=== PATIENT | male | born 1930 | race Caucasian/White ===

== ENCOUNTER 2016-10-03 06:12 | Inpatient (IN) | payer OTHER ==
[~2016-10-03] VITALS: Ht 167.6 cm; Wt 88.8 kg
--- NOTE | 2016-10-03 06:16 | NUR ---
TRIAGE: BIBA FROM HOME W/ FAMILY, +SOB, HX COPD AAND 4L NC BASELINE. ATIENT O2:88% 4LNC ON EMS ARRIVAL, O2:96% 4LNC S/P DUONEB X1. PREHOSP IV #20 LEFT FOREARM BY PEDIATRIC HOSPITALIST ROB. GIUSEPPE ROUSSEAU AT BEDSIDE.
[2016-10-03] MEDS ORDERED: ASPIRIN81 M4 PO (06:17)
[2016-10-03] MEDS ORDERED: IPRAT-ALBUT 0.5-3 ML NEB (06:18)
[2016-10-03] MEDS ORDERED: BUDESONIDE0.25 MG/1 INH/SOL (06:18)
[2016-10-03] MEDS ORDERED: COLCRYS0.6 M1 PO (06:19)
[2016-10-03] MEDS ORDERED: CITRACAL SOFT1 EACH PO (06:19)
[2016-10-03] MEDS ORDERED: FISH OIL 1,0001 EACH PO (06:20)
[2016-10-03] MEDS ORDERED: GLUCOSAMINE CO1 EAC1 PO (06:21)
[2016-10-03] MEDS ORDERED: CENTRUM SILVER1 EAC3 PO (06:23)
[2016-10-03] MEDS ORDERED: OXYBUTYNIN CHLO10 M1 PO (06:23)
[2016-10-03] MEDS ORDERED: TERAZOSIN HCL5 M1 PO (06:24)
[2016-10-03] MEDS ORDERED: PREDNISONE5 M1 PO (06:24)
[2016-10-03] MEDS ORDERED: POTASSIUM CHLO20 ME2 PO (06:25)
[2016-10-03] MEDS ORDERED: VITAMIN C500 M7 PO (06:25)
[2016-10-03] MEDS ORDERED: OMEPRAZOLE40 M1 PO (06:25)
[2016-10-03] MEDS ORDERED: FUROSEMIDE40 M1 PO (06:26)
[2016-10-03] MEDS ORDERED: IOPHEN C NR PO (06:27)
--- NOTE | 2016-10-03 06:28 | ED DYSPNEA/ASTHMA COMPLAINT ---
History of Present Illness General Chief Complaint: Dyspnea (COPD, CHF, Other) Stated Complaint: BIBA PT C/O DIFF BREATHING Source: patient, family, old records, EMS Exam Limitations: no limitations Vital Signs & Intake/Output Vital Signs & Intake/Output Vital Signs Date Time Temp Pulse Resp B/P B/P Pulse O2 O2 Flow FiO2 Mean Ox Delivery Rate 10/03 0629 94 Nasal 6.0L Cannula 10/03 0627 97.8 70 22 155/70 94 Nasal 6.0L Cannula Allergies Coded Allergies: NO KNOWN ALLERGIES (08/29/12) Reconcile Medications Ascorbic Acid (Vitamin C) 500 MG CAPSULE.ER 1 CAP PO 2XW VITAMIN SUPPLEMENT ( Reported) Aspirin (Aspirin*) 81 MG TAB.CHEW 1 TAB PO DAILY HEART HEALTH (Reported) Budesonide 0.25 MG/2 ML AMPUL.NEB 1 Vial INH/SOLITARIO TID PRN OB, COPD (Reported) Calcium Carb/Vitamin D3/Vit K1 (Citracal Soft Chew) 500 MG CALCIUM-1,000 UNIT-40 MCG TAB.CHEW 1 TAB PO DAILY VITAMIN SUPPLEMENT (Reported) Colchicine (Colcrys) 0.6 MG TABLET 1 TAB PO DAILY GOUT (Reported) [FISH OIL] 1,000 MG CAP 1 TAB PO DAILY VITAMIN SUPLEMENT (Reported) Furosemide 40 MG TABLET 0.5 TAB PO DAILY FLUID (Reported) Glucosamine/D3/Boswellia Chey (Glucosamine Complex Tablet) 1,500 MG-400 UNIT- 100 MG TABLET 2 TAB PO DAILY VITAMIN SUPPLEMENT (Reported) [IOPHEN- C NR] 1 TSP PO BEDTIME (Reported) Ipratropium/Albuterol Sulfate (Iprat-Albut 0.5-3(2.5) MG/3 Ml) 0.5 MG-3 MG (2.5 MG BASE)/3 ML AMPUL.NEB 3 ML NEB TID PRN SOB, COPD (Reported) Multivit-Min/FA/Lycopen/Lutein (Centrum Silver Tablet) 0.4 MG-300 MCG-250 MCG TABLET 1 TAB PO VITAMIN SUPPLEMENT (Reported) *TWICE PER WEEK Omeprazole 40 MG CAPSULE.DR 1 CAP PO DAILY GERD (Reported) Oxybutynin Chloride (Oxybutynin Chloride ER) 10 MG TAB.ER.24 1 TAB PO DAILY (Reported) Potassium Chloride 20 MEQ TAB.ER.PRT 0.5 TAB PO DAILY SUPPLEMENT (Reported) Prednisone 5 MG TABLET 1 TAB PO EOD SOB, COPD (Reported) Terazosin HCl 5 MG CAPSULE 1 CAP PO QPM (Reported) Triage Note: TRIAGE: BIBA FROM HOME W/ FAMILY, +SOB, HX COPD AAND 4L NC BASELINE. ATIENT O2:88% 4LNC ON EMS ARRIVAL, O2:96% 4LNC S/P DUONEB X1. PREHOSP IV #20 LEFT FOREARM BY [facility] ROB. GIUSEPPE ROUSSAEU AT BEDSIDE. Triage Nurses Notes Reviewed? yes HPI: Patient has O2 dependent COPD. Patient is usually on 2-3 L at home. The past week and a half he's been having increasing shortness of breath and wheezing. Patient saw Dr. Arzate last week who put him on antibiotics, steroids and told him to increase his oxygen to 4 L/m. Patient has been continuing to decline. Patient has a chronic productive cough. Positive shortness of breath and dyspnea on exertion. No orthopnea. Positive chest tightness but no chest heaviness. The chest tightness is constant for the past 2 days. There is no radiation. No aggravating or mitigating factors. He rates it as 3 out of 10. There are no fevers or chills. Positive anorexia but no nausea or vomiting. Past History Medical History Any Pertinent Medical History? see below for history Cardiovascular: hypertension, hyperlipidemia Respiratory: COPD History of MRSA: No History of VRE: No History of CDIFF: No Surgical History Surgical History: non-contributory Psychosocial History Who do you live with Family Services at Home None What is your primary language Tunisian Tobacco Use: Quit >30 days ago ETOH Use: denies use Illicit Drug Use: denies illicit drug use Family History Hx Contributory? No Review of Systems Review of Systems Constitutional: Reports: see HPI. EENTM: Reports: no symptoms. Respiratory: Reports: see HPI, cough, short of breath, wheezing. Cardiovascular: Reports: see HPI, chest pain. GI: Reports: see HPI. Genitourinary: Reports: no symptoms. Musculoskeletal: Reports: no symptoms. Skin: Reports: no symptoms. Neurological/Psychological: Reports: no symptoms. Hematologic/Endocrine: Reports: no symptoms. Immunologic/Allergic: Reports: no symptoms. All Other Systems: Reviewed and Negative Physical Exam Physical Exam General Appearance: well developed/nourished, alert, awake, anxious, moderate distress Head: atraumatic, normal appearance Eyes: Bilateral: PERRL, EOMI. Ears, Nose, Throat: normal pharynx, normal ENT inspection Neck: normal inspection, supple, full range of motion, JVD Respiratory: decreased breath sounds, wheezing, respiratory distress Cardiovascular: regular rate/rhythm, normal peripheral pulses Gastrointestinal: normal bowel sounds, soft, non-tender, no organomegaly Extremities: normal inspection, normal capillary refill, pedal edema Neurologic/Psych: no motor/sensory deficits, awake, alert, oriented x 3, normal mood/affect Skin: intact, normal color, warm/dry Lymphatic: no anterior cervical maryam Core Measures ACS in differential dx? No Severe Sepsis Present: No Septic Shock Present: No Progress Differential Diagnosis: asthma, AMI, bronchitis, CHF, COPD, pulmonary embolism, pneumonia, pneumothorax Plan of Care: Orders Procedure Date/time Status Regular Diet 10/03 L Active LACTIC ACID 10/03 926 Active OXYGEN SETUP (GEN) 10/03 713 Active Saline Lock 10/03 713 Active Misc Message 10/03 713 Active ED Holding Orders 10/03 713 Active Vital Signs 10/03 713 Active Activity/Ambulation 10/03 713 Active Code Status 10/03 713 Active Patient Data 10/03 0656 Active Admit to inpatient 10/03 0654 Active ARTERIAL BLOOD GAS (GEN) 10/03 626 Complete XRY-PORTABLE CHEST XRAY 10/03 626 Active Telemetry/Occupational Therapy Assist 10/03 626 Active BLOOD CULTURE 10/03 626 Active URINALYSIS 10/03 626 Active TROPONIN LEVEL 10/03 626 Active LACTIC ACID 10/03 626 Active COMPREHENSIVE METABOLIC PANEL 10/03 626 Active CBC WITHOUT DIFFERENTIAL 10/03 626 Complete B-TYPE NATRIURETIC PEP (BNP) 10/03 626 Active EKG 10/03 06 Active Laboratory Tests 10/03/16 0635: pH 7.42, pCO2 63 *H, pO2 65 L, HCO3 40 H, ABG O2 Sat (Measured) 92.0 L, P-50 (Temp Corrected) Y, Carboxyhemoglobin 0.2 L, O2 Concentration % 6 LPM, Temperature 97.8, O2 Delivery Method N/C, Phlebotomy Draw Site RIGHT RADIAL 10/03/16 0629: Anion Gap 8, Estimated GFR > 60, BUN/Creatinine Ratio 27.5 H, Glucose 186 H, Lactic Acid 1.7, Calcium 8.9, Total Bilirubin 0.7, AST 19, ALT 27, Alkaline Phosphatase 43, Troponin I Pending, [id number]-Vsqrcktaqek Pept Pending, Total Protein 6.5, Albumin 3.5, Globulin 3.0, Albumin/Globulin Ratio 1.2, CBC w Diff MAN DIFF ORDERED, RBC 3.01 L, MCV 107.0 H, MCH 35.0 H, RDW 16.7 H, MPV 8.9, Gran % 88.4 H, Lymphocytes % 9.6 L, Monocytes % 1.8, Eosinophils % 0.1, Basophils % 0.1, Absolute Granulocytes 6.1, Segmented Neutrophils 84 H, Band Neutrophils 7 H, Absolute Lymphocytes 0.7 L, Lymphocytes 9 L, Absolute Monocytes 0.1 L, Absolute Eosinophils 0, Absolute Basophils 0, Platelet Estimate ADEQUATE, Polychromasia 1+, Hypochromic-Microcytic 1+, Poikilocytosis 1 +, Anisocytosis 1+, Ovalocytes 1+, PUBS MCHC 32.7 L Microbiology 10/03 641 BLOOD: Blood Culture - RECD 10/03 629 BLOOD: Blood Culture - RECD Diagnostic Imaging: Viewed by Me: Radiology Read. Discussed w/RAD: Radiology Read. Initial ED EKG: SR WITH OLD ANTERIOR WALL MS, NSSTT CHANGES, NO CHANGE FROM PRIOR EKG Prior EKG: unchanged Rhythm Strip: normal sinus rhythm Comments: ABG shows respiratory acidosis with metabolic compensation. Patient has a history of Pseudomonas pneumonia. Patient will be given Ceftazidine. Departure Departure Disposition: STILL A PATIENT Condition: Guarded Clinical Impression Primary Impression: COPD exacerbation Referrals: YAYA ORTEGA,CJ Greene (PCP/Family) Departure Forms: Customer Survey General Discharge Information Admission Note Spoke With: CHALO LYNN MD Documentation of Exam: Documentation of any treatments & extenuating circumstances including Concerns Regarding Discharge (functional status, medication knowledge or non-compliance, living conditions, etc.) that warrant an admission rather than observation: [ Patient has failed outpatient antibiotics outpatient steroids. Patient to be admitted for IV steroids and IV antibiotics. Pulmonary consultation. TRC.] Critical Care Note Critical Care Note Critical Care Time: non-applicable
--- NOTE | 2016-10-03 06:33 | NUR ---
LABS SENT (1SST,1LAV,1BLUE,1GRAY) 1ST SET BC SENT TO LAB
[2016-10-03 06:38] LABS: ABSOLUTE BASOPHIL COUNT 0 /CUMM (0.0-0.2); ABSOLUTE EOSINOPHIL COUNT 0 /CUMM (0.0-0.7); ABSOLUTE GRANULOCYTE CT 6.1 /CUMM (1.4-6.5); ABSOLUTE LYMPH COUNT 0.7 /CUMM (1.2-3.4); ABSOLUTE MONOCYTE COUNT 0.1 /CUMM (0.10-0.60); BASOPHIL % 0.1 % (0.0-2.0); EOSINOPHIL % 0.1 % (0-5); HEMATOCRIT 32.2 % (42-52); MEAN CORPUSCULAR HGB CONC 32.7 G/DL (33.0-37.0); MEAN PLATELET VOLUME 8.9 FL (7.4-10.4); PLATELET COUNT 209 /CUMM (130-400); RBC DISTRIBUTION WIDTH 16.7 % (11.5-14.5); RED BLOOD CELL CT 3.01 /CUMM (4.70-6.10); WHITE BLOOD CELL COUNT 6.9 /CUMM (4.8-10.8)
[2016-10-03 06:40] LABS: GRANULOCYTE % 88.4 % (42.2-75.2)
--- NOTE | 2016-10-03 06:52 | NUR ---
PT MEDICATED WITH SOLUMEDROL AND FORTAZ PER [facility]AR PORTABLE CHEST XRAY BEING DONE AT BEDSIDE
--- NOTE | 2016-10-03 07:39 | RADIOLOGY REPORT ---
EXAMINATION: XR PORTABLE CHEST CLINICAL INFORMATION: Shortness of breath, pneumonia COMPARISON: 08/20/2015 and multiple additional prior studies. TECHNIQUE: Portable AP view of the chest was obtained. FINDINGS: Significant interval increase in bilateral pleural effusions, moderate on the left and small on the right. There is consolidation of the lung bases, also increased since the prior study. No evidence of pneumothorax bilaterally. The cardiomediastinal silhouette is poorly evaluated due to the volume of left pleural effusion. Atherosclerosis aortic knob. Degenerative changes of the shoulders. No acute osseous abnormality. IMPRESSION: Increased moderate left and small right pleural effusions with associated bibasilar consolidations, which are likely on the basis of compressive atelectasis with possible superimposed infectious process, as suggested in the clinical information provided.
--- NOTE | 2016-10-03 07:53 | History & Physical ---
BALBIR CAST 10/03/16 0752: General Information and HPI MD Statement: I have seen and personally examined ELENA QUICK and documented this H&P. The patient is a 85 year old M who presented with a patient stated chief complaint of [increasing short of breath]. Source of Information: patient, family, old records Exam Limitations: no limitations History of Present Illness: 85-year-old gentleman was brought in with a complaint of increasing shortness of breath. 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 Patient lives with his family/ uses walker for ambulation/ spent most of the day in a recliner. For the past 7 days patient had worsening short of breath accompanied with cough and increase in phlegm production and change in color from white to green yellow. Overdistention of 7 days, patient's nebulizer and oxygen demand increased (from 2.5 L to 4 L) however patient remained hypoxic (O2 sat about 80%). On Sunday patient visited Dr. Arzate in his office and was restarted on by mouth prednisone 40 mg for 5 days and ?? Moxifloxacin for 7 days which minimally improves his symptoms. This morning patien was winded and decided to come to ED. he denies any fever, shaking chills, joint pain, GI/ symptoms, chest pain, palpitation, no worsening edema, no recent weight gain. No recent travel/ family members URI symptoms for the past few days. Former heavy smoker 2PPD X40 years, quit 20 years ago, history of COPD and lung cancer in first-degree relatives. Allergies/Medications Allergies: Coded Allergies: NO KNOWN ALLERGIES (08/29/12) Home Med list Ascorbic Acid (Vitamin C) 500 MG CAPSULE.ER 1 CAP PO 2XW VITAMIN SUPPLEMENT ( Reported) Aspirin (Aspirin*) 81 MG TAB.CHEW 1 TAB PO DAILY HEART HEALTH (Reported) Budesonide 0.25 MG/2 ML AMPUL.NEB 1 Vial INH/SOLITARIO TID PRN OB, COPD (Reported) Calcium Carb/Vitamin D3/Vit K1 (Citracal Soft Chew) 500 MG CALCIUM-1,000 UNIT-40 MCG TAB.CHEW 1 TAB PO DAILY VITAMIN SUPPLEMENT (Reported) Colchicine (Colcrys) 0.6 MG TABLET 1 TAB PO DAILY GOUT (Reported) [FISH OIL] 1,000 MG CAP 1 TAB PO DAILY VITAMIN SUPLEMENT (Reported) Furosemide 40 MG TABLET 0.5 TAB PO DAILY FLUID (Reported) Glucosamine/D3/Boswellia Chey (Glucosamine Complex Tablet) 1,500 MG-400 UNIT- 100 MG TABLET 2 TAB PO DAILY VITAMIN SUPPLEMENT (Reported) [IOPHEN- C NR] 1 TSP PO BEDTIME (Reported) Multivit-Min/FA/Lycopen/Lutein (Centrum Silver Tablet) 0.4 MG-300 MCG-250 MCG TABLET 1 TAB PO VITAMIN SUPPLEMENT (Reported) *TWICE PER WEEK Omeprazole 40 MG CAPSULE.DR 1 CAP PO DAILY GERD (Reported) Oxybutynin Chloride (Oxybutynin Chloride ER) 10 MG TAB.ER.24 1 TAB PO DAILY (Reported) Potassium Chloride 20 MEQ TAB.ER.PRT 0.5 TAB PO DAILY SUPPLEMENT (Reported) Prednisone 5 MG TABLET 1 TAB PO EOD SOB, COPD (Reported) Terazosin HCl 5 MG CAPSULE 1 CAP PO QPM (Reported) Compliance With Home Meds: GOOD Past History Travel History Traveled to [place] past 21 day No Medical History Cardiovascular: hypertension, hyperlipidemia Respiratory: COPD Gastrointestinal: GERD Renal: benign prost hyperplasia Musculoskeletal: gout, osteoarthritis History of MRSA: No History of VRE: No History of CDIFF: No Surgical History Surgical History: non-contributory Past Family/Social History Family History Relations & Conditions if any BROTHER (lung CA). FATHER (bronchitis). MOTHER (breast CA). Psychosocial History Where do you live? Home Who Do You Live With? child Services at Home: None Primary Language: Ukrainian ETOH Use: denies use Illicit Drug Use: denies illicit drug use Functional Ability ADLs Independent: dressing, eating, toileting, bathing. Ambulation: non-ambulatory, rarely ambulated and uses walker IADLs Independent: telephone. Needs Assist: shopping, housework, finances, food prep, transportation, medication admin. Review of Systems Review of Systems Constitutional: Reports: see HPI. Cardiovascular: Reports: see HPI. Denies: chest pain, edema, orthopena, palpitations, peripheral edema, syncope. Respiratory: Reports: see HPI, cough, short of breath, sputum production. Denies: hemoptysis , orthopnea, stridor, wheezing. GI: Reports: no symptoms. Genitourinary: Reports: no symptoms. Musculoskeletal: Reports: no symptoms. Neurological/Psychological: Reports: no symptoms. All Other Systems: Reviewed and Negative Exam & Diagnostic Data Last 24 Hrs of Vital Signs/I&O Vital Signs Date Time Temp Pulse Resp B/P B/P Pulse O2 O2 Flow FiO2 Mean Ox Delivery Rate 10/03 0629 94 Nasal 6.0L Cannula 10/03 0627 97.8 70 22 155/70 94 Nasal 6.0L Cannula Intake & Output 10/03 0800 10/03 0000 10/02 1600 Intake Total Output Total Balance Patient 190 lb Weight Physical Exam General Appearance Alert, Oriented X3, Cooperative, Mild Distress Skin No Rashes Skin Temp/Moisture Exam: Warm/Dry Sepsis Skin Exam (color): Normal for Ethnicity HEENT MM are dry Neck Supple, No JVD Lymphatic Axillary nl, Cervical nl Cardiovascular Normal S1, Normal S2, No Murmurs Lungs diminished air movement , end expiratory wheezing , no crackle Abdomen Soft Neurological Normal Speech Extremities No Clubbing, No Cyanosis Vascular Normal Pulses Last 24 Hrs of Labs/Nikolas: Laboratory Tests 10/03/16 0635: pH 7.42, pCO2 63 *H, pO2 65 L, HCO3 40 H, ABG O2 Sat (Measured) 92.0 L, P-50 (Temp Corrected) Y, Carboxyhemoglobin 0.2 L, O2 Concentration % 6 LPM, Temperature 97.8, O2 Delivery Method N/C, Phlebotomy Draw Site RIGHT RADIAL 10/03/16 0629: Anion Gap 8, Estimated GFR > 60, BUN/Creatinine Ratio 27.5 H, Glucose 186 H, Lactic Acid 1.7, Calcium 8.9, Total Bilirubin 0.7, AST 19, ALT 27, Alkaline Phosphatase 43, Troponin I 0.06, Deq-M-Dhnytrsxmuj Pept 732 H, Total Protein 6.5, Albumin 3.5, Globulin 3.0, Albumin/Globulin Ratio 1.2, CBC w Diff MAN DIFF ORDERED, RBC 3.01 L, MCV 107.0 H, MCH 35.0 H, RDW 16.7 H, MPV 8.9, Gran % 88.4 H, Lymphocytes % 9.6 L, Monocytes % 1.8, Eosinophils % 0.1, Basophils % 0.1, Absolute Granulocytes 6.1, Segmented Neutrophils 84 H, Band Neutrophils 7 H, Absolute Lymphocytes 0.7 L, Lymphocytes 9 L, Absolute Monocytes 0.1 L, Absolute Eosinophils 0, Absolute Basophils 0, Platelet Estimate ADEQUATE, Polychromasia 1+, Hypochromic-Microcytic 1+, Poikilocytosis 1+, Anisocytosis 1+, Ovalocytes 1+, PUBS MCHC 32.7 L Microbiology 10/03 641 BLOOD: Blood Culture - RECD 10/03 629 BLOOD: Blood Culture - RECD Assessment/Plan Assessment: 85-year-old gentleman was admitted for acute hypoxic hypercapnic respiratory failure. Patient data: ABG: PCO2 63, PO2 65, pH 7.42 WBC 6.9 with left shift and bands of 7, hemoglobin 10.5, hematocrit 32 MCV 107 Sodium 138, potassium 4.7, ongoing H, BUN 22, creatinine 0.8, BUN/creatinine ratio 27 ProBNP 732 Chest x-ray: Increased moderate left and small right pleural effusions with associated bibasilar consolidations, which are likely on the basis of compressive atelectasis with possible superimposed infectious process. Pneumonia severity index: 95 class 4; 10% mortality CURB-65: score 2>> 13% mortality List of problems #1 worsening short of breath: DDX: Most possibly related to COPD exacerbation secondary to pneumonia ( bandemia, left shift and consolidation + respiratory symptoms) Vs increasing plueral effusion with prior Hx of mass (??? cancer) or exacerbation of pre-existing right sided heart failure. Patient also has evidence of increased in amount of left and small right pleural effusion with elevated proBNP without history of heart failure. Physical exam patient does not have findings of AD HF, but this diagnosis, particularly right-sided heart failure is a considerable diagnosis considering case end stage COPD.Elevated proBNP without history of heart failure in the setting of advanced COPD and chronic leg edema which is suggestive of right heart failure. Chest imaging showed increasing bilateral pleural effusions. * Admit to general medical floor * IV ceftriaxone 1000 mg daily * IV ceftriaxone 500 mg daily * IV prednisone 40 mg Q8 * Albuterol nebulizer 2.5 mg every 4 as needed * Ipratropium bromide 2.5 mL every 4 as needed * O2 supplements targets O2 saturation above 90-93% * Sputum culture * Flu swab * Urine streptococcal and Legionella antigen * Insulin sliding scale for hyperglycemia * Pulmonology consult with Dr. Huey * Continue Lasix 20 mg po * Obtain CT scan of the chest * ins and outs * Daily weights * Obtain echo as needed * rule out ACS >> Repeat troponin and EKG at noon As Ranked By This Provider Problem List: 1. Bacterial pneumonia 2. COPD exacerbation 3. Pleural effusion Core Measures/Miscellaneous Acute Coronary Syndrome ACS Diagnosis: No Cerebrovascular Accident CVA/TIA Diagnosis: No Congestive Heart Failure CHF Diagnosis: No Venous Thromboembolism VTE Risk Factors: Acute medical illness, Age > 40, CHF or Resp failure, Immobility, paresis No [facility] VTE prophylaxis d/t: No contraindications No VTE Pharm Prophylaxis d/t: No contraindications VTE Diagnosis: No VTE Type: NONE VTE Confirmed by (Test): NONE Severe Sepsis Severe Sepsis Present: No Septic Shock Septic Shock Present: No Miscellaneous Documentation Attending Case Discussed With: CHALO LYNN MD Primary Care Physician: CJ JAVIER MD Patient sees these Specialists ED physician Level of Patient Care: General Medicine Resident Review Statement Resident Statement: examined this patient, discussed with biology intern, agreed with biology intern, discussed with family, reviewed EMR data (avail), discussed with nursing , discussed with case mgmt, reviewed images, amended to note CHALO LYNN MD 10/03/16 0943: Attending MD Review Statement Attending Statement Attending MD Statement: examined this patient, discuss w/resident/PA/SOFTWARE LICENSING SPECIALIST, agreed w/resident/PA/SOFTWARE LICENSING SPECIALIST, discussed with family, reviewed EMR data (avail), discussed with nursing Attending Assessment/Plan: Patient on evaluation is awake and alert. On oxygen and not in respiratory distress. General Appearance: Alert, No Acute Distress Skin: Grossly normal HEENT: PEERLA Neck: Supple, No JVD Cardiovascular: Regular Rate, Normal S1, Normal S2, No Murmurs Lungs: Minimal wheeze, decreased air entry Abdomen: Normal Bowel Sounds, Soft, No Tenderness Neurological: Normal Speech, Strength at 5/5 X4 Ext, Cranial Nerves 3-12 NL, Reflexes 2+ Extremities: 1+ pedal edema left more than right Assessment 85-year-old with history of COPD oxygen dependent, a large left-sided paramediastinal mass, rheumatoid arthritis, presenting with shortness of breath and productive sputum. He followed up with Toni Arzate MD recently and was started on moxifloxacin and prednisone taper. However patient continued to deteriorate from respiratory viewpoint requiring high flow oxygen and hence presented to the ER. X-ray shows right moderate and minimal left pleural effusion. Possible atelectasis versus pneumonia. ABG suggest hypoxic and hypercarbic respiratory failure. Likely patient has pneumonia with COPD exacerbation. He does not appear to be in overt heart failure however low-dose diuresis may be of benefit with his chronic edema. Plan Ceftriaxone and azithromycin Solu-Medrol Send sputum culture Pulmonary and cardiology consult Lasix 20 mg IV once daily Insulin sliding scale with accucheks Continue other home medications DVT prophylaxis Current Medications Sig/Kyra Start time Last Medication Dose Route Stop Time Status Admin Acetaminophen 650 MG Q6P PRN 10/03 0900 AC PO Acetaminophen 1,000 MG Q6P PRN 10/03 0900 AC IV Ascorbic Acid 500 MG DAILY 10/03 1000 AC PO Aspirin 81 MG DAILY 10/03 1000 AC PO Azithromycin 500 MG DAILY 10/03 1000 AC Sodium Chloride 250 ML IV Budesonide/ 2 PUF BID 10/03 1000 AC Formoterol Fumarate INH Calcium/Vitamin D 1 TAB DAILY 10/03 1000 AC PO Ceftazidime 0 .STK-MED ONE 10/04 647 DC .ROUTE Ceftazidime 1,000 MG ONCE ONE 10/03 0645 DC 10/03 IV 10/03 0646 0652 Ceftriaxone Sodium 1,000 MG DAILY 10/03 1000 AC IV Doxazosin Mesylate 2 MG DAILY 10/03 1000 AC PO Fish Oil 1,050 MG DAILY 10/03 1000 AC PO Furosemide 20 MG DAILY 10/03 1000 AC PO Ipratropium [place] 2.5 ML ONCE ONE 10/03 0830 DC 10/03 INH 10/03 0831 0900 Methylprednisolone 40 MG Q8 10/03 1400 AC IV Methylprednisolone 0 .STK-MED ONE 10/03 0548 DC .ROUTE Methylprednisolone 125 MG ONCE ONE 10/03 0645 DC 10/03 IV 10/03 0646 0652 Multivitamins 1 TAB DAILY 10/03 1000 AC PO Omeprazole 0 .STK-MED ONE 10/03 0918 DC PO Omeprazole 40 MG DAILY AC 10/03 0833 AC PO Oxybutynin Chloride 10 MG DAILY 10/03 1000 UNVr PO Potassium Chloride 10 MEQ DAILY 10/03 1000 AC PO Laboratory Tests 10/03 10/03 0635 0629 Blood Gas pH (7.35 - 7.45 PH) 7.42 pCO2 (35 - 45 TORR) 63 *H pO2 (80 - 100 TORR) 65 L HCO3 (21 - 28 MEQ/L) 40 H ABG O2 Sat (Measured) (>96.0 %) 92.0 L P-50 (Temp Corrected) Y Carboxyhemoglobin (1.5 - 5.0 %) 0.2 L O2 Concentration % 6 LPM Temperature (97.0 - 100.0 FARH) 97.8 O2 Delivery Method N/C Chemistry Sodium (137 - 145 mmol/L) 138 Potassium (3.5 - 5.1 mmol/L) 4.7 Chloride (98 - 107 mmol/L) 87 L Carbon Dioxide (22 - 30 mmol/L) 43 H Anion Gap (5 - 16) 8 BUN (9 - 20 mg/dL) 22 H Creatinine (0.7 - 1.2 mg/dL) 0.8 Estimated GFR (>60 ml/min) > 60 BUN/Creatinine Ratio (7 - 25 %) 27.5 H Glucose (65 - 99 mg/dL) 186 H Lactic Acid (0.7 - 2.1 mmol/L) 1.7 Calcium (8.4 - 10.2 mg/dL) 8.9 Total Bilirubin (0.2 - 1.3 mg/dL) 0.7 AST (17 - 59 U/L) 19 ALT (21 - 72 U/L) 27 Alkaline Phosphatase (< 127 U/L) 43 Troponin I (<0.11 ng/ml) 0.06 Vio-C-Pddumbkcwli Pept (<125 pg/mL) 732 H Total Protein (6.3 - 8.2 g/dL) 6.5 Albumin (3.5 - 5.0 g/dL) 3.5 Globulin (1.9 - 4.2 gm/dL) 3.0 Albumin/Globulin Ratio (1.1 - 2.2 %) 1.2 Hematology CBC w Diff MAN DIFF ORDERED WBC (4.8 - 10.8 /CUMM) 6.9 RBC (4.70 - 6.10 /CUMM) 3.01 L Hgb (14.0 - 18.0 G/DL) 10.5 L Hct (42 - 52 %) 32.2 L MCV (80.0 - 94.0 FL) 107.0 H MCH (27.0 - 31.0 PG) 35.0 H RDW (11.5 - 14.5 %) 16.7 H Plt Count (130 - 400 /CUMM) 209 MPV (7.4 - 10.4 FL) 8.9 Gran % (42.2 - 75.2 %) 88.4 H Lymphocytes % (20.5 - 51.1 %) 9.6 L Monocytes % (1.7 - 9.3 %) 1.8 Eosinophils % (0 - 5 %) 0.1 Basophils % (0.0 - 2.0 %) 0.1 Absolute Granulocytes (1.4 - 6.5 /CUMM) 6.1 Segmented Neutrophils (42.2 - 75.2 %) 84 H Band Neutrophils (0.0 - 5.0 %) 7 H Absolute Lymphocytes (1.2 - 3.4 /CUMM) 0.7 L Lymphocytes (20.5 - 51.1 %) 9 L Absolute Monocytes (0.10 - 0.60 /CUMM) 0.1 L Absolute Eosinophils (0.0 - 0.7 /CUMM) 0 Absolute Basophils (0.0 - 0.2 /CUMM) 0 Platelet Estimate (ADEQUATE) ADEQUATE Polychromasia 1+ Hypochromic-Microcytic 1+ Poikilocytosis 1+ Anisocytosis 1+ Ovalocytes 1+ PUBS MCHC (33.0 - 37.0 G/DL) 32.7 L Miscellaneous Phlebotomy Draw Site RIGHT RADIAL Vital Signs Date Time Temp Pulse Resp B/P B/P Pulse O2 O2 Flow FiO2 Mean Ox Delivery Rate 10/03 0915 96 Nasal 5.0L Cannula 10/03 628 94 Nasal 6.0L Cannula 10/03 626 97.8 70 22 155/70 94 Nasal 6.0L Cannula
--- NOTE | 2016-10-03 08:06 | NUR ---
ASSUMED CARE OF PT AT THIS TIME WHO IS AWAKE, ALERT AND CONVERSING WITH FAMILY. SAT 96% ON 6L. VERY CONGESTED NON PRODUCTIVE COUGH NOTED. PT ASKING FOR AND PROVIDED WITH WATER. ALSO ASKING FOR BREAKFAST - ORDERED AT THIS TIME; OK WITH MD, DIET ORDER IN. AWAITING ADMISSION/BED ASSIGNMENT TODAY
--- NOTE | 2016-10-03 09:22 | NUR ---
BREATHING TX COMPLETED BY [facility]. FLU SWAB SENT. PT GIVEN STERILE CUP FOR SPUTUM SAMPLE. PT MADE AWARE OF NEED FOR URINE SAMPLE. REMAINS WITHOUT COMPLAINTS AT THIS TIME. PT EATING BREAKFAST; HOUSE STAFF (DR LYNN) AT THE BEDSIDE. PT REFUSED PRILOSEC STATING IT WAS A PRN MED AND HE HASN'T NEEDED IT IN MONTHS. DR LYNN AWARE OF SAME.
--- NOTE | 2016-10-03 09:34 | Admission Certification ---
Admission Certification Certification Statement - As attending physician, I certify that at the time of - admission, based on clinical presentation, severity of - symptoms, need for further diagnostic testing and - therapeutic interventions, and risk of adverse outcomes - without in-hospital treatment, in my clinical assessment, - this patient requires an acute hospital stay for a minimum - of two nights or longer. I have also considered psychsocial - factors such as support system, advanced age, financial - issues, cognitive issues, and failed out-patient treatments, - past re-admission history, safety of patient, and lack of - compliance as applicable. Specific rationale supporting this admission is: Pneumonia
--- NOTE | 2016-10-03 10:02 | NUR ---
TO/FROM CT SCAN. PT ATE 100% BREAKFAST TRAY. REMAINS WITHOUT COMPLAINTS. SAT 94% ON 5L. ALPS PLACED PER ORDER. SPUTUM SAMPLE SENT. PT AWARE TO GIVE URINE SAMPLE WHEN ABLE.
--- NOTE | 2016-10-03 10:19 | NUR ---
pt admitted to room 233
--- NOTE | 2016-10-03 10:30 | NUR ---
PT MEDICATED WITH DAILY 1000 MEDS. DAUGHTER REFUSING CARDURA, K-DUR, LASIX AND FISH OIL AT THIS TIME STATING PT TAKES THEM AT NIGHT, LAST TOOK LAST NIGHT AND WOULD LIKE TO WAIT UNTIL THIS EVENING FOR THOSE. HOUSE STAFF PAGED TO INFORM OF SAME. PT TOOK REST OF MEDICATIONS WITHOUT HESITATING. MEDS INCLUDED ROCEPHIN. CONTINUES TO OFFER NO COMPLAINTS. SAT 93-95% ON 5L. ECHO AT BEDSIDE
--- NOTE | 2016-10-03 11:41 | NUR ---
TROP AND LACTIC SENT AT THIS TIME.
--- NOTE | 2016-10-03 11:48 | NUR ---
REPORT GIVEN TO 2N TRANSPORT BOOKED.
--- NOTE | 2016-10-03 12:11 | NUR ---
PT CONVERSING WITHOUT DIFFICULTY. SAT 94-95% ON 5L. PT CONTINUES TO OFFER NO COMPLAINTS. ZITHROMAX CONTINUES TO INFUSE. TRANSPORTED WITH FAMILY PRESENT.
--- NOTE | 2016-10-03 12:15 | NUR ---
PT ADMITTED FROM ER WITH DX: COPD EXACERBATION, PT ALERT, FORGETFUL, DENIES PAIN, O2 IN PLACE AT 5 LITERS VIS N/C, BUTTOCKS RED. BED ALARM PLACED FOR SAFETY. PT ORIENTED TO ROOM, CALL LIGHT AND PLAN OF CARE, PT VERBALIZES UNDERSTANDING.
[2016-10-03 12:31] VITALS: BP 118/60
--- NOTE | 2016-10-03 14:00 | CT SCAN REPORT ---
EXAMINATION: CT CHEST WITHOUT CONTRAST CLINICAL INFORMATION: Shortness of breath. Presumptive diagnosis of pleural effusion. COMPARISON: Chest x-ray dated 10/03/2016. CT scan of the chest dated 08/29/2012. TECHNIQUE: Multidetector volumetric CT imaging of the chest was done. Axial MIP volume rendering provided. Sagittal and coronal reformatted images were obtained. DLP: 531.56 mGy-cm FINDINGS: LUNGS: The findings on chest x-ray corresponds to volume loss and consolidation in the lower lobes bilaterally with prominent air bronchograms seen in the right lung base. These findings are unchanged dating back to 08/29/2012. There appears to be chronic extrinsic mass effect upon the lower lobe bronchi bilaterally due to enlarged pulmonary arteries. There is also mass effect upon the right middle lobe bronchus with volume loss in the right middle lobe. Upper lobe airways remain patent. There is a small amount of the right mainstem bronchus. Central airways otherwise unremarkable. There is moderate centrilobular emphysema seen and mild paraseptal emphysema. Several scattered calcified granulomas are seen in the lungs. In addition, several small scattered solid noncalcified nodules are seen, measuring up to 0 point for centimeters in size. In the right upper lobe anteriorly (series 4, image 184), a 0.6 x 0.3 cm nodular density is seen, new when compared to the prior exam from 2012. Small oubu-li-wiz-type nodular opacities is seen anteriorly and inferiorly within the right upper lobe (series 4, image 320), new from prior exam. No effusion or pneumothorax. LYMPHOVASCULAR STRUCTURES: Aortic and heart size normal. Trace pericardial effusion is seen, similar to the previous exam from 2012. There is severe three-vessel coronary artery atherosclerosis and moderate aortic and great vessel atherosclerosis. No mediastinal, hilar or axillary adenopathy or free fluid collection. Small calcified left hilar and mediastinal lymph nodes are seen. THYROID GLAND: Unremarkable to the extent included. UPPER ABDOMEN: There are 2 low-attenuation masses seen in the left lobe of the liver, the largest one measuring approximately 2 x 1.7 cm versus 1.9 x 2.0 cm (08/29/2012), consistent with a benign cyst. Included portions of the solid organs in the upper abdomen within normal limits. CHEST WALL: Again seen is asymmetric density in the subareolar left breast with a somewhat triangular shape. This is unchanged dating back to 08/29/2012 and is most consistent with asymmetric gynecomastia. Lesser degree of subareolar density is seen in the right breast. BONES: Multilevel moderate vertebral spondylosis seen in the thoracic spine. No suspicious bone findings seen. IMPRESSION: 1. Chronic mass effect upon the right middle lobe and both lower lobe bronchi is seen by an enlarged central pulmonary arteries leading to chronic volume loss and consolidation in these lobes. Compared to 2013, findings are very similar. Upper lobes remain relatively clear. Findings raise the suspicion of pulmonary arterial hypertension in the setting of obstructive lung disease. Clinical correlation requested. 2. Evidence of prior granulomatous disease with scattered calcified granulomas in the lungs and calcified nodes seen in the mediastinum and left hilum. 3. A few additional small nodular densities are seen, which are indeterminate in etiology, as not all of these are seen on the 2013 exam. Findings may represent an intercurrent inflammatory or infectious process (example the [id number]-type nodular opacities in the anterior inferior right upper lobe). Follow-up CT scan in 3 months is recommended to reassess the 0.6 x 0.3 cm nodule in the right upper lobe. 4. Enlarged central pulmonary arteries, consistent with pulmonary arterial hypertension. 4. Several other incidental findings as discussed above.
[2016-10-03 14:57] VITALS: BP 120/64
--- NOTE | 2016-10-03 16:46 | ECHOCARDIOGRAM REPORT ---
ELENA QUICK Age: 85 : 1930 Gender: M Exam Date: 10/03/2016 10:30 Exam Location: ER Ht (in): 66 Wt (lb): 190 BSA: 2.03 BP: 133 / 64 Ordering Physician: BALBIR CAST MD Referring Physician: BALBIR ACST MD Technologist: Zacarias Reagan ANDRA Room Number: 7 Indications: Shortness of breath Rhythm: Sinus Technical Quality: Fair FINDINGS Left Ventricle Normal size left ventricle. Left ventricular wall thickness mildly increased. Normal left ventricular ejection fraction estimated at 60-65%. Abnormal relaxation filling pattern of the left ventricle for age (stage 1 diastolic dysfunction). Right Ventricle Normal right ventricular size and function. Right Atrium Normal right atrial size. Left Atrium Normal left atrial size. Mitral Valve Mitral annular calcification. Trace to mild mitral regurgitation. Aortic Valve Diffuse thickening (sclerosis) of the aortic valve cusps without reduced excursion. Tricuspid Valve Tricuspid valve is normal in structure and function. Mild tricuspid regurgitation. Right ventricular systolic pressure estimated to be elevated at 64 mmHg. Pulmonic Valve Pulmonic valve not well visualized, grossly normal. Pericardium No pericardial effusion. Great Vessels Normal size aortic root. CONCLUSIONS Normal left and right ventricular systolic function. Mild LVH. Probably moderate Pulmonary hypertension. John Gonzalez M.D. (Electronically Signed) Final Date: 03 Oct 2016 16:45 MEASUREMENTS (Male / Female) Normal Values 2D ECHO LV Diastolic Diameter PLAX 5.5 cm 4.2 - 5.9 / 3.9 - 5.3 cm LV Systolic Diameter PLAX 4.6 cm 2.1 - 4.0 cm LV Fractional Shortening PLAX 16.4 % 25 - 46 % LV Ejection Fraction 2D Teich 34.0 % IVS Diastolic Thickness 1.5 cm LVPW Diastolic Thickness 1.3 cm LV Relative Wall Thickness 0.5 RV Internal Dim ED PLAX 4.4 cm 1.9 - 3.8 cm LVOT Diameter 2.1 cm Aortic Root Diameter 3.5 cm LA Systolic Diameter LX 3.3 cm 3.0 - 4.0 / 2.7 - 3.8 cm LA Volume 57.0 cm 18 - 58 / 22 - 52 cm Ascending Aorta Diameter 3.4 cm DOPPLER AV Peak Velocity 167.0 cm/s AV Peak Gradient 11.2 mmHg AV Mean Velocity 116.0 cm/s AV Mean Gradient 6.0 mmHg AV Velocity Time Integral 45.3 cm LVOT Peak Velocity 74.4 cm/s LVOT Peak Gradient 2.2 mmHg LVOT Mean Velocity 45.0 cm/s LVOT Mean Gradient 1.0 mmHg LVOT Velocity Time Integral 18.1 cm LVOT Stroke Volume 62.7 cm AV Area Cont Eq vti 1.4 cm AV Area Cont Eq pk 1.5 cm MV Peak Velocity 123.0 cm/s MV Peak Gradient 6.1 mmHg MV Mean Velocity 66.5 cm/s MV Mean Gradient 2.0 mmHg Mitral E Point Velocity 87.9 cm/s Mitral A Point Velocity 120.0 cm/s Mitral E to A Ratio 0.7 MV PHT Velocity 100.0 cm/s MV Deceleration [place] 336.0 cm/s MV Pressure Half Time 89.3 ms MV Area PHT 2.5 cm MV Deceleration Time 324.0 ms TR Peak Velocity 368.0 cm/s TR Peak Gradient 54.2 mmHg Right Atrial Pressure 10.0 mmHg Pulmonary Artery Systolic Pressu 64.2 mmHg Right Ventricular Systolic Press 64.2 mmHg PV Peak Velocity 114.0 cm/s PV Peak Gradient 5.2 mmHg PV Mean Velocity 85.0 cm/s PV Mean Gradient 3.0 mmHg PV Velocity Time Integral 25.3 cm LV E' Lateral Velocity 7.8 cm/s Mitral E to LV E' Lateral Ratio 11.3 LV E' Septal Velocity 4.7 cm/s Mitral E to LV E' Septal Ratio 18.8
--- NOTE | 2016-10-03 17:39 | Cons- Pulmonary ---
General Information and HPI Consulting Request Date of Consult: 10/03/16 Requested By: med team History of Present Illness: 85-year-old gentleman was brought in with a complaint of increasing shortness of breath. 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 Patient lives with his family/ uses walker for ambulation/ spent most of the day in a recliner. For the past 7 days patient had worsening short of breath accompanied with cough and increase in phlegm production and change in color from white to green yellow. patient's nebulizer and oxygen demand increased (from 2.5 L to 4 L) however patient remained hypoxic (O2 sat about 80%). On Sunday phe was seen in and was noted to be in acopde and was restarted on by mouth prednisone 40 mg for 5 days and po Moxifloxacin for 7 days which minimally improved his symptoms. This morning patien was winded and decided to come to ED. he denies any fever, shaking chills, joint pain, GI/ symptoms, chest pain, palpitation, no worsening edema, no recent weight gain. No recent travel/ family members URI symptoms for the past few days. Former heavy smoker 2PPD X40 years, quit 20 years ago, history of COPD and lung cancer in first-degree relatives. Review of Systems Review of Systems Constitutional: Reports: see HPI. Cardiovascular: Reports: see HPI. Denies: chest pain, edema, orthopena, palpitations, peripheral edema, syncope. Respiratory: Reports: see HPI, cough, short of breath, sputum production. Denies: hemoptysis , orthopnea, stridor, wheezing. GI: Reports: no symptoms. Genitourinary: Reports: no symptoms. Musculoskeletal: Reports: no symptoms. Neurological/Psychological: Reports: no symptoms. All Other Systems: Reviewed and Negative Allergies/Medications Allergies: Coded Allergies: NO KNOWN ALLERGIES (08/29/12) Home Med List: Ascorbic Acid (Vitamin C) 500 MG CAPSULE.ER 1 CAP PO 2XW VITAMIN SUPPLEMENT ( Reported) Aspirin (Aspirin*) 81 MG TAB.CHEW 1 TAB PO DAILY HEART HEALTH (Reported) Budesonide 0.25 MG/2 ML AMPUL.NEB 1 Vial INH/SOLITARIO TID PRN OB, COPD (Reported) Calcium Carb/Vitamin D3/Vit K1 (Citracal Soft Chew) 500 MG CALCIUM-1,000 UNIT-40 MCG TAB.CHEW 1 TAB PO DAILY VITAMIN SUPPLEMENT (Reported) Colchicine (Colcrys) 0.6 MG TABLET 1 TAB PO DAILY GOUT (Reported) [FISH OIL] 1,000 MG CAP 1 TAB PO DAILY VITAMIN SUPLEMENT (Reported) Furosemide 40 MG TABLET 0.5 TAB PO DAILY FLUID (Reported) Glucosamine/D3/Boswellia Chey (Glucosamine Complex Tablet) 1,500 MG-400 UNIT- 100 MG TABLET 2 TAB PO DAILY VITAMIN SUPPLEMENT (Reported) [IOPHEN- C NR] 1 TSP PO BEDTIME (Reported) Multivit-Min/FA/Lycopen/Lutein (Centrum Silver Tablet) 0.4 MG-300 MCG-250 MCG TABLET 1 TAB PO VITAMIN SUPPLEMENT (Reported) *TWICE PER WEEK Omeprazole 40 MG CAPSULE.DR 1 CAP PO DAILY GERD (Reported) Oxybutynin Chloride (Oxybutynin Chloride ER) 10 MG TAB.ER.24 1 TAB PO DAILY (Reported) Potassium Chloride 20 MEQ TAB.ER.PRT 0.5 TAB PO DAILY SUPPLEMENT (Reported) Prednisone 5 MG TABLET 1 TAB PO EOD SOB, COPD (Reported) Terazosin HCl 5 MG CAPSULE 1 CAP PO QPM (Reported) Past History Travel History Traveled to [place] past 21 day No Medical History Blood Transfusion Hx: No Neurological: NONE EENT: NONE Cardiovascular: hyperlipidemia Respiratory: COPD Gastrointestinal: GERD Hepatic: NONE Renal: benign prost hyperplasia Musculoskeletal: gout, osteoarthritis Psychiatric: NONE Endocrine: NONE Blood Disorders: NONE Cancer(s): 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 FATHER (bronchitis). MOTHER (breast CA). Psychosocial History Where Do You Live? Home Who Do You Live With? child Services at Home: None Primary Language: Divehi Smoking Status: Former Smoker ETOH Use: denies use Illicit Drug Use: denies illicit drug use Functional Ability ADLs Independent: dressing, eating, toileting, bathing. Ambulation: non-ambulatory, rarely ambulated and uses walker IADLs Independent: telephone. Needs Assist: shopping, housework, finances, food prep, transportation, medication admin. Exam & Diagnostic Data Last 24 Hrs of Vital Signs/I&O Vital Signs Date Time Temp Pulse Resp B/P B/P Pulse O2 O2 Flow FiO2 Mean Ox Delivery Rate 10/04 1599 Nasal 5.0L Cannula 10/03 1457 98.3 70 20 120/64 92 Nasal 6.0L Cannula 10/03 1231 98.0 82 20 118/60 94 Nasal 6.0L Cannula 10/03 1215 95 Nasal 5.0L Cannula 10/03 1148 82 18 95 Nasal 5.0L Cannula 10/03 1144 93 18 112/58 92 10/03 1001 97.9 66 16 133/64 94 Nasal 5.0L Cannula 10/03 0915 96 Nasal 5.0L Cannula 10/03 0629 94 Nasal 6.0L Cannula 10/03 0627 97.8 70 22 155/70 94 Nasal 6.0L Cannula Intake & Output 10/03 1600 10/03 0800 10/03 0000 Intake Total 300 Output Total 400 Balance -100 Intake, Oral 300 Output, Urine 400 Patient 195 lb 190 lb Weight Weight Reported by Patient Measurement Method Last 48 Hrs of Labs/Nikolas: Laboratory Tests 10/03/16 1400: Urine Color YEL, Urine Clarity CLEAR, Urine pH 6.5, Ur Specific [place] 1.010, Urine Protein NEG, Urine Ketones NEG, Urine Nitrite NEG, Urine Bilirubin NEG, Urine Urobilinogen 0.2, Ur Leukocyte Esterase NEG, Ur Microscopic EXAM NOT REQUIRED, Urine Hemoglobin NEG, Urine Glucose NEG 10/03/16 1131: Troponin I 0.05 10/03/16 0635: pH 7.42, pCO2 63 *H, pO2 65 L, HCO3 40 H, ABG O2 Sat (Measured) 92.0 L, P-50 (Temp Corrected) Y, Carboxyhemoglobin 0.2 L, O2 Concentration % 6 LPM, Temperature 97.8, O2 Delivery Method N/C, Phlebotomy Draw Site RIGHT RADIAL 10/03/16 0629: Anion Gap 8, Estimated GFR > 60, BUN/Creatinine Ratio 27.5 H, Glucose 186 H, Lactic Acid 1.7, Calcium 8.9, Total Bilirubin 0.7, AST 19, ALT 27, Alkaline Phosphatase 43, Troponin I 0.06, Cut-C-Xkuxrcuqpky Pept 732 H, Total Protein 6.5, Albumin 3.5, Globulin 3.0, Albumin/Globulin Ratio 1.2, CBC w Diff MAN DIFF ORDERED, RBC 3.01 L, MCV 107.0 H, MCH 35.0 H, RDW 16.7 H, MPV 8.9, Gran % 88.4 H, Lymphocytes % 9.6 L, Monocytes % 1.8, Eosinophils % 0.1, Basophils % 0.1, Absolute Granulocytes 6.1, Segmented Neutrophils 84 H, Band Neutrophils 7 H, Absolute Lymphocytes 0.7 L, Lymphocytes 9 L, Absolute Monocytes 0.1 L, Absolute Eosinophils 0, Absolute Basophils 0, Platelet Estimate ADEQUATE, Polychromasia 1+, Hypochromic-Microcytic 1+, Poikilocytosis 1+, Anisocytosis 1+, Ovalocytes 1+, PUBS MCHC 32.7 L Microbiology 10/03 1400 URINE ROUT: Legionella Antigen - COMP 10/03 1400 URINE ROUT: Streptococcus pneumoniae Antigen (M - COMP 10/03 0911 NASOPHARYN: Influenza Virus A & B Rapid Smear - COMP Assessment/Plan Impression/Plan: Physical Exam General Appearance Alert, Oriented X3, Cooperative, Mild Distress Skin No Rashes Skin Temp/Moisture Exam: Warm/Dry Sepsis Skin Exam (color): Normal for Ethnicity HEENT MM are dry Neck Supple, No JVD Lymphatic Axillary nl, Cervical nl Cardiovascular Normal S1, Normal S2, No Murmurs Lungs diminished air movement , end expiratory wheezing , no crackle Abdomen Soft Neurological Normal Speech Extremities No Clubbing, No Cyanosis Vascular Normal Pulses SIGNIFICANT DATA Chest x-ray showed moderate left and small right pleural effusion with right basilar consolidation CT scan of the chest done today did reveal chronic mass effect upon the right middle lobe and both lower lobe bronchi seen by the large central pulmonary artery leading to chronic volume loss and consolidation in the [place] upper lobes remain similar prior granulomatous disease smaller indeterminate lung nodules which appears to be inflammatory severe pulmonary hypertension. 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, with recent worsening related to severe COPD exacerbation * Significant pulmonary hypertension related to terminal lung disease * Functional quadriparesis related to cervical spine disease patient is not a candidate for any therapy * * Lower extremity edema suggestive of acute on chronic cor pulmonale * Previous history of mediastinal lymphadenopathy which seems to have resolved * Small lung nodules of no clinical significance * Worsening overall performance status * Bilateral lower lobe atelectasis with restrictive pulmonary physiology as well related to severe pulmonary hypertension * 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 with previous negative QuantiFERON goal tests * 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 who was been on prednisone for long periods RECOMMENDATION * Continue current therapy * Gentle diuresis * Keep the potassium more than 4 * Give Diamox 500 mg by mouth 1 * Watch hemoglobin and hematocrit * Check B12 and folate levels * Keep O2 sat around 88-90% * Increase oxygen if needed * Exvlr-oxo-nojwl nebulizer therapy with DuoNeb 4 times a day * Continue Symbicort * Will get a repeat sputum culture * If he continues to be fatigue and if he is worse we'll contemplate using bedtime BiPAP well at this present time we'll watch him clinically * Continue intravenous steroids Will follow closely Consult Acknowledgment - Thank you for your consult request.
[2016-10-03 22:19] VITALS: BP 124/60
[2016-10-04 07:33] VITALS: BP 118/54
[2016-10-04 08:22] LABS: ABSOLUTE BASOPHIL COUNT 0 /CUMM (0.0-0.2); ABSOLUTE EOSINOPHIL COUNT 0 /CUMM (0.0-0.7); ABSOLUTE GRANULOCYTE CT 4.7 /CUMM (1.4-6.5); ABSOLUTE LYMPH COUNT 0.7 /CUMM (1.2-3.4); ABSOLUTE MONOCYTE COUNT 0.4 /CUMM (0.10-0.60); BASOPHIL % 0.1 % (0.0-2.0); EOSINOPHIL % 0 % (0-5); GRANULOCYTE % 80.9 % (42.2-75.2); HEMATOCRIT 28.4 % (42-52); MEAN PLATELET VOLUME 9.1 FL (7.4-10.4); PLATELET COUNT 219 /CUMM (130-400); RBC DISTRIBUTION WIDTH 16.1 % (11.5-14.5); RED BLOOD CELL CT 2.68 /CUMM (4.70-6.10); WHITE BLOOD CELL COUNT 5.8 /CUMM (4.8-10.8)
--- NOTE | 2016-10-04 09:23 | PN- Att Addend ---
Attending Addendum Attending Brief Note Patient on evaluation is awake and alert. On 5 L oxygen. General Appearance: Alert, No Acute Distress Skin: Grossly normal HEENT: [place]ER[place] Neck: Supple, No JVD Cardiovascular: Regular Rate, Normal S1, Normal S2, No Murmurs Lungs: decreased air entry Abdomen: Normal Bowel Sounds, Soft, No Tenderness Neurological: Normal Speech, Strength at 5/5 X4 Ext, Cranial Nerves 3-12 NL, Reflexes 2+ Extremities: 1+ pedal edema left more than right Assessment 85-year-old with history of COPD oxygen dependent, a large left-sided paramediastinal mass, rheumatoid arthritis, presenting with shortness of breath and productive sputum. He followed up with Toni Arzate MD recently and was started on moxifloxacin and prednisone taper. However patient continued to deteriorate from respiratory viewpoint requiring high flow oxygen and hence presented to the ER. CAT scan negative for obvious consolidation. Gram stain unremarkable and cultures are pending. However he remains on high flow oxygen. Plan Switch to oral antibiotics in a.m. Continue Solu-Medrol Follow sputum culture Lasix 20 mg po once daily Insulin sliding scale with accucheks Continue other home medications DVT prophylaxis Current Medications Sig/Kyra Start time Last Medication Dose Route Stop Time Status Admin Acetaminophen 650 MG Q6P PRN 10/03 0900 AC PO Acetaminophen 1,000 MG Q6P PRN 10/03 0900 AC IV Acetazolamide 500 MG ONCE ONE 10/03 1900 DC 10/03 PO 10/03 1901 2214 Albuterol Sulfate 3 ML Q4P PRN 10/03 2230 AC INH Albuterol Sulfate 3 ML Q6 10/03 1905 AC INH Ascorbic Acid 500 MG DAILY 10/03 1000 AC 10/03 PO 1039 Aspirin 81 MG DAILY 10/03 1000 AC 10/03 PO 1032 Azithromycin 500 MG DAILY 10/03 1000 AC 10/03 Sodium Chloride 250 ML IV 1104 Budesonide/ 2 PUF BID 10/03 1000 AC 10/03 Formoterol Fumarate INH 2214 Calcium/Vitamin D 1 TAB DAILY 10/03 1000 AC 10/03 PO 1032 Ceftriaxone Sodium 1,000 MG DAILY 10/03 1000 AC 10/03 IV 1039 Doxazosin Mesylate 2 MG DAILY 10/03 1000 AC PO Fish Oil 1,050 MG DAILY 10/03 1000 AC PO Furosemide 20 MG DAILY 10/03 1000 AC PO Ipratropium [place] 2.5 ML Q6 10/03 1904 AC INH Methylprednisolone 40 MG Q8 10/03 1400 AC 10/04 IV 0542 Multivitamins 1 TAB DAILY 10/03 1000 AC 10/03 PO 1039 Omeprazole 40 MG DAILY AC 10/03 0833 AC 10/04 PO 0542 Oxybutynin Chloride 5 MG BID 10/03 1000 AC 10/03 PO 2214 Potassium Chloride 10 MEQ DAILY 10/03 1000 AC PO Laboratory Tests 10/04 10/03 0650 1400 Chemistry Sodium (137 - 145 mmol/L) 135 L Potassium (3.5 - 5.1 mmol/L) 4.1 Chloride (98 - 107 mmol/L) 91 L Carbon Dioxide (22 - 30 mmol/L) 39 H Anion Gap (5 - 16) 6 BUN (9 - 20 mg/dL) 21 H Creatinine (0.7 - 1.2 mg/dL) 0.8 Estimated GFR (>60 ml/min) > 60 BUN/Creatinine Ratio (7 - 25 %) 26.3 H Vitamin B12 (239 - 931 pg/mL) 863 Folate (2.76 - 20.0 ng/mL) 13.5 Hematology CBC w Diff NO MAN DIFF REQ WBC (4.8 - 10.8 /CUMM) 5.8 RBC (4.70 - 6.10 /CUMM) 2.68 L Hgb (14.0 - 18.0 G/DL) 9.4 L Hct (42 - 52 %) 28.4 L MCV (80.0 - 94.0 FL) 106.0 H MCH (27.0 - 31.0 PG) 35.0 H RDW (11.5 - 14.5 %) 16.1 H Plt Count (130 - 400 /CUMM) 219 MPV (7.4 - 10.4 FL) 9.1 Gran % (42.2 - 75.2 %) 80.9 H Lymphocytes % (20.5 - 51.1 %) 11.9 L Monocytes % (1.7 - 9.3 %) 7.1 Eosinophils % (0 - 5 %) 0 Basophils % (0.0 - 2.0 %) 0.1 Absolute Granulocytes (1.4 - 6.5 /CUMM) 4.7 Absolute Lymphocytes (1.2 - 3.4 /CUMM) 0.7 L Absolute Monocytes (0.10 - 0.60 /CUMM) 0.4 Absolute Eosinophils (0.0 - 0.7 /CUMM) 0 Absolute Basophils (0.0 - 0.2 /CUMM) 0 PUBS MCHC (33.0 - 37.0 G/DL) 33.0 Urines Urine Color (YEL,AMB,STR) YEL Urine Clarity (CLEAR) CLEAR Urine pH (5.0 - 8.0) 6.5 Ur Specific [place] (1.001 - 1.035) 1.010 Urine Protein (NEG,<30 MG/DL) NEG Urine Ketones (NEG) NEG Urine Nitrite (NEG) NEG Urine Bilirubin (NEG) NEG Urine Urobilinogen (0.1 - 1.0 EU/dl) 0.2 Ur Leukocyte Esterase (NEG) NEG Ur Microscopic EXAM NOT REQUIRED Urine Hemoglobin (NEG) NEG Urine Glucose (N MG/DL) NEG 10/03 10/03 1131 0927 Chemistry Lactic Acid Cancelled Troponin I (<0.11 ng/ml) 0.05 Vital Signs Date Time Temp Pulse Resp B/P B/P Pulse O2 O2 Flow FiO2 Mean Ox Delivery Rate 10/04 0800 Nasal 5.0L Cannula 10/04 0733 97.6 78 20 118/54 97 Nasal 5.0L Cannula 10/04 0000 95 Nasal 5.0L Cannula 10/03 2219 98.5 74 20 124/60 95 Nasal Cannula 10/03 1732 Nasal 5.0L Cannula 10/03 1600 Nasal 5.0L Cannula 10/03 1457 98.3 70 20 120/64 92 Nasal 6.0L Cannula 10/03 1231 98.0 82 20 118/60 94 Nasal 6.0L Cannula 10/03 1215 95 Nasal 5.0L Cannula 10/03 1148 82 18 95 Nasal 5.0L Cannula 10/03 1144 93 18 112/58 92 10/03 1001 97.9 66 16 133/64 94 Nasal 5.0L Cannula
--- NOTE | 2016-10-04 10:33 | PN- Housestaff ---
Subjective Follow-up For: Chronic hypercarbic respiratory failure Pulmonary hypertension likely secondary to terminal lung disease Subjective: States improved breathing, no fevers overnight. States improved cough,but develops cough after liquid intake. Denies difficulty swallowing, or choking episodes while eating. Review of Systems Constitutional: Reports: see HPI. Objective Last 24 Hrs of Vital Signs/I&O Vital Signs Date Time Temp Pulse Resp B/P B/P Pulse O2 O2 Flow FiO2 Mean Ox Delivery Rate 10/04 0800 Nasal 5.0L Cannula 10/04 0733 97.6 78 20 118/54 97 Nasal 5.0L Cannula 10/04 0000 95 Nasal 5.0L Cannula 10/03 2219 98.5 74 20 124/60 95 Nasal Cannula 10/03 1732 Nasal 5.0L Cannula 10/03 1600 Nasal 5.0L Cannula 10/03 1457 98.3 70 20 120/64 92 Nasal 6.0L Cannula 10/03 1231 98.0 82 20 118/60 94 Nasal 6.0L Cannula 10/03 1215 95 Nasal 5.0L Cannula 10/03 1148 82 18 95 Nasal 5.0L Cannula 10/03 1144 93 18 112/58 92 Intake & Output 10/04 1600 10/04 0800 10/04 0000 Intake Total 200 600 Output Total 1200 460 Balance -1000 140 Intake, Oral 200 600 Output, Urine 1200 460 Patient 194 lb Weight Physical Exam General Appearance: Alert, Oriented X3, Cooperative Cardiovascular: Regular Rate, Normal S1, Normal S2 Lungs: Diminished air movement bilaterally Abdomen: Normal Bowel Sounds, Soft, No Tenderness Extremities: No Clubbing, No Cyanosis, No Edema Current Medications: Current Medications Sig/Kyra Start time Last Medication Dose Route Stop Time Status Admin Acetaminophen 650 MG Q6P PRN 10/03 09 AC PO Acetaminophen 1,000 MG Q6P PRN 10/03 0900 AC IV Acetazolamide 500 MG ONCE ONE 10/03 1900 DC 10/03 PO 10/03 190 2214 Albuterol Sulfate 3 ML Q4P PRN 10/03 2229 AC INH Albuterol Sulfate 3 ML Q6 10/03 190 AC INH Ascorbic Acid 500 MG DAILY 10/03 1000 AC 10/03 PO 1039 Aspirin 81 MG DAILY 10/03 1000 AC 10/03 PO 1032 Azithromycin 500 MG DAILY 10/03 1000 AC 10/03 Sodium Chloride 250 ML IV 1104 Budesonide/ 2 PUF BID 10/03 1000 AC 10/03 Formoterol Fumarate INH 2214 Calcium/Vitamin D 1 TAB DAILY 10/03 1000 AC 10/03 PO 1032 Ceftriaxone Sodium 1,000 MG DAILY 10/03 1000 AC 10/03 IV 1039 Doxazosin Mesylate 2 MG DAILY 10/03 1000 AC PO Fish Oil 1,050 MG DAILY 10/03 1000 AC PO Furosemide 20 MG DAILY 10/03 1000 AC PO Ipratropium [place] 2.5 ML Q6 10/03 1904 AC INH Methylprednisolone 40 MG Q8 10/03 1400 AC 10/04 IV 0542 Multivitamins 1 TAB DAILY 10/03 1000 AC 10/03 PO 1039 Omeprazole 40 MG DAILY AC 10/03 0833 AC 10/04 PO 0542 Oxybutynin Chloride 5 MG BID 10/03 1000 AC 10/03 PO 2214 Potassium Chloride 10 MEQ DAILY 10/03 1000 AC PO Last 24 Hrs of Lab/Nikolas Results Last 24 Hrs of Labs/Mics: Laboratory Tests 10/04/16 0650: Anion Gap 6, Estimated GFR > 60, BUN/Creatinine Ratio 26.3 H, Vitamin B12 863, Folate 13.5, CBC w Diff NO MAN DIFF REQ, RBC 2.68 L, MCV 106.0 H, MCH 35.0 H, RDW 16.1 H, MPV 9.1, Gran % 80.9 H, Lymphocytes % 11.9 L, Monocytes % 7.1, Eosinophils % 0, Basophils % 0.1, Absolute Granulocytes 4.7, Absolute Lymphocytes 0.7 L, Absolute Monocytes 0.4, Absolute Eosinophils 0, Absolute Basophils 0, PUBS MCHC 33.0 10/03/16 1400: Urine Color YEL, Urine Clarity CLEAR, Urine pH 6.5, Ur Specific [place] 1.010, Urine Protein NEG, Urine Ketones NEG, Urine Nitrite NEG, Urine Bilirubin NEG, Urine Urobilinogen 0.2, Ur Leukocyte Esterase NEG, Ur Microscopic EXAM NOT REQUIRED, Urine Hemoglobin NEG, Urine Glucose NEG 10/03/16 1131: Troponin I 0.05 Microbiology 10/03 1854 LOWER RESP: Respiratory Culture - COLB 10/03 1854 LOWER RESP: Gram Stain - COLB 10/03 1400 URINE ROUT: Legionella Antigen - COMP 10/03 1400 URINE ROUT: Streptococcus pneumoniae Antigen (M - COMP Assessment/Plan Assessment: 85 year old gentleman with COPD on home O2 2.5 L, pulmonary HTN 2/2 lung disease , mediastinal mass and LAD, presented with SOB and produtive sputum, bandemia, CT evidence of inflammatory or infectious process, started on IV abx for suspected infectious etiology and glucorticoids for COPD exacerbation. Unsure if patient is swallowing well, this morning had an episode of cough after drinking tea. Keep HOB elevated, aspiration precautions. Swallow evaluation. NPO till eval. Continue antibiotics, pending sputum cultures. IV Solumedrol. Lasix at home dose. Taper O2, currently 96 on 5 L. Goal O2 sat 88-90% per Dr. Arzate. [facility] nebs. Problem List: 1. COPD exacerbation Pain Ratin Pain Location: N/A Pain Goal: Remain pain free Pain Plan: PRN Tomorrow's Labs & Rationales: CBC for possible infection BEP for hyponatremia
--- NOTE | 2016-10-04 12:22 | Cons- Cardiology ---
General Information and HPI Consulting Request Date of Consult: 10/04/16 Requested By: CHALO LYNN MD Reason for Consult: Dyspnea, pleural effusion Source of Information: patient, old records Exam Limitations: no limitations History of Present Illness: The patient is an 85-year-old gentleman with a past medical history of COPD, a left sided paramediastinal mass, hypertension and hyperlipidemia. The patient states having increasing dyspnea over a period of approximately one week, complaining with cough productive of greenish sputum. He has been hypoxic, requiring increased oxygen is. He was recently started on prednisone and antibiotics for presumed respiratory tract infection with COPD exacerbation. The patient otherwise denies symptoms of chest pains nor palpitations. On arrival to the emergency room however, he was noted to have an elevated BNP of 732. He has otherwise ruled out for a myocardial infarction via serial troponin isoenzymes. The patient performs minimal amounts of activity and a regular basis, ambulating with a walker only. He states however is asymptomatic from chest pains during this period Allergies/Medications Allergies: Coded Allergies: NO KNOWN ALLERGIES (08/29/12) Home Med List: Ascorbic Acid (Vitamin C) 500 MG CAPSULE.ER 1 CAP PO 2XW VITAMIN SUPPLEMENT ( Reported) Aspirin (Aspirin*) 81 MG TAB.CHEW 1 TAB PO DAILY HEART HEALTH (Reported) Budesonide 0.25 MG/2 ML AMPUL.NEB 1 Vial INH/SOLITARIO TID PRN OB, COPD (Reported) Calcium Carb/Vitamin D3/Vit K1 (Citracal Soft Chew) 500 MG CALCIUM-1,000 UNIT-40 MCG TAB.CHEW 1 TAB PO DAILY VITAMIN SUPPLEMENT (Reported) Colchicine (Colcrys) 0.6 MG TABLET 1 TAB PO DAILY GOUT (Reported) Furosemide 40 MG TABLET 0.5 TAB PO DAILY FLUID (Reported) Glucosamine/D3/Boswellia Chey (Glucosamine Complex Tablet) 1,500 MG-400 UNIT- 100 MG TABLET 2 TAB PO DAILY VITAMIN SUPPLEMENT (Reported) [IOPHEN- C NR] 1 TSP PO BEDTIME (Reported) Multivit-Min/FA/Lycopen/Lutein (Centrum Silver Tablet) 0.4 MG-300 MCG-250 MCG TABLET 1 TAB PO VITAMIN SUPPLEMENT (Reported) *TWICE PER WEEK [place]-3 Fatty Acids/Fish Oil (Fish Oil 1,000 MG Capsule) 340 MG-1,000 MG CAPSULE 1 CAP PO DAILY SUPPLEMENT (Reported) Omeprazole 40 MG CAPSULE.DR 1 CAP PO DAILY GERD (Reported) Oxybutynin Chloride (Oxybutynin Chloride ER) 10 MG TAB.ER.24 1 TAB PO DAILY (Reported) Potassium Chloride 20 MEQ TAB.ER.PRT 0.5 TAB PO DAILY SUPPLEMENT (Reported) Prednisone 5 MG TABLET 1 TAB PO EOD SOB, COPD (Reported) Terazosin HCl 5 MG CAPSULE 1 CAP PO QPM (Reported) Current Medications: Current Medications Sig/Kyra Start time Last Medication Dose Route Stop Time Status Admin Acetaminophen 650 MG Q6P PRN 10/03 09 AC PO Acetaminophen 1,000 MG Q6P PRN 10/03 0900 AC IV Acetazolamide 500 MG ONCE ONE 10/03 1900 DC 10/03 PO 10/03 190 2214 Albuterol Sulfate 3 ML Q4P PRN 10/03 2229 AC INH Albuterol Sulfate 3 ML Q6 10/03 1905 AC 10/04 INH 1123 Ascorbic Acid 500 MG DAILY 10/03 1000 AC 10/04 PO 1058 Aspirin 81 MG DAILY 10/03 1000 AC 10/04 PO 1059 Azithromycin 500 MG DAILY 10/03 1000 AC 10/04 Sodium Chloride 250 ML IV 1057 Budesonide/ 2 PUF BID 10/03 1000 AC 10/04 Formoterol Fumarate INH 1057 Calcium/Vitamin D 1 TAB DAILY 10/03 1000 AC 10/04 PO 1059 Ceftriaxone Sodium 1,000 MG DAILY 10/03 1000 AC 10/04 IV 1057 Doxazosin Mesylate 2 MG 10/040 AC PO Doxazosin Mesylate 2 MG DAILY 10/03 1000 DC PO Fish Oil 1,050 MG 10/04 AC PO Fish Oil 1,050 MG DAILY 10/03 1000 DC PO Furosemide 20 MG 10/04 2200 AC PO Furosemide 20 MG DAILY 10/03 1000 DC PO Insulin Aspart 0 TIDAC 10/04 1200 AC SC Ipratropium [place] 2.5 ML Q6 10/03 1904 AC 10/04 INH 1123 Methylprednisolone 40 MG Q8 10/03 1400 AC 10/04 IV 0542 Multivitamins 1 TAB DAILY 10/03 1000 AC 10/04 PO 1058 Omeprazole 40 MG DAILY AC 10/03 0833 AC 10/04 PO 0542 Oxybutynin Chloride 5 MG BID 10/03 1000 AC 10/04 PO 1059 Potassium Chloride 10 MEQ 10/04 2200 AC PO Potassium Chloride 10 MEQ DAILY 10/03 1000 DC PO Review of Systems Review of Systems: The review of systems is negative for chest pains, palpitations nor lightheadedness. The remainder of the 14 point review of systems is noncontributory with the exception of above. 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 FATHER (bronchitis). MOTHER (breast CA). Psychosocial History Where Do You Live? Home Who Do You Live With? child Services at Home: None Primary Language: [place]i Smoking Status: Former Smoker ETOH Use: denies use Illicit Drug Use: denies illicit drug use Functional Ability ADLs Independent: dressing, eating, toileting, bathing. Ambulation: non-ambulatory, rarely ambulated and uses walker IADLs Independent: telephone. Needs Assist: shopping, housework, finances, food prep, transportation, medication admin. Exam & Diagnostic Data Vital Signs and I&O Vital Signs Date Time Temp Pulse Resp B/P B/P Pulse O2 O2 Flow FiO2 Mean Ox Delivery Rate 10/04 1129 93 Nasal 5.0L Cannula 10/04 0800 Nasal 5.0L Cannula 10/04 0733 97.6 78 20 118/54 97 Nasal 5.0L Cannula 10/04 0000 95 Nasal 5.0L Cannula 10/03 2219 98.5 74 20 124/60 95 Nasal Cannula 10/03 1732 Nasal 5.0L Cannula 10/03 1600 Nasal 5.0L Cannula 10/03 1457 98.3 70 20 120/64 92 Nasal 6.0L Cannula 10/03 1231 98.0 82 20 118/60 94 Nasal 6.0L Cannula Intake & Output 10/04 1600 10/04 0800 10/04 0000 10/03 1600 10/03 0810/03 0000 Intake Total 200 600 300 Output Total 1200 460 400 Balance -1000 140 -100 Intake, Oral 200 600 300 Output, Urine 1200 460 400 Patient 194 lb 195 lb 190 lb Weight Weight Reported by Patient Measurement Method Physical Exam: General: Nontoxic, no apparent distress. HEENT: Sclera and conjunctiva within normal limits, without xanthelasmas. Neck: Carotids 2+ without bruits. Respiratory: Diffuse rhonchi and wheezing, air movement is decreased at bases, without accessory respiratory muscle use. Heart: Regular rate and rhythm, 2/6 systolic ejection murmur at left sternal border, without JVD. Abdomen: Soft, nontender, no masses, normoactive bowel sounds. Extremities: Without clubbing, cyanosis. Neuro: Nonfocal exam, strength, 5 out of 5 Skin: Within normal limits without lesions. Psych: Mood and affect: Normal Labs/Nikolas Results: Laboratory Tests 10/04 10/03 0650 1400 Chemistry Sodium (137 - 145 mmol/L) 135 L Potassium (3.5 - 5.1 mmol/L) 4.1 Chloride (98 - 107 mmol/L) 91 L Carbon Dioxide (22 - 30 mmol/L) 39 H Anion Gap (5 - 16) 6 BUN (9 - 20 mg/dL) 21 H Creatinine (0.7 - 1.2 mg/dL) 0.8 Estimated GFR (>60 ml/min) > 60 BUN/Creatinine Ratio (7 - 25 %) 26.3 H Vitamin B12 (239 - 931 pg/mL) 863 Folate (2.76 - 20.0 ng/mL) 13.5 Hematology CBC w Diff NO MAN DIFF REQ WBC (4.8 - 10.8 /CUMM) 5.8 RBC (4.70 - 6.10 /CUMM) 2.68 L Hgb (14.0 - 18.0 G/DL) 9.4 L Hct (42 - 52 %) 28.4 L MCV (80.0 - 94.0 FL) 106.0 H MCH (27.0 - 31.0 PG) 35.0 H RDW (11.5 - 14.5 %) 16.1 H Plt Count (130 - 400 /CUMM) 219 MPV (7.4 - 10.4 FL) 9.1 Gran % (42.2 - 75.2 %) 80.9 H Lymphocytes % (20.5 - 51.1 %) 11.9 L Monocytes % (1.7 - 9.3 %) 7.1 Eosinophils % (0 - 5 %) 0 Basophils % (0.0 - 2.0 %) 0.1 Absolute Granulocytes (1.4 - 6.5 /CUMM) 4.7 Absolute Lymphocytes (1.2 - 3.4 /CUMM) 0.7 L Absolute Monocytes (0.10 - 0.60 /CUMM) 0.4 Absolute Eosinophils (0.0 - 0.7 /CUMM) 0 Absolute Basophils (0.0 - 0.2 /CUMM) 0 PUBS MCHC (33.0 - 37.0 G/DL) 33.0 Urines Urine Color (YEL,AMB,STR) YEL Urine Clarity (CLEAR) CLEAR Urine pH (5.0 - 8.0) 6.5 Ur Specific [place] (1.001 - 1.035) 1.010 Urine Protein (NEG,<30 MG/DL) NEG Urine Ketones (NEG) NEG Urine Nitrite (NEG) NEG Urine Bilirubin (NEG) NEG Urine Urobilinogen (0.1 - 1.0 EU/dl) 0.2 Ur Leukocyte Esterase (NEG) NEG Ur Microscopic EXAM NOT REQUIRED Urine Hemoglobin (NEG) NEG Urine Glucose (N MG/DL) NEG 10/03 10/03 10/03 1131 0972 0699 Blood Gas pH (7.35 - 7.45 PH) 7.42 pCO2 (35 - 45 TORR) 63 *H pO2 (80 - 100 TORR) 65 L HCO3 (21 - 28 MEQ/L) 40 H ABG O2 Sat (Measured) (>96.0 %) 92.0 L P-50 (Temp Corrected) Y Carboxyhemoglobin (1.5 - 5.0 %) 0.2 L O2 Concentration % 6 LPM Temperature (97.0 - 100.0 FARH) 97.8 O2 Delivery Method N/C Chemistry Lactic Acid Cancelled Troponin I (<0.11 ng/ml) 0.05 Miscellaneous Phlebotomy Draw Site RIGHT RADIAL 10/03 0629 Chemistry Sodium (137 - 145 mmol/L) 138 Potassium (3.5 - 5.1 mmol/L) 4.7 Chloride (98 - 107 mmol/L) 87 L Carbon Dioxide (22 - 30 mmol/L) 43 H Anion Gap (5 - 16) 8 BUN (9 - 20 mg/dL) 22 H Creatinine (0.7 - 1.2 mg/dL) 0.8 Estimated GFR (>60 ml/min) > 60 BUN/Creatinine Ratio (7 - 25 %) 27.5 H Glucose (65 - 99 mg/dL) 186 H Lactic Acid (0.7 - 2.1 mmol/L) 1.7 Calcium (8.4 - 10.2 mg/dL) 8.9 Total Bilirubin (0.2 - 1.3 mg/dL) 0.7 AST (17 - 59 U/L) 19 ALT (21 - 72 U/L) 27 Alkaline Phosphatase (< 127 U/L) 43 Troponin I (<0.11 ng/ml) 0.06 Ftb-V-Pqucycffgpv Pept (<125 pg/mL) 732 H Total Protein (6.3 - 8.2 g/dL) 6.5 Albumin (3.5 - 5.0 g/dL) 3.5 Globulin (1.9 - 4.2 gm/dL) 3.0 Albumin/Globulin Ratio (1.1 - 2.2 %) 1.2 Hematology CBC w Diff MAN DIFF ORDERED WBC (4.8 - 10.8 /CUMM) 6.9 RBC (4.70 - 6.10 /CUMM) 3.01 L Hgb (14.0 - 18.0 G/DL) 10.5 L Hct (42 - 52 %) 32.2 L MCV (80.0 - 94.0 FL) 107.0 H MCH (27.0 - 31.0 PG) 35.0 H RDW (11.5 - 14.5 %) 16.7 H Plt Count (130 - 400 /CUMM) 209 MPV (7.4 - 10.4 FL) 8.9 Gran % (42.2 - 75.2 %) 88.4 H Lymphocytes % (20.5 - 51.1 %) 9.6 L Monocytes % (1.7 - 9.3 %) 1.8 Eosinophils % (0 - 5 %) 0.1 Basophils % (0.0 - 2.0 %) 0.1 Absolute Granulocytes (1.4 - 6.5 /CUMM) 6.1 Segmented Neutrophils (42.2 - 75.2 %) 84 H Band Neutrophils (0.0 - 5.0 %) 7 H Absolute Lymphocytes (1.2 - 3.4 /CUMM) 0.7 L Lymphocytes (20.5 - 51.1 %) 9 L Absolute Monocytes (0.10 - 0.60 /CUMM) 0.1 L Absolute Eosinophils (0.0 - 0.7 /CUMM) 0 Absolute Basophils (0.0 - 0.2 /CUMM) 0 Platelet Estimate (ADEQUATE) ADEQUATE Polychromasia 1+ Hypochromic-Microcytic 1+ Poikilocytosis 1+ Anisocytosis 1+ Ovalocytes 1+ PUBS MCHC (33.0 - 37.0 G/DL) 32.7 L Assessment/Plan Assessment/Plan 85-year-old gentleman with a past medical history of COPD, a left sided paramediastinal mass, hypertension and hyperlipidemia. The patient states having increasing dyspnea over a period of approximately one week, complaining with cough productive of greenish sputum. He has been hypoxic, requiring increased oxygen is. He was recently started on prednisone and antibiotics for presumed respiratory tract infection with COPD exacerbation. Dyspnea: Likely multifactorial including underlying COPD as well as bilateral pleural effusions as seen on chest x-ray with bibasilar consolidations, consistent with likely infection. There is as well a baseline pulmonary hypertension with an estimated PA systolic pressure of 64. We will continue treatment as per pulmonary recommendations with mild diuresis to attempt to manage improvement. Further consideration for possible thoracentesis will be made by pulmonary. Echocardiographic findings were reviewed. There is currently no evidence for overt congestive heart failure (secondary to diastolic dysfunction); however, we will continue mild diuresis to assist symptomatically. Hypertension: Currently stable, we will continue to monitor Paramediastinal mass: This is been discussed with the patient and family in the past through pulmonary , and they requested no intervention. Thank you for allowing us to participate in the care of your patient. Please do not hesitate to contact us further with any questions. Sincerely, Edgar Burgos MD [facility] Consult Acknowledgment - Thank you for your consult request.
--- NOTE | 2016-10-04 13:56 | PN- Pulmonary ---
Subjective HPI/Critical Care Issues: States improved breathing, no fevers overnight. States improved cough,but develops cough after liquid intake. Denies difficulty swallowing, or choking episodes while eating. Review of Systems Constitutional: Reports: see HPI. Objective Current Medications: Current Medications Sig/Kyra Start time Last Medication Dose Route Stop Time Status Admin Acetaminophen 650 MG Q6P PRN 10/03 0900 AC PO Acetaminophen 1,000 MG Q6P PRN 10/03 0900 AC IV Acetazolamide 500 MG ONCE ONE 10/03 1900 DC 10/03 PO 10/03 190 2214 Albuterol Sulfate 3 ML Q4P PRN 10/03 2230 AC INH Albuterol Sulfate 3 ML Q6 10/03 1905 AC 10/04 INH 1123 Ascorbic Acid 500 MG DAILY 10/03 1000 AC 10/04 PO 1058 Aspirin 81 MG DAILY 10/03 1000 AC 10/04 PO 1059 Azithromycin 500 MG DAILY 10/03 1000 AC 10/04 Sodium Chloride 250 ML IV 1057 Budesonide/ 2 PUF BID 10/03 1000 AC 10/04 Formoterol Fumarate INH 1057 Calcium/Vitamin D 1 TAB DAILY 10/03 1000 AC 10/04 PO 1059 Ceftriaxone Sodium 1,000 MG DAILY 10/03 1000 AC 10/04 IV 1057 Doxazosin Mesylate 2 MG 10/04 2200 AC PO Doxazosin Mesylate 2 MG DAILY 10/03 1000 DC PO Fish Oil 1,050 MG 10/04 2200 AC PO Fish Oil 1,050 MG DAILY 10/03 1000 DC PO Furosemide 20 MG 2200 10/04 2200 AC PO Furosemide 20 MG DAILY 10/03 1000 DC PO Insulin Aspart 0 TIDAC 10/04 1200 AC SC Ipratropium [place] 2.5 ML Q6 10/03 1904 AC 10/04 INH 1123 Methylprednisolone 40 MG Q8 10/03 1400 AC 10/04 IV 1334 Multivitamins 1 TAB DAILY 10/03 1000 AC 10/04 PO 1058 Omeprazole 40 MG DAILY AC 10/03 0833 AC 10/04 PO 0542 Oxybutynin Chloride 5 MG BID 10/03 1000 AC 10/04 PO 1059 Potassium Chloride 10 MEQ 0 10/04 2200 AC PO Potassium Chloride 10 MEQ DAILY 10/03 1000 DC PO Laboratory Tests 10/04 10/03 0650 1400 Chemistry Sodium (137 - 145 mmol/L) 135 L Potassium (3.5 - 5.1 mmol/L) 4.1 Chloride (98 - 107 mmol/L) 91 L Carbon Dioxide (22 - 30 mmol/L) 39 H Anion Gap (5 - 16) 6 BUN (9 - 20 mg/dL) 21 H Creatinine (0.7 - 1.2 mg/dL) 0.8 Estimated GFR (>60 ml/min) > 60 BUN/Creatinine Ratio (7 - 25 %) 26.3 H Vitamin B12 (239 - 931 pg/mL) 863 Folate (2.76 - 20.0 ng/mL) 13.5 Hematology CBC w Diff NO MAN DIFF REQ WBC (4.8 - 10.8 /CUMM) 5.8 RBC (4.70 - 6.10 /CUMM) 2.68 L Hgb (14.0 - 18.0 G/DL) 9.4 L Hct (42 - 52 %) 28.4 L MCV (80.0 - 94.0 FL) 106.0 H MCH (27.0 - 31.0 PG) 35.0 H RDW (11.5 - 14.5 %) 16.1 H Plt Count (130 - 400 /CUMM) 219 MPV (7.4 - 10.4 FL) 9.1 Gran % (42.2 - 75.2 %) 80.9 H Lymphocytes % (20.5 - 51.1 %) 11.9 L Monocytes % (1.7 - 9.3 %) 7.1 Eosinophils % (0 - 5 %) 0 Basophils % (0.0 - 2.0 %) 0.1 Absolute Granulocytes (1.4 - 6.5 /CUMM) 4.7 Absolute Lymphocytes (1.2 - 3.4 /CUMM) 0.7 L Absolute Monocytes (0.10 - 0.60 /CUMM) 0.4 Absolute Eosinophils (0.0 - 0.7 /CUMM) 0 Absolute Basophils (0.0 - 0.2 /CUMM) 0 PUBS MCHC (33.0 - 37.0 G/DL) 33.0 Urines Urine Color (YEL,AMB,STR) YEL Urine Clarity (CLEAR) CLEAR Urine pH (5.0 - 8.0) 6.5 Ur Specific [place] (1.001 - 1.035) 1.010 Urine Protein (NEG,<30 MG/DL) NEG Urine Ketones (NEG) NEG Urine Nitrite (NEG) NEG Urine Bilirubin (NEG) NEG Urine Urobilinogen (0.1 - 1.0 EU/dl) 0.2 Ur Leukocyte Esterase (NEG) NEG Ur Microscopic EXAM NOT REQUIRED Urine Hemoglobin (NEG) NEG Urine Glucose (N MG/DL) NEG 10/03 10/03 10/03 1131 0927 0635 Blood Gas pH (7.35 - 7.45 PH) 7.42 pCO2 (35 - 45 TORR) 63 *H pO2 (80 - 100 TORR) 65 L HCO3 (21 - 28 MEQ/L) 40 H ABG O2 Sat (Measured) (>96.0 %) 92.0 L P-50 (Temp Corrected) Y Carboxyhemoglobin (1.5 - 5.0 %) 0.2 L O2 Concentration % 6 LPM Temperature (97.0 - 100.0 FARH) 97.8 O2 Delivery Method N/C Chemistry Lactic Acid Cancelled Troponin I (<0.11 ng/ml) 0.05 Miscellaneous Phlebotomy Draw Site RIGHT RADIAL 10/03 0629 Chemistry Sodium (137 - 145 mmol/L) 138 Potassium (3.5 - 5.1 mmol/L) 4.7 Chloride (98 - 107 mmol/L) 87 L Carbon Dioxide (22 - 30 mmol/L) 43 H Anion Gap (5 - 16) 8 BUN (9 - 20 mg/dL) 22 H Creatinine (0.7 - 1.2 mg/dL) 0.8 Estimated GFR (>60 ml/min) > 60 BUN/Creatinine Ratio (7 - 25 %) 27.5 H Glucose (65 - 99 mg/dL) 186 H Lactic Acid (0.7 - 2.1 mmol/L) 1.7 Calcium (8.4 - 10.2 mg/dL) 8.9 Total Bilirubin (0.2 - 1.3 mg/dL) 0.7 AST (17 - 59 U/L) 19 ALT (21 - 72 U/L) 27 Alkaline Phosphatase (< 127 U/L) 43 Troponin I (<0.11 ng/ml) 0.06 [id number] Pept (<125 pg/mL) 732 H Total Protein (6.3 - 8.2 g/dL) 6.5 Albumin (3.5 - 5.0 g/dL) 3.5 Globulin (1.9 - 4.2 gm/dL) 3.0 Albumin/Globulin Ratio (1.1 - 2.2 %) 1.2 Hematology CBC w Diff MAN DIFF ORDERED WBC (4.8 - 10.8 /CUMM) 6.9 RBC (4.70 - 6.10 /CUMM) 3.01 L Hgb (14.0 - 18.0 G/DL) 10.5 L Hct (42 - 52 %) 32.2 L MCV (80.0 - 94.0 FL) 107.0 H MCH (27.0 - 31.0 PG) 35.0 H RDW (11.5 - 14.5 %) 16.7 H Plt Count (130 - 400 /CUMM) 209 MPV (7.4 - 10.4 FL) 8.9 Gran % (42.2 - 75.2 %) 88.4 H Lymphocytes % (20.5 - 51.1 %) 9.6 L Monocytes % (1.7 - 9.3 %) 1.8 Eosinophils % (0 - 5 %) 0.1 Basophils % (0.0 - 2.0 %) 0.1 Absolute Granulocytes (1.4 - 6.5 /CUMM) 6.1 Segmented Neutrophils (42.2 - 75.2 %) 84 H Band Neutrophils (0.0 - 5.0 %) 7 H Absolute Lymphocytes (1.2 - 3.4 /CUMM) 0.7 L Lymphocytes (20.5 - 51.1 %) 9 L Absolute Monocytes (0.10 - 0.60 /CUMM) 0.1 L Absolute Eosinophils (0.0 - 0.7 /CUMM) 0 Absolute Basophils (0.0 - 0.2 /CUMM) 0 Platelet Estimate (ADEQUATE) ADEQUATE Polychromasia 1+ Hypochromic-Microcytic 1+ Poikilocytosis 1+ Anisocytosis 1+ Ovalocytes 1+ PUBS MCHC (33.0 - 37.0 G/DL) 32.7 L Microbiology Date/Time Procedure - Status Source Growth 10/03 1854 Respiratory Culture - COLB LOWER RESP 10/03 1854 Gram Stain - COLB LOWER RESP 10/03 1400 Legionella Antigen - COMP URINE ROUT 10/03 1400 Streptococcus pneumoniae Antigen (M - COMP URINE ROUT 10/03 0946 Respiratory Culture - RES LOWER RESP YEAST 05/23 0946 Gram Stain - RES LOWER RESP 10/03 0911 Influenza Virus A & B Rapid Smear - COMP NASOPHARYN 10/03 0642 Blood Culture - RES BLOOD 10/03 0630 Blood Culture - RES BLOOD Vital Signs & I&O Last 24 Hrs of Vitals and I&O: Vital Signs Date Time Temp Pulse Resp B/P B/P Pulse O2 O2 Flow FiO2 Mean Ox Delivery Rate 10/04 1129 93 Nasal 5.0L Cannula 10/04 0800 Nasal 5.0L Cannula 10/04 0733 97.6 78 20 118/54 97 Nasal 5.0L Cannula 10/04 0000 95 Nasal 5.0L Cannula 10/03 2219 98.5 74 20 124/60 95 Nasal Cannula 10/03 1732 Nasal 5.0L Cannula 10/03 1600 Nasal 5.0L Cannula 10/03 1457 98.3 70 20 120/64 92 Nasal 6.0L Cannula Intake & Output 10/04 1600 10/04 0800 10/04 0000 Intake Total 200 600 Output Total 500 1200 460 Balance -500 -1000 140 Intake, Oral 200 600 Output, Urine 500 1200 460 Patient 194 lb Weight Laboratory Tests 10/04 10/03 0650 1400 Chemistry Sodium (137 - 145 mmol/L) 135 L Potassium (3.5 - 5.1 mmol/L) 4.1 Chloride (98 - 107 mmol/L) 91 L Carbon Dioxide (22 - 30 mmol/L) 39 H Anion Gap (5 - 16) 6 BUN (9 - 20 mg/dL) 21 H Creatinine (0.7 - 1.2 mg/dL) 0.8 Estimated GFR (>60 ml/min) > 60 BUN/Creatinine Ratio (7 - 25 %) 26.3 H Vitamin B12 (239 - 931 pg/mL) 863 Folate (2.76 - 20.0 ng/mL) 13.5 Hematology CBC w Diff NO MAN DIFF REQ WBC (4.8 - 10.8 /CUMM) 5.8 RBC (4.70 - 6.10 /CUMM) 2.68 L Hgb (14.0 - 18.0 G/DL) 9.4 L Hct (42 - 52 %) 28.4 L MCV (80.0 - 94.0 FL) 106.0 H MCH (27.0 - 31.0 PG) 35.0 H RDW (11.5 - 14.5 %) 16.1 H Plt Count (130 - 400 /CUMM) 219 MPV (7.4 - 10.4 FL) 9.1 Gran % (42.2 - 75.2 %) 80.9 H Lymphocytes % (20.5 - 51.1 %) 11.9 L Monocytes % (1.7 - 9.3 %) 7.1 Eosinophils % (0 - 5 %) 0 Basophils % (0.0 - 2.0 %) 0.1 Absolute Granulocytes (1.4 - 6.5 /CUMM) 4.7 Absolute Lymphocytes (1.2 - 3.4 /CUMM) 0.7 L Absolute Monocytes (0.10 - 0.60 /CUMM) 0.4 Absolute Eosinophils (0.0 - 0.7 /CUMM) 0 Absolute Basophils (0.0 - 0.2 /CUMM) 0 PUBS MCHC (33.0 - 37.0 G/DL) 33.0 Urines Urine Color (YEL,AMB,STR) YEL Urine Clarity (CLEAR) CLEAR Urine pH (5.0 - 8.0) 6.5 Ur Specific [place] (1.001 - 1.035) 1.010 Urine Protein (NEG,<30 MG/DL) NEG Urine Ketones (NEG) NEG Urine Nitrite (NEG) NEG Urine Bilirubin (NEG) NEG Urine Urobilinogen (0.1 - 1.0 EU/dl) 0.2 Ur Leukocyte Esterase (NEG) NEG Ur Microscopic EXAM NOT REQUIRED Urine Hemoglobin (NEG) NEG Urine Glucose (N MG/DL) NEG 10/03 10/03 10/03 1131 0927 0635 Blood Gas pH (7.35 - 7.45 PH) 7.42 pCO2 (35 - 45 TORR) 63 *H pO2 (80 - 100 TORR) 65 L HCO3 (21 - 28 MEQ/L) 40 H ABG O2 Sat (Measured) (>96.0 %) 92.0 L P-50 (Temp Corrected) Y Carboxyhemoglobin (1.5 - 5.0 %) 0.2 L O2 Concentration % 6 LPM Temperature (97.0 - 100.0 FARH) 97.8 O2 Delivery Method N/C Chemistry Lactic Acid Cancelled Troponin I (<0.11 ng/ml) 0.05 Miscellaneous Phlebotomy Draw Site RIGHT RADIAL 10/03 0689 Chemistry Sodium (137 - 145 mmol/L) 138 Potassium (3.5 - 5.1 mmol/L) 4.7 Chloride (98 - 107 mmol/L) 87 L Carbon Dioxide (22 - 30 mmol/L) 43 H Anion Gap (5 - 16) 8 BUN (9 - 20 mg/dL) 22 H Creatinine (0.7 - 1.2 mg/dL) 0.8 Estimated GFR (>60 ml/min) > 60 BUN/Creatinine Ratio (7 - 25 %) 27.5 H Glucose (65 - 99 mg/dL) 186 H Lactic Acid (0.7 - 2.1 mmol/L) 1.7 Calcium (8.4 - 10.2 mg/dL) 8.9 Total Bilirubin (0.2 - 1.3 mg/dL) 0.7 AST (17 - 59 U/L) 19 ALT (21 - 72 U/L) 27 Alkaline Phosphatase (< 127 U/L) 43 Troponin I (<0.11 ng/ml) 0.06 Yrv-R-Abeqfjjycom Pept (<125 pg/mL) 732 H Total Protein (6.3 - 8.2 g/dL) 6.5 Albumin (3.5 - 5.0 g/dL) 3.5 Globulin (1.9 - 4.2 gm/dL) 3.0 Albumin/Globulin Ratio (1.1 - 2.2 %) 1.2 Hematology CBC w Diff MAN DIFF ORDERED WBC (4.8 - 10.8 /CUMM) 6.9 RBC (4.70 - 6.10 /CUMM) 3.01 L Hgb (14.0 - 18.0 G/DL) 10.5 L Hct (42 - 52 %) 32.2 L MCV (80.0 - 94.0 FL) 107.0 H MCH (27.0 - 31.0 PG) 35.0 H RDW (11.5 - 14.5 %) 16.7 H Plt Count (130 - 400 /CUMM) 209 MPV (7.4 - 10.4 FL) 8.9 Gran % (42.2 - 75.2 %) 88.4 H Lymphocytes % (20.5 - 51.1 %) 9.6 L Monocytes % (1.7 - 9.3 %) 1.8 Eosinophils % (0 - 5 %) 0.1 Basophils % (0.0 - 2.0 %) 0.1 Absolute Granulocytes (1.4 - 6.5 /CUMM) 6.1 Segmented Neutrophils (42.2 - 75.2 %) 84 H Band Neutrophils (0.0 - 5.0 %) 7 H Absolute Lymphocytes (1.2 - 3.4 /CUMM) 0.7 L Lymphocytes (20.5 - 51.1 %) 9 L Absolute Monocytes (0.10 - 0.60 /CUMM) 0.1 L Absolute Eosinophils (0.0 - 0.7 /CUMM) 0 Absolute Basophils (0.0 - 0.2 /CUMM) 0 Platelet Estimate (ADEQUATE) ADEQUATE Polychromasia 1+ Hypochromic-Microcytic 1+ Poikilocytosis 1+ Anisocytosis 1+ Ovalocytes 1+ PUBS MCHC (33.0 - 37.0 G/DL) 32.7 L Microbiology Date/Time Procedure - Status Source Growth 10/03 185 Respiratory Culture - COLB LOWER RESP 10/03 1855 Gram Stain - COLB LOWER RESP 10/03 1400 Legionella Antigen - COMP URINE ROUT 10/03 1400 Streptococcus pneumoniae Antigen (M - COMP URINE ROUT 10/03 0946 Respiratory Culture - RES LOWER RESP YEAST 10/03 0946 Gram Stain - RES LOWER RESP 10/03 0911 Influenza Virus A & B Rapid Smear - COMP NASOPHARYN 10/03 0642 Blood Culture - RES BLOOD 10/03 0630 Blood Culture - RES BLOOD Impression/Plan Impression/Plan Impression/Plan: Physical Exam General Appearance Alert, Oriented X3, Cooperative, Mild Distress Skin No Rashes Skin Temp/Moisture Exam: Warm/Dry Sepsis Skin Exam (color): Normal for Ethnicity HEENT MM are dry Neck Supple, No JVD Lymphatic Axillary nl, Cervical nl Cardiovascular Normal S1, Normal S2, No Murmurs Lungs diminished air movement , end expiratory wheezing , no crackle Abdomen Soft Neurological Normal Speech Extremities No Clubbing, No Cyanosis Vascular Normal Pulses SIGNIFICANT DATA Chest x-ray showed moderate left and small right pleural effusion with right basilar consolidation CT scan of the chest done today did reveal chronic mass effect upon the right middle lobe and both lower lobe bronchi seen by the large central pulmonary artery leading to chronic volume loss and consolidation in the [place] upper lobes remain similar prior granulomatous disease smaller indeterminate lung nodules which appears to be inflammatory severe pulmonary hypertension. 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, with recent worsening related to severe COPD exacerbation * Significant pulmonary hypertension related to terminal lung disease * Functional quadriparesis related to cervical spine disease patient is not a candidate for any therapy * Lower extremity edema suggestive of acute on chronic cor pulmonale * Previous history of mediastinal lymphadenopathy which seems to have resolved * Small lung nodules of no clinical significance * Worsening overall performance status * Bilateral lower lobe atelectasis with restrictive pulmonary physiology as well related to severe pulmonary hypertension * 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 with previous negative QuantiFERON goal tests * 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
[2016-10-04 15:35] VITALS: BP 110/52
--- NOTE | 2016-10-04 21:12 | Event Note ---
Event Note Event Note: Was informed by the nurse that pt's BP is 100/60 with HR of 60. Will hold cardura.
[2016-10-04 22:41] VITALS: BP 100/60
[2016-10-05 06:10] VITALS: BP 102/56
[2016-10-05 08:34] LABS: ABSOLUTE BASOPHIL COUNT 0 /CUMM (0.0-0.2); ABSOLUTE EOSINOPHIL COUNT 0 /CUMM (0.0-0.7); ABSOLUTE GRANULOCYTE CT 5.5 /CUMM (1.4-6.5); ABSOLUTE LYMPH COUNT 0.8 /CUMM (1.2-3.4); ABSOLUTE MONOCYTE COUNT 0.4 /CUMM (0.10-0.60); BASOPHIL % 0 % (0.0-2.0); EOSINOPHIL % 0 % (0-5); GRANULOCYTE % 82.9 % (42.2-75.2); HEMATOCRIT 28.4 % (42-52); MEAN CORPUSCULAR HGB 34.6 PG (27.0-31.0); MEAN CORPUSCULAR HGB CONC 32.8 G/DL (33.0-37.0); MEAN CORPUSCULAR VOLUME 105.4 FL (80.0-94.0); MEAN PLATELET VOLUME 8.9 FL (7.4-10.4); PLATELET COUNT 197 /CUMM (130-400); RBC DISTRIBUTION WIDTH 16.5 % (11.5-14.5); WHITE BLOOD CELL COUNT 6.7 /CUMM (4.8-10.8)
--- NOTE | 2016-10-05 09:52 | PN- Att Addend ---
Attending Addendum Attending Brief Note Patient on evaluation is awake and alert. On 3 L oxygen. General Appearance: Alert, No Acute Distress Skin: Grossly normal HEENT: [place] Neck: Supple, No JVD Cardiovascular: Regular Rate, Normal S1, Normal S2, No Murmurs Lungs: decreased air entry Abdomen: Normal Bowel Sounds, Soft, No Tenderness Neurological: Normal Speech, Strength at 5/5 X4 Ext, Cranial Nerves 3-12 NL, Reflexes 2+ Extremities: 1+ pedal edema left more than right Assessment 85-year-old with history of COPD oxygen dependent, a large left-sided paramediastinal mass, rheumatoid arthritis, presenting with shortness of breath and productive sputum. He followed up with Toni Arzate MD recently and was started on moxifloxacin and prednisone taper. However patient continued to deteriorate from respiratory viewpoint requiring high flow oxygen and hence presented to the ER. CAT scan negative for obvious consolidation. Gram stain unremarkable and cultures growing yeast. Oxygen requirements have improved. Plan Discontinue antibiotics Change to oral prednisone PT evaluation, family requesting for STR placement Lasix 20 mg po once daily Continue other home medications DVT prophylaxis Current Medications Sig/Kyra Start time Last Medication Dose Route Stop Time Status Admin Acetaminophen 650 MG Q6P PRN 10/03 0900 AC PO Acetaminophen 1,000 MG Q6P PRN 10/03 0900 AC IV Albuterol Sulfate 3 ML TID 10/05 1000 AC INH Albuterol Sulfate 3 ML Q4P PRN 10/03 2230 DC INH Albuterol Sulfate 3 ML Q6 10/03 1905 DC 10/05 INH 0612 Ascorbic Acid 500 MG DAILY 10/03 1000 AC 10/04 PO 1058 Aspirin 81 MG DAILY 10/03 1000 AC 10/04 PO 1059 Azithromycin 500 MG DAILY 10/03 1000 AC 10/04 Sodium Chloride 250 ML IV 1057 Budesonide/ 2 PUF BID 10/03 1000 AC 10/04 Formoterol Fumarate INH 2110 Calcium/Vitamin D 1 TAB DAILY 10/03 1000 AC 10/04 PO 1059 Ceftriaxone Sodium 1,000 MG DAILY 10/03 1000 AC 10/04 IV 1057 Doxazosin Mesylate 2 MG 0 10/04 2200 AC PO Doxazosin Mesylate 2 MG DAILY 10/03 1000 DC PO Fish Oil 1,050 MG 10/04 2200 AC 10/04 PO 2110 Fish Oil 1,050 MG DAILY 10/03 1000 DC PO Furosemide 20 MG 11:00 AM 10/05 1100 AC PO Furosemide 20 MG 10/04 2200 DC PO Furosemide 40 MG 11:00 AM 10/04 1415 DC 10/04 PO 1612 Furosemide 20 MG DAILY 10/03 1000 DC PO Insulin Aspart 0 TIDAC 10/04 1200 AC 10/05 SC 0753 Ipratropium [place] 2.5 ML TID 10/05 1000 AC INH Ipratropium [place] 2.5 ML Q6 10/03 1904 DC 10/05 INH 0613 Methylprednisolone 40 MG Q8 10/03 1400 AC 10/05 IV 0548 Multivitamins 1 TAB DAILY 10/03 1000 AC 10/04 PO 1058 Omeprazole 40 MG DAILY AC 10/03 0833 AC 10/05 PO 0548 Oxybutynin Chloride 5 MG BID 10/03 1000 AC 10/04 PO 2110 Potassium Chloride 10 MEQ 10/04 2200 AC 10/04 PO 2110 Potassium Chloride 10 MEQ DAILY 10/03 1000 DC PO Laboratory Tests 10/05 0625 Chemistry Sodium (137 - 145 mmol/L) 136 L Potassium (3.5 - 5.1 mmol/L) 3.8 Chloride (98 - 107 mmol/L) 90 L Carbon Dioxide (22 - 30 mmol/L) 37 H Anion Gap (5 - 16) 9 BUN (9 - 20 mg/dL) 25 H Creatinine (0.7 - 1.2 mg/dL) 0.9 Estimated GFR (>60 ml/min) > 60 BUN/Creatinine Ratio (7 - 25 %) 27.8 H Hematology CBC w Diff NO MAN DIFF REQ WBC (4.8 - 10.8 /CUMM) 6.7 RBC (4.70 - 6.10 /CUMM) 2.70 L Hgb (14.0 - 18.0 G/DL) 9.3 L Hct (42 - 52 %) 28.4 L MCV (80.0 - 94.0 FL) 105.4 H MCH (27.0 - 31.0 PG) 34.6 H RDW (11.5 - 14.5 %) 16.5 H Plt Count (130 - 400 /CUMM) 197 MPV (7.4 - 10.4 FL) 8.9 Gran % (42.2 - 75.2 %) 82.9 H Lymphocytes % (20.5 - 51.1 %) 11.3 L Monocytes % (1.7 - 9.3 %) 5.8 Eosinophils % (0 - 5 %) 0 Basophils % (0.0 - 2.0 %) 0 L Absolute Granulocytes (1.4 - 6.5 /CUMM) 5.5 Absolute Lymphocytes (1.2 - 3.4 /CUMM) 0.8 L Absolute Monocytes (0.10 - 0.60 /CUMM) 0.4 Absolute Eosinophils (0.0 - 0.7 /CUMM) 0 Absolute Basophils (0.0 - 0.2 /CUMM) 0 PUBS MCHC (33.0 - 37.0 G/DL) 32.8 L Vital Signs Date Time Temp Pulse Resp B/P B/P Pulse O2 O2 Flow FiO2 Mean Ox Delivery Rate 10/05 0610 97.9 58 20 102/56 95 Nasal 3.0L Cannula 10/05 0049 98 Nasal 4.0L Cannula 10/05 0000 96 Nasal 4.0L Cannula 10/04 2241 98.4 60 19 100/60 96 Nasal Cannula 10/04 1853 94 Nasal 4.0L Cannula 10/04 1600 Nasal 5.0L Cannula 10/04 1535 98.0 57 18 110/52 98 10/04 1129 93 Nasal 5.0L Cannula
--- NOTE | 2016-10-05 10:45 | PN- Pulmonary ---
Subjective HPI/Critical Care Issues: Doing well afebrile still has sig difficulty in ambulating Objective Current Medications: Current Medications Sig/Kyra Start time Last Medication Dose Route Stop Time Status Admin Acetaminophen 650 MG Q6P PRN 10/03 0900 AC PO Acetaminophen 1,000 MG Q6P PRN 10/03 0900 AC IV Albuterol Sulfate 3 ML TID 10/05 1000 AC INH Albuterol Sulfate 3 ML Q4P PRN 10/03 2230 DC INH Albuterol Sulfate 3 ML Q6 10/03 1905 DC 10/05 INH 0612 Ascorbic Acid 500 MG DAILY 10/03 1000 AC 10/04 PO 1058 Aspirin 81 MG DAILY 10/03 1000 AC 10/04 PO 1059 Azithromycin 500 MG DAILY 10/03 1000 AC 10/04 Sodium Chloride 250 ML IV 1057 Budesonide/ 2 PUF BID 10/03 1000 AC 10/04 Formoterol Fumarate INH 211 Calcium/Vitamin D 1 TAB DAILY 10/03 1000 AC 10/04 PO 1059 Ceftriaxone Sodium 1,000 MG DAILY 10/03 1000 AC 10/04 IV 1057 Doxazosin Mesylate 2 MG 2200 10/04 2200 AC PO Doxazosin Mesylate 2 MG DAILY 10/03 1000 DC PO Fish Oil 1,050 MG 10/04 2200 AC 10/04 PO 2110 Fish Oil 1,050 MG DAILY 10/03 1000 DC PO Furosemide 20 MG 11:00 AM 10/05 1100 AC PO Furosemide 20 MG 2200 10/04 2200 DC PO Furosemide 40 MG 11:00 AM 10/04 1415 DC 10/04 PO 1612 Furosemide 20 MG DAILY 10/03 1000 DC PO Insulin Aspart 0 TIDAC 10/04 1200 AC 10/05 SC 0753 Ipratropium [place] 2.5 ML TID 10/05 1000 AC INH Ipratropium [place] 2.5 ML Q6 10/03 1904 DC 10/05 INH 0613 Methylprednisolone 40 MG Q8 10/03 1400 AC 10/05 IV 0548 Multivitamins 1 TAB DAILY 10/03 1000 AC 10/04 PO 1058 Omeprazole 40 MG DAILY AC 10/03 0833 AC 10/05 PO 0548 Oxybutynin Chloride 5 MG BID 10/03 1000 AC 10/04 PO 2110 Potassium Chloride 10 MEQ 0 10/04 2200 AC 10/04 PO 2110 Potassium Chloride 10 MEQ DAILY 05/23 1000 DC PO Vital Signs & I&O Last 24 Hrs of Vitals and I&O: Vital Signs Date Time Temp Pulse Resp B/P B/P Pulse O2 O2 Flow FiO2 Mean Ox Delivery Rate 10/05 0610 97.9 58 20 102/56 95 Nasal 3.0L Cannula 10/05 0049 98 Nasal 4.0L Cannula 10/05 0000 96 Nasal 4.0L Cannula 10/04 2241 98.4 60 19 100/60 96 Nasal Cannula 10/04 1853 94 Nasal 4.0L Cannula 10/04 1600 Nasal 5.0L Cannula 10/04 1535 98.0 57 18 110/52 98 10/04 1129 93 Nasal 5.0L Cannula Intake & Output 10/05 1600 10/05 0800 10/05 0000 Intake Total 340 Output Total 750 800 Balance -410 -800 Intake, IV 0 Intake, Oral 340 Number 0 Bowel Movements Output, Urine 750 800 Patient 198 lb Weight Weight Chair scale Measurement Method Impression/Plan Impression/Plan Impression/Plan: Physical Exam General Appearance Alert, Oriented X3, Cooperative, Mild Distress Skin No Rashes Skin Temp/Moisture Exam: Warm/Dry Sepsis Skin Exam (color): Normal for Ethnicity HEENT MM are dry Neck Supple, No JVD Lymphatic Axillary nl, Cervical nl Cardiovascular Normal S1, Normal S2, No Murmurs Lungs diminished air movement , end expiratory wheezing , no crackle Abdomen Soft Neurological Normal Speech Extremities No Clubbing, No Cyanosis Vascular Normal Pulses SIGNIFICANT DATA Chest x-ray showed moderate left and small right pleural effusion with right basilar consolidation CT scan of the chest done today did reveal chronic mass effect upon the right middle lobe and both lower lobe bronchi seen by the large central pulmonary artery leading to chronic volume loss and consolidation in the [place] upper lobes remain similar prior granulomatous disease smaller indeterminate lung nodules which appears to be inflammatory severe pulmonary hypertension. 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, with recent worsening related to severe COPD exacerbation * Significant pulmonary hypertension related to terminal lung disease * Functional quadriparesis related to cervical spine disease patient is not a candidate for any therapy * Lower extremity edema suggestive of acute on chronic cor pulmonale * Previous history of mediastinal lymphadenopathy which seems to have resolved * Small lung nodules of no clinical significance * Worsening overall performance status * Bilateral lower lobe atelectasis with restrictive pulmonary physiology as well related to severe pulmonary hypertension * 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 with previous negative QuantiFERON goal tests * 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
[2016-10-05] MEDS ORDERED: KLOR-CON 1010 ME1 PO (13:18)
[2016-10-05] MEDS ORDERED: PREDNISONE10 M2 PO (13:18)
--- NOTE | 2016-10-05 13:21 | Patient Discharge Instructions ---
Discharge Instructions General Discharge Information You were seen/treated for: COPD Special Instructions: Please see Dr. Noel in 1-2 weeks of discharge. Please see Dr. Arzate in 1 week of discharge. Acute Coronary Syndrome Inclusion Criteria At DC or during hospital stay patient has or had the following: ACS DIAGNOSIS No Discharge Core Measures Meds if any: Prescribed or Continued at Discharge Meds if any: NOT Prescribed or Continued at Discharge Congestive Heart Failure Inclusion Criteria At DC or during hospital stay patient has or had the following: CHF DIAGNOSIS No Discharge Core Measures Meds if any: Prescribed or Continued at Discharge Meds if any: NOT Prescribed or Continued at Discharge Cerebrovascular accident Inclusion Criteria At DC or during hospital stay patient has or had the following: CVA/TIA Diagnosis No Discharge Core Measures Meds if any: Prescribed or Continued at Discharge Meds if any: NOT Prescribed or Continued at Discharge Venous thromboembolism Inclusion Criteria VTE Diagnosis No VTE Type NONE VTE Confirmed by (Test) NONE Discharge Core Measures - Per Current guidelines, there needs to be overlap - treatment for the first 5 days of Warfarin therapy. - If discharged on Warfarin prior to 5 days of - overlap therapy, the patient will need to be - assessed for post discharge needs including - *Post discharge parental anticoagulation - *Warfarin and/or parental anticoagulation education - *Follow up date to check INR post discharge At least 5 days overlap therapy as Inpatient No Meds if any: Prescribed or Continued at Discharge Note: Overlap Therapy is Warfarin and Anticoagulant Meds if any: NOT Prescribed or Continued at Discharge
--- NOTE | 2016-10-05 13:43 | PN- Housestaff ---
Subjective Follow-up For: Chronic hypercarbic respiratory failure Pulmonary hypertension likely secondary to terminal lung disease Subjective: States improved breathing, no fevers overnight. C/o constipation. Review of Systems Constitutional: Reports: see HPI. Objective Last 24 Hrs of Vital Signs/I&O Vital Signs Date Time Temp Pulse Resp B/P B/P Pulse O2 O2 Flow FiO2 Mean Ox Delivery Rate 10/05 1203 93 Nasal 2.5L Cannula 10/05 0610 97.9 58 20 102/56 95 Nasal 3.0L Cannula 10/05 0049 98 Nasal 4.0L Cannula 10/05 0000 96 Nasal 4.0L Cannula 10/04 2241 98.4 60 19 100/60 96 Nasal Cannula 10/04 1853 94 Nasal 4.0L Cannula 10/04 1600 Nasal 5.0L Cannula 10/04 1535 98.0 57 18 110/52 98 Intake & Output 10/05 1600 10/05 0800 10/05 0000 Intake Total 340 Output Total 750 800 Balance -410 -800 Intake, IV 0 Intake, Oral 340 Number 0 Bowel Movements Output, Urine 750 800 Patient 198 lb Weight Weight Chair scale Measurement Method Physical Exam General Appearance: Alert, Cooperative Cardiovascular: Regular Rate, Normal S1, Normal S2 Lungs: Decreased air entry, wheezing 2/2 reatined tracheal secretions, end expiratory wheezes. Abdomen: Normal Bowel Sounds, Soft Extremities: No Clubbing, No Cyanosis, No Edema Current Medications: Current Medications Sig/Kyra Start time Last Medication Dose Route Stop Time Status Admin Acetaminophen 650 MG Q6P PRN 10/03 0900 AC PO Acetaminophen 1,000 MG Q6P PRN 10/03 0900 AC IV Albuterol Sulfate 3 ML TID 10/05 1000 AC 10/05 INH 1153 Albuterol Sulfate 3 ML Q4P PRN 10/03 2230 DC INH Albuterol Sulfate 3 ML Q6 10/03 1905 DC 10/05 INH 0612 Ascorbic Acid 500 MG DAILY 10/03 1000 AC 10/05 PO 1109 Aspirin 81 MG DAILY 10/03 1000 AC 10/05 PO 1107 Azithromycin 500 MG DAILY 10/03 1000 DC 10/04 Sodium Chloride 250 ML IV 1057 Budesonide/ 2 PUF BID 10/03 1000 AC 10/05 Formoterol Fumarate INH 1110 Calcium/Vitamin D 1 TAB DAILY 10/03 1000 AC 10/05 PO 1109 Ceftriaxone Sodium 1,000 MG DAILY 10/03 1000 DC 10/04 IV 1057 Doxazosin Mesylate 2 MG 10/040 AC PO Fish Oil 1,050 MG 10/04 2200 AC 10/04 PO 2110 Furosemide 20 MG 11:00 AM 10/05 1100 AC 10/05 PO 1105 Furosemide 20 MG 10/04 DC PO Furosemide 40 MG 11:00 AM 10/04 1415 DC 10/04 PO 1612 Insulin Aspart 0 TIDAC 10/04 1200 AC 10/05 SC 1246 Ipratropium [place] 2.5 ML TID 10/05 1000 AC 10/05 INH 1153 Ipratropium [place] 2.5 ML Q6 10/03 1904 DC 10/05 INH 0613 Methylprednisolone 40 MG Q8 10/03 1400 DC 10/05 IV 0548 Multivitamins 1 TAB DAILY 10/03 1000 AC 10/05 PO 1110 Omeprazole 40 MG DAILY AC 10/03 0833 AC 10/05 PO 0548 Oxybutynin Chloride 5 MG BID 10/03 1000 AC 10/05 PO 1107 Patient Medication 1 ED .STK-MED ONE 10/05 1336 DC Teaching ED 10/05 1337 Polyethylene Glycol 17 GM DAILY 10/05 1045 AC 10/05 PO 1246 Potassium Chloride 10 MEQ ONCE ONE 10/05 1315 DC PO 10/05 1316 Potassium Chloride 10 MEQ 10/04 AC 10/04 PO 2110 Prednisone 10 MG DAILY 10/17 1000 AC PO 10/19 0959 Prednisone 20 MG DAILY 10/14 1000 AC PO 10/17 0959 Prednisone 10 MG DAILY 10/13 1000 CAN PO 10/14 1001 Prednisone 20 MG DAILY 10/11 1000 CAN PO 10/12 1001 Prednisone 30 MG DAILY 10/11 1000 AC PO 10/14 0959 Prednisone 30 MG DAILY 10/09 1000 CAN PO 10/10 1001 Prednisone 40 MG DAILY 10/08 1000 AC PO 10/11 0959 Prednisone 40 MG DAILY 10/07 1000 CAN PO 10/08 1001 Prednisone 50 MG DAILY 10/06 1000 CAN PO 10/19 0959 Prednisone 50 MG DAILY 10/06 1000 AC PO 10/08 0959 Prednisone 50 MG DAILY 10/05 1130 DC 10/05 PO 10/06 1001 1246 Prednisone 50 MG TAPER 10/05 1100 CAN PO 10/15 1059 Senna/Docusate Sodium 1 TAB BID PRN 10/05 1045 AC PO Last 24 Hrs of Lab/Nikolas Results Last 24 Hrs of Labs/Mics: Laboratory Tests 10/05/16 0625: Anion Gap 9, Estimated GFR > 60, BUN/Creatinine Ratio 27.8 H, CBC w Diff NO MAN DIFF REQ, RBC 2.70 L, MCV 105.4 H, MCH 34.6 H, RDW 16.5 H, MPV 8.9, Gran % 82.9 H, Lymphocytes % 11.3 L, Monocytes % 5.8, Eosinophils % 0, Basophils % 0 L, Absolute Granulocytes 5.5, Absolute Lymphocytes 0.8 L, Absolute Monocytes 0.4, Absolute Eosinophils 0, Absolute Basophils 0, PUBS MCHC 32.8 L Assessment/Plan Assessment: 85 year old gentleman with COPD on home O2 2.5 L, pulmonary HTN 2/2 lung disease , mediastinal mass and LAD, presented with SOB and produtive sputum, bandemia, CT evidence of inflammatory or infectious process, started on IV abx for suspected infectious etiology and glucorticoids for COPD exacerbation. Unsure if patient is swallowing well, this morning had an episode of cough after drinking tea. PO Solumedrol taper. Lasix at home dose. Taper O2, currently 96 on 3 L. TRC nebs. PT eval. Possible DC to STR in am. Problem List: 1. COPD exacerbation Pain Ratin Pain Location: N/A Pain Goal: Remain pain free Pain Plan: Tylenol PRN Tomorrow's Labs & Rationales: Not needed
--- NOTE | 2016-10-05 14:15 | Discharge Summary ---
See Addendum Visit Information Visit Dates Admission Date: 10/03/16 Discharge Date: 10/06 Hospital Course Course [facility] Primary Care Physician: CJ JAVIER MD Hospital Course: Mr. Quijano is a 85 year old gentleman with PMH COPD, HTN, HLD, paramediastinal mass was admitted on 10/03 because of having a increasing dyspnea of appproximately one week duration, associated with productive cough with greenish sputum. The patient otherwise denied symptoms of chest pains or palpitations. On arrival to the emergency room however, he was noted to have an elevated BNP of 732. He was otherwise ruled out for a myocardial infarction via serial troponin isoenzymes. The patient performs minimal amounts of activity and a regular basis, ambulating with a walker only. He was admitted to general medicine floor for a presumed respiratory infection and treated with antibiotics initially, which were later discontinued after negative sputum cultures. Patient's dypnea was believed to be multifactorial including underlying COPD as well as bilateral pleural effusions as seen on chest x-ray with bibasilar consolidations. He was treated on medicine floors for acute exacerbation of his chronic COPD, with IV steroids, nebulizers and TRC. His respiratory status improved during the course of his stay, and his oxygen requirments returned to baseline. Patient will be discahrged on 14 day steroid taper and follow up with Dr. Arzate as an outpatient. Allergies: Coded Allergies: NO KNOWN ALLERGIES (08/29/12) Disposition Summary Disposition Principal Diagnosis: Acute exacerbation of chronic COPD Additional Diagnosis: Elevated PA pressures. Discharge Disposition: STR Discharge Instructions General Discharge Information Code Status: Do Not Resucitate/Intubat Patient's Diet: Regular, mechanical soft with thin liquids Patient's Activity: As tolerated. Discharge to STR. Return to baseline. Follow-Up Instructions/Appts: Follow up with PCP in 1-2 weeks of discharge. Follow up with Dr. Arzate in 1-2 weeks of discharge. Follow up with Dr. Burgos in 1-2 weeks of discharge. Medications at Discharge Discharge Medications: Stop taking the following medications: Prednisone (Prednisone) 5 MG TABLET ORAL Every other day Qty = 120 Continue taking these medications: Aspirin (Aspirin*) 81 MG TAB.CHEW 1 Tablet ORAL DAILY Budesonide (Budesonide) 0.25 MG/2 ML AMPUL.NEB 1 Vial Inhale Solution THREE TIMES DAILY as needed for OB, COPD Qty = 120 Calcium Carb/Vitamin D3/Vit K1 (Citracal Soft Chew) 500 MG CALCIUM-1,000 UNIT-40 MCG TAB.CHEW 1 Tablet ORAL DAILY Colchicine (Colcrys) 0.6 MG TABLET 1 Tablet ORAL DAILY Qty = 15 [place]-3 Fatty Acids/Fish Oil (Fish Oil 1,000 MG Capsule) 340 MG-1,000 MG CAPSULE 1 Capsule ORAL DAILY Glucosamine/D3/Boswellia Chey (Glucosamine Complex Tablet) 1,500 MG-400 UNIT- 100 MG TABLET 2 Tablet ORAL DAILY Multivit-Min/FA/Lycopen/Lutein (Centrum Silver Tablet) 0.4 MG-300 MCG-250 MCG TABLET 1 Tablet ORAL Instructions: *TWICE PER WEEK Oxybutynin Chloride (Oxybutynin Chloride ER) 10 MG TAB.ER.24 1 Tablet ORAL DAILY Qty = 90 Terazosin HCl (Terazosin HCl) 5 MG CAPSULE 1 Capsule ORAL Every night Qty = 90 Ascorbic Acid (Vitamin C) 500 MG CAPSULE.ER 1 Capsule ORAL 2 times per week Omeprazole (Omeprazole) 40 MG CAPSULE.DR 1 Capsule ORAL DAILY Qty = 90 Potassium Chloride (Potassium Chloride) 20 MEQ TAB.ER.PRT 0.5 Tablet ORAL DAILY Qty = 30 Furosemide (Furosemide) 40 MG TABLET 0.5 Tablet ORAL DAILY Qty = 90 [IOPHEN- C NR] 1 Teaspoonful ORAL BEDTIME Start taking the following new medications: Prednisone (Prednisone) 10 MG TABLET 0 ORAL TAPER Days = 12 No Refills Instructions: On Take 10/06-10/07 50 MG 10/08-10/10 40 MG 10/11-10/13 30 MG 10/14-10/16 20 MG 10/17-10/18 10 MG Then Stop Copies To: ALIYA ORTEGA,KIRTI Stevens; CHALO LYNN MD Attending MD Review Statement Documenting Attending: CHALO LYNN MD, MD,CHALO
--- NOTE | 2016-10-05 14:33 | PN- Cardiology ---
Subjective Subjective: Patient feeling well and breathing feels close to baseline. No chest pain or palpitations. Objective Vital Signs and I&Os Vital Signs Date Time Temp Pulse Resp B/P B/P Pulse O2 O2 Flow FiO2 Mean Ox Delivery Rate 10/05 1203 93 Nasal 2.5L Cannula 10/05 0610 97.9 58 20 102/56 95 Nasal 3.0L Cannula 10/05 0049 98 Nasal 4.0L Cannula 10/05 0000 96 Nasal 4.0L Cannula 10/04 2241 98.4 60 19 100/60 96 Nasal Cannula 10/04 1853 94 Nasal 4.0L Cannula 10/04 1600 Nasal 5.0L Cannula 10/04 1535 98.0 57 18 110/52 98 Intake & Output 10/05 0800 10/05 0000 10/04 1600 10/04 0800 10/04 0000 Intake Total 340 480 200 600 Output Total 750 781 033 2180 460 Balance -410 - 140 Intake, IV 0 Intake, Oral 340 480 200 600 Number 0 Bowel Movements Output, Urine 750 302 640 [id number] 460 Patient 198 lb 194 lb Weight Weight Chair scale Measurement Method Physical Exam: General: no apparent distress. Alert. on NC. Eyes: No obvious scleral icterus. HEENT: No jugular venous distention or abnormal jugular venous pulsations. Cardiovascular: Normal intensity S1/S2. PMI not grossly displaced. Respiratory: decreased air entry Abdomen: no guarding or rebound tenderness. Musculoskeletal: No clubbing or cyanosis noted, no edema Skin: warm Current Medications: Current Medications Sig/Kyra Start time Last Medication Dose Route Stop Time Status Admin Acetaminophen 650 MG Q6P PRN 10/03 899 AC PO Acetaminophen 1,000 MG Q6P PRN 10/03 09 AC IV Albuterol Sulfate 3 ML TID 10/05 1000 AC 10/05 INH 1153 Albuterol Sulfate 3 ML Q4P PRN 10/03 2230 DC INH Albuterol Sulfate 3 ML Q6 10/03 1905 DC 10/05 INH 0612 Ascorbic Acid 500 MG DAILY 10/03 1000 AC 10/05 PO 1109 Aspirin 81 MG DAILY 10/03 1000 AC 10/05 PO 1107 Azithromycin 500 MG DAILY 10/03 1000 DC 10/04 Sodium Chloride 250 ML IV 1057 Budesonide/ 2 PUF BID 10/03 1000 AC 10/05 Formoterol Fumarate INH 1110 Calcium/Vitamin D 1 TAB DAILY 10/03 1000 AC 10/05 PO 1109 Ceftriaxone Sodium 1,000 MG DAILY 10/03 1000 DC 10/04 IV 1057 Doxazosin Mesylate 2 MG 10/04 AC PO Fish Oil 1,050 MG 10/04 2200 AC 10/04 PO 2110 Furosemide 20 MG 11:00 AM 10/05 1100 AC 10/05 PO 1105 Furosemide 40 MG 11:00 AM 10/04 1415 DC 10/04 PO 1612 Insulin Aspart 0 TIDAC 10/04 1200 AC 10/05 SC 1246 Ipratropium [place] 2.5 ML TID 10/05 1000 AC 10/05 INH 1153 Ipratropium [place] 2.5 ML Q6 10/03 1904 DC 10/05 INH 0613 Methylprednisolone 40 MG Q8 10/03 1400 DC 10/05 IV 0548 Multivitamins 1 TAB DAILY 10/03 1000 AC 10/05 PO 1110 Omeprazole 40 MG DAILY AC 10/03 0833 AC 10/05 PO 0548 Oxybutynin Chloride 5 MG BID 10/03 1000 AC 10/05 PO 1107 Patient Medication 1 ED .STK-MED ONE 10/05 1336 DC Teaching ED 10/05 1337 Polyethylene Glycol 17 GM DAILY 10/05 1045 AC 10/05 PO 1246 Potassium Chloride 10 MEQ ONCE ONE 10/05 1315 DC PO 10/05 1316 Potassium Chloride 10 MEQ 10/04 AC 10/04 PO 2110 Prednisone 10 MG DAILY 10/17 1000 AC PO 10/19 0959 Prednisone 20 MG DAILY 10/14 1000 AC PO 10/17 0959 Prednisone 10 MG DAILY 10/13 1000 CAN PO 10/14 1001 Prednisone 20 MG DAILY 10/11 1000 CAN PO 10/12 1001 Prednisone 30 MG DAILY 10/11 1000 AC PO 10/14 0959 Prednisone 30 MG DAILY 10/09 1000 CAN PO 10/10 1001 Prednisone 40 MG DAILY 10/08 1000 AC PO 10/11 0959 Prednisone 40 MG DAILY 10/07 1000 CAN PO 10/08 1001 Prednisone 50 MG DAILY 10/06 1000 CAN PO 10/19 0959 Prednisone 50 MG DAILY 10/06 1000 AC PO 10/08 0959 Prednisone 50 MG DAILY 10/05 1130 DC 10/05 PO 10/06 1001 1246 Prednisone 50 MG TAPER 10/05 1100 CAN PO 10/15 1059 Senna/Docusate Sodium 1 TAB BID PRN 10/05 1045 AC PO Results Last 48 Hrs of Labs/Mics: Laboratory Tests 10/05/16 0625: Anion Gap 9, Estimated GFR > 60, BUN/Creatinine Ratio 27.8 H, CBC w Diff NO MAN DIFF REQ, RBC 2.70 L, MCV 105.4 H, MCH 34.6 H, RDW 16.5 H, MPV 8.9, Gran % 82.9 H, Lymphocytes % 11.3 L, Monocytes % 5.8, Eosinophils % 0, Basophils % 0 L, Absolute Granulocytes 5.5, Absolute Lymphocytes 0.8 L, Absolute Monocytes 0.4, Absolute Eosinophils 0, Absolute Basophils 0, PUBS MCHC 32.8 L 10/04/16 0650: Anion Gap 6, Estimated GFR > 60, BUN/Creatinine Ratio 26.3 H, Vitamin B12 863, Folate 13.5, CBC w Diff NO MAN DIFF REQ, RBC 2.68 L, MCV 106.0 H, MCH 35.0 H, RDW 16.1 H, MPV 9.1, Gran % 80.9 H, Lymphocytes % 11.9 L, Monocytes % 7.1, Eosinophils % 0, Basophils % 0.1, Absolute Granulocytes 4.7, Absolute Lymphocytes 0.7 L, Absolute Monocytes 0.4, Absolute Eosinophils 0, Absolute Basophils 0, PUBS MCHC 33.0 Assessment/Plan Assessment/Plan 1. Severe COPD, oxygen dependent 2. Pulmonary hypertension 3. Pleural effusion 4. History of hypertension 5. Paramediastinal mass 6. Rheumatoid arthritis 7. Normal left and right systolic ventricular function by echocardiogram Patient continues to improve. Pulmonary follow-up reviewed. Agree with continued daily gentle diuresis with oral diuretics, appears grossly euvolemic by exam today. Planned for prednisone taper. Planned for STR. Martin Platt MD [facility] Continue telemetry? Not applicable
[2016-10-05 15:06] VITALS: BP 110/50
[2016-10-05 22:26] VITALS: BP 112/58
[2016-10-06 07:00] VITALS: BP 104/60
--- NOTE | 2016-10-06 08:54 | PN- Att Addend ---
Attending Addendum Attending Brief Note Patient on evaluation is awake and alert. General Appearance: Alert, No Acute Distress Skin: Grossly normal HEENT: [place] Neck: Supple, No JVD Cardiovascular: Regular Rate, Normal S1, Normal S2, No Murmurs Lungs: decreased air entry Abdomen: Normal Bowel Sounds, Soft, No Tenderness Neurological: Normal Speech, Strength at 5/5 X4 Ext, Cranial Nerves 3-12 NL, Reflexes 2+ Extremities: 1+ pedal edema left more than right Assessment 85-year-old with history of COPD oxygen dependent, a large left-sided paramediastinal mass, rheumatoid arthritis, presenting with shortness of breath and productive sputum. He followed up with Toni Arzate MD recently and was started on moxifloxacin and prednisone taper. However patient continued to deteriorate from respiratory viewpoint requiring high flow oxygen and hence presented to the ER. CAT scan negative for obvious consolidation. Gram stain unremarkable and cultures growing yeast. Oxygen requirements have improved. Patient appears stable for discharge. Plan Prednisone taper Lasix 20 mg po once daily Continue other home medications STR placement Current Medications Sig/Kyra Start time Last Medication Dose Route Stop Time Status Admin Acetaminophen 650 MG Q6P PRN 10/03 0900 AC PO Acetaminophen 1,000 MG Q6P PRN 10/03 0900 AC IV Albuterol Sulfate 3 ML TID 10/05 1000 AC 10/05 INH 1902 Ascorbic Acid 500 MG DAILY 10/03 1000 AC 10/05 PO 1109 Aspirin 81 MG DAILY 10/03 1000 AC 10/05 PO 1107 Azithromycin 500 MG DAILY 10/03 1000 DC 10/04 Sodium Chloride 250 ML IV 1057 Budesonide/ 2 PUF BID 10/03 1000 AC 10/05 Formoterol Fumarate INH 2147 Calcium/Vitamin D 1 TAB DAILY 10/03 1000 AC 10/05 PO 1109 Ceftriaxone Sodium 1,000 MG DAILY 10/03 1000 DC 10/04 IV 1057 Doxazosin Mesylate 2 MG 10/040 AC 10/05 PO 2145 Fish Oil 1,050 MG 10/04 2200 AC 10/05 PO 2145 Furosemide 20 MG 11:00 AM 10/05 1100 AC 10/05 PO 1105 Insulin Aspart 0 TIDAC 10/04 1200 AC 10/05 SC 1706 Ipratropium [place] 2.5 ML TID 10/05 1000 AC 10/05 INH 1902 Methylprednisolone 40 MG Q8 10/03 1400 DC 10/05 IV 0548 Multivitamins 1 TAB DAILY 10/03 1000 AC 10/05 PO 1110 Omeprazole 40 MG DAILY AC 10/03 0833 AC 10/06 PO 0603 Oxybutynin Chloride 5 MG BID 10/03 1000 AC 10/05 PO 2145 Patient Medication 1 ED .STK-MED ONE 10/05 1336 DC Teaching ED 10/05 1337 Polyethylene Glycol 17 GM DAILY 10/05 1045 AC 10/05 PO 1246 Potassium Chloride 10 MEQ ONCE ONE 10/05 1315 DC 10/05 PO 10/05 1316 1707 Potassium Chloride 10 MEQ 2200 10/04 2200 AC 10/05 PO 2145 Prednisone 10 MG DAILY 10/17 1000 AC PO 10/19 0959 Prednisone 20 MG DAILY 10/14 1000 AC PO 10/17 0959 Prednisone 10 MG DAILY 10/13 1000 CAN PO 10/14 1001 Prednisone 20 MG DAILY 10/11 1000 CAN PO 10/12 1001 Prednisone 30 MG DAILY 10/11 1000 AC PO 10/14 0959 Prednisone 30 MG DAILY 10/09 1000 CAN PO 10/10 1001 Prednisone 40 MG DAILY 10/08 1000 AC PO 10/11 0959 Prednisone 40 MG DAILY 10/07 1000 CAN PO 10/08 1001 Prednisone 50 MG DAILY 10/06 1000 CAN PO 10/19 0959 Prednisone 50 MG DAILY 10/06 1000 AC PO 10/08 0959 Prednisone 50 MG DAILY 10/05 1130 DC 10/05 PO 10/06 1001 1246 Prednisone 50 MG TAPER 10/05 1100 CAN PO 10/15 1059 Senna/Docusate Sodium 1 TAB BID PRN 10/05 1045 AC PO Vital Signs Date Time Temp Pulse Resp B/P B/P Pulse O2 O2 Flow FiO2 Mean Ox Delivery Rate 10/06 0700 98.6 60 18 104/60 93 Nasal 2.0L Cannula 10/06 0000 Nasal 2.0L Cannula 10/05 2226 98.7 68 20 112/58 93 Nasal Cannula 10/05 1910 92 Nasal 2.0L Cannula 10/05 1600 Nasal 2.0L Cannula 10/05 1506 97.7 66 20 110/50 94 Nasal 2.0L Cannula 10/05 1203 93 Nasal 2.5L Cannula
--- NOTE | 2016-10-06 10:41 | PN- Pulmonary ---
Subjective HPI/Critical Care Issues: Seems to be improving on 2 liters Objective Current Medications: Current Medications Sig/Kyra Start time Last Medication Dose Route Stop Time Status Admin Acetaminophen 650 MG Q6P PRN 10/03 09 AC PO Acetaminophen 1,000 MG Q6P PRN 10/03 0900 AC IV Albuterol Sulfate 3 ML TID 10/05 1000 AC 10/06 INH 0935 Ascorbic Acid 500 MG DAILY 10/03 1000 AC 10/05 PO 1109 Aspirin 81 MG DAILY 10/03 1000 AC 10/05 PO 1107 Azithromycin 500 MG DAILY 10/03 1000 DC 10/04 Sodium Chloride 250 ML IV 1057 Budesonide/ 2 PUF BID 10/03 1000 AC 10/05 Formoterol Fumarate INH 2147 Calcium/Vitamin D 1 TAB DAILY 10/03 1000 AC 10/05 PO 1109 Ceftriaxone Sodium 1,000 MG DAILY 10/03 1000 DC 10/04 IV 1057 Doxazosin Mesylate 2 MG 2200 10/04 2200 AC 10/05 PO 2145 Fish Oil 1,050 MG 2200 10/04 2200 AC 10/05 PO 2145 Furosemide 20 MG 11:00 AM 10/05 1100 AC 10/05 PO 1105 Insulin Aspart 0 TIDAC 10/04 1200 AC 10/05 SC 1706 Ipratropium [place] 2.5 ML TID 10/05 1000 AC 10/06 INH 0935 Methylprednisolone 40 MG Q8 10/03 1400 DC 10/05 IV 0548 Multivitamins 1 TAB DAILY 10/03 1000 AC 10/05 PO 1110 Omeprazole 40 MG DAILY AC 10/03 0833 AC 10/06 PO 0603 Oxybutynin Chloride 5 MG BID 10/03 1000 AC 10/05 PO 2145 Patient Medication 1 ED .STK-MED ONE 10/05 1336 NH Teaching ED 10/05 1337 Polyethylene Glycol 17 GM DAILY 10/05 1045 AC 10/05 PO 1246 Potassium Chloride 10 MEQ ONCE ONE 10/05 1315 DC 10/05 PO 10/05 1316 1707 Potassium Chloride 10 MEQ 2200 10/04 2200 AC 10/05 PO 2145 Prednisone 10 MG DAILY 10/17 1000 AC PO 10/19 0959 Prednisone 20 MG DAILY 10/14 1000 AC PO 10/17 0959 Prednisone 10 MG DAILY 10/13 1000 CAN PO 10/14 1001 Prednisone 20 MG DAILY 10/11 1000 CAN PO 10/12 1001 Prednisone 30 MG DAILY 10/11 1000 AC PO 10/14 0959 Prednisone 30 MG DAILY 10/09 1000 CAN PO 10/10 1001 Prednisone 40 MG DAILY 10/08 1000 AC PO 10/11 0959 Prednisone 40 MG DAILY 10/07 1000 CAN PO 10/08 1001 Prednisone 50 MG DAILY 10/06 1000 CAN PO 10/19 0959 Prednisone 50 MG DAILY 10/06 1000 AC PO 10/08 0959 Prednisone 50 MG DAILY 10/05 1130 DC 10/05 PO 10/06 1001 1246 Prednisone 50 MG TAPER 10/05 1100 CAN PO 10/15 1059 Senna/Docusate Sodium 1 TAB BID PRN 10/05 1045 AC PO Vital Signs & I&O Last 24 Hrs of Vitals and I&O: Laboratory Tests 10/05 624 Chemistry Sodium (137 - 145 mmol/L) 136 L Potassium (3.5 - 5.1 mmol/L) 3.8 Chloride (98 - 107 mmol/L) 90 L Carbon Dioxide (22 - 30 mmol/L) 37 H Anion Gap (5 - 16) 9 BUN (9 - 20 mg/dL) 25 H Creatinine (0.7 - 1.2 mg/dL) 0.9 Estimated GFR (>60 ml/min) > 60 BUN/Creatinine Ratio (7 - 25 %) 27.8 H Hematology CBC w Diff NO MAN DIFF REQ WBC (4.8 - 10.8 /CUMM) 6.7 RBC (4.70 - 6.10 /CUMM) 2.70 L Hgb (14.0 - 18.0 G/DL) 9.3 L Hct (42 - 52 %) 28.4 L MCV (80.0 - 94.0 FL) 105.4 H MCH (27.0 - 31.0 PG) 34.6 H RDW (11.5 - 14.5 %) 16.5 H Plt Count (130 - 400 /CUMM) 197 MPV (7.4 - 10.4 FL) 8.9 Gran % (42.2 - 75.2 %) 82.9 H Lymphocytes % (20.5 - 51.1 %) 11.3 L Monocytes % (1.7 - 9.3 %) 5.8 Eosinophils % (0 - 5 %) 0 Basophils % (0.0 - 2.0 %) 0 L Absolute Granulocytes (1.4 - 6.5 /CUMM) 5.5 Absolute Lymphocytes (1.2 - 3.4 /CUMM) 0.8 L Absolute Monocytes (0.10 - 0.60 /CUMM) 0.4 Absolute Eosinophils (0.0 - 0.7 /CUMM) 0 Absolute Basophils (0.0 - 0.2 /CUMM) 0 PUBS MCHC (33.0 - 37.0 G/DL) 32.8 L Microbiology Date/Time Procedure - Status Source Growth 10/03 1854 Respiratory Culture - CAN LOWER RESP Cancelled: SPECIMEN NOT RECEIVED IN LABORATORY 10/03 1854 Gram Stain - CAN LOWER RESP Cancelled: SPECIMEN NOT RECEIVED IN LABORATORY 10/03 1400 Legionella Antigen - COMP URINE ROUT 10/03 1400 Streptococcus pneumoniae Antigen (M - COMP URINE ROUT Vital Signs Date Time Temp Pulse Resp B/P B/P Pulse O2 O2 Flow FiO2 Mean Ox Delivery Rate 10/06 0939 91 Nasal 2.0L Cannula 10/06 0700 98.6 60 18 104/60 93 Nasal 2.0L Cannula 10/06 0000 Nasal 2.0L Cannula 10/05 2226 98.7 68 20 112/58 93 Nasal Cannula 10/05 1910 92 Nasal 2.0L Cannula 10/05 1600 Nasal 2.0L Cannula 10/05 1506 97.7 66 20 110/50 94 Nasal 2.0L Cannula 10/05 1203 93 Nasal 2.5L Cannula Intake & Output 10/06 1600 10/06 0800 10/06 0000 Intake Total 500 970 Output Total 750 925 Balance -250 45 Intake, IV 10 Intake, Oral 500 960 Output, Urine 750 925 Impression/Plan Impression/Plan Impression/Plan: Physical Exam General Appearance Alert, Oriented X3, Cooperative, Mild Distress Skin No Rashes Skin Temp/Moisture Exam: Warm/Dry Sepsis Skin Exam (color): Normal for Ethnicity HEENT MM are dry Neck Supple, No JVD Lymphatic Axillary nl, Cervical nl Cardiovascular Normal S1, Normal S2, No Murmurs Lungs diminished air movement , end expiratory wheezing , no crackle Abdomen Soft Neurological Normal Speech Extremities No Clubbing, No Cyanosis Vascular Normal Pulses SIGNIFICANT DATA Chest x-ray showed moderate left and small right pleural effusion with right basilar consolidation CT scan of the chest done today did reveal chronic mass effect upon the right middle lobe and both lower lobe bronchi seen by the large central pulmonary artery leading to chronic volume loss and consolidation in the [place] upper lobes remain similar prior granulomatous disease smaller indeterminate lung nodules which appears to be inflammatory severe pulmonary hypertension. 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 , with recent worsening related to severe COPD exacerbation * Significant pulmonary hypertension related to terminal lung disease * Functional quadriparesis related to cervical spine disease patient is not a candidate for any therapy * Lower extremity edema suggestive of acute on chronic cor pulmonale * Previous history of mediastinal lymphadenopathy which seems to have resolved * Small lung nodules of no clinical significance * Worsening overall performance status * Bilateral lower lobe atelectasis with restrictive pulmonary physiology as well related to severe pulmonary hypertension * 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
--- NOTE | 2016-10-06 10:48 | PN- Housestaff ---
Subjective Follow-up For: Chronic hypercarbic respiratory failure Pulmonary hypertension likely secondary to terminal lung disease Subjective: Feels well overall. Review of Systems Constitutional: Reports: see HPI. Objective Last 24 Hrs of Vital Signs/I&O Vital Signs Date Time Temp Pulse Resp B/P B/P Pulse O2 O2 Flow FiO2 Mean Ox Delivery Rate 10/06 0939 91 Nasal 2.0L Cannula 10/06 0700 98.6 60 18 104/60 93 Nasal 2.0L Cannula 10/06 0000 Nasal 2.0L Cannula 10/05 2226 98.7 68 20 112/58 93 Nasal Cannula 10/05 1910 92 Nasal 2.0L Cannula 10/05 1600 Nasal 2.0L Cannula 10/05 1506 97.7 66 20 110/50 94 Nasal 2.0L Cannula 10/05 1203 93 Nasal 2.5L Cannula Intake & Output 10/06 1600 10/06 0800 10/06 0000 Intake Total 500 970 Output Total 750 925 Balance -250 45 Intake, IV 10 Intake, Oral 500 960 Output, Urine 750 925 Physical Exam General Appearance: Alert, Oriented X3 Cardiovascular: Regular Rate, Normal S1, Normal S2 Lungs: Clear to Auscultation, Normal Air Movement Abdomen: Normal Bowel Sounds, Soft Extremities: No Clubbing, No Cyanosis Assessment/Plan Assessment: 85 year old gentleman with COPD on home O2 2.5 L, pulmonary HTN 2/2 lung disease , mediastinal mass and LAD, presented with SOB and produtive sputum, bandemia, CT evidence of inflammatory or infectious process, started on IV abx for suspected infectious etiology and glucorticoids for COPD exacerbation. Unsure if patient is swallowing well, this morning had an episode of cough after drinking tea. PO Solumedrol taper. Lasix at home dose. TR nebs. Discharge to [facility] once bed available. Problem List: 1. COPD exacerbation Pain Ratin Pain Location: None Pain Goal: Remain pain free Pain Plan: As needed Tomorrow's Labs & Rationales: Not needed.
--- NOTE | 2016-10-06 11:58 | PN- Cardiology ---
Subjective Subjective: The patient is awake, alert The events of the last 24 hours as well as telemetry were reviewed. Review of Systems: The review of systems is negative for chest pains, palpitations nor lightheadedness. The remainder of the 14 point review of systems is noncontributory with the exception of above. Objective Vital Signs and I&Os Vital Signs Date Time Temp Pulse Resp B/P B/P Pulse O2 O2 Flow FiO2 Mean Ox Delivery Rate 10/06 1104 Nasal 2.0L Cannula 10/06 0939 91 Nasal 2.0L Cannula 10/06 0700 98.6 60 18 104/60 93 Nasal 2.0L Cannula 10/06 0000 Nasal 2.0L Cannula 10/05 2226 98.7 68 20 112/58 93 Nasal Cannula 10/05 1910 92 Nasal 2.0L Cannula 10/05 1600 Nasal 2.0L Cannula 10/05 1506 97.7 66 20 110/50 94 Nasal 2.0L Cannula 10/05 1203 93 Nasal 2.5L Cannula Intake & Output 10/06 1600 10/06 0800 10/06 0000 10/05 1600 10/05 0800 10/05 0000 Intake Total 500 970 400 340 Output Total 750 925 750 800 Balance -250 45 400 -410 -800 Intake, IV 10 0 Intake, Oral 500 960 400 340 Number 0 Bowel Movements Output, Urine 750 925 750 800 Patient 196 lb 198 lb Weight Weight Chair scale Chair scale Measurement Method Physical Exam: General: Nontoxic, no apparent distress. HEENT: Sclera and conjunctiva within normal limits, without xanthelasmas. Neck: Carotids 2+ without bruits. Respiratory: Diffuse rhonchi, air movement is good, without accessory respiratory muscle use. Heart: Regular rate and rhythm, without murmurs, without JVD. Abdomen: Soft, nontender, no masses, normoactive bowel sounds. Extremities: Without clubbing, cyanosis, without edema. Neuro: Nonfocal exam, strength, 5 out of 5 Skin: Within normal limits without lesions. Psych: Mood and affect: Normal Current Medications: Current Medications Sig/Kyra Start time Last Medication Dose Route Stop Time Status Admin Acetaminophen 650 MG Q6P PRN 10/03 899 AC PO Acetaminophen 1,000 MG Q6P PRN 10/03 899 AC IV Albuterol Sulfate 3 ML TID 10/05 1000 AC 10/06 INH 0935 Ascorbic Acid 500 MG DAILY 10/03 1000 AC 10/06 PO 1114 Aspirin 81 MG DAILY 10/03 1000 AC 10/06 PO 1114 Budesonide/ 2 PUF BID 10/03 1000 AC 10/06 Formoterol Fumarate INH 1113 Calcium/Vitamin D 1 TAB DAILY 10/03 1000 AC 10/06 PO 1113 Doxazosin Mesylate 2 MG 0 10/04 2200 AC 10/05 PO 2145 Fish Oil 1,050 MG 10/04 2200 AC 10/05 PO 2145 Furosemide 20 MG 11:00 AM 10/05 1100 AC 10/06 PO 1114 Insulin Aspart 0 TIDAC 10/04 1200 AC 10/05 SC 1706 Ipratropium Jbphh 2.5 ML TID 10/05 1000 AC 10/06 INH 0935 Multivitamins 1 TAB DAILY 10/03 1000 AC 10/06 PO 1114 Omeprazole 40 MG DAILY AC 10/03 0833 AC 10/06 PO 0603 Oxybutynin Chloride 5 MG BID 10/03 1000 AC 10/06 PO 1114 Patient Medication 1 ED .STK-MED ONE 10/05 1336 DC Teaching ED 10/05 1337 Polyethylene Glycol 17 GM DAILY 10/05 1045 AC 10/06 PO 1113 Potassium Chloride 10 MEQ ONCE ONE 10/05 1315 DC 10/05 PO 10/05 1316 1707 Potassium Chloride 10 MEQ 10/04 2200 AC 10/05 PO 2145 Prednisone 10 MG DAILY 10/17 1000 AC PO 10/19 0959 Prednisone 20 MG DAILY 10/14 1000 AC PO 10/17 0959 Prednisone 10 MG DAILY 10/13 1000 CAN PO 10/14 1001 Prednisone 20 MG DAILY 10/11 1000 CAN PO 10/12 1001 Prednisone 30 MG DAILY 10/11 1000 AC PO 10/14 0959 Prednisone 30 MG DAILY 10/09 1000 CAN PO 10/10 1001 Prednisone 40 MG DAILY 10/08 1000 AC PO 10/11 0959 Prednisone 40 MG DAILY 10/07 1000 CAN PO 10/08 1001 Prednisone 50 MG DAILY 10/06 1000 CAN PO 10/19 0959 Prednisone 50 MG DAILY 10/06 1000 AC 10/06 PO 10/08 0959 1115 Prednisone 50 MG DAILY 10/05 1130 DC 10/05 PO 10/06 1001 1246 Senna/Docusate Sodium 1 TAB BID PRN 10/05 1045 AC PO Results Last 48 Hrs of Labs/Mics: Laboratory Tests 10/05/16 0625: Anion Gap 9, Estimated GFR > 60, BUN/Creatinine Ratio 27.8 H, CBC w Diff NO MAN DIFF REQ, RBC 2.70 L, MCV 105.4 H, MCH 34.6 H, RDW 16.5 H, MPV 8.9, Gran % 82.9 H, Lymphocytes % 11.3 L, Monocytes % 5.8, Eosinophils % 0, Basophils % 0 L, Absolute Granulocytes 5.5, Absolute Lymphocytes 0.8 L, Absolute Monocytes 0.4, Absolute Eosinophils 0, Absolute Basophils 0, PUBS MCHC 32.8 L Assessment/Plan Assessment/Plan 85-year-old gentleman with a past medical history of COPD, a left sided paramediastinal mass, hypertension and hyperlipidemia. The patient states having increasing dyspnea over a period of approximately one week, complaining with cough productive of greenish sputum. He has been hypoxic, requiring increased oxygen is. He was recently started on prednisone and antibiotics for presumed respiratory tract infection with COPD exacerbation. Dyspnea: Likely multifactorial including underlying COPD as well as bilateral pleural effusions as seen on chest x-ray with bibasilar consolidations, consistent with likely infection. There is as well a baseline pulmonary hypertension with an estimated PA systolic pressure of 64. We will continue treatment as per pulmonary recommendations with mild diuresis to attempt improvement. Further consideration for possible thoracentesis will be made by pulmonary. Echocardiographic findings were reviewed. There is currently no evidence for overt congestive heart failure (secondary to diastolic dysfunction) Hypertension: Currently stable, we will continue to monitor Paramediastinal mass: This is been discussed with the patient and family in the past through pulmonary , and they requested no intervention. Continue telemetry? No
[2016-10-06 14:34] VITALS: BP 124/56
[2016-10-06] MEDS ORDERED: IPRAT-ALBUT 0.5-3 ML INH/SOL (17:27)
== END 2016-10-06 17:40 | disposition home health service (06) | DRG 190 ==
LOC: ERH 06:12 → 2NA 06:54 → ERHI 06:54 → ENRESERV 10:17 → ENTRNSPT 11:51 → EDTRNSPT 11:58 → EDTRNSPTTYP 11:58 → EDTRNSPTSTS 12:00 → 2NA 12:13 → CMPTRNSPT 12:54 → ENPENDDIS 10-06 10:55 → 2NA 10-06 17:40
PROVIDERS: Emergency Medicine; Internal Medicine Hematology & Oncology; ADMIT Internal Medicine
DX: J44.1 Chronic obstructive pulmonary disease with (acute) exacerbation (principal); J96.21 Acute and chronic respiratory failure with hypoxia; R53.2 Functional quadriplegia; I27.2 Other secondary pulmonary hypertension; Z99.81 Dependence on supplemental oxygen; M06.9 Rheumatoid arthritis, unspecified; M50.30 Other cervical disc degeneration, unspecified cervical region; Z87.891 Personal history of nicotine dependence; E78.5 Hyperlipidemia, unspecified; K21.9 Gastro-esophageal reflux disease without esophagitis; N40.0 Benign prostatic hyperplasia without lower urinary tract symptoms; R22.2 Localized swelling, mass and lump, trunk; Z66 Do not resuscitate; I10 Essential (primary) hypertension
CPT/HCPCS: 2NAP; 81003; 82436; 87040; 87070; 87071; 87449; 87450; 87804; 87804-59; 93005; 93010; 93306; 96374; 96375; 97161-GP; 97530-GO; J0456; J0696; J0713; J2920; J2930; J3490; J7040; J7512

== ENCOUNTER 2017-05-14 13:46 | Inpatient (IN) | payer OTHER ==
[~2017-05-14] VITALS: Ht 165.1 cm; Wt 87.1 kg
[~2017-05-14 13:46] MED LIST: ASPIRIN81 M4 PO; BUDESONIDE0.25 MG/1 INH/SOL; CENTRUM SILVER1 EAC3 PO; CITRACAL SOFT1 EACH PO; COLCRYS0.6 M1 PO; FISH OIL 1,0001 EACH PO; FUROSEMIDE40 M1 PO; GLUCOSAMINE CO1 EAC1 PO; IOPHEN C NR PO; IPRAT-ALBUT 0.5-3 ML INH/SOL; IPRAT-ALBUT 0.5-3 ML NEB; KLOR-CON 1010 ME1 PO; OMEPRAZOLE40 M1 PO; OXYBUTYNIN CHLO10 M1 PO; POTASSIUM CHLO20 ME2 PO; PREDNISONE10 M2 PO; PREDNISONE5 M1 PO; TERAZOSIN HCL5 M1 PO; VITAMIN C500 M7 PO
--- NOTE | 2017-05-14 13:54 | ED DYSPNEA/ASTHMA COMPLAINT ---
History of Present Illness General Chief Complaint: Dyspnea (COPD, CHF, Other) Stated Complaint: SOB Source: patient, old records, EMS Exam Limitations: no limitations Vital Signs & Intake/Output Vital Signs & Intake/Output Vital Signs Date Time Temp Pulse Resp B/P B/P Pulse O2 O2 Flow FiO2 Mean Ox Delivery Rate 05/14 1616 97.1 85 25 131/60 86 BIPAP 05/14 1440 90 Nasal 4.0L Cannula 05/14 1354 96.8 107 26 124/61 95 Aerosol Mask Allergies Coded Allergies: NO KNOWN ALLERGIES (08/29/12) Reconcile Medications Albuterol Sulfate (Proair Hfa) 90 MCG HFA.AER.AD 2 PUF INH Q4-PRN PRN COPD ( Reported) Ascorbic Acid (Vitamin C) 500 MG CAPSULE.ER 1 CAP PO 2XW VITAMIN SUPPLEMENT ( Reported) Aspirin (Aspirin*) 81 MG TAB.CHEW 1 TAB PO DAILY HEART HEALTH (Reported) Azithromycin 250 MG TABLET 1 DP PO AD PROPHALACTIVELY (Reported) ONE TABLET DAILY SUNDAY, SUNDAY AND FRIDAYS Budesonide 0.25 MG/2 ML AMPUL.NEB 1 Vial INH/SOLITARIO TID PRN OB, COPD (Reported) Calcium Carb/Vitamin D3/Vit K1 (Citracal Soft Chew) 500 MG CALCIUM-1,000 UNIT-40 MCG TAB.CHEW 1 TAB PO DAILY VITAMIN SUPPLEMENT (Reported) Cholecalciferol (Vitamin D3) (Vitamin D3) 1,000 UNIT CAPSULE 1 CAP PO DAILY SUPPLEMENT (Reported) Colchicine (Colcrys) 0.6 MG TABLET 1 TAB PO DAILY GOUT (Reported) Furosemide 40 MG TABLET 0.5 TAB PO DAILY FLUID (Reported) Glucosamine/D3/Boswellia Chey (Glucosamine Complex Tablet) 1,500 MG-400 UNIT- 100 MG TABLET 2 TAB PO DAILY VITAMIN SUPPLEMENT (Reported) [IOPHEN- C NR] 1 TSP PO BEDTIME (Reported) Ipratropium/Albuterol Sulfate (Iprat-Albut 0.5-3(2.5) MG/3 Ml) 0.5 MG-3 MG (2.5 MG BASE)/3 ML AMPUL.NEB 1 INHAL INH/SOLITARIO BID PRN PRN SHORTNESS OF BREATH ( Reported) Multivit-Min/FA/Lycopen/Lutein (Centrum Silver Tablet) 0.4 MG-300 MCG-250 MCG TABLET 1 TAB PO VITAMIN SUPPLEMENT (Reported) *TWICE PER WEEK Nystatin 100,000 UNIT/GRAM CREAM..G. 1 TWIN TOP BIDP PRN RASH (Reported) apply to affected area(s) [place]-3 Fatty Acids/Fish Oil (Fish Oil 1,000 MG Capsule) 340 MG-1,000 MG CAPSULE 1 CAP PO DAILY SUPPLEMENT (Reported) Omeprazole 40 MG CAR.DR 1 CAP PO DAILY GERD (Reported) Oxybutynin Chloride (Oxybutynin Chloride ER) 10 MG TAB.ER.24 1 TAB PO DAILY (Reported) Potassium Chloride 20 MEQ TAB.ER.PRT 0.5 TAB PO DAILY SUPPLEMENT (Reported) Prednisone 10 MG TABLET 0 PO TAPER BREATHING On Take 10/06-10/07 50 MG 10/08-10/10 40 MG 10/11-10/13 30 MG 10/14-10/16 20 MG 10/17-10/18 10 MG Then Stop Terazosin HCl 5 MG CAPSULE 1 CAP PO QPM (Reported) Triage Note: PT BIBA FROM HOME WITH INCREASING DIFFICULTY BREATHING. PT HAS A HX OF COPD AND 02 SAT WAS 74% BY EMS ON THE O2, MEDIC ADMINISTERED A DUO NEB AND SATS INCREASED TO 97% TO WHICH REMAINS CURRENTLY. DENIES ANY CP, DENIES ANY ABD PAIN OR N/V. Triage Nurses Notes Reviewed? yes Onset: Gradual Duration: hour(s): Timing: recent history Severity: moderate HPI: 86YO male with hx of COPD on 2L home O2 BIBA for dyspnea worsening this morning. Patient states that this morning he felt increasing shortness of breath compared to recent days. Family member states that over the past few days patient has had lower oxygen saturations, around 88%, today in the 70s which prompted calling for an ambulance. Patient has a chronic dry cough. Patient also feeling generalized weakness, family member states that this is normal for him. Today patient reports visual changes, believes it is both eyes, cannot describe the changes however states they are intermittent, he states he sees abnormal light and lines in his eye. The patient denies chest pain, abdominal pain, recent fall, head trauma, headache, numbness, fevers, chills, nausea vomiting. Per EMS, upon arrival patient's oxygenation was 74% on 2 L oxygen, he was medicated with DuoNeb in route and oxygen increased to 97%. Patient is on daily prednisone (5mg), sees Dr. Guy regarding his COPD management. (Reena Mendes) Past History Travel History Traveled to [place] past 21 day No Medical History Any Pertinent Medical History? 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 FATHER (bronchitis). MOTHER (breast CA). Hx Contributory? No (Reena Mendes) Review of Systems Review of Systems Constitutional: Reports: no symptoms. EENTM: Reports: see HPI. Respiratory: Reports: see HPI. Cardiovascular: Reports: no symptoms. GI: Reports: no symptoms. Genitourinary: Reports: no symptoms. Musculoskeletal: Reports: no symptoms. Skin: Reports: no symptoms. Neurological/Psychological: Reports: no symptoms. Hematologic/Endocrine: Reports: no symptoms. Immunologic/Allergic: Reports: no symptoms. All Other Systems: Reviewed and Negative (Reena Mendes) Physical Exam Physical Exam General Appearance: well developed/nourished, no apparent distress, alert, awake Head: atraumatic, normal appearance Eyes: Bilateral: EOMI, other (pupils are unequal). Ears, Nose, Throat: normal pharynx, hearing grossly normal Neck: normal inspection, supple, full range of motion Respiratory: diminished breath sounds left jarvis >right, faint crackles Cardiovascular: tachycardia, muffled heart sounds Peripheral Pulses: 2+ radial (R), 2+ radial (L) Gastrointestinal: normal bowel sounds, soft, non-tender, no organomegaly Extremities: ROM of etremities limited d/t weakness, 2+ pitting edema bilateral lower extremities Neurologic/Psych: awake, alert, oriented x 3, bacon de rinder II-XII nml as tested (with exception of pupils) Skin: intact, normal color, warm/dry Core Measures ACS in differential dx? Yes CVA/TIA Diagnosis No Sepsis Present: No Sepsis Focused Exam Completed? No (Reena Mendes) Progress Differential Diagnosis: asthma, AMI, bronchitis, costochondritis, CHF, COPD, pericarditis, pulmonary embolism, pneumonia, pneumothorax, unstable angina Plan of Care: Orders Procedure Date/time Status Heart Healthy Diet 05/15 B Active CBC WITHOUT DIFFERENTIAL 05/15 06 Active BASIC ELECTROLYTES PLUS BUN&CR 05/15 06 Active Heart Healthy Diet 05/14 D Complete ARTERIAL BLOOD GAS (GEN) 05/14 1999 Complete RAPID VIRAL INFLUENZA A 05/14 1750 Active TRC EVALUATION (GEN) 05/14 1745 Active OXYGEN SETUP (GEN) 05/14 1745 Complete PT Evaluate & Treat 05/14 1745 Active Pathway - chart 05/14 1745 Active House Staff 05/14 1745 Active LOWER RESPIRATORY CULTURE 05/14 1745 Active Code Status 05/14 1745 Active TROPONIN LEVEL 05/14 1730 Active EKG 05/14 1730 Active LACTIC ACID 05/14 1651 Complete BLOOD CULTURE 05/14 1612 Active ED Holding Orders 05/14 1610 Active Admit to inpatient 05/14 1610 Active Vital Signs 05/14 1610 Active Code Status 05/14 1610 Complete Patient Data 05/14 1608 Active ARTERIAL BLOOD GAS (GEN) 05/14 1526 Complete TROPONIN LEVEL 05/14 1351 Complete MAGNESIUM 05/14 1351 Complete LACTIC ACID 05/14 1351 Complete COMPREHENSIVE METABOLIC PANEL 05/14 1351 Complete CBC WITHOUT DIFFERENTIAL 05/14 1351 Complete EKG 05/14 1347 Active BIPAP 05/14 UNK Complete VTE Mechanical Prophylaxis 05/14 UNK Active Current Medications Sig/Kyra Start time Last Medication Dose Stop Time Status Admin Omeprazole 40 MG DAILY AC 05/15 0700 UNVr (Prilosec) Budesonide/ 2 PUF BID 05/14 220 AC Formoterol Fumarate (Symbicort) Oxybutynin Chloride 5 MG BID 05/14 2200 UNVr (Ditropan) Ceftriaxone Sodium 1,000 MG DAILY 05/14 1800 UNVr (Rocephin) Methylprednisolone 40 MG Q6 05/14 1800 UNVr (Solumedrol) Aspirin 81 MG DAILY 05/14 1747 UNVr (Aspirin) Azithromycin 500 MG DAILY 05/14 1745 UNVr (Zithromax) Sodium Chloride 250 ML (Normal Saline 0.9%) Ipratropium Stuart 2.5 ML Q4 HRS NEEDED PRN 05/14 1745 AC (Atrovent) Heparin Sodium 5,000 UNIT Q8 05/14 174 AC (Porcine) Ceftriaxone Sodium 1,000 MG ONCE ONE 05/14 1615 CAN (Rocephin) 05/14 1616 Laboratory Tests 05/14/17 1800: pH 7.29 *L, pCO2 82 *H, pO2 79 L, HCO3 38 H, ABG O2 Sat (Measured) 93.0 L, P- 50 (Temp Corrected) Y, Carboxyhemoglobin 0.4 L, O2 Concentration % 55, Temperature 97.6, Respiration Rate 20, O2 Delivery Method BIPAP, Vent Mode ST, Expiratory Pressure 6, Inspiratory Pressure 18, Phlebotomy Draw Site RIGHT RADIAL 05/14/17 1647: Lactic Acid 1.1 05/14/17 1555: pH 7.30 *L, pCO2 79 *H, pO2 60 L, HCO3 38 H, ABG O2 Sat (Measured) 87.0 L, P- 50 (Temp Corrected) Y, Carboxyhemoglobin 1.0 L, O2 Concentration % 4L, Temperature 97.6, O2 Delivery Method N/C, Phlebotomy Draw Site RIGHT RADIAL 05/14/17 1428: Anion Gap 7, Estimated GFR > 60, BUN/Creatinine Ratio 26.7 H, Glucose 158 H, Lactic Acid 0.9, Calcium 8.3 L, Magnesium 1.7, Total Bilirubin 0.8, AST 32, ALT 34, Alkaline Phosphatase 40, Troponin I 0.10, Total Protein 6.8, Albumin 3.8, Globulin 3.0, Albumin/Globulin Ratio 1.3, CBC w Diff MAN DIFF ORDERED, RBC 3.08 L, MCV 102.9 H, MCH 33.2 H, RDW 20.1 H, MPV 8.5, Gran % 85.4 H, Lymphocytes % 5.3 L, Monocytes % 9.0, Eosinophils % 0.1, Basophils % 0.2, Absolute Granulocytes 6.7 H, Segmented Neutrophils 66, Band Neutrophils 17 H, Absolute Lymphocytes 0.4 L, Lymphocytes 8 L, Monocytes 8, Absolute Monocytes 0.7 H, Absolute Eosinophils 0, Basophils 1, Absolute Basophils 0, Nucleated RBCs 2 H, Platelet Estimate ADEQUATE, Polychromasia 1+, Hypochromic-Microcytic 2+, Poikilocytosis 3+, Basophilic Stippling 1+, Anisocytosis 2+, Macrocytic Cells 1+ , Ovalocytes 1+, PUBS MCHC 32.2 L Microbiology 05/14 1750 NASOPHARYN: Influenza Virus A & B Rapid Smear - ORD 05/14 1745 LOWER RESP: Respiratory Culture - ORD 05/14 1745 LOWER RESP: Gram Stain - ORD 05/14 1647 BLOOD: Blood Culture - RECD 05/14 1629 BLOOD: Blood Culture - RECD Patient's chemistries show signs of elevated CO2, CO2 retention. ABG shows hypercapnic respiratory failure, patient seen and evaluated by Dr. Austin and patient started on BiPAP. Started on broad-spectrum antibiotics, blood cultures sent to the lab. Dr. Austin spoke with hospitalist regarding this patient's telemetry admission for COPD exacerbation and hypercapnic respiratory failure. Diagnostic Imaging: Viewed by Me: Radiology Read, CT Scan. Discussed w/RAD: Radiology Read, CT Scan. Radiology Impression: PATIENT: ELENA QUICK PRESENT AGE: 86 PATIENT ACCOUNT NO: [id number] : 30 LOCATION: [facility] ORDERING PHYSICIAN: Reena ROSADO SERVICE DATE: 05/14/17 EXAM TYPE: RAD - XRY-PORTABLE CHEST XRAY EXAMINATION: XR CHEST PORTABLE CLINICAL INFORMATION: Dyspnea. COMPARISON: Chest done on 11/29/2016. TECHNIQUE: Portable frontal view of the chest was obtained. FINDINGS: Stable bibasilar airspace disease is noted with blunting of the left lateral CP angle, unchanged since . Mild pulmonary venous congestion is noted bilaterally (right greater than left), appears similar to prior study. The cardiomediastinal silhouette is moderately enlarged, unchanged. No new airspace disease. The visualized upper abdomen is unremarkable. IMPRESSION: No significant change since 11/29/2016. Stable mild pulmonary venous congestion, moderate enlargement of the cardiomediastinal silhouette, and nonspecific bibasilar airspace disease. DICTATED BY: Lance Suarez MD DATE/TIME DICTATED:05/14/171457 DICTATING MACHINE MECHANIC:MIKALA DATE/TIME TRANSCRIBED:05/14/171457 CONFIDENTIAL, DO NOT COPY WITHOUT APPROPRIATE AUTHORIZATION. <Electronically signed in Other Vendor System> SIGNED BY: Lance Suarez MD 05/14/17 1511, PATIENT: ELENA QUICK PRESENT AGE: 86 PATIENT ACCOUNT NO : [id number] : 30 LOCATION: [facility] ORDERING PHYSICIAN: Reena ROSADO SERVICE DATE: 05/14/17 EXAM TYPE: CAT - CT HEAD WO IV CONTRAST EXAMINATION: CT HEAD WITHOUT CONTRAST CLINICAL INFORMATION: Pupil irregularity and visual changes. Suspected intracranial hemorrhage. COMPARISON: 10/13/2011 TECHNIQUE: Contiguous axial imaging was performed from the skull base to vertex without intravenous administration of contrast. Repeat images were obtained of the base of the skull due to motion-related artifacts. DLP: 1291.88 mGy-cm FINDINGS: There is no evidence of acute intracranial hemorrhage or territorial infarction. No abnormal mass effect or midline shift is seen. Cfkj-[id number]-hofuq matter differentiation is well preserved. No extra-axial fluid collections are identified. The ventricles are normal in size. There is no abnormal attenuation within the brain parenchyma. The osseous structures and soft tissues are normal. The mastoid air cells are well aerated. Circumferential mucoperiosteal thickening is noted within the left maxillary sinus, consistent with sinusitis, appear improved since 2011. IMPRESSION: No acute intracranial hemorrhage. DICTATED BY: Lance Suarez MD DATE/TIME DICTATED:05/14/171501 DICTATING MACHINE MECHANIC:MIKALA DATE/TIME TRANSCRIBED:05/14/171501 CONFIDENTIAL, DO NOT COPY WITHOUT APPROPRIATE AUTHORIZATION. <Electronically signed in Other Vendor System> SIGNED BY: Lance Suarez MD 05/14/17 0292 Initial ED EKG: sinus rhythm @109 bpm, nonspecific IVCD, nonspecific ST changes Prior EKG: changed (10/03/16) (Reena Mendes) Departure Departure Referrals: Neel Ramos MD (PCP/Family) Departure Forms: Customer Survey General Discharge Information (Reena Mendes) Departure Disposition: STILL A PATIENT Condition: Guarded Clinical Impression Primary Impression: Hypercapnic respiratory failure Secondary Impressions: COPD exacerbation Admission Note Spoke With: Ariadne Gonzalez MD Documentation of Exam: Documentation of any treatments & extenuating circumstances including Concerns Regarding Discharge (functional status, medication knowledge or non-compliance, living conditions, etc.) that warrant an admission rather than observation: [IV STEROIDS, IV ABX, PULM CONSULT BIPAP, NEBS] PA/MOTORMAN/WOMAN Co-Sign Statement Statement: ED Attending supervision documentation- [X] I saw and evaluated the patient. I have also reviewed all the pertinent lab results and diagnostic results. I agree with the findings and the plan of care as documented in the PA's/MOTORMAN/WOMAN's documentation. [X] I have reviewed the ED Record and agree with the PA's/MOTORMAN/WOMAN's documentation. [] Additions or exceptions (if any) to the PAs/MOTORMAN/WOMAN's note and plan are summarized below: [HYPERCARBIC RESP FAILURE REQUIRING BIPAP, IV STEROIDS, IV ABX, PULM CONSULT, ] (Norman ORTEGA,Dannie Mcintyre) Critical Care Note Critical Care Note Critical Care Time: mins: (120 MIN) (Norman ORTEGA,Dannie Mcintyre)
[2017-05-14] MEDS ORDERED: PROAIR HFA8.5 GM INH (14:18)
[2017-05-14] MEDS ORDERED: VITAMIN D31000 UNI1 PO (14:19)
[2017-05-14] MEDS ORDERED: AZITHROMYCIN250 M1 PO (14:21)
[2017-05-14] MEDS ORDERED: NYSTATIN15 G1 TOP (14:22)
[2017-05-14 14:37] LABS: ABSOLUTE BASOPHIL COUNT 0 /CUMM (0.0-0.2); ABSOLUTE EOSINOPHIL COUNT 0 /CUMM (0.0-0.7); ABSOLUTE GRANULOCYTE CT 6.7 /CUMM (1.4-6.5); ABSOLUTE LYMPH COUNT 0.4 /CUMM (1.2-3.4); ABSOLUTE MONOCYTE COUNT 0.7 /CUMM (0.10-0.60); BASOPHIL % 0.2 % (0.0-2.0); EOSINOPHIL % 0.1 % (0-5); GRANULOCYTE % 85.4 % (42.2-75.2); HEMATOCRIT 31.6 % (42-52); MEAN CORPUSCULAR HGB 33.2 PG (27.0-31.0); MEAN CORPUSCULAR HGB CONC 32.2 G/DL (33.0-37.0); MEAN CORPUSCULAR VOLUME 102.9 FL (80.0-94.0); MEAN PLATELET VOLUME 8.5 FL (7.4-10.4); PLATELET COUNT 182 /CUMM (130-400); RBC DISTRIBUTION WIDTH 20.1 % (11.5-14.5); RED BLOOD CELL CT 3.08 /CUMM (4.70-6.10); WHITE BLOOD CELL COUNT 7.8 /CUMM (4.8-10.8)
--- NOTE | 2017-05-14 15:11 | RADIOLOGY REPORT ---
EXAMINATION: XR CHEST PORTABLE CLINICAL INFORMATION: Dyspnea. COMPARISON: Chest done on 11/29/2016. TECHNIQUE: Portable frontal view of the chest was obtained. FINDINGS: Stable bibasilar airspace disease is noted with blunting of the left lateral CP angle, unchanged since 11/29/2016. Mild pulmonary venous congestion is noted bilaterally (right greater than left), appears similar to prior study. The cardiomediastinal silhouette is moderately enlarged, unchanged. No new airspace disease. The visualized upper abdomen is unremarkable. IMPRESSION: No significant change since 11/29/2016. Stable mild pulmonary venous congestion, moderate enlargement of the cardiomediastinal silhouette, and nonspecific bibasilar airspace disease.
--- NOTE | 2017-05-14 15:14 | CT SCAN REPORT ---
EXAMINATION: CT HEAD WITHOUT CONTRAST CLINICAL INFORMATION: Pupil irregularity and visual changes. Suspected intracranial hemorrhage. COMPARISON: 10/13/2011 TECHNIQUE: Contiguous axial imaging was performed from the skull base to vertex without intravenous administration of contrast. Repeat images were obtained of the base of the skull due to motion-related artifacts. DLP: 1291.88 mGy-cm FINDINGS: There is no evidence of acute intracranial hemorrhage or territorial infarction. No abnormal mass effect or midline shift is seen. [id number] matter differentiation is well preserved. No extra-axial fluid collections are identified. The ventricles are normal in size. There is no abnormal attenuation within the brain parenchyma. The osseous structures and soft tissues are normal. The mastoid air cells are well aerated. Circumferential mucoperiosteal thickening is noted within the left maxillary sinus, consistent with sinusitis, appear improved since 2012. IMPRESSION: No acute intracranial hemorrhage.
--- NOTE | 2017-05-14 16:24 | History & Physical ---
Mercedes Forbes 05/14/17 1623: General Information and HPI MD Statement: I have seen and personally examined ELENA QUICK and documented this H&P. The patient is a 86 year old M who presented with a patient stated chief complaint of [shortness of breath ]. Source of Information: patient, family, old records Exam Limitations: no limitations History of Present Illness: 86-year-old gentleman was brought in with a complaint fatigue, lethargy and persistent hypoxia for the past few days. 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 Patient lives with his family/ uses rollator; has limited daily activity. For the past few days according to daughter, patient was increasingly tired, lethargic. He is oxygen levels were found to be persistently low around high 80s %. On Sunday patient was and was restarted on by mouth prednisone 40 mg for 5 days and po Moxifloxacin for 7 days which minimally improved his symptoms. His daytime oxygen was increased to 3 L without improvement of O2 saturation, nor increasing frequency of using rescue inhalers. Today patient was found to be hypoxic down to 70% on oxygen ambulance was called and patient was transferred to emergency department. He denies any fever, shaking chills, joint pain, GI/ symptoms, chest pain, palpitation, no worsening edema, no recent weight gain. No recent travel/ family members URI symptoms for the past few days (his son had bronchitis). According to his daughter patient was also slightly confused/slower than normal today. Per EMS, upon arrival patient's oxygenation was 74% on 2 L oxygen, he was medicated with DuoNeb in route and oxygen increased to 97%. In the ED, his ABG showed pH of 7.3 with PCO2 of 79 and bicarbonate of 38 vital signs were stable and patient was restarted on BiPAP with PIP of 18 and EPAP 6 respiratory rate 22. Allergies/Medications Allergies: Coded Allergies: NO KNOWN ALLERGIES (08/29/12) Home Med list Albuterol Sulfate (Proair Hfa) 90 MCG HFA.AER.AD 2 PUF INH Q4-PRN PRN COPD ( Reported) Ascorbic Acid (Vitamin C) 500 MG CAPSULE.ER 1 CAP PO 2XW VITAMIN SUPPLEMENT ( Reported) Aspirin (Aspirin*) 81 MG TAB.CHEW 1 TAB PO DAILY HEART HEALTH (Reported) Azithromycin 250 MG TABLET 1 DP PO AD PROPHALACTIVELY (Reported) ONE TABLET DAILY SUNDAY, SUNDAY AND FRIDAYS Budesonide 0.25 MG/2 ML AMPUL.NEB 1 Vial INH/SOLITARIO TID PRN OB, COPD (Reported) Calcium Carb/Vitamin D3/Vit K1 (Citracal Soft Chew) 500 MG CALCIUM-1,000 UNIT-40 MCG TAB.CHEW 1 TAB PO DAILY VITAMIN SUPPLEMENT (Reported) Cholecalciferol (Vitamin D3) (Vitamin D3) 1,000 UNIT CAPSULE 1 CAP PO DAILY SUPPLEMENT (Reported) Colchicine (Colcrys) 0.6 MG TABLET 1 TAB PO DAILY GOUT (Reported) Furosemide 40 MG TABLET 0.5 TAB PO DAILY FLUID (Reported) Glucosamine/D3/Boswellia Chey (Glucosamine Complex Tablet) 1,500 MG-400 UNIT- 100 MG TABLET 2 TAB PO DAILY VITAMIN SUPPLEMENT (Reported) [IOPHEN- C NR] 1 TSP PO BEDTIME (Reported) Ipratropium/Albuterol Sulfate (Iprat-Albut 0.5-3(2.5) MG/3 Ml) 0.5 MG-3 MG (2.5 MG BASE)/3 ML AMPUL.NEB 1 INHAL INH/SOLITARIO BID PRN PRN SHORTNESS OF BREATH ( Reported) Multivit-Min/FA/Lycopen/Lutein (Centrum Silver Tablet) 0.4 MG-300 MCG-250 MCG TABLET 1 TAB PO VITAMIN SUPPLEMENT (Reported) *TWICE PER WEEK Nystatin 100,000 UNIT/GRAM CREAM..G. 1 TWIN TOP BIDP PRN RASH (Reported) apply to affected area(s) [place]-3 Fatty Acids/Fish Oil (Fish Oil 1,000 MG Capsule) 340 MG-1,000 MG CAPSULE 1 CAP PO DAILY SUPPLEMENT (Reported) Omeprazole 40 MG CAPSULE.DR 1 CAP PO DAILY GERD (Reported) Oxybutynin Chloride (Oxybutynin Chloride ER) 10 MG TAB.ER.24 1 TAB PO DAILY (Reported) Potassium Chloride 20 MEQ TAB.ER.PRT 0.5 TAB PO DAILY SUPPLEMENT (Reported) Prednisone 10 MG TABLET 0 PO TAPER BREATHING On Take 10/06-10/07 50 MG 10/08-10/10 40 MG 10/11-/ 30 MG /-10/16 20 MG 66-7 10 MG Then Stop Terazosin HCl 5 MG CAPSULE 1 CAP PO QPM (Reported) Compliance With Home Meds: GOOD Past History Travel History Traveled to [place] past 21 day No Medical History Neurological: NONE EENT: NONE Cardiovascular: hyperlipidemia Respiratory: COPD Gastrointestinal: GERD Hepatic: NONE Renal: benign prost hyperplasia Musculoskeletal: gout, osteoarthritis Psychiatric: NONE Endocrine: NONE Blood Disorders: NONE Cancer(s): NONE CASHIER PAYMENTS RECEIVED/Reproductive: NONE History of MRSA: No History of VRE: No History of CDIFF: No Surgical History Surgical History: none Past Family/Social History Family History Relations & Conditions if any BROTHER (lung CA). FATHER (bronchitis). MOTHER (breast CA). Psychosocial History Who Do You Live With? child Services at Home: None Primary Language: Turkmen Functional Ability ADLs Independent: dressing, eating, toileting, bathing. Ambulation: non-ambulatory, rarely ambulated and uses walker IADLs Independent: telephone. Needs Assist: shopping, housework, finances, food prep, transportation, medication admin. Review of Systems Review of Systems Constitutional: Reports: see HPI. Cardiovascular: Reports: no symptoms. Respiratory: Reports: see HPI, cough, short of breath. Denies: sputum production, stridor, wheezing. Genitourinary: Reports: no symptoms. Musculoskeletal: Reports: no symptoms. All Other Systems: Reviewed and Negative Exam & Diagnostic Data Last 24 Hrs of Vital Signs/I&O Vital Signs Date Time Temp Pulse Resp B/P B/P Pulse O2 O2 Flow FiO2 Mean Ox Delivery Rate 05/14 1616 97.1 85 25 131/60 86 BIPAP 05/14 1440 90 Nasal 4.0L Cannula 05/14 1354 96.8 107 26 124/61 95 Aerosol Mask Intake & Output 05/14 1600 05/14 0800 05/14 0000 Intake Total Output Total Balance Patient 193 lb Weight Weight Reported by Patient Measurement Method Physical Exam General Appearance Oriented X3, Cooperative, Mild Distress, lethargic but responds to his name HEENT PERRLA, EOMI Neck Supple, No JVD Cardiovascular Regular Rate, Normal S1, Normal S2, No Murmurs Lungs didminished air movement Abdomen Soft Neurological Normal Gait, lethargic Extremities +2 stable b/l pitting edema Last 24 Hrs of Labs/Nikolas: Laboratory Tests 05/14/17 1647: Lactic Acid 1.1 05/14/17 1555: pH 7.30 *L, pCO2 79 *H, pO2 60 L, HCO3 38 H, ABG O2 Sat (Measured) 87.0 L, P- 50 (Temp Corrected) Y, Carboxyhemoglobin 1.0 L, O2 Concentration % 4L, Temperature 97.6, O2 Delivery Method N/C, Phlebotomy Draw Site RIGHT RADIAL 05/14/17 1428: Anion Gap 7, Estimated GFR > 60, BUN/Creatinine Ratio 26.7 H, Glucose 158 H, Lactic Acid 0.9, Calcium 8.3 L, Magnesium 1.7, Total Bilirubin 0.8, AST 32, ALT 34, Alkaline Phosphatase 40, Troponin I 0.10, Total Protein 6.8, Albumin 3.8, Globulin 3.0, Albumin/Globulin Ratio 1.3, CBC w Diff MAN DIFF ORDERED, RBC 3.08 L, MCV 102.9 H, MCH 33.2 H, RDW 20.1 H, MPV 8.5, Gran % 85.4 H, Lymphocytes % 5.3 L, Monocytes % 9.0, Eosinophils % 0.1, Basophils % 0.2, Absolute Granulocytes 6.7 H, Segmented Neutrophils 66, Band Neutrophils 17 H, Absolute Lymphocytes 0.4 L, Lymphocytes 8 L, Monocytes 8, Absolute Monocytes 0.7 H, Absolute Eosinophils 0, Basophils 1, Absolute Basophils 0, Nucleated RBCs 2 H, Platelet Estimate ADEQUATE, Polychromasia 1+, Hypochromic-Microcytic 2+, Poikilocytosis 3+, Basophilic Stippling 1+, Anisocytosis 2+, Macrocytic Cells 1+ , Ovalocytes 1+, PUBS MCHC 32.2 L Microbiology 05/14 164 BLOOD: Blood Culture - RECD 05/14 1629 BLOOD: Blood Culture - RECD Diagnostic Data EKG Results Normal sinus rate and rhythm CXR Results IMPRESSION: No significant change since 11/29/2016. Stable mild pulmonary venous congestion, moderate enlargement of the cardiomediastinal silhouette, and nonspecific bibasilar airspace disease. Assessment/Plan Assessment: This is a 85-year-old gentleman with advanced COPD, has been on chronic oxygen therapy, significant pulmonary hypertension related to severe COPD and chronic lung disease, and poor performance status now here with worsening hypoxemia/ hypercapnic hypoxic respiratory failure. Pertinent data 7.3/38 BiPAP FiO2 55% Vital signs are stable Imaging no evidence of infiltration BEP within normal limits BUN/creatinine 16 and 0.6 Previous echo: Diastolic heart failure and RV pressure of 64 List of active problems #1 chronic hypercapnic respiratory failure due to advanced COPD with recent worsening due to POSSIBLY viral bronchitis #2 cor pulmonale and chronic bilateral lower extremity edema #3 worsening overall performance status Plan * Admit to telemetry for continuous pulse ox * Continue Symbicort * Repeat a sputum culture; rapid flu swab * IV azithromycin 500 mg daily pending above * IV Solu-Medrol 40 mg every 6h * Continue BiPAP; in case of worsening ABG or worsening mentation low threshold for transfer to ICU * Cefteriaxone 1000 mg IV daily pending above * TRC/Neb Q4 h * Symbicort 2 puff BID * Repeat ABG 2 hours from now * O2 sat of titrates her respiratory ; Keep O2 sat around 88-90% * Hold off Lasix due to potential worsening of alkalosis * Continue his home medications aspirin, oxybutynin, omeprazole, terazosyn DVT prophylaxis Pain pathway-avoid hypnotics and narcotics Housekeeping As Ranked By This Provider Problem List: 1. COPD exacerbation 2. Hypercapnic respiratory failure Core Measures/Misc (01/28) Acute Coronary Syndrome ACS Diagnosis: No Congestive Heart Failure Congestive Heart Failure Diagnosis No Cerebrovascular Accident CVA/TIA Diagnosis: No VTE (View Protocol) VTE Risk Factors CHF or Resp Failure No Mechanical VTE Prophylaxis d/t N/A MechProphylax Ordered No VTE Pharm Prophylaxis d/t NA PharmProphylax ordered Sepsis (View protocol) Sepsis Present: No Resident Review Statement Resident Statement: examined this patient, discussed with customer experience intern, agreed with customer experience intern, discussed with family, reviewed EMR data (avail), discussed with nursing , discussed with case mgmt, reviewed images, amended to note Ariadne Gonzalez MD 05/15/17 0750: Attending MD Review Statement Attending Statement Attending Statement: examined this patient, discuss w/resident/PA/CORPORATE TRAFFIC MANAGER, agreed w/resident/PA/CORPORATE TRAFFIC MANAGER, reviewed EMR data (avail), discussed with nursing, reviewed images Attending Assessment/Plan: See medical brief addendum note dated 05/14/17
--- NOTE | 2017-05-14 17:15 | Admission Certification ---
Admission Certification Certification Statement - As attending physician, I certify that at the time of - admission, based on clinical presentation, severity of - symptoms, need for further diagnostic testing and - therapeutic interventions, and risk of adverse outcomes - without in-hospital treatment, in my clinical assessment, - this patient requires an acute hospital stay for a minimum - of two nights or longer. I have also considered psychsocial - factors such as support system, advanced age, financial - issues, cognitive issues, and failed out-patient treatments, - past re-admission history, safety of patient, and lack of - compliance as applicable. Specific rationale supporting this admission is: Acute hypercapnic resp failure in pt with COPD
--- NOTE | 2017-05-14 17:21 | PN- Att Addend ---
Attending Addendum Attending Brief Note 86 year old male with advanced copd, chronic cor pilmonale and chronic resp faliure on home o2, is here with acute hypoxix and hypercapnic resp failure as evidenced by pco2 of 79 and po2 of 60 on abg with resp acidosis. In addition pt also has chronic quadriparesis from cervical disc disease. Will treat him for a copd exacerbation with IV steroids and will also cover for bacterial bronchitis with abx. Pulm consult, trc with nebs and sputum gram stain and c/s. Will use NIPPV with bipap and repeat abg to f/u Pco2. Given the elevated HCO3, will hold of on Lasix for now and f/u lytes, HCO3 and K closely. DVT prophylaxis, chcek flu swab and f/u.
[2017-05-14 19:54] VITALS: BP 110/70
[2017-05-14 22:16] VITALS: BP 120/70
--- NOTE | 2017-05-15 06:01 | Event Note ---
Event Note Event Note: situation Off bipap for around 45min - refusing it Brief Patient is a 86 YO admitted with acute hypoxic hypercarbic respiratory failure - he was unresponsive around 9:30pm. he became responsive while we tried to put his dentures back to his mouth as his Bipap machine is not fixing due to it. Later patient refused to be on bipap for around 45min. Daughter came to bedside and covinced him. he was started on bipap again. Assessemnt patient remained persistently acidotic due to endstage COPD and on/off on Bipap. plan Continue Bipap DNR/DNI ABG in am - if not improving consider rediscussing goals of care.
[2017-05-15 06:59] VITALS: BP 136/60
--- NOTE | 2017-05-15 07:42 | PN- Housestaff ---
Ananth ORTEGA,[facility] 05/15/17 0742: Subjective Follow-up For: Acute on chronic hypercapnic and hypoxic respiratory failure. Tele-Events Since Last Visit: see event note Subjective: Patient seen and examined. Currently on BiPAP family by bedside alert oriented Review of Systems Constitutional: Reports: see HPI. Objective Last 24 Hrs of Vital Signs/I&O Vital Signs Date Time Temp Pulse Resp B/P B/P Pulse O2 O2 Flow FiO2 Mean Ox Delivery Rate 05/15 1157 91 92 05/15 0904 110 93 05/15 0822 89 95 05/15 0659 98.3 77 20 136/60 94 CPAP 05/15 0616 97 93 05/15 0240 91 90 05/15 0035 69 94 05/15 0000 BIPAP 55% 05/14 2216 98.2 69 20 120/70 90 05/14 2056 BIPAP 55% 05/14 2037 Nasal 2.0L Cannula 05/14 1954 99.2 74 20 110/70 94 05/14 1818 100.1 93 25 126/84 96 BIPAP 55% 05/14 1616 97.1 85 25 131/60 86 BIPAP 05/14 1440 90 Nasal 4.0L Cannula 05/14 1354 96.8 107 26 124/61 95 Aerosol Mask Intake & Output 05/15 1600 05/15 0800 05/15 0000 Intake Total 120 250 Output Total 400 200 Balance -280 50 Intake, IV 250 Intake, Oral 120 0 Output, Urine 400 200 Patient 192 lb Weight Physical Exam General Appearance: Alert, Oriented X3, Cooperative Abdomen: Soft Other Physical Findings: Lungs: Decreased breath sounds bilaterally with few scattered rhonchi. Assessment/Plan Assessment: This is a 85-year-old gentleman with advanced COPD, has been on chronic oxygen therapy, significant pulmonary hypertension related to severe COPD and chronic lung disease, and poor performance status now here with worsening hypoxemia/ hypercapnic hypoxic respiratory failure. -He is being evaluated and treated for following conditions #Acute on chronic hypoxic and hypercarbic respiratory failure due to end-stage lung disease, with recent worsening related to severe COPD exacerbation, and pneumonia. * Continue telemetry monitoring for continuous pulse ox, maintain o2 sat >90% * Continue BiPAP, no aggressive measures patient status is DNR/DNI * Acetazolamide 250 IV for correction of metabolic alkalosis * We are going to continue empirical IV antibiotic therapy * Continue IV steroids * TRC along with Duonebs TID #Elevated troponins: Likely secondary to demand ischemia, trended down # Large left-sided paramediastinal mass * Family does not wish for further workup #Continue his home medications aspirin, oxybutynin, omeprazole, terazosyn #Diet honey thick consistancy diet/ NPO if pt is less responsive #DVT prophylaxis with Alps and SQ heparin #CODE STATUS DNR DNI Problem List: 1. COPD exacerbation Pain Ratin Pain Location: n/a Pain Goal: Pain 4 or less Pain Plan: prn Tomorrow's Labs & Rationales: cbc bep Pat ORTEGA,Gail 05/15/17 1226: Attending MD Review Statement Attending Statement Attending MD Statement: examined this patient, discuss w/resident/PA/MANAGER INTENSIVE CARE, agreed w/resident/PA/MANAGER INTENSIVE CARE, discussed with family, reviewed EMR data (avail), discussed with nursing, discussed with case mgmt, amended to note Attending Assessment/Plan: Patient seen and examined. Case discussed with family at bedside. Patient was in bed on BiPAP therapy. Did not appear to be in acute distress. He reports feeling better. Denies chest pain and reports less shortness of breath. Overnight events noted. Currently maintaining saturations in the 90s. Examination is also acute distress. Heart sounds are regular. No audible murmurs. Decreased breath sounds bilaterally with few scattered rhonchi. Bilateral pedal edema. Problems: 1. Acute on chronic hypercapnic and hypoxic respiratory failure. 2. End-stage lung disease secondary to worsening COPD with current exacerbation. 3. Type II myocardial infarction likely secondary to de chronic mark supply mismatch from his hypoxemia 4. Chronic peripheral edema likely related to cor pulmonale 5. Quadriparesis 6. Large left-sided paramediastinal mass; family refusing further workup. Plan: -Patient and family wish for move aggressive treatment. CODE STATUS is DO NOT RESUSCITATE/DO NOT INTUBATE. -Patient and family are agreeable to continuing less invasive malignant such as BiPAP therapy. Continue as recommended by the pulmonology service. -Begin acetazolamide 1 dose for his metabolic alkalosis as recommended by his harness mender. -Continue empiric antibiotic therapy. Chest x-ray shows nonspecific bibasilar airspace disease. -Continue bronchodilator therapy, systemic steroid therapy and pulmonary toileting. -Poor long-term prognosis.
[2017-05-15 08:11] LABS: ABSOLUTE BASOPHIL COUNT 0 /CUMM (0.0-0.2); ABSOLUTE EOSINOPHIL COUNT 0 /CUMM (0.0-0.7); ABSOLUTE GRANULOCYTE CT 4.2 /CUMM (1.4-6.5); ABSOLUTE LYMPH COUNT 0.4 /CUMM (1.2-3.4); ABSOLUTE MONOCYTE COUNT 0.2 /CUMM (0.10-0.60); BASOPHIL % 0 % (0.0-2.0); EOSINOPHIL % 0 % (0-5); HEMATOCRIT 28.1 % (42-52); MEAN CORPUSCULAR HGB 33.8 PG (27.0-31.0); MEAN CORPUSCULAR HGB CONC 32.8 G/DL (33.0-37.0); MEAN CORPUSCULAR VOLUME 102.8 FL (80.0-94.0); MEAN PLATELET VOLUME 10.1 FL (7.4-10.4); PLATELET COUNT 189 /CUMM (130-400); RBC DISTRIBUTION WIDTH 19.5 % (11.5-14.5); RED BLOOD CELL CT 2.73 /CUMM (4.70-6.10); WHITE BLOOD CELL COUNT 4.8 /CUMM (4.8-10.8)
--- NOTE | 2017-05-15 10:14 | Cons- Pulmonary ---
General Information and HPI Consulting Request Date of Consult: 05/15/17 Requested By: med team History of Present Illness: 86-year-old gentleman was brought in with a complaint fatigue, lethargy and persistent hypoxia for the past few days. 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 Patient lives with his family/ uses rollator; has limited daily activity. For the past few days according to daughter, patient was increasingly tired, lethargic. He is oxygen levels were found to be persistently low around high 80s %. On Sunday patient was and was restarted on by mouth prednisone 40 mg for 5 days and po Moxifloxacin for 7 days which minimally improved his symptoms. His daytime oxygen was increased to 3 L without improvement of O2 saturation, nor increasing frequency of using rescue inhalers. Today patient was found to be hypoxic down to 70% on oxygen ambulance was called and patient was transferred to emergency department. He denies any fever, shaking chills, joint pain, GI/ symptoms, chest pain, palpitation, no worsening edema, no recent weight gain. No recent travel/ family members URI symptoms for the past few days (his son had bronchitis). According to his daughter patient was also slightly confused/slower than normal today. Per EMS, upon arrival patient's oxygenation was 74% on 2 L oxygen, he was medicated with DuoNeb in route and oxygen increased to 97%. In the ED, his ABG showed pH of 7.3 with PCO2 of 79 and bicarbonate of 38 vital signs were stable and patient was restarted on BiPAP with PIP of 18 and EPAP 6 respiratory rate 22. Since then he is on bipap Allergies/Medications Allergies: Coded Allergies: NO KNOWN ALLERGIES (08/29/12) Home Med List: Albuterol Sulfate (Proair Hfa) 90 MCG HFA.AER.AD 2 PUF INH Q4-PRN PRN COPD ( Reported) Ascorbic Acid (Vitamin C) 500 MG CAPSULE.ER 1 CAP PO 2XW VITAMIN SUPPLEMENT ( Reported) Aspirin (Aspirin*) 81 MG TAB.CHEW 1 TAB PO DAILY HEART HEALTH (Reported) Azithromycin 250 MG TABLET 1 DP PO AD PROPHALACTIVELY (Reported) ONE TABLET DAILY SUNDAY, SUNDAY AND FRIDAYS Budesonide 0.25 MG/2 ML AMPUL.NEB 1 Vial INH/SOLITARIO TID PRN OB, COPD (Reported) Calcium Carb/Vitamin D3/Vit K1 (Citracal Soft Chew) 500 MG CALCIUM-1,000 UNIT-40 MCG TAB.CHEW 1 TAB PO DAILY VITAMIN SUPPLEMENT (Reported) Cholecalciferol (Vitamin D3) (Vitamin D3) 1,000 UNIT CAPSULE 1 CAP PO DAILY SUPPLEMENT (Reported) Colchicine (Colcrys) 0.6 MG TABLET 1 TAB PO DAILY GOUT (Reported) Furosemide 40 MG TABLET 0.5 TAB PO DAILY FLUID (Reported) Glucosamine/D3/Boswellia Chey (Glucosamine Complex Tablet) 1,500 MG-400 UNIT- 100 MG TABLET 2 TAB PO DAILY VITAMIN SUPPLEMENT (Reported) [IOPHEN- C NR] 1 TSP PO BEDTIME (Reported) Ipratropium/Albuterol Sulfate (Iprat-Albut 0.5-3(2.5) MG/3 Ml) 0.5 MG-3 MG (2.5 MG BASE)/3 ML AMPUL.NEB 1 INHAL INH/SOLITARIO BID PRN PRN SHORTNESS OF BREATH ( Reported) Multivit-Min/FA/Lycopen/Lutein (Centrum Silver Tablet) 0.4 MG-300 MCG-250 MCG TABLET 1 TAB PO VITAMIN SUPPLEMENT (Reported) *TWICE PER WEEK Nystatin 100,000 UNIT/GRAM CREAM..G. 1 TWIN TOP BIDP PRN RASH (Reported) apply to affected area(s) [place]-3 Fatty Acids/Fish Oil (Fish Oil 1,000 MG Capsule) 340 MG-1,000 MG CAPSULE 1 CAP PO DAILY SUPPLEMENT (Reported) Omeprazole 40 MG CAPSULE. 1 CAP PO DAILY GERD (Reported) Oxybutynin Chloride (Oxybutynin Chloride ER) 10 MG TAB.ER.24 1 TAB PO DAILY (Reported) Potassium Chloride 20 MEQ TAB.ER.PRT 0.5 TAB PO DAILY SUPPLEMENT (Reported) Prednisone 10 MG TABLET 0 PO TAPER BREATHING On Take 10/06-10/07 50 MG 10/08-10/10 40 MG 10/11-/ 30 MG 6/3-6/ 20 MG 6/6-6/7 10 MG Then Stop Terazosin HCl 5 MG CAPSULE 1 CAP PO QPM (Reported) Review of Systems Review of Systems Constitutional: Reports: see HPI. 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 FATHER (bronchitis). MOTHER (breast CA). Psychosocial History Where Do You Live? Home Who Do You Live With? child Services at Home: None Primary Language: Maori Smoking Status: Former Smoker Functional Ability ADLs Independent: dressing, eating, toileting, bathing. Ambulation: non-ambulatory, rarely ambulated and uses walker IADLs Independent: telephone. Needs Assist: shopping, housework, finances, food prep, transportation, medication admin. Exam & Diagnostic Data Last 24 Hrs of Vital Signs/I&O Vital Signs Date Time Temp Pulse Resp B/P B/P Pulse O2 O2 Flow FiO2 Mean Ox Delivery Rate 05/15 0904 110 93 05/15 0822 89 95 05/15 0659 98.3 77 20 136/60 94 CPAP 05/15 0616 97 93 05/15 0240 91 90 05/15 0035 69 94 05/15 0000 BIPAP 55% 05/14 2216 98.2 69 20 120/70 90 05/14 2056 BIPAP 55% 05/14 203 Nasal 2.0L Cannula 05/14 1954 99.2 74 20 110/70 94 05/14 1818 100.1 93 25 126/84 96 BIPAP 55% 05/14 1616 97.1 85 25 131/60 86 BIPAP 05/14 1440 90 Nasal 4.0L Cannula 05/14 1354 96.8 107 26 124/61 95 Aerosol Mask Intake & Output 05/15 1600 05/15 0800 05/15 0000 Intake Total 120 250 Output Total 400 200 Balance -280 50 Intake, IV 250 Intake, Oral 120 0 Output, Urine 400 200 Patient 192 lb Weight Last 48 Hrs of Labs/Nikolas: Laboratory Tests 05/15/17 0934: PT Pending, INR Pending 05/15/17 0648: Troponin I Cancelled 05/15/17 0648: Anion Gap 8, Estimated GFR > 60, BUN/Creatinine Ratio 27.1 H, Troponin I 0.13 * H, CBC w Diff MAN DIFF ORDERED, RBC 2.73 L, MCV 102.8 H, MCH 33.8 H, RDW 19.5 H, MPV 10.1, Gran % 87.0 H, Lymphocytes % 9.0 L, Monocytes % 4.0, Eosinophils % 0, Basophils % 0, Absolute Granulocytes 4.2, Segmented Neutrophils 67, Band Neutrophils 20 H, Absolute Lymphocytes 0.4 L, Lymphocytes 13 L, Absolute Monocytes 0.2, Absolute Eosinophils 0, Absolute Basophils 0, Platelet Estimate VERIFIED BY SMEAR, Hypochromic-Microcytic 1+, Anisocytosis 1+, Macrocytic Cells 1+, Stomatocytes FEW, PUBS MCHC 32.8 L 05/15/17 0555: pH 7.31 L, pCO2 82 *H, pO2 94, HCO3 40 H, ABG O2 Sat (Measured) 97.0, P-50 ( Temp Corrected) N, Carboxyhemoglobin 1.1 L, O2 Concentration % .55, Respiration Rate 20, O2 Delivery Method BIPAP, Vent Mode ST, Expiratory Pressure 6, Inspiratory Pressure 22, Phlebotomy Draw Site RIGHT RADIAL 05/14/17 215: Sodium Cancelled, Potassium Cancelled, Chloride Cancelled, Carbon Dioxide Cancelled, Anion Gap Cancelled, BUN Cancelled, Creatinine Cancelled, BUN/ Creatinine Ratio Cancelled 05/14/170: pH 7.30 *L, pCO2 82 *H, pO2 75 L, HCO3 40 H, ABG O2 Sat (Measured) 94.0 L, P- 50 (Temp Corrected) 98.2, Carboxyhemoglobin 0.5 L, O2 Concentration % 55%, Temperature 98.2, Respiration Rate 20, O2 Delivery Method BIPAP, Vent Mode S/T, Expiratory Pressure 6, Inspiratory Pressure 22, Phlebotomy Draw Site LEFT RADIAL 05/14/17 2144: Anion Gap 8, Estimated GFR > 60, BUN/Creatinine Ratio 28.3 H, Troponin I 0.14 * H 05/14/17 1800: pH 7.29 *L, pCO2 82 *H, pO2 79 L, HCO3 38 H, ABG O2 Sat (Measured) 93.0 L, P- 50 (Temp Corrected) Y, Carboxyhemoglobin 0.4 L, O2 Concentration % 55, Temperature 97.6, Respiration Rate 20, O2 Delivery Method BIPAP, Vent Mode ST, Expiratory Pressure 6, Inspiratory Pressure 18, Phlebotomy Draw Site RIGHT RADIAL 05/14/17 1750: Virus Culture Pending 05/14/17 1749: Troponin I 0.12 *H 05/14/17 1647: Lactic Acid 1.1 05/14/17 1555: pH 7.30 *L, pCO2 79 *H, pO2 60 L, HCO3 38 H, ABG O2 Sat (Measured) 87.0 L, P- 50 (Temp Corrected) Y, Carboxyhemoglobin 1.0 L, O2 Concentration % 4L, Temperature 97.6, O2 Delivery Method N/C, Phlebotomy Draw Site RIGHT RADIAL 05/14/17 1428: Anion Gap 7, Estimated GFR > 60, BUN/Creatinine Ratio 26.7 H, Glucose 158 H, Lactic Acid 0.9, Calcium 8.3 L, Magnesium 1.7, Total Bilirubin 0.8, AST 32, ALT 34, Alkaline Phosphatase 40, Troponin I 0.10, Total Protein 6.8, Albumin 3.8, Globulin 3.0, Albumin/Globulin Ratio 1.3, CBC w Diff MAN DIFF ORDERED, RBC 3.08 L, MCV 102.9 H, MCH 33.2 H, RDW 20.1 H, MPV 8.5, Gran % 85.4 H, Lymphocytes % 5.3 L, Monocytes % 9.0, Eosinophils % 0.1, Basophils % 0.2, Absolute Granulocytes 6.7 H, Segmented Neutrophils 66, Band Neutrophils 17 H, Absolute Lymphocytes 0.4 L, Lymphocytes 8 L, Monocytes 8, Absolute Monocytes 0.7 H, Absolute Eosinophils 0, Basophils 1, Absolute Basophils 0, Nucleated RBCs 2 H, Platelet Estimate ADEQUATE, Polychromasia 1+, Hypochromic-Microcytic 2+, Poikilocytosis 3+, Basophilic Stippling 1+, Anisocytosis 2+, Macrocytic Cells 1+ , Ovalocytes 1+, PUBS MCHC 32.2 L Microbiology 05/14 182 NASOPHARYN: Influenza Virus A & B Rapid Smear - COMP Assessment/Plan Impression/Plan: PRevious ct IMPRESSION: 1. Chronic mass effect upon the right middle lobe and both lower lobe bronchi is seen by an enlarged central pulmonary arteries leading to chronic volume loss and consolidation in these lobes. Compared to 2013, findings are very similar. Upper lobes remain relatively clear. Findings raise the suspicion of pulmonary arterial hypertension in the setting of obstructive lung disease. Clinical correlation requested. 2. Evidence of prior granulomatous disease with scattered calcified granulomas in the lungs and calcified nodes seen in the mediastinum and left hilum. 3. A few additional small nodular densities are seen, which are indeterminate in etiology, as not all of these are seen on the 2013 exam. Findings may represent an intercurrent inflammatory or infectious process (example the [id number]-type nodular opacities in the anterior inferior right upper lobe). Follow-up CT scan in 3 months is recommended to reassess the 0.6 x 0.3 cm nodule in the right upper lobe. 4. Enlarged central pulmonary arteries, consistent with pulmonary arterial hypertension. 4. Several other incidental findings as discussed above. DICTATED BY: LB ORTEGA,TERENCE Durand DATE/TIME DICTATED:10/03/161332 CXR IMPRESSION: No significant change since 11/29/2016. Stable mild pulmonary venous congestion, moderate enlargement of the cardiomediastinal silhouette, and nonspecific bibasilar airspace disease. DICTATED BY: Lance Suarez MD DATE/TIME DICTATED:05/14/178 This is a 86-year-old gentleman with very terminal COPD, has been on chronic oxygen therapy, significant pulmonary hypertension related to severe COPD and chronic lung disease, poor performance time a functional quadriplegia related to severe cervical spine disease, mild bronchiectasis, poor performance status now here with worsening hypoxemia with * Acute on chronic hypoxic and hypercarbic respiratory failure due to end-stage lung disease, with recent worsening related to severe COPD exacerbation, and prob pneumonia. Now on NIV on bpap and seems to be stable * Significant pulmonary hypertension related to terminal lung disease * Functional quadriparesis related to cervical spine disease patient is not a candidate for any therapy * Lower extremity edema suggestive of acute on chronic cor pulmonale * Previous history of mediastinal lymphadenopathy * Small lung nodules of no clinical significance * Worsening overall performance status * Bilateral lower lobe atelectasis with restrictive pulmonary physiology as well related to severe pulmonary hypertension * 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 with previous negative QuantiFERON goal tests * 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 who was been on prednisone for long periods * History of on and off aspiration RECOMMENDATION * Continue current therapy with bipap, and keep him off and on bipap during the day and at hs * Give one dose of diamox 250 iv or po today * Keep O2 sat around 88-90% * [id number] nebulizer therapy with DuoNeb 3 times a day * IV abx * Iv steroids * Cont current meds * Keep hob up * Keep npo if less responsive and if awake then would need honey thick consistancy diet Discussed with family at the bedside DNR and DNI and no agg rx if worse Consult Acknowledgment - Thank you for your consult request.
[2017-05-15 10:24] LABS: PT 11.1 SEC (9.4-12.5)
--- NOTE | 2017-05-15 10:30 | Cons- Cardiology ---
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 The patient is currently on BiPAP and lethargic therefore unable to provide any information. The history is obtained through the family who was at the bedside. The family had noted him to be more short of breath with increasing fatigue over the past few days. He normally uses Rollator at home but was even unable to move himself throughout the house. He was found to be hypoxic at home with saturations down to 70%. He has a chronic cough but there is no noted fever or chills. He denied chest discomfort and does not normally complain of shortness of breath. His daughter felt that he was slightly confused. Due to worsening symptoms mass was summoned and he was brought to the emergency room for evaluation. The patient is currently on BiPAP. Echocardiogram from September 2016 demonstrated normal LV function with moderate pulmonary hypertension Allergies/Medications Allergies: Coded Allergies: NO KNOWN ALLERGIES (08/29/12) Home Med List: Albuterol Sulfate (Proair Hfa) 90 MCG HFA.AER.AD 2 PUF INH Q4-PRN PRN COPD ( Reported) Ascorbic Acid (Vitamin C) 500 MG CAPSULE.ER 1 CAP PO 2XW VITAMIN SUPPLEMENT ( Reported) Aspirin (Aspirin*) 81 MG TAB.CHEW 1 TAB PO DAILY HEART HEALTH (Reported) Azithromycin 250 MG TABLET 1 DP PO AD PROPHALACTIVELY (Reported) ONE TABLET DAILY SUNDAY, SUNDAY AND FRIDAYS Budesonide 0.25 MG/2 ML AMPUL.NEB 1 Vial INH/SOLITARIO TID PRN OB, COPD (Reported) Calcium Carb/Vitamin D3/Vit K1 (Citracal Soft Chew) 500 MG CALCIUM-1,000 UNIT-40 MCG TAB.CHEW 1 TAB PO DAILY VITAMIN SUPPLEMENT (Reported) Cholecalciferol (Vitamin D3) (Vitamin D3) 1,000 UNIT CAPSULE 1 CAP PO DAILY SUPPLEMENT (Reported) Colchicine (Colcrys) 0.6 MG TABLET 1 TAB PO DAILY GOUT (Reported) Furosemide 40 MG TABLET 0.5 TAB PO DAILY FLUID (Reported) Glucosamine/D3/Boswellia Chey (Glucosamine Complex Tablet) 1,500 MG-400 UNIT- 100 MG TABLET 2 TAB PO DAILY VITAMIN SUPPLEMENT (Reported) [IOPHEN- C NR] 1 TSP PO BEDTIME (Reported) Ipratropium/Albuterol Sulfate (Iprat-Albut 0.5-3(2.5) MG/3 Ml) 0.5 MG-3 MG (2.5 MG BASE)/3 ML AMPUL.NEB 1 INHAL INH/SOLITARIO BID PRN PRN SHORTNESS OF BREATH ( Reported) Multivit-Min/FA/Lycopen/Lutein (Centrum Silver Tablet) 0.4 MG-300 MCG-250 MCG TABLET 1 TAB PO VITAMIN SUPPLEMENT (Reported) *TWICE PER WEEK Nystatin 100,000 UNIT/GRAM CREAM..G. 1 TWIN TOP BIDP PRN RASH (Reported) apply to affected area(s) [place]-3 Fatty Acids/Fish Oil (Fish Oil 1,000 MG Capsule) 340 MG-1,000 MG CAPSULE 1 CAP PO DAILY SUPPLEMENT (Reported) Omeprazole 40 MG CAPSULE.DR 1 CAP PO DAILY GERD (Reported) Oxybutynin Chloride (Oxybutynin Chloride ER) 10 MG TAB.ER.24 1 TAB PO DAILY (Reported) Potassium Chloride 20 MEQ TAB.ER.PRT 0.5 TAB PO DAILY SUPPLEMENT (Reported) Prednisone 10 MG TABLET 0 PO TAPER BREATHING On Take 10/06-10/07 50 MG 10/08-10/10 40 MG 10/11-10/13 30 MG 6/3-6/5 20 MG 6/6-6/7 10 MG Then Stop Terazosin HCl 5 MG CAPSULE 1 CAP PO QPM (Reported) Current Medications: Current Medications Sig/Kyra Start time Last Medication Dose Route Stop Time Status Admin Albuterol Sulfate 3 ML EVERY 4 HRS/AWAKE 05/15 0800 AC 05/15 INH 0900 Albuterol Sulfate 3 ML ONCE ONE 05/14 1530 DC 05/14 INH 05/14 1531 1741 Aspirin 81 MG DAILY 05/14 1747 AC PO Azithromycin 500 MG DAILY@1730 05/15 1730 AC Sodium Chloride 250 ML IV Azithromycin 500 MG ONCE ONE 05/14 1615 DC 05/14 Sodium Chloride 250 ML IV 05/14 1714 1738 Budesonide/ 2 PUF BID 05/14 2200 AC Formoterol Fumarate INH Ceftriaxone Sodium 1,000 MG DAILY@1800 05/14 1800 AC IV Ceftriaxone Sodium 1,000 MG ONCE ONE 05/14 1615 CAN IV 05/14 1616 Heparin Sodium 5,000 UNIT Q8 05/14 1743 AC 05/15 (Porcine) SC 0521 Ipratropium [place] 2.5 ML Q4 HRS NEEDED PRN 05/14 1745 AC INH Ipratropium [place] 2.5 ML ONCE ONE 05/14 1530 DC 05/14 INH 05/14 1531 1741 Methylprednisolone 40 MG Q6H 05/14 2200 AC 05/15 IV 0905 Methylprednisolone 40 MG Q6 05/14 1800 CAN IV Methylprednisolone 125 MG ONCE ONE 05/14 1615 DC 05/14 IV 05/14 1616 1619 Methylprednisolone 0 .STK-MED ONE 05/14 1612 DC .ROUTE Omeprazole 40 MG DAILY AC 05/15 0700 AC 05/15 PO 0521 Oxybutynin Chloride 5 MG BID 05/14 2200 AC PO Review of Systems Review of Systems: Unobtainable patient lethargic on BiPAP Past History Travel History Traveled to [place] past 21 day No Medical History Blood Transfusion Hx: No Neurological: NONE EENT: NONE Cardiovascular: hyperlipidemia Respiratory: COPD Gastrointestinal: GERD Hepatic: NONE Renal: benign prost hyperplasia Musculoskeletal: gout, osteoarthritis Psychiatric: NONE Endocrine: NONE Blood Disorders: NONE Cancer(s): NONE 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 FATHER (bronchitis). MOTHER (breast CA). Psychosocial History Where Do You Live? Home Who Do You Live With? child Services at Home: None Primary Language: Azeri Smoking Status: Former Smoker Functional Ability ADLs Independent: dressing, eating, toileting, bathing. Ambulation: non-ambulatory, rarely ambulated and uses walker IADLs Independent: telephone. Needs Assist: shopping, housework, finances, food prep, transportation, medication admin. Exam & Diagnostic Data Vital Signs and I&O Vital Signs Date Time Temp Pulse Resp B/P B/P Pulse O2 O2 Flow FiO2 Mean Ox Delivery Rate 05/15 0904 110 93 05/15 0822 89 95 05/15 0659 98.3 77 20 136/60 94 CPAP 05/15 0616 97 93 05/15 0240 91 90 05/15 0035 69 94 05/15 0000 BIPAP 55% 05/14 221 98.2 69 20 120/70 90 05/146 BIPAP 55% 05/14 2036 Nasal 2.0L Cannula 05/14 1954 99.2 74 20 110/70 94 05/14 1818 100.1 93 25 126/84 96 BIPAP 55% 05/14 1616 97.1 85 25 131/60 86 BIPAP 05/14 1440 90 Nasal 4.0L Cannula 05/14 1354 96.8 107 26 124/61 95 Aerosol Mask Intake & Output 05/15 1600 05/15 0800 05/15 0000 05/14 1600 05/14 0800 05/14 0000 Intake Total 120 250 Output Total 400 200 Balance -280 50 Intake, IV 250 Intake, Oral 120 0 Output, Urine 400 200 Patient 192 lb 193 lb Weight Weight Reported by Patient Measurement Method Physical Exam: Patient is a well-developed well-nourished male lethargic on BiPAP HEENT is unremarkable Neck is supple there is no JVD Lungs decreased air entry bilaterally with scattered rhonchi Heart regular rhythm S1 and S2 are normal no murmurs gallops or rubs Abdomen bowel sounds positive Extremities 1+ edema Labs/Nikolas Results: Laboratory Tests 05/15 05/15 05/15 0934 0648 0648 Chemistry Sodium (137 - 145 mmol/L) 136 L Potassium (3.5 - 5.1 mmol/L) 5.3 H Chloride (98 - 107 mmol/L) 86 L Carbon Dioxide (22 - 30 mmol/L) 42 H Anion Gap (5 - 16) 8 BUN (9 - 20 mg/dL) 19 Creatinine (0.7 - 1.2 mg/dL) 0.7 Estimated GFR (>60 ml/min) > 60 BUN/Creatinine Ratio (7 - 25 %) 27.1 H Troponin I (<0.11 ng/ml) Cancelled 0.13 *H Coagulation PT Pending INR Pending Hematology CBC w Diff MAN DIFF ORDERED WBC (4.8 - 10.8 /CUMM) 4.8 RBC (4.70 - 6.10 /CUMM) 2.73 L Hgb (14.0 - 18.0 G/DL) 9.2 L Hct (42 - 52 %) 28.1 L MCV (80.0 - 94.0 FL) 102.8 H MCH (27.0 - 31.0 PG) 33.8 H RDW (11.5 - 14.5 %) 19.5 H Plt Count (130 - 400 /CUMM) 189 MPV (7.4 - 10.4 FL) 10.1 Gran % (42.2 - 75.2 %) 87.0 H Lymphocytes % (20.5 - 51.1 %) 9.0 L Monocytes % (1.7 - 9.3 %) 4.0 Eosinophils % (0 - 5 %) 0 Basophils % (0.0 - 2.0 %) 0 Absolute Granulocytes (1.4 - 6.5 /CUMM) 4.2 Segmented Neutrophils (42.2 - 75.2 %) 67 Band Neutrophils (0.0 - 5.0 %) 20 H Absolute Lymphocytes (1.2 - 3.4 /CUMM) 0.4 L Lymphocytes (20.5 - 51.1 %) 13 L Absolute Monocytes (0.10 - 0.60 /CUMM) 0.2 Absolute Eosinophils (0.0 - 0.7 /CUMM) 0 Absolute Basophils (0.0 - 0.2 /CUMM) 0 Platelet Estimate (ADEQUATE) VERIFIED BY SMEAR Hypochromic-Microcytic 1+ Anisocytosis 1+ Macrocytic Cells 1+ Stomatocytes FEW PUBS MCHC (33.0 - 37.0 G/DL) 32.8 L 05/15 05/14 05/14 05/14 0555 2151 2150 2144 Blood Gas pH (7.35 - 7.45 PH) 7.31 L 7.30 *L pCO2 (35 - 45 TORR) 82 *H 82 *H pO2 (80 - 100 TORR) 94 75 L HCO3 (21 - 28 MEQ/L) 40 H 40 H ABG O2 Sat (Measured) (>96.0 %) 97.0 94.0 L P-50 (Temp Corrected) N 98.2 Carboxyhemoglobin (1.5 - 5.0 %) 1.1 L 0.5 L O2 Concentration % .55 55% Temperature (97.0 - 100.0 FARH) 98.2 Respiration Rate (BPM) 20 20 O2 Delivery Method BIPAP BIPAP Vent Mode ST S/T Expiratory Pressure (CM H2O P) 6 6 Inspiratory Pressure (CM H2O P) 22 22 Chemistry Sodium (137 - 145 mmol/L) Cancelled 134 L Potassium (3.5 - 5.1 mmol/L) Cancelled 5.1 Chloride (98 - 107 mmol/L) Cancelled 85 L Carbon Dioxide (22 - 30 mmol/L) Cancelled 41 H Anion Gap (5 - 16) Cancelled 8 BUN (9 - 20 mg/dL) Cancelled 17 Creatinine (0.7 - 1.2 mg/dL) Cancelled 0.6 L Estimated GFR (>60 ml/min) > 60 BUN/Creatinine Ratio (7 - 25 %) Cancelled 28.3 H Troponin I (<0.11 ng/ml) 0.14 *H Miscellaneous Phlebotomy Draw Site RIGHT RADIAL LEFT RADIAL 05/14 05/14 05/14 05/14 1800 1750 1749 1647 Blood Gas pH (7.35 - 7.45 PH) 7.29 *L pCO2 (35 - 45 TORR) 82 *H pO2 (80 - 100 TORR) 79 L HCO3 (21 - 28 MEQ/L) 38 H ABG O2 Sat (Measured) (>96.0 %) 93.0 L P-50 (Temp Corrected) Y Carboxyhemoglobin (1.5 - 5.0 %) 0.4 L O2 Concentration % 55 Temperature (97.0 - 100.0 FARH) 97.6 Respiration Rate (BPM) 20 O2 Delivery Method BIPAP Vent Mode ST Expiratory Pressure (CM H2O P) 6 Inspiratory Pressure (CM H2O P) 18 Chemistry Lactic Acid (0.7 - 2.1 mmol/L) 1.1 Troponin I (<0.11 ng/ml) 0.12 *H Miscellaneous Phlebotomy Draw Site RIGHT RADIAL Serology Virus Culture Pending 05/14 05/14 8383 2384 Blood Gas pH (7.35 - 7.45 PH) 7.30 *L pCO2 (35 - 45 TORR) 79 *H pO2 (80 - 100 TORR) 60 L HCO3 (21 - 28 MEQ/L) 38 H ABG O2 Sat (Measured) (>96.0 %) 87.0 L P-50 (Temp Corrected) Y Carboxyhemoglobin (1.5 - 5.0 %) 1.0 L O2 Concentration % 4L Temperature (97.0 - 100.0 FARH) 97.6 O2 Delivery Method N/C Chemistry Sodium (137 - 145 mmol/L) 135 L Potassium (3.5 - 5.1 mmol/L) 4.6 Chloride (98 - 107 mmol/L) 85 L Carbon Dioxide (22 - 30 mmol/L) 43 H Anion Gap (5 - 16) 7 BUN (9 - 20 mg/dL) 16 Creatinine (0.7 - 1.2 mg/dL) 0.6 L Estimated GFR (>60 ml/min) > 60 BUN/Creatinine Ratio (7 - 25 %) 26.7 H Glucose (65 - 99 mg/dL) 158 H Lactic Acid (0.7 - 2.1 mmol/L) 0.9 Calcium (8.4 - 10.2 mg/dL) 8.3 L Magnesium (1.6 - 2.3 mg/dL) 1.7 Total Bilirubin (0.2 - 1.3 mg/dL) 0.8 AST (17 - 59 U/L) 32 ALT (21 - 72 U/L) 34 Alkaline Phosphatase (< 127 U/L) 40 Troponin I (<0.11 ng/ml) 0.10 Total Protein (6.3 - 8.2 g/dL) 6.8 Albumin (3.5 - 5.0 g/dL) 3.8 Globulin (1.9 - 4.2 gm/dL) 3.0 Albumin/Globulin Ratio (1.1 - 2.2 %) 1.3 Hematology CBC w Diff MAN DIFF ORDERED WBC (4.8 - 10.8 /CUMM) 7.8 RBC (4.70 - 6.10 /CUMM) 3.08 L Hgb (14.0 - 18.0 G/DL) 10.2 L Hct (42 - 52 %) 31.6 L MCV (80.0 - 94.0 FL) 102.9 H MCH (27.0 - 31.0 PG) 33.2 H RDW (11.5 - 14.5 %) 20.1 H Plt Count (130 - 400 /CUMM) 182 MPV (7.4 - 10.4 FL) 8.5 Gran % (42.2 - 75.2 %) 85.4 H Lymphocytes % (20.5 - 51.1 %) 5.3 L Monocytes % (1.7 - 9.3 %) 9.0 Eosinophils % (0 - 5 %) 0.1 Basophils % (0.0 - 2.0 %) 0.2 Absolute Granulocytes (1.4 - 6.5 /CUMM) 6.7 H Segmented Neutrophils (42.2 - 75.2 %) 66 Band Neutrophils (0.0 - 5.0 %) 17 H Absolute Lymphocytes (1.2 - 3.4 /CUMM) 0.4 L Lymphocytes (20.5 - 51.1 %) 8 L Monocytes (1.7 - 9.3 %) 8 Absolute Monocytes (0.10 - 0.60 /CUMM) 0.7 H Absolute Eosinophils (0.0 - 0.7 /CUMM) 0 Basophils (0.0 - 2.0 %) 1 Absolute Basophils (0.0 - 0.2 /CUMM) 0 Nucleated RBCs (0.0 - 0.0 /100WBC) 2 H Platelet Estimate (ADEQUATE) ADEQUATE Polychromasia 1+ Hypochromic-Microcytic 2+ Poikilocytosis 3+ Basophilic Stippling 1+ Anisocytosis 2+ Macrocytic Cells 1+ Ovalocytes 1+ PUBS MCHC (33.0 - 37.0 G/DL) 32.2 L Miscellaneous Phlebotomy Draw Site RIGHT RADIAL Diagnostic Data EKG Results Sinus rhythm nonspecific IVCD CXR Results IMPRESSION: No significant change since 11/29/2016. Stable mild pulmonary venous congestion, moderate enlargement of the cardiomediastinal silhouette, and nonspecific bibasilar airspace disease. Assessment/Plan Assessment/Plan 1. Shortness of breath secondary acute exacerbation of end-stage COPD currently on BiPAP 2. Elevated troponins secondary to demand ischemia. There is no evidence for acute ST elevation myocardial infarction. Echocardiogram from August 2016 demonstrated normal LV function 3. Hypertension 4. Hyperlipidemia 5. Large left sided paramediastinal mass family refused workup 6. Quadriparesis secondary to disc degeneration Recommendations 1. Aggressive pulmonary management per Dr. Arzate 2. Echocardiogram was recently performed therefore no need to repeat 3. Continue aspirin and antibiotics Thank you for allowing [facility] to participate in the care of your patient. Consult Acknowledgment - Thank you for your consult request.
[2017-05-15 14:39] VITALS: BP 112/50
[2017-05-15 22:08] VITALS: BP 106/48
--- NOTE | 2017-05-16 00:42 | Event Note ---
Event Note Event Note: Patient had episode of bradycardia in the 40s. Patient is currently being treated for pneumonia and acute hypoxic respiratory failure on BIPAP Patient was sleeping at the time. Patient is arousable. Responsive to verbal and tactile stimuli. Denies chest pain, lightheadedness, dizziness, cough. Patient's son-in-law was at bedside, states he has been more arousable today. Patient's HR went up to the 50s and 60s after being awakened. Will do EKG Will continue to monitor
--- NOTE | 2017-05-16 07:09 | PN- Housestaff ---
See Addendum Ananth ORTEGA,Clari 05/16/17 0708: Subjective Follow-up For: Acute on chronic hypercapnic and hypoxic respiratory failure. Tele-Events Since Last Visit: Brachycardia in 40s patient remained asymptomatic EKG was obtained overnight no acute EKG changes. Subjective: Patient seen and examined the family by bedside. Patient currently on BiPAP. Alert and oriented 3. Reports feeling much better. Patient has been retaining urine greater than 400 underwent straight cath twice yesterday, patient has history of urinary retention. first episode of straight catheter patient had bloody urine. We'll get urology on board. Patient had a drop in H&H today as well. renaldo do anemia workup Review of Systems Constitutional: Reports: see HPI. Objective Last 24 Hrs of Vital Signs/I&O Vital Signs Date Time Temp Pulse Resp B/P B/P Pulse O2 O2 Flow FiO2 Mean Ox Delivery Rate 05/16 0854 95 Nasal 5.0L Cannula 05/16 0840 94 BIPAP 50% 05/16 0750 90 94 05/16 0711 97.8 55 24 110/50 90 BIPAP 05/16 0604 51 92 05/16 0345 52 92 05/16 0219 51 96 05/16 0216 55 98 05/16 0000 BIPAP 50% 05/15 2208 98.0 59 23 106/48 97 05/15 2130 62 94 05/15 2022 94 BIPAP 55% 05/15 1924 67 95 05/15 1636 61 94 05/15 1600 94 BIPAP 50% 05/15 1439 98.2 68 19 112/50 93 05/15 1428 57 93 05/15 1207 93 BIPAP 55% 05/15 1157 91 92 Intake & Output 05/16 1600 05/16 0800 05/16 0000 Intake Total 120 120 Output Total 800 500 Balance -680 -380 Intake, Oral 120 120 Output, Urine 800 500 Physical Exam General Appearance: Alert, Oriented X3 Cardiovascular: Normal S1, Normal S2 Abdomen: Normal Bowel Sounds, Soft Current Medications: Current Medications Sig/Kyra Start time Last Medication Dose Route Stop Time Status Admin Acetazolamide 250 MG ONCE ONE 05/15 1145 DC 05/15 Sodium Chloride 50 ML IV 05/15 1214 1420 Albuterol Sulfate 3 ML EVERY 4 HRS/AWAKE 05/15 0800 AC 05/16 INH 0849 Aspirin 81 MG DAILY 05/14 1747 AC 05/15 PO 1420 Azithromycin 500 MG DAILY@1730 05/15 1730 AC 05/15 Sodium Chloride 250 ML IV 1637 Budesonide/ 2 PUF BID 05/14 2199 AC 05/15 Formoterol Fumarate INH 2204 Ceftriaxone Sodium 1,000 MG DAILY@1800 05/14 1800 AC 05/15 IV 1637 Heparin Sodium 5,000 UNIT Q8 05/14 1743 AC 05/16 (Porcine) SC 0520 Ipratropium [place] 2.5 ML Q4 HRS NEEDED PRN 05/14 1745 AC INH Methylprednisolone 40 MG Q6H 05/14 220 AC 05/16 IV 0352 Omeprazole 40 MG DAILY AC 05/15 0700 AC 05/16 PO 0520 Oxybutynin Chloride 5 MG BID 05/14 2199 AC 05/15 PO 220 Assessment/Plan Assessment: This is a 85-year-old gentleman with advanced COPD, has been on chronic oxygen therapy, significant pulmonary hypertension related to severe COPD and chronic lung disease, and poor performance status now here with worsening hypoxemia/ hypercapnic hypoxic respiratory failure. -He is being evaluated and treated for following conditions #Acute on chronic hypoxic and hypercarbic respiratory failure due to end-stage lung disease, with recent worsening related to severe COPD exacerbation, and pneumonia. * Continue telemetry monitoring for continuous pulse ox, maintain o2 sat >90% * Continue BiPAP, no aggressive measures patient status is DNR/DNI * Acetazolamide 250 IV for correction of metabolic alkalosis yesterday * We are going to continue empirical IV antibiotic therapy and IV steroids * TRC along with Duonebs TID #Urinary retention 2/2 SAHU : The patient is an history of urinary retention/ urgengency along with bph we will get old records. Pt was oliguric yesterday. On bladder scan there was greater than 400 patient was straight cath twice. on first striaght cath, pt had bloody urine, second episode it was clear. Pt had intermittent hematuria can br 2/2 catheter induced * Continue straight cath protocols, consider d/c oxybutynin * We are going to get urology on board consult placed with Dr. power #Drop in H/H patient had a drop from 9 to 8, and 28 to 26 can be secondary to episode of hematuria vs blood loss in stool. It can be secondary to dilutional as all cell lines are down * Anemia workup folate, B12, reticulocyte count, iron studies * GUACIC all stools * Monitor H/H #Elevated troponins: Likely secondary to demand ischemia, trended down # Large left-sided paramediastinal mass * Family does not wish for further workup #Continue his home medications aspirin. omeprazole, terazosyn #Diet honey thick consistancy diet/ NPO if pt is less responsive #DVT prophylaxis with Alps and SQ heparin #CODE STATUS DNR DNI Problem List: 1. Hypercapnic respiratory failure Pain Ratin Pain Location: n/a Pain Goal: Pain 4 or less Pain Plan: prn Tomorrow's Labs & Rationales: cbc bep Gail Stewart MD 05/16/17 1157: Attending MD Review Statement Attending Statement Attending MD Statement: examined this patient, discuss w/resident/PA/HAND CLIPPER, agreed w/resident/PA/HAND CLIPPER, discussed with family, reviewed EMR data (avail), discussed with nursing, discussed with case mgmt, amended to note Attending Assessment/Plan: Patient seen and examined this morning. Resting comfortably, temporarily of BiPAP for breakfast. Family present at the bedside. No issues overnight reported by nursing staff. On telemetry he was noted to be bradycardic in the 40s but remained asymptomatic. EKG shows no ischemic changes. Patient reports feeling better compared to presentation. Family does admit that patient appears improved. He however continues to require BiPAP therapy needing it for the most part of the day and he was on it all through the night on examination. No further episodes or hematuria reported a urinalysis done yesterday did not show any significant hematuria. Patient however was found to be retaining over 400 cc of urine on bladder scan. He has been requiring intermittent catheterization. On examination air entry is very poor bilaterally however he has no added sounds. Abdomen is soft and nontender. He has bilateral pedal edema. Laboratory data shows downward trend of his hemoglobin level. Metabolic alkalosis is improving following administration of Diamox yesterday. BUN is elevated but creatinine remains within normal limits. He is currently growing gram-negative rods in the sputum culture. He has grown E. coli in the past. Problems: 1. Acute on chronic hypercapnic and hypoxic respiratory failure. 2. End-stage lung disease secondary to worsening COPD with current exacerbation. 3. Elevated troponins due to demand ischemia per the cardiology service likely secondary to demand supply mismatch from his hypoxemia 4. Chronic peripheral edema likely related to cor pulmonale 5. Quadriparesis 6. Large left-sided paramediastinal mass; family refusing further workup. 7. Bladder outlet obstruction 8. Gram-negative clyde pneumonia Plan: -Continue bronchodilator therapy. Follow-up with pulmonology service regarding weaning down steroids to 40 mg IV every 8 hours today. - He is currently growing gram-negative clyde in the sputum. We will consider tailoring antibiotic regimen to his current culture results. -Check stool guaiac, iron profile and hemolysis workup. If hemolysis workup is negative and hemoglobin level continues to trend downward or if stool guaiac is positive, obtain GI consultation. -Obtain urology consultation for evaluation of his bladder outlet obstruction and intermittent hematuria - Continue telemetry monitoring on account of his bradycardia overnight. Patient is not on any negative chronotropic agent.
[2017-05-16 07:11] VITALS: BP 110/50
--- NOTE | 2017-05-16 07:11 | Patient Discharge Instructions ---
Discharge Instructions General Discharge Information You were seen/treated for: COPD acute exacerbation secondary to Pseudomonas pneumonia Watch for these problems: fever, shortness of breath, chest pain, lightheadedness, persistant hematuria and confusion Special Instructions: Please take an appointment with her PCP for follow-up and further management of the Pseudomonas pneumonia. Please take an appointment with matrix supervisor for further management of severe COPD/oxygen requirement/BiPAP.You are on BIPAP as needed. Please take the medication as advised. At the time of admission you were having assymetrical pupils.Please follow-up with fiber locking supervisor for further evaluation. Please follow-up with the urologist for further management of hematuria. Diet Recommended Diet: Regular Activity Activity Self Limited: Yes Acute Coronary Syndrome Inclusion Criteria At DC or during hospital stay patient has or had the following: ACS DIAGNOSIS No Discharge Core Measures Meds if any: Prescribed or Continued at Discharge Meds if any: NOT Prescribed or Continued at Discharge Congestive Heart Failure Inclusion Criteria At DC or during hospital stay patient has or had the following: CHF DIAGNOSIS No Discharge Core Measures Meds if any: Prescribed or Continued at Discharge Meds if any: NOT Prescribed or Continued at Discharge Cerebrovascular accident Inclusion Criteria At DC or during hospital stay patient has or had the following: CVA/TIA Diagnosis No Discharge Core Measures Meds if any: Prescribed or Continued at Discharge Meds if any: NOT Prescribed or Continued at Discharge Venous thromboembolism Inclusion Criteria VTE Diagnosis No VTE Type NONE VTE Confirmed by (Test) NONE Discharge Core Measures - Per Current guidelines, there needs to be overlap - treatment for the first 5 days of Warfarin therapy. - If discharged on Warfarin prior to 5 days of - overlap therapy, the patient will need to be - assessed for post discharge needs including - *Post discharge parental anticoagulation - *Warfarin and/or parental anticoagulation education - *Follow up date to check INR post discharge At least 5 days overlap therapy as Inpatient No Meds if any: Prescribed or Continued at Discharge Warfarin No Note: Overlap Therapy is Warfarin and Anticoagulant Meds if any: NOT Prescribed or Continued at Discharge
[2017-05-16 08:03] LABS: ABSOLUTE BASOPHIL COUNT 0 /CUMM (0.0-0.2); ABSOLUTE EOSINOPHIL COUNT 0 /CUMM (0.0-0.7); ABSOLUTE GRANULOCYTE CT 2.4 /CUMM (1.4-6.5); ABSOLUTE LYMPH COUNT 0.4 /CUMM (1.2-3.4); ABSOLUTE MONOCYTE COUNT 0.4 /CUMM (0.10-0.60); BASOPHIL % 0 % (0.0-2.0); EOSINOPHIL % 0.1 % (0-5); GRANULOCYTE % 74.6 % (42.2-75.2); MEAN CORPUSCULAR HGB 33.7 PG (27.0-31.0); MEAN CORPUSCULAR HGB CONC 32.9 G/DL (33.0-37.0); MEAN CORPUSCULAR VOLUME 102.2 FL (80.0-94.0); MEAN PLATELET VOLUME 9.3 FL (7.4-10.4); PLATELET COUNT 164 /CUMM (130-400); RED BLOOD CELL CT 2.54 /CUMM (4.70-6.10); WHITE BLOOD CELL COUNT 3.2 /CUMM (4.8-10.8)
--- NOTE | 2017-05-16 12:29 | PN- Cardiology ---
Subjective Subjective: The patient is awake, alert, states feeling improved from a respiratory standpoint The events of the last 24 hours as well as telemetry were reviewed. Review of Systems: The review of systems is negative for chest pains, palpitations nor lightheadedness. The remainder of the 14 point review of systems is noncontributory with the exception of above. Objective Vital Signs and I&Os Vital Signs Date Time Temp Pulse Resp B/P B/P Pulse O2 O2 Flow FiO2 Mean Ox Delivery Rate 05/16 1150 95 Nasal 5.0L Cannula 05/16 0854 95 Nasal 5.0L Cannula 05/16 0840 94 BIPAP 50% 05/16 0750 90 94 05/16 0711 97.8 55 24 110/50 90 BIPAP 05/16 0604 51 92 05/16 0345 52 92 05/16 0219 51 96 05/16 0216 55 98 05/16 0000 BIPAP 50% 05/15 2208 98.0 59 23 106/48 97 05/15 2130 62 94 05/15 2022 94 BIPAP 55% 05/15 1924 67 95 05/15 1636 61 94 05/15 1600 94 BIPAP 50% 05/15 1439 98.2 68 19 112/50 93 05/15 1428 57 93 Intake & Output 05/16 1600 05/16 0800 05/16 0000 05/15 1600 05/15 0800 05/15 0000 Intake Total 120 120 500 120 250 Output Total 800 500 30 400 200 Balance -680 -380 470 -280 50 Intake, IV 100 250 Intake, Oral 120 120 400 120 0 Output, Urine 800 500 30 400 200 Patient 192 lb Weight Physical Exam: General: Nontoxic, no apparent distress. HEENT: Sclera and conjunctiva within normal limits, without xanthelasmas. Neck: Carotids 2+ without bruits. Respiratory: Scattered rhonchi, air movement is decreased throughout, without accessory respiratory muscle use. Heart: Regular rate and rhythm, without murmurs, without JVD. Abdomen: Soft, nontender, no masses, normoactive bowel sounds. Extremities: Without clubbing, cyanosis, without edema. Neuro: Nonfocal exam, strength, 5 out of 5 Skin: Within normal limits without lesions. Psych: Mood and affect: Normal Current Medications: Current Medications Sig/Kyra Start time Last Medication Dose Route Stop Time Status Admin Albuterol Sulfate 3 ML EVERY 4 HRS/AWAKE 05/15 0800 AC 05/16 INH 1150 Aspirin 81 MG DAILY 05/14 1747 AC 05/16 PO 0939 Azithromycin 500 MG DAILY@1730 05/15 1730 AC 05/15 Sodium Chloride 250 ML IV 1637 Budesonide/ 2 PUF BID 05/14 2200 AC 05/16 Formoterol Fumarate INH 0939 Ceftriaxone Sodium 1,000 MG DAILY@1800 05/14 1800 AC 05/15 IV 1637 Heparin Sodium 5,000 UNIT Q8 05/14 1743 AC 05/16 (Porcine) SC 0520 Ipratropium [place] 2.5 ML Q4 HRS NEEDED PRN 05/14 1745 AC INH Methylprednisolone 40 MG Q6H 05/14 2200 AC 05/16 IV 0939 Omeprazole 40 MG DAILY AC 05/15 0700 AC 05/16 PO 0520 Oxybutynin Chloride 5 MG BID 05/14 220 AC 05/16 PO 0939 Results Last 48 Hrs of Labs/Mics: Laboratory Tests 05/16/17 0620: Anion Gap 6, Estimated GFR > 60, BUN/Creatinine Ratio 34.3 H, Iron 65, TIBC 264 , Ferritin 76.9, Vitamin B12 Pending, Folate Pending, CBC w Diff NO MAN DIFF REQ , RBC 2.54 L, MCV 102.2 H, MCH 33.7 H, RDW 20.0 H, MPV 9.3, Gran % 74.6, Lymphocytes % 13.6 L, Monocytes % 11.7 H, Eosinophils % 0.1, Basophils % 0, Absolute Granulocytes 2.4, Absolute Lymphocytes 0.4 L, Absolute Monocytes 0.4, Absolute Eosinophils 0, Absolute Basophils 0, PUBS MCHC 32.9 L, Retic Count 1.01 05/15/17 1703: Urine Color YEL, Urine Clarity CLEAR, Urine pH 7.0, Ur Specific [place] 1.020, Urine Protein 30 H, Urine Ketones NEG, Urine Nitrite NEG, Urine Bilirubin NEG, Urine Urobilinogen 0.2, Ur Leukocyte Esterase NEG, Ur Microscopic SEDIMENT EXAMINED, Urine RBC 3-5, Urine WBC RARE, Ur Epithelial Cells RARE, Urine Bacteria RARE H, Hyaline Casts RARE H, Urine Mucus RARE, Urine Hemoglobin SMALL H, Urine Glucose NEG 05/15/17 0934: PT 11.1, INR 1.06 05/15/17 0648: Troponin I Cancelled 05/15/17 0648: Anion Gap 8, Estimated GFR > 60, BUN/Creatinine Ratio 27.1 H, Troponin I 0.13 * H, CBC w Diff MAN DIFF ORDERED, RBC 2.73 L, MCV 102.8 H, MCH 33.8 H, RDW 19.5 H, MPV 10.1, Gran % 87.0 H, Lymphocytes % 9.0 L, Monocytes % 4.0, Eosinophils % 0, Basophils % 0, Absolute Granulocytes 4.2, Segmented Neutrophils 67, Band Neutrophils 20 H, Absolute Lymphocytes 0.4 L, Lymphocytes 13 L, Absolute Monocytes 0.2, Absolute Eosinophils 0, Absolute Basophils 0, Platelet Estimate VERIFIED BY SMEAR, Hypochromic-Microcytic 1+, Anisocytosis 1+, Macrocytic Cells 1+, Stomatocytes FEW, PUBS MCHC 32.8 L 05/15/17 0555: pH 7.31 L, pCO2 82 *H, pO2 94, HCO3 40 H, ABG O2 Sat (Measured) 97.0, P-50 ( Temp Corrected) N, Carboxyhemoglobin 1.1 L, O2 Concentration % .55, Respiration Rate 20, O2 Delivery Method BIPAP, Vent Mode ST, Expiratory Pressure 6, Inspiratory Pressure 22, Phlebotomy Draw Site RIGHT RADIAL 05/14/17 2151: Sodium Cancelled, Potassium Cancelled, Chloride Cancelled, Carbon Dioxide Cancelled, Anion Gap Cancelled, BUN Cancelled, Creatinine Cancelled, BUN/ Creatinine Ratio Cancelled 05/14/17 2150: pH 7.30 *L, pCO2 82 *H, pO2 75 L, HCO3 40 H, ABG O2 Sat (Measured) 94.0 L, P- 50 (Temp Corrected) 98.2, Carboxyhemoglobin 0.5 L, O2 Concentration % 55%, Temperature 98.2, Respiration Rate 20, O2 Delivery Method BIPAP, Vent Mode S/T, Expiratory Pressure 6, Inspiratory Pressure 22, Phlebotomy Draw Site LEFT RADIAL 05/14/17 2144: Anion Gap 8, Estimated GFR > 60, BUN/Creatinine Ratio 28.3 H, Troponin I 0.14 * H 05/14/17 1800: pH 7.29 *L, pCO2 82 *H, pO2 79 L, HCO3 38 H, ABG O2 Sat (Measured) 93.0 L, P- 50 (Temp Corrected) Y, Carboxyhemoglobin 0.4 L, O2 Concentration % 55, Temperature 97.6, Respiration Rate 20, O2 Delivery Method BIPAP, Vent Mode ST, Expiratory Pressure 6, Inspiratory Pressure 18, Phlebotomy Draw Site RIGHT RADIAL 05/14/17 1750: Virus Culture Pending 05/14/17 1749: Troponin I 0.12 *H 05/14/17 1647: Lactic Acid 1.1 05/14/17 1555: pH 7.30 *L, pCO2 79 *H, pO2 60 L, HCO3 38 H, ABG O2 Sat (Measured) 87.0 L, P- 50 (Temp Corrected) Y, Carboxyhemoglobin 1.0 L, O2 Concentration % 4L, Temperature 97.6, O2 Delivery Method N/C, Phlebotomy Draw Site RIGHT RADIAL 05/14/17 1428: Anion Gap 7, Estimated GFR > 60, BUN/Creatinine Ratio 26.7 H, Glucose 158 H, Lactic Acid 0.9, Calcium 8.3 L, Magnesium 1.7, Total Bilirubin 0.8, AST 32, ALT 34, Alkaline Phosphatase 40, Troponin I 0.10, Total Protein 6.8, Albumin 3.8, Globulin 3.0, Albumin/Globulin Ratio 1.3, CBC w Diff MAN DIFF ORDERED, RBC 3.08 L, MCV 102.9 H, MCH 33.2 H, RDW 20.1 H, MPV 8.5, Gran % 85.4 H, Lymphocytes % 5.3 L, Monocytes % 9.0, Eosinophils % 0.1, Basophils % 0.2, Absolute Granulocytes 6.7 H, Segmented Neutrophils 66, Band Neutrophils 17 H, Absolute Lymphocytes 0.4 L, Lymphocytes 8 L, Monocytes 8, Absolute Monocytes 0.7 H, Absolute Eosinophils 0, Basophils 1, Absolute Basophils 0, Nucleated RBCs 2 H, Platelet Estimate ADEQUATE, Polychromasia 1+, Hypochromic-Microcytic 2+, Poikilocytosis 3+, Basophilic Stippling 1+, Anisocytosis 2+, Macrocytic Cells 1+ , Ovalocytes 1+, PUBS MCHC 32.2 L Microbiology 05/15 946 URINE ROUT: Urine Culture - COMP 05/14 182 NASOPHARYN: Influenza Virus A & B Rapid Smear - COMP Assessment/Plan Assessment/Plan 1. Shortness of breath secondary to an acute exacerbation of end-stage COPD 2. Elevated troponins secondary to demand ischemia. 3. Hypertension 4. Hyperlipidemia 5. Large left sided paramediastinal mass... family refused workup 6. 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 Consideration for the addition of the same will be made after with Oralia concerning a component of reactive airway disease. A statin regimen should as well be added. Continue telemetry? No
--- NOTE | 2017-05-16 12:50 | Cons- Urology ---
General Information and HPI Consulting Request Date of Consult: 05/16/17 Requested By: Gail Stewart MD Reason for Consult: urinary retention and gross hematuria/urethral bleeding Source of Information: patient, family, old records Exam Limitations: no limitations History of Present Illness: This patient has significant COPD and was admitted with fatigue, lethargy and persistent hypoxia. While hopspitalized he developed urinary retention and has required str cath. He also had an episode of urethral bleeding/gross hematuria. It is unclear if this was after a str cath attempt. He denies any difficulty voiding prior to admission and denies any gross hematuria prior to admission. His usual urologist is Dr Castillo at [place] who follows him for BPH and urinary urgency. The patient was last seen by him in 04/2016. At that time he was on terazosin 5 mg and ditropan and was doing well with a pvr of 154 cc. Allergies/Medications Allergies: Coded Allergies: NO KNOWN ALLERGIES (08/29/12) Home Med List: Albuterol Sulfate (Proair Hfa) 90 MCG HFA.AER.AD 2 PUF INH Q4-PRN PRN COPD ( Reported) Ascorbic Acid (Vitamin C) 500 MG CAPSULE.ER 1 CAP PO 2XW VITAMIN SUPPLEMENT ( Reported) Aspirin (Aspirin*) 81 MG TAB.CHEW 1 TAB PO DAILY HEART HEALTH (Reported) Azithromycin 250 MG TABLET 1 DP PO AD PROPHALACTIVELY (Reported) ONE TABLET DAILY SUNDAY, SUNDAY AND FRIDAYS Budesonide 0.25 MG/2 ML AMPUL.NEB 1 Vial INH/SOLITARIO TID PRN OB, COPD (Reported) Calcium Carb/Vitamin D3/Vit K1 (Citracal Soft Chew) 500 MG CALCIUM-1,000 UNIT-40 MCG TAB.CHEW 1 TAB PO DAILY VITAMIN SUPPLEMENT (Reported) Cholecalciferol (Vitamin D3) (Vitamin D3) 1,000 UNIT CAPSULE 1 CAP PO DAILY SUPPLEMENT (Reported) Colchicine (Colcrys) 0.6 MG TABLET 1 TAB PO DAILY GOUT (Reported) Furosemide 40 MG TABLET 0.5 TAB PO DAILY FLUID (Reported) Glucosamine/D3/Boswellia Chey (Glucosamine Complex Tablet) 1,500 MG-400 UNIT- 100 MG TABLET 2 TAB PO DAILY VITAMIN SUPPLEMENT (Reported) [IOPHEN- C NR] 1 TSP PO BEDTIME (Reported) Ipratropium/Albuterol Sulfate (Iprat-Albut 0.5-3(2.5) MG/3 Ml) 0.5 MG-3 MG (2.5 MG BASE)/3 ML AMPUL.NEB 1 INHAL INH/SOLITARIO BID PRN PRN SHORTNESS OF BREATH ( Reported) Multivit-Min/FA/Lycopen/Lutein (Centrum Silver Tablet) 0.4 MG-300 MCG-250 MCG TABLET 1 TAB PO VITAMIN SUPPLEMENT (Reported) *TWICE PER WEEK Nystatin 100,000 UNIT/GRAM CREAM..G. 1 TWIN TOP BIDP PRN RASH (Reported) apply to affected area(s) [place]-3 Fatty Acids/Fish Oil (Fish Oil 1,000 MG Capsule) 340 MG-1,000 MG CAPSULE 1 CAP PO DAILY SUPPLEMENT (Reported) Omeprazole 40 MG CAPSULE.DR 1 CAP PO DAILY GERD (Reported) Oxybutynin Chloride (Oxybutynin Chloride ER) 10 MG TAB.ER.24 1 TAB PO DAILY (Reported) Potassium Chloride 20 MEQ TAB.ER.PRT 0.5 TAB PO DAILY SUPPLEMENT (Reported) Prednisone 10 MG TABLET 0 PO TAPER BREATHING On Take 10/06-10/07 50 MG 10/08-10/10 40 MG 10/11-10/13 30 MG 10/14-10/16 20 MG 10/17-10/18 10 MG Then Stop Terazosin HCl 5 MG CAPSULE 1 CAP PO QPM (Reported) Current Medications: Current Medications Sig/Kyra Start time Last Medication Dose Route Stop Time Status Admin Albuterol Sulfate 3 ML EVERY 4 HRS/AWAKE 05/15 0800 AC 05/16 INH 1150 Aspirin 81 MG DAILY 05/14 1747 AC 05/16 PO 0939 Azithromycin 500 MG DAILY@1730 05/15 1730 AC 05/15 Sodium Chloride 250 ML IV 1637 Budesonide/ 2 PUF BID 05/14 2200 AC 05/16 Formoterol Fumarate INH 0939 Ceftriaxone Sodium 1,000 MG DAILY@1800 05/14 1800 AC 05/15 IV 1637 Heparin Sodium 5,000 UNIT Q8 05/14 1743 AC 05/16 (Porcine) SC 0520 Ipratropium [place] 2.5 ML Q4 HRS NEEDED PRN 05/14 1745 AC INH Methylprednisolone 40 MG Q6H 05/14 2200 AC 05/16 IV 0939 Omeprazole 40 MG DAILY AC 05/15 0700 AC 05/16 PO 0520 Oxybutynin Chloride 5 MG BID 05/14 2199 AC 05/16 PO 0939 Past History Medical History Blood Transfusion Hx: No Neurological: NONE EENT: NONE Cardiovascular: hyperlipidemia Respiratory: COPD Gastrointestinal: GERD Hepatic: NONE Renal: benign prost hyperplasia Musculoskeletal: gout, osteoarthritis Psychiatric: NONE Endocrine: NONE Blood Disorders: NONE Cancer(s): NONE 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 FATHER (bronchitis). MOTHER (breast CA). Psychosocial History Where Do You Live? Home Who Do You Live With? child Services at Home: None Primary Language: Swedish Smoking Status: Former Smoker Functional Ability ADLs Independent: dressing, eating, toileting, bathing. Ambulation: non-ambulatory, rarely ambulated and uses walker IADLs Independent: telephone. Needs Assist: shopping, housework, finances, food prep, transportation, medication admin. Exam & Diagnostic Data Vital Signs and I&O Vital Signs Date Time Temp Pulse Resp B/P B/P Pulse O2 O2 Flow FiO2 Mean Ox Delivery Rate 05/16 1150 95 Nasal 5.0L Cannula 05/16 0854 95 Nasal 5.0L Cannula 05/16 0840 94 BIPAP 50% 05/16 0750 90 94 05/16 0711 97.8 55 24 110/50 90 BIPAP 05/16 0604 51 92 05/16 0345 52 92 05/16 0219 51 96 05/16 0216 55 98 05/16 0000 BIPAP 50% 05/15 2208 98.0 59 23 106/48 97 05/15 2130 62 94 05/15 202 94 BIPAP 55% 05/15 1924 67 95 05/15 1636 61 94 05/15 1600 94 BIPAP 50% 05/15 1439 98.2 68 19 112/50 93 05/15 1428 57 93 Intake & Output 05/16 1600 05/16 0800 05/16 0000 05/15 1600 05/15 0805/15 0000 Intake Total 120 120 500 120 250 Output Total 800 500 30 400 200 Balance -680 -380 470 -280 50 Intake, IV 100 250 Intake, Oral 120 120 400 120 0 Output, Urine 800 500 30 400 200 Patient 192 lb Weight No acute distress. In bed on supplemental oxygen Back: no CVA tenderness Abd: soft and non tender. Bladder not palpable (was just str cathed) Genitalia: L testicle absent, otherwise normal Laboratory Tests 05/16 05/15 0620 1703 Chemistry Sodium (137 - 145 mmol/L) 134 L Potassium (3.5 - 5.1 mmol/L) 4.2 Chloride (98 - 107 mmol/L) 89 L Carbon Dioxide (22 - 30 mmol/L) 39 H Anion Gap (5 - 16) 6 BUN (9 - 20 mg/dL) 24 H Creatinine (0.7 - 1.2 mg/dL) 0.7 Estimated GFR (>60 ml/min) > 60 BUN/Creatinine Ratio (7 - 25 %) 34.3 H Iron (49 - 181 ug/dL) 65 TIBC (261 - 462 ug/dL) 264 Ferritin (17.9 - 464 ng/mL) 76.9 Vitamin B12 (239 - 931 pg/mL) 956 H Folate (2.76 - 20.0 ng/mL) 13.6 Hematology CBC w Diff NO MAN DIFF REQ WBC (4.8 - 10.8 /CUMM) 3.2 L RBC (4.70 - 6.10 /CUMM) 2.54 L Hgb (14.0 - 18.0 G/DL) 8.6 L Hct (42 - 52 %) 26.0 L MCV (80.0 - 94.0 FL) 102.2 H MCH (27.0 - 31.0 PG) 33.7 H RDW (11.5 - 14.5 %) 20.0 H Plt Count (130 - 400 /CUMM) 164 MPV (7.4 - 10.4 FL) 9.3 Gran % (42.2 - 75.2 %) 74.6 Lymphocytes % (20.5 - 51.1 %) 13.6 L Monocytes % (1.7 - 9.3 %) 11.7 H Eosinophils % (0 - 5 %) 0.1 Basophils % (0.0 - 2.0 %) 0 Absolute Granulocytes (1.4 - 6.5 /CUMM) 2.4 Absolute Lymphocytes (1.2 - 3.4 /CUMM) 0.4 L Absolute Monocytes (0.10 - 0.60 /CUMM) 0.4 Absolute Eosinophils (0.0 - 0.7 /CUMM) 0 Absolute Basophils (0.0 - 0.2 /CUMM) 0 PUBS MCHC (33.0 - 37.0 G/DL) 32.9 L Retic Count (0.5 - 2.0 %) 1.01 Urines Urine Color (YEL,AMB,STR) YEL Urine Clarity (CLEAR) CLEAR Urine pH (5.0 - 8.0) 7.0 Ur Specific [place] (1.001 - 1.035) 1.020 Urine Protein (NEG,<30 MG/DL) 30 H Urine Ketones (NEG) NEG Urine Nitrite (NEG) NEG Urine Bilirubin (NEG) NEG Urine Urobilinogen (0.1 - 1.0 EU/dl) 0.2 Ur Leukocyte Esterase (NEG) NEG Ur Microscopic SEDIMENT EXAMINED Urine RBC (0 - 5 /HPF) 3-5 Urine WBC (0 - 2 /HPF) RARE Ur Epithelial Cells (NONE,FEW) RARE Urine Bacteria (NEG/NONE) RARE H Hyaline Casts (0/LPF) RARE H Urine Mucus (FEW,NONE) RARE Urine Hemoglobin (NEG) SMALL H Urine Glucose (N MG/DL) NEG Urine C&S: mixed organisms Assessment/Plan Assessment/Plan Imp: 1. Urinary retention. Likely multifactorial 2. Hx of BPH and urinary urgency 3. Episode of urethral bleeding/gross hematuria, ? catheter induced, now resolved Plan: 1. Would stop ditropan (oxybutynin hydrochloride) 2. If BP increased would consider starting tamsulosin 0.4 mg qd. Would hold off at this point in view of BP less than 110 systolic 3. Would bladder scan q shift and str cath if more than 400 cc 4. If difficult to perform str cath can place indwelling bazzi but intermittent cath would be preferable Consult Acknowledgment - Thank you for your consult request.
--- NOTE | 2017-05-16 14:01 | PN- Pulmonary ---
Subjective HPI/Critical Care Issues: The patient is awake, alert, states feeling improved from a respiratory standpoint The review of systems is negative for chest pains, palpitations nor lightheadedness. The remainder of the 14 point review of systems is noncontributory with the exception of above. Objective Current Medications: Current Medications Sig/Kyra Start time Last Medication Dose Route Stop Time Status Admin Albuterol Sulfate 3 ML EVERY 4 HRS/AWAKE 05/15 0800 AC 05/16 INH 1150 Aspirin 81 MG DAILY 05/14 1747 AC 05/16 PO 0939 Azithromycin 500 MG DAILY@1730 05/15 1730 AC 05/15 Sodium Chloride 250 ML IV 1637 Budesonide/ 2 PUF BID 05/14 220 AC 05/16 Formoterol Fumarate INH 0939 Ceftriaxone Sodium 1,000 MG DAILY@1800 05/14 1800 AC 05/15 IV 1637 Heparin Sodium 5,000 UNIT Q8 05/14 1743 AC 05/16 (Porcine) SC 0520 Ipratropium [place] 2.5 ML Q4 HRS NEEDED PRN 05/14 174 AC INH Methylprednisolone 40 MG Q6H 05/14 220 AC 05/16 IV 0939 Omeprazole 40 MG DAILY AC 05/15 0700 AC 05/16 PO 0520 Oxybutynin Chloride 5 MG BID 05/14 2200 DC 05/16 PO 0939 Vital Signs & I&O Last 24 Hrs of Vitals and I&O: Vital Signs Date Time Temp Pulse Resp B/P B/P Pulse O2 O2 Flow FiO2 Mean Ox Delivery Rate 05/16 1150 95 Nasal 5.0L Cannula 05/16 0854 95 Nasal 5.0L Cannula 05/16 0840 94 BIPAP 50% 05/16 0750 90 94 05/16 0711 97.8 55 24 110/50 90 BIPAP 05/16 0604 51 92 05/16 0345 52 92 05/16 0219 51 96 05/16 0216 55 98 05/16 0000 BIPAP 50% 05/15 2208 98.0 59 23 106/48 97 05/15 2130 62 94 05/15 2021 94 BIPAP 55% 05/15 1924 67 95 05/15 1636 61 94 05/15 1600 94 BIPAP 50% 05/15 1439 98.2 68 19 112/50 93 05/15 1428 57 93 Intake & Output 05/16 1600 05/16 0800 01/03 0000 Intake Total 120 120 Output Total 800 500 Balance -680 -380 Intake, Oral 120 120 Output, Urine 800 500 Impression/Plan Impression/Plan Impression/Plan: PRevious ct IMPRESSION: 1. Chronic mass effect upon the right middle lobe and both lower lobe bronchi is seen by an enlarged central pulmonary arteries leading to chronic volume loss and consolidation in these lobes. Compared to 2013, findings are very similar. Upper lobes remain relatively clear. Findings raise the suspicion of pulmonary arterial hypertension in the setting of obstructive lung disease. Clinical correlation requested. 2. Evidence of prior granulomatous disease with scattered calcified granulomas in the lungs and calcified nodes seen in the mediastinum and left hilum. 3. A few additional small nodular densities are seen, which are indeterminate in etiology, as not all of these are seen on the 2013 exam. Findings may represent an intercurrent inflammatory or infectious process (example the [id number]-type nodular opacities in the anterior inferior right upper lobe). Follow-up CT scan in 3 months is recommended to reassess the 0.6 x 0.3 cm nodule in the right upper lobe. 4. Enlarged central pulmonary arteries, consistent with pulmonary arterial hypertension. 4. Several other incidental findings as discussed above. DICTATED BY: TERENCE ASHER MD DATE/TIME DICTATED:10/03/161332 CXR IMPRESSION: No significant change since 11/29/2016. Stable mild pulmonary venous congestion, moderate enlargement of the cardiomediastinal silhouette, and nonspecific bibasilar airspace disease. DICTATED BY: Lance Suarez MD DATE/TIME DICTATED:05/14/178 This is a 86-year-old gentleman with very terminal COPD, has been on chronic oxygen therapy, significant pulmonary hypertension related to severe COPD and chronic lung disease, poor performance time a functional quadriplegia related to severe cervical spine disease, mild bronchiectasis, poor performance status now here with worsening hypoxemia with * Resolving Acute on chronic hypoxic and hypercarbic respiratory failure due to end-stage lung disease, with recent worsening related to severe COPD exacerbation, and prob pneumonia. Now on NIV on bpap and seems to be stable * Pseudomonas pna and bronchiectasis exacerbation * Significant pulmonary hypertension related to terminal lung disease * Functional quadriparesis related to cervical spine disease patient is not a candidate for any therapy * Lower extremity edema suggestive of acute on chronic cor pulmonale * Previous history of mediastinal lymphadenopathy * Small lung nodules of no clinical significance * Worsening overall performance status * Bilateral lower lobe atelectasis with restrictive pulmonary physiology as well related to severe pulmonary hypertension * 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 with previous negative QuantiFERON goal tests * 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
[2017-05-16 14:48] VITALS: BP 122/46
[2017-05-16 22:17] VITALS: BP 122/58
[2017-05-17 06:57] VITALS: BP 126/60
--- NOTE | 2017-05-17 07:57 | PN- Housestaff ---
Ananth ORTEGA,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 Currently on NC. Reports improvement in symptoms, is using BiPAP intermittently came off BiPAP around 5 AM. Family by bedside Review of Systems Constitutional: Reports: see HPI. Objective Last 24 Hrs of Vital Signs/I&O Vital Signs Date Time Temp Pulse Resp B/P B/P Pulse O2 O2 Flow FiO2 Mean Ox Delivery Rate 05/17 08 90 Nasal 4.0L Cannula 05/17 0657 99.0 56 24 126/60 91 BIPAP 05/17 0543 58 89 05/17 0424 57 94 05/17 0105 52 90 05/17 0000 BIPAP 05/16 2246 67 92 05/16 2217 98.9 74 20 122/58 99 05/16 1724 94 Nasal 4.0L Cannula 05/16 1700 93 Nasal 5.0L Cannula 05/16 1628 Nasal 5.0L Cannula 05/16 1448 97.7 68 20 122/46 92 Nasal 5.0L Cannula 05/16 1150 95 Nasal 5.0L Cannula Intake & Output 05/17 1600 05/17 0800 05/17 0000 Intake Total 300 Output Total 25 350 800 Balance -25 -350 -500 Intake, Oral 300 Output, Urine 25 350 800 Physical Exam General Appearance: Alert, Oriented X3, Cooperative Cardiovascular: Normal S1, Normal S2 Lungs: rochi few Abdomen: Soft Extremities: b/l pedal edema Current Medications: Current Medications Sig/Kyra Start time Last Medication Dose Route Stop Time Status Admin Albuterol Sulfate 3 ML EVERY 4 HRS/AWAKE 05/15 0800 AC 05/17 INH 0755 Aspirin 81 MG DAILY 05/14 1747 AC 05/17 PO 0940 Azithromycin 500 MG DAILY@1730 05/15 1730 DC 05/15 Sodium Chloride 250 ML IV 1637 Budesonide/ 2 PUF BID 05/14 2200 AC 05/17 Formoterol Fumarate INH 0941 Ceftazidime 1,000 MG Q12H 05/17 0500 AC 05/17 IV 0506 Ceftazidime 1,000 MG Q12 05/16 1509 DC 05/16 IV 1646 Ceftriaxone Sodium 1,000 MG DAILY@1800 05/14 1800 DC 05/15 IV 1637 Ferrous Gluconate 325 MG BID 05/17 1051 AC PO Heparin Sodium 5,000 UNIT Q8 05/14 1743 AC 05/17 (Porcine) SC 0505 Ipratropium [place] 2.5 ML EVERY 4 HRS/AWAKE 05/16 1999 AC 05/17 INH 0755 Ipratropium [place] 2.5 ML Q4 HRS NEEDED PRN 05/14 1745 AC INH Methylprednisolone 40 MG Q6H 05/14 2200 DC 05/17 IV 05/17 0600 0506 Omeprazole 40 MG DAILY AC 05/15 0700 AC 05/17 PO 0507 Oxybutynin Chloride 5 MG BID 05/14 220 DC 05/16 PO 0939 Prednisone 40 MG DAILY 05/17 1000 AC 05/17 PO 0940 Last 24 Hrs of Lab/Nikolas Results Last 24 Hrs of Labs/Mics: Laboratory Tests 05/17/17 0635: Anion Gap 4 L, Estimated GFR > 60, BUN/Creatinine Ratio 27.5 H, CBC w Diff NO MAN DIFF REQ, RBC 2.65 L, MCV 101.6 H, MCH 33.7 H, RDW 20.1 H, MPV 9.5, Gran % 81.0 H, Lymphocytes % 11.2 L, Monocytes % 7.7, Eosinophils % 0.1, Basophils % 0, Absolute Granulocytes 4.4, Absolute Lymphocytes 0.6 L, Absolute Monocytes 0.4, Absolute Eosinophils 0, Absolute Basophils 0, PUBS MCHC 33.1 Assessment/Plan Assessment: This is a 85-year-old gentleman with quadriparesis advanced COPD, has been on chronic oxygen therapy, significant pulmonary hypertension related to severe COPD and chronic lung disease, and poor performance status. He presented with worsening hypoxemia/hypercapnic hypoxic respiratory failure on 05/15. 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 He also received 1 dose of Diamox for metabolic alkalosis. Patient's respiratory status continues to improve. Currently patient is not as dependent on BiPAP during daytime. Continue to give breaks as tolerated during the day but continue continous nocturnal BiPAP. Patient's sputum culture grew Pseudomonas and his antibiotic have been tailored to IV ceftaz, today is day 4 of antibiotic therapy. Steroids have been switched to oral prednisone 40mg. * Follow up with pulmonology for steroid tapering and administration of another dose of Diamox * If patient remains hemodynamically stable/afebrile consider switching to oral, follow-up wi with final sensitivities * TRC along with Duonebs TID #Urinary retention 2/2 SAHU : The patient has history of urgency along with bph. Pt became oliguric on 05/15. On bladder scan there was greater than 400 patient was straight cath twice. on first striaght cath, pt had bloody urine, second episode it was clear. Pt had intermittent hematuria can be 2/2 catheter induced. Since then he is voiding on his own and no longer requiring intermittent catheterization. Urology consulting. We have discontinued oxybutynin * Patient should follow-up with the urology service as an outpatient. * Consider adding Flomax 0.4mg if elevated BP Hold off for now #Anemia: patient had a drop from 9/28 to 8/ on 05/16. Some of it can be to contributed to hematuria. It is stable today, anemia workup shows normal (but towards the lower side) iron, TIBC and ferratin, folate and slightly elevated B12. We have started patient on oral iron supplementation as per attending recommendations. * Guaiac stools and monitor H/H * Patient should follow-up with GI kaitlin as an outpatient #Elevated troponins: Likely secondary to demand supply mismatch in setting of hypoxemia, No further monitoring is recommended by cardiology. We are going to continue aspirin, statin has been added to his regimen. We are going to hold off beta mely in context of advanced COPD # Large left-sided paramediastinal mass * Family does not wish for further workup #Continue his home medications aspirin. omeprazole, terazosyn #Diet advanced after swallow eval to Regular #DVT prophylaxis with Alps and SQ heparin #CODE STATUS DNR DNI Problem List: 1. COPD exacerbation 2. Bacterial pneumonia Pain Ratin Pain Location: n/a Pain Goal: Pain 4 or less Pain Plan: prn Tomorrow's Labs & Rationales: cbc bep Pat ORTEGA,Gail 05/17/17 0908: Attending MD Review Statement Attending Statement Attending MD Statement: examined this patient, discuss w/resident/PA/CERTIFIED PEER SPECIALIST, agreed w/resident/PA/CERTIFIED PEER SPECIALIST, discussed with family, reviewed EMR data (avail), discussed with nursing, discussed with case mgmt, amended to note Attending Assessment/Plan: Patient seen and examined. Resting comfortably not in any acute distress. Family present at the bedside. No events overnight reported by nursing staff. On telemetry noted to have some PVCs and sinus bradycardia in the 50s. He had an extended break of BiPAP therapy during the day yesterday. He slept well at night and came off BiPAP around 5 AM. Clinically resting comfortably maintain the saturation on nasal cannula. On examination he has fair entry bilaterally with mild expiratory rhonchi. Abdomen is soft and nontender. He has bilateral pedal edema. Problems: 1. Acute on chronic hypercapnic and hypoxic respiratory failure. 2. End-stage lung disease secondary to worsening COPD with current exacerbation. 3. Elevated troponins due to demand ischemia per the cardiology service likely secondary to demand supply mismatch from his hypoxemia 4. Chronic peripheral edema likely related to cor pulmonale 5. Quadriparesis 6. Large left-sided paramediastinal mass; family refusing further workup. 7. Bladder outlet obstruction 8. Pseudomonas pneumonia. Recommendations: -Patient appears to be improving from a respiratory standpoint. He is not as dependent on BiPAP therapy during the daytime. We will continue to give breaks as tolerated. Continue BiPAP at nighttime as recommended by the pulmonology service. -Continue on oral prednisone therapy and taper as tolerated. -Follow up with the pulmonology service regarding administration of another dose of Diamox for his metabolic alkalosis. -Antibiotic therapy has been changed to ceftaz on account of these Pseudomonas pneumonia. If he remains afebrile and hemodynamically stable he may be transitioned to fluoroquinolone to complete his course of antibiotic therapy. -His elevated troponins have been ascribed to demand ischemia. No further cardiac monitoring is recommended by the cardiology service at present. Patient will be downgraded to the general medical service. Beta-mely therapy is not being added to his regimen due to his advanced COPD. Continue aspirin therapy and begin statin therapy. -Urology follow-up appreciated. On account of his urinary retention distal part has been stopped. He has been started on Flomax 0.4 mg daily. He is currently voiding on his own and no longer requiring intermittent catheterization. Patient should follow-up with the urology service as an outpatient. -Hemoglobin level is stable. Workup is consistent with iron deficiency. Begin patient on oral iron supplementation. Check stool guaiac and follow-up with the GI service as an outpatient
[2017-05-17 08:10] LABS: ABSOLUTE BASOPHIL COUNT 0 /CUMM (0.0-0.2); ABSOLUTE EOSINOPHIL COUNT 0 /CUMM (0.0-0.7); ABSOLUTE GRANULOCYTE CT 4.4 /CUMM (1.4-6.5); ABSOLUTE LYMPH COUNT 0.6 /CUMM (1.2-3.4); ABSOLUTE MONOCYTE COUNT 0.4 /CUMM (0.10-0.60); BASOPHIL % 0 % (0.0-2.0); EOSINOPHIL % 0.1 % (0-5); HEMATOCRIT 26.9 % (42-52); MEAN CORPUSCULAR HGB 33.7 PG (27.0-31.0); MEAN CORPUSCULAR HGB CONC 33.1 G/DL (33.0-37.0); MEAN CORPUSCULAR VOLUME 101.6 FL (80.0-94.0); MEAN PLATELET VOLUME 9.5 FL (7.4-10.4); PLATELET COUNT 182 /CUMM (130-400); RBC DISTRIBUTION WIDTH 20.1 % (11.5-14.5); RED BLOOD CELL CT 2.65 /CUMM (4.70-6.10)
[2017-05-17 08:37] LABS: WHITE BLOOD CELL COUNT 5.4 /CUMM (4.8-10.8)
--- NOTE | 2017-05-17 11:49 | PN- Pulmonary ---
Subjective HPI/Critical Care Issues: Doing well stable Objective Current Medications: Current Medications Sig/Kyra Start time Last Medication Dose Route Stop Time Status Admin Albuterol Sulfate 3 ML EVERY 4 HRS/AWAKE 05/15 0800 AC 05/17 INH 0755 Aspirin 81 MG DAILY 05/14 1747 AC 05/17 PO 0940 Atorvastatin Calcium 40 MG 1700 05/17 1700 AC PO Azithromycin 500 MG DAILY@1730 05/15 1730 DC 05/15 Sodium Chloride 250 ML IV 1637 Budesonide/ 2 PUF BID 05/14 2200 AC 05/17 Formoterol Fumarate INH 0941 Ceftazidime 1,000 MG Q12H 05/17 0500 AC 05/17 IV 0506 Ceftazidime 1,000 MG Q12 05/16 1509 DC 05/16 IV 1646 Ceftriaxone Sodium 1,000 MG DAILY@1800 05/14 1800 DC 05/15 IV 1637 Ferrous Gluconate 325 MG BID 05/17 1051 AC PO Heparin Sodium 5,000 UNIT Q8 05/14 1743 AC 05/17 (Porcine) SC 0505 Ipratropium [place] 2.5 ML EVERY 4 HRS/AWAKE 05/16 2000 AC 05/17 INH 0755 Ipratropium [place] 2.5 ML Q4 HRS NEEDED PRN 05/14 1745 AC INH Methylprednisolone 40 MG Q6H 05/14 2200 DC 05/17 IV 05/17 0600 0506 Omeprazole 40 MG DAILY AC 05/15 0700 AC 05/17 PO 0507 Oxybutynin Chloride 5 MG BID 05/14 2200 DC 05/16 PO 0939 Prednisone 40 MG DAILY 05/17 1000 AC 05/17 PO 0940 Vital Signs & I&O Last 24 Hrs of Vitals and I&O: Vital Signs Date Time Temp Pulse Resp B/P B/P Pulse O2 O2 Flow FiO2 Mean Ox Delivery Rate 05/17 08 90 Nasal 4.0L Cannula 05/17 0657 99.0 56 24 126/60 91 BIPAP 05/17 0543 58 89 05/17 0424 57 94 05/17 0105 52 90 05/17 0000 BIPAP 05/16 2246 67 92 05/16 2217 98.9 74 20 122/58 99 05/16 1724 94 Nasal 4.0L Cannula 05/16 1700 93 Nasal 5.0L Cannula 05/16 1628 Nasal 5.0L Cannula 05/16 1448 97.7 68 20 122/46 92 Nasal 5.0L Cannula 05/16 1150 95 Nasal 5.0L Cannula Intake & Output 05/17 1600 05/17 0800 05/17 0000 Intake Total 300 Output Total 25 350 800 Balance -25 -350 -500 Intake, Oral 300 Output, Urine 25 350 800 Impression/Plan Impression/Plan Impression/Plan: PRevious ct IMPRESSION: 1. Chronic mass effect upon the right middle lobe and both lower lobe bronchi is seen by an enlarged central pulmonary arteries leading to chronic volume loss and consolidation in these lobes. Compared to 2013, findings are very similar. Upper lobes remain relatively clear. Findings raise the suspicion of pulmonary arterial hypertension in the setting of obstructive lung disease. Clinical correlation requested. 2. Evidence of prior granulomatous disease with scattered calcified granulomas in the lungs and calcified nodes seen in the mediastinum and left hilum. 3. A few additional small nodular densities are seen, which are indeterminate in etiology, as not all of these are seen on the 2013 exam. Findings may represent an intercurrent inflammatory or infectious process (example the dxel-by-wre-type nodular opacities in the anterior inferior right upper lobe). Follow-up CT scan in 3 months is recommended to reassess the 0.6 x 0.3 cm nodule in the right upper lobe. 4. Enlarged central pulmonary arteries, consistent with pulmonary arterial hypertension. 4. Several other incidental findings as discussed above. DICTATED BY: LB ORTEGA,TERENCE Durand DATE/TIME DICTATED:10/03/163 CXR IMPRESSION: No significant change since 11/29/2016. Stable mild pulmonary venous congestion, moderate enlargement of the cardiomediastinal silhouette, and nonspecific bibasilar airspace disease. 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 Now on NIV on bpap and seems to be stable * Pseudomonas pna and bronchiectasis exacerbation * Significant pulmonary hypertension related to terminal lung disease * Functional quadriparesis related to cervical spine disease patient is not a candidate for any therapy * Lower extremity edema suggestive of acute on chronic cor pulmonale * Previous history of mediastinal lymphadenopathy * Small lung nodules of no clinical significance * Worsening overall performance status * Bilateral lower lobe atelectasis with restrictive pulmonary physiology as well related to severe pulmonary hypertension * 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 with previous negative QuantiFERON goal tests * 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
[2017-05-17 15:11] VITALS: BP 138/58
[2017-05-17 22:49] VITALS: BP 158/78
[2017-05-18 00:09] VITALS: BP 136/66
[2017-05-18 06:34] VITALS: BP 110/70
--- NOTE | 2017-05-18 07:11 | PN- Housestaff ---
Ananth ORTEGA,Clari 05/18/17 0710: Subjective Follow-up For: end stage lung disease Subjective: Patient seen and examined. Lying in bed who appears to be drowsy. Patient had episodes of confusion last night was put on BIPAP for 1 hour. Alert and oriented 3. Review of Systems Constitutional: Reports: see HPI. Objective Last 24 Hrs of Vital Signs/I&O Vital Signs Date Time Temp Pulse Resp B/P B/P Pulse O2 O2 Flow FiO2 Mean Ox Delivery Rate 05/18 0909 87 Nasal 5.0L Cannula 05/18 0634 98.2 79 20 110/70 92 BIPAP 05/18 0417 76 89 05/18 0009 98.3 95 20 136/66 95 Nasal 4.0L Cannula 05/18 0000 92 Nasal 4.0L Cannula 05/17 2249 98.6 91 18 158/78 91 Nasal Cannula 05/17 1728 94 Nasal 4.0L Cannula 05/17 1549 87 Nasal 4.0L Cannula 05/17 1511 98.0 81 22 138/58 95 Nasal 4.0L Cannula Intake & Output 05/18 1600 05/18 0800 05/18 0000 Intake Total 100 200 Output Total 275 850 Balance -175 -650 Intake, Oral 100 200 Output, Urine 275 850 Physical Exam General Appearance: Oriented X3, drowsy Cardiovascular: Normal S1, Normal S2 Lungs: few ronchi Current Medications: Current Medications Sig/Kyra Start time Last Medication Dose Route Stop Time Status Admin Albuterol Sulfate 3 ML EVERY 4 HRS/AWAKE 05/15 0800 AC 05/18 INH 0908 Aspirin 81 MG DAILY 05/14 1747 AC 05/17 PO 0940 Atorvastatin Calcium 40 MG 1700 05/17 1700 AC 05/17 PO 1654 Bisacodyl 5 MG ONE ONE 05/17 1745 DC 05/17 PO 05/17 1746 1910 Bisacodyl 10 MG ONCE ONE 05/17 1445 DC NE 05/17 1446 Budesonide/ 2 PUF BID 05/14 2200 AC 05/17 Formoterol Fumarate INH 1910 Ceftazidime 1,000 MG Q12H 05/17 0500 AC 05/18 IV 0618 Ferrous Gluconate 325 MG BID 05/17 1051 AC 05/17 PO 2020 Heparin Sodium 5,000 UNIT Q8 05/14 1743 AC 05/18 (Porcine) SC 0618 Ipratropium [place] 2.5 ML EVERY 4 HRS/AWAKE 05/16 2000 AC 05/18 INH 0908 Ipratropium [place] 2.5 ML Q4 HRS NEEDED PRN 05/14 1745 AC INH Omeprazole 40 MG DAILY AC 05/15 0700 AC 05/18 PO 0618 Polyethylene Glycol 17 GM DAILY 05/17 1435 AC 05/17 PO 1654 Prednisone 10 MG DAILY 05/22 1000 AC PO 05/23 1001 Prednisone 20 MG DAILY 05/20 1000 AC PO 05/21 1001 Prednisone 30 MG DAILY 05/18 1000 DC PO Prednisone 30 MG DAILY 05/18 1000 CAN PO 05/24 0959 Prednisone 30 MG DAILY 05/18 1000 AC PO 05/19 1001 Prednisone 40 MG DAILY 05/17 1000 DC 05/17 PO 0940 Senna 187 MG AT BEDTIME 05/17 2200 AC 05/17 PO 1654 Last 24 Hrs of Lab/Nikolas Results Last 24 Hrs of Labs/Mics: Laboratory Tests 05/18/1740: Urine Color Pending, Urine Clarity Pending, Urine pH Pending, Ur Specific [place] Pending, Urine Protein Pending, Urine Ketones Pending, Urine Nitrite Pending, Urine Bilirubin Pending, Urine Urobilinogen Pending, Ur Leukocyte Esterase Pending, Ur Microscopic Pending, Urine Hemoglobin Pending, Urine Glucose Pending 05/18/17 0612: Anion Gap 3 L, Estimated GFR > 60, BUN/Creatinine Ratio 36.7 H, CBC w Diff NO MAN DIFF REQ, RBC 2.80 L, MCV 102.0 H, MCH 33.7 H, RDW 19.5 H, MPV 9.5, Gran % 66.8, Lymphocytes % 18.9 L, Monocytes % 13.9 H, Eosinophils % 0.1, Basophils % 0.3, Absolute Granulocytes 5.3, Absolute Lymphocytes 1.5, Absolute Monocytes 1.1 H, Absolute Eosinophils 0, Absolute Basophils 0, PUBS MCHC 33.1 Microbiology 05/18 939 URINE ROUT: Urine Culture - RECD Assessment/Plan Assessment: This is a 85-year-old gentleman with quadriparesis advanced COPD, has been on chronic oxygen therapy, significant pulmonary hypertension related to severe COPD and chronic lung disease, and poor performance status. He presented with worsening hypoxemia/hypercapnic hypoxic respiratory failure on 05/15. 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 He also received 1 dose of Diamox for metabolic alkalosis. Patient's respiratory status continues to improve. Currently patient is not as dependent on BiPAP during daytime. He had a transient episode of confusion last night and desaturated to 70s. He was put on BiPAP for 1 hour las night. Patient's sputum culture grew Pseudomonas and his antibiotic have been tailored to IV ceftaz, today is day 5 of antibiotic therapy. Steroids have been switched to oral prednisone taper. * Hold bipap tonight and observe. We are going to perform nocturnal oximetry tonight , first reduce the nasal cannula to keep sat at 89 or 90 and then oxymetry for the night (minimum 2-3 hrs of study time if pt is not too stable) * Consider obtaining an ABG if patient becomes agitated or confused at night to rule out CO2 retention as a cause of his change in mental status. * Follow up with pulmonology for steroid tapering and administration of another dose of Diamox * If patient remains hemodynamically stable/afebrile consider switching to oral, follow-up with with final sensitivities * TRC along with Duonebs TID and Chest PT BID for 48h #Urinary retention: The patient has history of urgency along with bph. Pt became oliguric on 05/15. On bladder scan there was greater than 400 patient was straight cath twice. on first striaght cath, pt had bloody urine, second episode it was clear. Pt continues to have intermittent hematuria can be 2/2 catheter induced. Since then he is voiding on his own and no longer requiring intermittent catheterization. Urology consulting. We have discontinued oxybutynin and treating hematuria conservatively and straight cath olny PRN * Patient should follow-up with the urology service as an outpatient. * Consider adding Flomax 0.4mg if elevated BP Hold off for now * Follow-up urinalysis and urine culture * If hematuria does not resolve then consider renal ultrasound #Anemia: patient had a drop from 02/08 to 8/ on 05/16. Some of it can be to contributed to hematuria. It is stable today, anemia workup shows normal (but towards the lower side) iron, TIBC and ferratin, folate and slightly elevated B12. We have started patient on oral iron supplementation as per attending recommendations. * Guaiac stools and monitor H/H-improving * Patient should follow-up with GI sevice as an outpatient #Elevated troponins: Likely secondary to demand supply mismatch in setting of hypoxemia, No further monitoring is recommended by cardiology. We are going to continue aspirin, statin has been added to his regimen. We are going to hold off beta mely in context of advanced COPD # Large left-sided paramediastinal mass * Family does not wish for further workup #Continue his home medications aspirin. omeprazole, terazosyn #Diet advanced after swallow eval to Regular #DVT prophylaxis with Alps and SQ heparin #CODE STATUS DNR DNI Problem List: 1. Hypercapnic respiratory failure Pain Ratin Pain Location: n/a Pain Goal: Pain 4 or less Pain Plan: prn Tomorrow's Labs & Rationales: cbc bep Pat ORTEGA,Gail 05/18/17 1010: Attending MD Review Statement Attending Statement Attending MD Statement: examined this patient, discuss w/resident/PA/ARBORIST REPRESENTATIVE, agreed w/resident/PA/ARBORIST REPRESENTATIVE, discussed with family, reviewed EMR data (avail), discussed with nursing, discussed with case mgmt, amended to note Attending Assessment/Plan: Patient seen and examined. Daughter reports overnight patient was very agitated. She reports that his nasal cannula was dislodged for a while. His pulse ox was noted to be in the 70s and he was placed briefly back on BiPAP therapy. After improvement of his oxygenation BiPAP was discontinued after about an hour. This morning he is resting calmly not in acute distress. Maintaining saturation on nasal cannula. Denies chest pain shortness of breath or palpitations at rest. He remains afebrile and hemodynamically stable. On examination he has no jugular venous distention. Heart sounds are regular. He has diminished breath sounds bilaterally. Abdomen is soft and nontender. He has bilateral pedal edema. Recommendations: -Patient was transiently hypoxic last night after pulling off his nasal cannula. Continue to monitor patient overnight of BiPAP therapy as tolerated. -Recommend obtaining an ABG if patient becomes agitated or confused at night to rule out CO2 retention as a cause of his change in mental status. -Pseudomonas growing in sputum has intermediate sensitivity to fluoroquinolone. Continue antibiotic therapy with IV cefTAZ. -Urology follow-up appreciated -Hemoglobin level is stable. Awaiting stool guaiac. -Follow up with the pulmonology service regarding repeating dose of Diamox. -Continue prednisone taper. -Continue wound care recommendations for his ecubitus ulcer.
--- NOTE | 2017-05-18 07:41 | PN- Urology ---
Subjective Subjective: No acute distress Patient voiding spontaneously with low pvr. Having some incontinence.\ Urine was grossly bloody yesterday but is improved today according to Objective Vital Signs and I&Os Vital Signs Date Time Temp Pulse Resp B/P B/P Pulse O2 O2 Flow FiO2 Mean Ox Delivery Rate 05/18 06 98.2 79 20 110/70 92 BIPAP 05/18 0417 76 89 05/18 0009 98.3 95 20 136/66 95 Nasal 4.0L Cannula 05/18 0000 92 Nasal 4.0L Cannula 05/17 2249 98.6 91 18 158/78 91 Nasal Cannula 05/17 1728 94 Nasal 4.0L Cannula 05/17 1549 87 Nasal 4.0L Cannula 05/17 1511 98.0 81 22 138/58 95 Nasal 4.0L Cannula 05/17 08 90 Nasal 4.0L Cannula 05/17 08 90 Nasal 4.0L Cannula Intake & Output 05/18 0800 05/18 0000 05/17 1600 05/17 0800 05/17 0000 05/16 1600 Intake Total 100 200 400 300 400 Output Total 275 850 375 350 800 500 Balance -175 -650 25 -350 -500 -100 Intake, Oral 100 200 400 300 400 Number 0 Bowel Movements Output, Urine 275 850 375 350 800 500 Patient 192 lb Weight Abd: soft and non tender Laboratory Tests 05/18 611 Chemistry Sodium Pending Potassium Pending Chloride Pending Carbon Dioxide Pending Anion Gap Pending BUN Pending Creatinine Pending BUN/Creatinine Ratio Pending Hematology CBC w Diff Pending WBC Pending RBC Pending Hgb Pending Hct Pending MCV Pending MCH Pending RDW Pending Plt Count Pending MPV Pending PUBS MCHC Pending Assessment/Plan Assessment/Plan Imp: 1. Urinary retention, resolve with holding oxybutynin 2. Gross hematuria likely due to previous str cath. Is improving according to \ Plan: 1. In view of overall condition would manage hematuria conservatively at this point 2. If hematuria does not resolve then renal ultrasound 3. Remain off oxybutynin for now 4. Would repeat urine culture 5. Str cath prn only
[2017-05-18 08:55] LABS: ABSOLUTE BASOPHIL COUNT 0 /CUMM (0.0-0.2); ABSOLUTE EOSINOPHIL COUNT 0 /CUMM (0.0-0.7); ABSOLUTE GRANULOCYTE CT 5.3 /CUMM (1.4-6.5); ABSOLUTE LYMPH COUNT 1.5 /CUMM (1.2-3.4); ABSOLUTE MONOCYTE COUNT 1.1 /CUMM (0.10-0.60); BASOPHIL % 0.3 % (0.0-2.0); EOSINOPHIL % 0.1 % (0-5); GRANULOCYTE % 66.8 % (42.2-75.2); HEMATOCRIT 28.6 % (42-52); MEAN CORPUSCULAR HGB 33.7 PG (27.0-31.0); MEAN CORPUSCULAR HGB CONC 33.1 G/DL (33.0-37.0); MEAN PLATELET VOLUME 9.5 FL (7.4-10.4); RBC DISTRIBUTION WIDTH 19.5 % (11.5-14.5); WHITE BLOOD CELL COUNT 7.9 /CUMM (4.8-10.8)
[2017-05-18 10:09] LABS: PLATELET COUNT 186 /CUMM (130-400)
--- NOTE | 2017-05-18 10:22 | PN- Pulmonary ---
Subjective HPI/Critical Care Issues: Sleeping this am Had confusion last night unclear etiology, prob sundowning Had BIpap only for one hr Objective Current Medications: Current Medications Sig/Kyra Start time Last Medication Dose Route Stop Time Status Admin Albuterol Sulfate 3 ML EVERY 4 HRS/AWAKE 05/15 0800 AC 05/18 INH 0908 Aspirin 81 MG DAILY 05/14 1747 AC 05/17 PO 0940 Atorvastatin Calcium 40 MG 1700 05/17 1700 AC 05/17 PO 1654 Bisacodyl 5 MG ONE ONE 05/17 1745 DC 05/17 PO 05/17 1746 1910 Bisacodyl 10 MG ONCE ONE 05/17 1445 DC NM 05/17 1446 Budesonide/ 2 PUF BID 05/14 2200 AC 05/17 Formoterol Fumarate INH 1910 Ceftazidime 1,000 MG Q12H 05/17 0500 AC 05/18 IV 0618 Ferrous Gluconate 325 MG BID 05/17 1051 AC 05/17 PO 2020 Heparin Sodium 5,000 UNIT Q8 05/14 1743 AC 05/18 (Porcine) SC 0618 Ipratropium [place] 2.5 ML EVERY 4 HRS/AWAKE 05/16 2000 AC 05/18 INH 0908 Ipratropium [place] 2.5 ML Q4 HRS NEEDED PRN 05/14 1745 AC INH Omeprazole 40 MG DAILY AC 05/15 0700 AC 05/18 PO 0618 Polyethylene Glycol 17 GM DAILY 05/17 1435 AC 05/17 PO 1654 Prednisone 10 MG DAILY 05/22 1000 AC PO 05/23 1001 Prednisone 20 MG DAILY 05/20 1000 AC PO 05/21 1001 Prednisone 30 MG DAILY 05/18 1000 DC PO Prednisone 30 MG DAILY 05/18 1000 CAN PO 05/24 0959 Prednisone 30 MG DAILY 05/18 1000 AC PO 05/19 1001 Prednisone 40 MG DAILY 05/17 1000 DC 05/17 PO 0940 Senna 187 MG AT BEDTIME 05/17 2200 AC 05/17 PO 1654 Vital Signs & I&O Last 24 Hrs of Vitals and I&O: Vital Signs Date Time Temp Pulse Resp B/P B/P Pulse O2 O2 Flow FiO2 Mean Ox Delivery Rate 05/18 908 87 Nasal 5.0L Cannula 05/18 633 98.2 79 20 110/70 92 BIPAP 05/18 416 76 89 01/05 0009 98.3 95 20 136/66 95 Nasal 4.0L Cannula 05/18 0000 92 Nasal 4.0L Cannula 05/17 2249 98.6 91 18 158/78 91 Nasal Cannula 05/17 1728 94 Nasal 4.0L Cannula 05/17 1549 87 Nasal 4.0L Cannula 05/17 1511 98.0 81 22 138/58 95 Nasal 4.0L Cannula Intake & Output 05/18 1600 05/18 0800 05/18 0000 Intake Total 100 200 Output Total 275 850 Balance -175 -650 Intake, Oral 100 200 Output, Urine 275 850 Impression/Plan Impression/Plan Impression/Plan: PRevious ct IMPRESSION: 1. Chronic mass effect upon the right middle lobe and both lower lobe bronchi is seen by an enlarged central pulmonary arteries leading to chronic volume loss and consolidation in these lobes. Compared to 2013, findings are very similar. Upper lobes remain relatively clear. Findings raise the suspicion of pulmonary arterial hypertension in the setting of obstructive lung disease. Clinical correlation requested. 2. Evidence of prior granulomatous disease with scattered calcified granulomas in the lungs and calcified nodes seen in the mediastinum and left hilum. 3. A few additional small nodular densities are seen, which are indeterminate in etiology, as not all of these are seen on the 2013 exam. Findings may represent an intercurrent inflammatory or infectious process (example the [id number]-type nodular opacities in the anterior inferior right upper lobe). Follow-up CT scan in 3 months is recommended to reassess the 0.6 x 0.3 cm nodule in the right upper lobe. 4. Enlarged central pulmonary arteries, consistent with pulmonary arterial hypertension. 4. Several other incidental findings as discussed above. DICTATED BY: TERENCE ASHER MD DATE/TIME DICTATED:10/03/161332 CXR IMPRESSION: No significant change since 11/29/2016. Stable mild pulmonary venous congestion, moderate enlargement of the cardiomediastinal silhouette, and nonspecific bibasilar airspace disease. 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 Was on NIV on bpap and seems to be stable, However after the bpap was dcd he had one episode of confusio last night / transient and resolved * Pseudomonas pna and bronchiectasis exacerbation * Significant pulmonary hypertension related to terminal lung disease * Functional quadriparesis related to cervical spine disease patient is not a candidate for any therapy * Lower extremity edema suggestive of acute on chronic cor pulmonale * Previous history of mediastinal lymphadenopathy * Small lung nodules of no clinical significance * Worsening overall performance status * Bilateral lower lobe atelectasis with restrictive pulmonary physiology as well related to severe pulmonary hypertension * 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 with previous negative QuantiFERON goal tests * 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
[2017-05-18] MEDS ORDERED: PREDNISONE10 M2 PO (13:46)
[2017-05-18 14:58] VITALS: BP 126/50
--- NOTE | 2017-05-18 17:37 | Discharge Summary ---
Visit Information Visit Dates Admission Date: 05/14/17 Discharge Date: 05/21/2016 Hospital Course Course Attending Physician: Gail Stewart MD Primary Care Physician: Rachel ORTEGA,Neel Greene Hospital Course: Patient is an 86-year-old gentleman, with multiple medical problems brought [facility] with chief complaints of fatigue, lethargic, for persistent hypoxia. ED course - vital signs at the time of admission temperature 96.8, pulse 107, respiratory 26, blood pressure 124/61, SPO2 95% on aerosol mask. Blood workup showed hemoglobin 10.2, hematocrit 31.6, platelet count 182, granulocytes 85.4, BUN 16, creatinine 0.6, serum sodium 135, magnesium 1.7, calcium 8.3, albumin 3.8, SGOT 32, SGPT 34, troponin 0.1. ABG showed pH 7.30, PCO2 79, PO2 60, bicarbonate 38,oxygen saturation 87%. Patient was started on BiPAP with PIP of 18 and EPAP 6 respiratory rate 22. Chest x-ray showed stable mild pulmonary venous congestion . Moderate enlargement of cardiomediastinal silhouette.He was given ceftriaxone, azithromycin, methylprednisolone 40 mgs. On physical exam he was having assymetrical pupils so CT scan of the head was done which did not show any acute intracranial abnormality. He was admitted into telemetry floor for further evaluation and management. Acute on chronic hypoxic/hypercarbic respiratory failure due to end-stage COPD exacerbation secondary to Pseudomonas pneumonia - We obtained pulmonology consult and continued BiPAP. We also gave one dose of IV Diamox 250 milligrams, IV steroids, IV Lasix. We did swallow evaluation who advised for mechanical soft diet. Follow-up blood cultures, flu test was negative. Lower respiratory tract culture grew Pseudomonas, so we changed antibiotic to IV ceftazidime. Initially we continued the BiPAP and later watched patient off BiPAP. He was intermittently confused secondary to CO2 retention. We did overnight ABG and pulse oximetry. ABG showed evidence of CO2 retention, PCO2(82),and SPO2(89 to 94%). We discharged patient on antibiotic ceftazidime 1gm IV (05/17/2017 - 05/26/2017) to complete the course of total 10 days ( Bacteria was intermideate sensitive to Ciprofloxacin). We also gave tapering dose of steroid initially MPS ( 125, 40mg IV x 4 days , f/b prednisone 20mg x 2 days).We discharged patient on Tab prednisone 10mg for 2 days f/b 5mg for next 5 days and advised to f/u with inspector metal fabricating. He didnt required bipap since last 3 days. He is much better in sensorium. We will recommend to keep him on 3 -4 L of oxygen by nasal cannula, BIPAP only if tolerated upon discharge with 25/12, with no back up rate. We will also start him on azithromycin 250mg every other day after completing the course of ceftazidime(05/27/2017 - PJP prophyaxis). Urinary retention,Intermittent terminal hematuria secondary to BPH/intermittent catheterization - We took urology consult to advise to stop Detropan and advised to start patient on tamsulosin 0.4 milligrams when BP increased. Advised for intermittent straight cath and if hematuria doesn't resolve, then patient may need renal ultrasound in future. We repeated urinalysis and urine culture. Urinalysis showed RBC of 5-10, though urine culture didnt show any growth. We didnt started him on tamsulosin as he was able to urinate without need of catheterization. Type II GA secondary to demand ischemia Patient was having elevated troponin(0.12, 0.14, 0.13), without any new EKG changes.We consulted head tennis professional advised for conservative management and to continue aspirin and antibiotic to treat the primary disease. 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 We started patient on Iron supplementation. will do follow up CBC. We advised to f/u with PCP. Asymmetric pupils, dilated on right side CT scan of the head was done which did not show any intracranial abnormality. We took the consult from the neurologist and he advised for conservative management and outpatient ophthalmological evaluation. Allergies: Coded Allergies: NO KNOWN ALLERGIES (08/29/12) Disposition Summary Disposition Principal Diagnosis: Acute on chronic hypoxic/hypercarbic respiratory failure due to end-stage COPD exacerbation secondary to Pseudomonas pneumonia needed NIV Additional Diagnosis: End stage COPD on home O2 of 2.5 lit at daytime and 4 lit nocturnal,on po prednisone and azithromycin, Large left-sided paramediastinal mass (which she opted not to evaluate), Severe cor-pulmonalae, Seronegative Rheumatoid arthritis, on prednisone 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 with previous negative QuantiFERON gold tests Quadriparesis with significant cervical degenerative disc disease Hyperlipidemia GERD BPH Osteoarthritis Discharge Disposition: SNF Discharge Instructions General Discharge Information Code Status: Do Not Resucitate/Intubat Patient's Diet: Regular mechanical soft and regular thin liquid diet Patient's Activity: As tolerated Follow-Up Instructions/Appts: Please follow-up with you inspector metal fabricating with in a week of discharge Please take the medication as advised You may need BiPAP/oxygen if condition gets worse, including shortness of breath , confusion. Medications at Discharge Discharge Medications: Continue taking these medications: Aspirin (Aspirin*) 81 MG TAB.CHEW 1 Tablet ORAL DAILY Comments: Last Taken:05/21/16 Time: 8AM Budesonide (Budesonide) 0.25 MG/2 ML AMPUL.NEB 1 Vial Inhale Solution THREE TIMES DAILY as needed for OB, COPD Qty = 120 Comments: Last Taken: 05/21/17 Time: 8AM Calcium Carb/Vitamin D3/Vit K1 (Citracal Soft Chew) 500 MG CALCIUM-1,000 UNIT-40 MCG TAB.CHEW 1 Tablet ORAL DAILY Comments: NOT TAKEN Colchicine (Colcrys) 0.6 MG TABLET 1 Tablet ORAL DAILY Qty = 15 Comments: Last Taken: NOT GIVEN Time: [place]-3 Fatty Acids/Fish Oil (Fish Oil 1,000 MG Capsule) 340 MG-1,000 MG CAPSULE 1 Capsule ORAL DAILY Comments: Last Taken: 10/05/16 Time: 10 PM Glucosamine/D3/Boswellia Chey (Glucosamine Complex Tablet) 1,500 MG-400 UNIT- 100 MG TABLET 2 Tablet ORAL DAILY Comments: Last Taken: NOT GIVEN Time: Multivit-Min/FA/Lycopen/Lutein (Centrum Silver Tablet) 0.4 MG-300 MCG-250 MCG TABLET 1 Tablet ORAL Instructions: *TWICE PER WEEK Comments: Last Taken: NOT GIVEN Time: Oxybutynin Chloride (Oxybutynin Chloride ER) 10 MG TAB.ER.24 1 Tablet ORAL DAILY Qty = 90 Comments: Last Taken: 10/06/16 Time: 1114 AM Terazosin HCl (Terazosin HCl) 5 MG CAPSULE 1 Capsule ORAL Every night Qty = 90 Comments: Last Taken: 10/05/16 Time: 10 PM Ascorbic Acid (Vitamin C) 500 MG CAPSULE.ER 1 Capsule ORAL 2 times per week Comments: NOT TAKEN Omeprazole (Omeprazole) 40 MG CAPSULE.DR 1 Capsule ORAL DAILY Qty = 90 Comments: Last Taken: 10/06/16 Time: 0600 AM Potassium Chloride (Potassium Chloride) 20 MEQ TAB.ER.PRT 0.5 Tablet ORAL DAILY Qty = 30 Comments: Last Taken: 10/06/16 Time: 1114 AM Furosemide (Furosemide) 40 MG TABLET 0.5 Tablet ORAL DAILY Qty = 90 Comments: NOT TAKEN [IOPHEN- C NR] 1 Teaspoonful ORAL BEDTIME Ipratropium/Albuterol Sulfate (Iprat-Albut 0.5-3(2.5) MG/3 Ml) 0.5 MG-3 MG (2.5 MG BASE)/3 ML AMPUL.NEB 1 Inhaler Inhale Solution BID PRN as needed for SHORTNESS OF BREATH Qty = 1 Albuterol Sulfate (Proair Hfa) 90 MCG HFA.AER.AD 2 Puff Inhale through mouth EVERY 4 HOURS NEEDED as needed for COPD Qty = 8 Comments: REC'D NEBULIZERS DURING HOSPITAL STAY Cholecalciferol (Vitamin D3) (Vitamin D3) 1,000 UNIT CAPSULE 1 Capsule ORAL DAILY Nystatin (Nystatin) 100,000 UNIT/GRAM CREAM..G. 1 Application On the skin 2 x Daily as needed as needed for RASH Qty = 90 Instructions: apply to affected area(s) Start taking the following new medications: Prednisone (Prednisone) 5 MG TABLET 1 Tablet ORAL DAILY Qty = 30 No Refills Instructions: 5mg 2tab 05/22 - 05/23 5mg 1tab 05/24 - cont Azithromycin (Zithromax) 250 MG TABLET 1 Dose Pack ORAL EVERY 48 HOURS (Every 2 days) Qty = 30 No Refills Instructions: start after ceftazidine Ceftazidime (Fortaz) 1 GRAM VIAL 1 Gram INTRAVEN TWICE DAILY Qty = 11 No Refills Copies To: Rachel ORTEGA,Neel Patel MD Review Statement Documenting Attending: Gail Stewart MD
[2017-05-18 22:34] VITALS: BP 120/70
[2017-05-19 07:41] VITALS: BP 135/64
--- NOTE | 2017-05-19 08:35 | PN- Housestaff ---
See Addendum Subjective Follow-up For: end stage lung disease Tele-Events Since Last Visit: PULSE OX 80'S , mostly late 80's Subjective: Patient seen and examined. Resting comfortably in the bed. Ordering breakfast. Daughter by the bedside. Offered no complaints. As per patient's daughter he had SMALL transient confusion episode overnight. Right now patient is alert and oriented 3 patient was off BiPAP whole night Review of Systems Constitutional: Reports: see HPI. Objective Last 24 Hrs of Vital Signs/I&O Vital Signs Date Time Temp Pulse Resp B/P B/P Pulse O2 O2 Flow FiO2 Mean Ox Delivery Rate 05/19 827 90 Nasal 3.0L Cannula 05/19 0741 97.8 90 20 135/64 95 05/19 0000 93 Nasal 3.0L Cannula 05/18 2234 98.1 90 20 120/70 89 05/18 1815 84 Nasal 6.0L Cannula 05/18 1630 87 Nasal 6.0L Cannula 05/18 1600 87 Nasal 5.0L Cannula 05/18 1458 97.9 85 20 126/50 86 Nasal 5.0L Cannula Intake & Output 05/19 1600 05/19 0800 05/19 0000 Intake Total 120 650 Output Total 400 400 Balance -280 250 Intake, Oral 120 650 Output, Urine 400 400 Physical Exam General Appearance: Alert, Oriented X3 Lungs: decreased breath sounds Neurological: Normal Speech Current Medications: Current Medications Sig/Kyra Start time Last Medication Dose Route Stop Time Status Admin Albuterol Sulfate 3 ML EVERY 4 HRS/AWAKE 05/15 0800 AC 05/19 INH 0802 Aspirin 81 MG DAILY 05/14 1747 AC 05/19 PO 1015 Atorvastatin Calcium 40 MG 1700 05/17 1700 AC 05/18 PO 1747 Budesonide/ 2 PUF BID 05/14 2200 AC 05/19 Formoterol Fumarate INH 1015 Carbamide Peroxide 5 GTT BID 05/18 2200 AC 05/19 OTIC 1014 Ceftazidime 1,000 MG Q12H 05/17 0500 AC 05/19 IV 0512 Ferrous Gluconate 325 MG BID 05/17 1051 AC 05/19 PO 1015 Furosemide 40 MG .STK-MED ONE 05/18 1732 DC PO 05/18 1733 Furosemide 20 MG ONCE ONE 05/18 1645 DC 05/18 PO 05/18 1646 1747 Heparin Sodium 5,000 UNIT Q8 05/14 1743 AC 05/19 (Porcine) SC 0512 Ipratropium [place] 2.5 ML EVERY 4 HRS/AWAKE 05/16 1999 AC 05/19 INH 0802 Ipratropium [place] 2.5 ML Q4 HRS NEEDED PRN 05/14 1745 AC INH Omeprazole 40 MG DAILY AC 05/15 0700 AC 05/19 PO 0514 Polyethylene Glycol 17 GM DAILY 05/17 1435 AC 05/19 PO 1014 Prednisone 10 MG DAILY 05/22 1000 AC PO 05/23 1001 Prednisone 20 MG DAILY 05/20 1000 AC PO 05/21 1001 Prednisone 30 MG DAILY 05/18 1000 DC 05/19 PO 05/19 1001 1016 Senna 187 MG AT BEDTIME 05/170 AC 05/18 PO 2118 Last 24 Hrs of Lab/Nikolas Results Last 24 Hrs of Labs/Mics: Laboratory Tests 05/19/17 0835: Sodium Pending, Potassium Pending, Chloride Pending, Carbon Dioxide Pending, Anion Gap Pending, BUN Pending, Creatinine Pending, BUN/Creatinine Ratio Pending , RBC 3.07 L, MCV 102.0 H, MCH 33.5 H, RDW 19.4 H, MPV 9.0, Gran % 55.4, Lymphocytes % 32.6, Monocytes % 11.3 H, Eosinophils % 0.5, Basophils % 0.2, Absolute Granulocytes 4.4, Absolute Lymphocytes 2.6, Absolute Monocytes 0.9 H, Absolute Eosinophils 0, Absolute Basophils 0, PUBS MCHC 32.9 L 05/19/17 0730: Pulse Ox Probe Site LI, ABG O2 Sat Calc/Noah 91.0 L, O2 Concentration % 3L, O2 Delivery Method NC Assessment/Plan Assessment: This is a 85-year-old gentleman with quadriparesis advanced COPD, has been on chronic oxygen therapy, significant pulmonary hypertension related to severe COPD and chronic lung disease, and poor performance status. He presented with worsening hypoxemia/hypercapnic hypoxic respiratory failure on 05/15. 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 He also received 1 dose of Diamox for metabolic alkalosis. Patient's respiratory status continues to improve. Patient's sputum culture grew Pseudomonas and his antibiotic have been tailored to IV ceftaz, today is day 5 of antibiotic therapy. Steroids have been switched to oral prednisone taper. * Patient remained off BiPAP overnight. With pulse ox ranging in 80's * Consider obtaining an ABG if patient becomes agitated or confused at night to rule out CO2 retention as a cause of his change in mental status. * Follow up with pulmonology for administration of another dose of Diamox * TRC along with Duonebs TID and Chest PT BID for 48h #Urinary retention: The patient has history of urgency along with bph. Pt became oliguric on 05/15. On bladder scan there was greater than 400 patient was straight cath twice. on first striaght cath, pt had bloody urine, second episode it was clear. Pt continues to have intermittent hematuria can be 2/2 catheter induced. Since then he is voiding on his own and no longer requiring intermittent catheterization. Urology consulting. We have discontinued oxybutynin and treating hematuria conservatively and straight cath olny PRN. Hematuria has resolved * Patient should follow-up with the urology service as an outpatient. * Consider adding Flomax 0.4mg if elevated BP Hold off for now * Urinalysis 5-10 RBCS moderate Hb and urine culture No growth so far * If hematuria does not resolve then consider renal ultrasound #Anemia: patient had a drop from 9/ to 8/ on 05/16. Some of it can be to contributed to hematuria. It is stable today, anemia workup shows normal (but towards the lower side) iron, TIBC and ferratin, folate and slightly elevated B12. We have started patient on oral iron supplementation as per attending recommendations. * Guaiac stools and monitor H/H-improving * Patient should follow-up with GI sevbj as an outpatient #Elevated troponins: Likely secondary to demand supply mismatch in setting of hypoxemia, No further monitoring is recommended by cardiology. We are going to continue aspirin, statin has been added to his regimen. We are going to hold off beta mely in context of advanced COPD # Large left-sided paramediastinal mass * Family does not wish for further workup #Continue his home medications aspirin. omeprazole, terazosyn #Diet advanced after swallow eval to Regular #DVT prophylaxis with Alps and SQ heparin #CODE STATUS DNR DNI Problem List: 1. Hypercapnic respiratory failure Pain Ratin Pain Location: n/a Pain Goal: Pain 4 or less Pain Plan: prn Tomorrow's Labs & Rationales: cbc bep
[2017-05-19 09:58] LABS: ABSOLUTE BASOPHIL COUNT 0 /CUMM (0.0-0.2); ABSOLUTE EOSINOPHIL COUNT 0 /CUMM (0.0-0.7); ABSOLUTE GRANULOCYTE CT 4.4 /CUMM (1.4-6.5); ABSOLUTE LYMPH COUNT 2.6 /CUMM (1.2-3.4); ABSOLUTE MONOCYTE COUNT 0.9 /CUMM (0.10-0.60); BASOPHIL % 0.2 % (0.0-2.0); EOSINOPHIL % 0.5 % (0-5); GRANULOCYTE % 55.4 % (42.2-75.2); HEMATOCRIT 31.3 % (42-52); MEAN CORPUSCULAR HGB 33.5 PG (27.0-31.0); MEAN CORPUSCULAR HGB CONC 32.9 G/DL (33.0-37.0); PLATELET COUNT 193 /CUMM (130-400); RBC DISTRIBUTION WIDTH 19.4 % (11.5-14.5); RED BLOOD CELL CT 3.07 /CUMM (4.70-6.10); WHITE BLOOD CELL COUNT 7.9 /CUMM (4.8-10.8)
--- NOTE | 2017-05-19 12:54 | PN- Pulmonary ---
Subjective HPI/Critical Care Issues: Patient seen and examined this morning. He appears comfortable and did not use his noninvasive ventilation last night family is at bedside all questions were answered no overnight events. Objective Current Medications: Current Medications Sig/Kyra Start time Last Medication Dose Route Stop Time Status Admin Albuterol Sulfate 3 ML EVERY 4 HRS/AWAKE 05/15 0800 AC 05/19 INH 1136 Aspirin 81 MG DAILY 05/14 1747 AC 05/19 PO 1015 Atorvastatin Calcium 40 MG 1700 05/17 1700 AC 05/18 PO 1747 Budesonide/ 2 PUF BID 05/14 2200 AC 05/19 Formoterol Fumarate INH 1015 Carbamide Peroxide 5 GTT BID 05/18 220 AC 05/19 OTIC 1014 Ceftazidime 1,000 MG Q12H 05/17 0500 AC 05/19 IV 0512 Ferrous Gluconate 325 MG BID 05/17 1051 AC 05/19 PO 1015 Furosemide 40 MG .STK-MED ONE 05/18 1732 DC PO 05/18 1733 Furosemide 20 MG ONCE ONE 05/18 1645 DC 05/18 PO 05/18 1646 1747 Heparin Sodium 5,000 UNIT Q8 05/14 1743 AC 05/19 (Porcine) SC 0512 Ipratropium [place] 2.5 ML EVERY 4 HRS/AWAKE 05/16 1999 AC 05/19 INH 1136 Ipratropium [place] 2.5 ML Q4 HRS NEEDED PRN 05/14 1745 AC INH Omeprazole 40 MG DAILY AC 05/15 0700 AC 05/19 PO 0514 Polyethylene Glycol 17 GM DAILY 05/17 1435 AC 05/19 PO 1014 Prednisone 10 MG DAILY 05/22 1000 AC PO 05/23 1001 Prednisone 20 MG DAILY 05/20 1000 AC PO 05/21 1001 Prednisone 30 MG DAILY 05/18 1000 DC 05/19 PO 05/19 1001 1016 Senna 187 MG AT BEDTIME 05/17 2200 AC 05/18 PO 2118 Vital Signs & I&O Last 24 Hrs of Vitals and I&O: Vital Signs Date Time Temp Pulse Resp B/P B/P Pulse O2 O2 Flow FiO2 Mean Ox Delivery Rate 05/19 0828 90 Nasal 3.0L Cannula 05/19 07 97.8 90 20 135/64 95 05/19 0000 93 Nasal 3.0L Cannula 05/184 98.1 90 20 120/70 89 05/18 1815 84 Nasal 6.0L Cannula 05/18 1630 87 Nasal 6.0L Cannula 05/18 1600 87 Nasal 5.0L Cannula 05/18 1458 97.9 85 20 126/50 86 Nasal 5.0L Cannula Intake & Output 05/19 1600 05/19 0800 05/19 0000 Intake Total 120 650 Output Total 400 400 Balance -280 250 Intake, Oral 120 650 Output, Urine 400 400 Exam Other Physical Findings: Generally - Awake, alert and comfortable without distress Head and neck - ncat Cardiovascular - S1, S2 Lungs - diminishd at bases Abdomen - Bowel sounds positive, soft, non-tender Extremities - without edema Results Last 24 Hrs of Lab Results: Laboratory Tests 05/19/17 0835: Anion Gap 6, Estimated GFR > 60, BUN/Creatinine Ratio 25.7 H, RBC 3.07 L, MCV 102.0 H, MCH 33.5 H, RDW 19.4 H, MPV 9.0, Gran % 55.4, Lymphocytes % 32.6, Monocytes % 11.3 H, Eosinophils % 0.5, Basophils % 0.2, Absolute Granulocytes 4.4, Absolute Lymphocytes 2.6, Absolute Monocytes 0.9 H, Absolute Eosinophils 0 , Absolute Basophils 0, PUBS MCHC 32.9 L 05/19/17 0730: Pulse Ox Probe Site LI, ABG O2 Sat Calc/Noah 91.0 L, O2 Concentration % 3L, O2 Delivery Method NC Impression/Plan Impression/Plan Impression/Plan: Impression 86 year old man * acute (improved) on chronic hypercarbic and hypoxemic respiratory failure, pulmonary htn, hx of severe COPD, bronchiectasis, exacerbation with a pseudomonas pna Plan -cont abx -cont prednisone as ordered -keep o2 sats >88% -DNR/DNI -dc planning -urology f/u -aspiration precautions -NIV if needed DVT prophylaxis at all times
[2017-05-19 15:26] VITALS: BP 120/50
--- NOTE | 2017-05-19 17:51 | Cons- Neurology ---
General Information and HPI Consulting Request Date of Consult: 05/19/17 Requested By: Gail Stewart MD History of Present Illness: 86-year-old male admitted several days ago due to hypoxemic respiratory failure. Following admission he was noted to have unequal pupils. Neurology has been asked to assess. The patient himself is asymptomatic in this regard. He denies diplopia or recent visual change. There has been no significant headache. He denies using drops in his eyes or prior history of cataract extraction. Allergies/Medications Allergies: Coded Allergies: NO KNOWN ALLERGIES (08/29/12) Home Med List: Albuterol Sulfate (Proair Hfa) 90 MCG HFA.AER.AD 2 PUF INH Q4-PRN PRN COPD ( Reported) Ascorbic Acid (Vitamin C) 500 MG CAPSULE.ER 1 CAP PO 2XW VITAMIN SUPPLEMENT ( Reported) Aspirin (Aspirin*) 81 MG TAB.CHEW 1 TAB PO DAILY HEART HEALTH (Reported) Budesonide 0.25 MG/2 ML AMPUL.NEB 1 Vial INH/SOLITARIO TID PRN OB, COPD (Reported) Calcium Carb/Vitamin D3/Vit K1 (Citracal Soft Chew) 500 MG CALCIUM-1,000 UNIT-40 MCG TAB.CHEW 1 TAB PO DAILY VITAMIN SUPPLEMENT (Reported) Cholecalciferol (Vitamin D3) (Vitamin D3) 1,000 UNIT CAPSULE 1 CAP PO DAILY SUPPLEMENT (Reported) Colchicine (Colcrys) 0.6 MG TABLET 1 TAB PO DAILY GOUT (Reported) Furosemide 40 MG TABLET 0.5 TAB PO DAILY FLUID (Reported) Glucosamine/D3/Boswellia Chey (Glucosamine Complex Tablet) 1,500 MG-400 UNIT- 100 MG TABLET 2 TAB PO DAILY VITAMIN SUPPLEMENT (Reported) [IOPHEN- C NR] 1 TSP PO BEDTIME (Reported) Ipratropium/Albuterol Sulfate (Iprat-Albut 0.5-3(2.5) MG/3 Ml) 0.5 MG-3 MG (2.5 MG BASE)/3 ML AMPUL.NEB 1 INHAL INH/SOLITARIO BID PRN PRN SHORTNESS OF BREATH ( Reported) Multivit-Min/FA/Lycopen/Lutein (Centrum Silver Tablet) 0.4 MG-300 MCG-250 MCG TABLET 1 TAB PO VITAMIN SUPPLEMENT (Reported) *TWICE PER WEEK Nystatin 100,000 UNIT/GRAM CREAM..G. 1 TWIN TOP BIDP PRN RASH (Reported) apply to affected area(s) [place]-3 Fatty Acids/Fish Oil (Fish Oil 1,000 MG Capsule) 340 MG-1,000 MG CAPSULE 1 CAP PO DAILY SUPPLEMENT (Reported) Omeprazole 40 MG CAPSULE.DR 1 CAP PO DAILY GERD (Reported) Oxybutynin Chloride (Oxybutynin Chloride ER) 10 MG TAB.ER.24 1 TAB PO DAILY (Reported) Potassium Chloride 20 MEQ TAB.ER.PRT 0.5 TAB PO DAILY SUPPLEMENT (Reported) Prednisone 10 MG TABLET 10 MG PO SI COPD 10mg 1 tab 05/20 - 05/21 10mg 1 tab 05/22 5mg 0.5 tab continu Terazosin HCl 5 MG CAPSULE 1 CAP PO QPM (Reported) Review of Systems Review of Systems: Notable for shortness of breath, fatigue, joint pains and inability to ambulate. 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 FATHER (bronchitis). MOTHER (breast CA). Psychosocial History Where Do You Live? Home Who Do You Live With? child Services at Home: None Primary Language: Maltese Smoking Status: Former Smoker Functional Ability ADLs Independent: dressing, eating, toileting, bathing. Ambulation: non-ambulatory, rarely ambulated and uses walker IADLs Independent: telephone. Needs Assist: shopping, housework, finances, food prep, transportation, medication admin. Exam & Diagnostic Data Vital Signs and I&O Vital Signs Date Time Temp Pulse Resp B/P B/P Pulse O2 O2 Flow FiO2 Mean Ox Delivery Rate 05/19 1654 88 Nasal 3.0L Cannula 05/19 1526 98.7 87 20 120/50 89 Nasal 3.0L Cannula 05/19 0828 90 Nasal 3.0L Cannula 05/19 0800 90 Nasal 3.0L Cannula 05/19 0741 97.8 90 20 135/64 95 01/06 0000 93 Nasal 3.0L Cannula 05/184 98.1 90 20 120/70 89 05/18 1815 84 Nasal 6.0L Cannula Intake & Output 05/19 1600 05/19 0800 05/19 0000 Intake Total 600 120 650 Output Total 500 400 400 Balance 100 -280 250 Intake, Oral 600 120 650 Number 0 Bowel Movements Output, Urine 500 400 400 Pleasant elderly gentleman, mildly dyspneic and wearing nasal oxygen. He was awake, alert and cooperative. Speech was fluent. Head was normocephalic and atraumatic. The right pupil was 2.5 mm; the left pupil was 1 millimeter. Both were poorly reactive. There was no significant change in pupillary asymmetry with the room darkened. There was no ptosis. Extraocular movements were full face was symmetric. Tongue was midline. The motor examination showed no gross lateralizing weakness. Deep tendon reflexes were symmetrically hypoactive. Plantar responses were flexor. Was no ataxia on [id number] testing. Assessment/Plan Assessment: Anisocoria of uncertain etiology. There is no evidence of Drew syndrome or ophthalmoparesis. It is unclear as to whether this is a chronic finding. The patient is asymptomatic in relation to his eyes. I have no suspicion that this represents a significant intracranial process. CT scan of the head showed no essential abnormalities. Recommendations: We would merely recommend an ophthalmology consultation. There should be no urgency to this and can be done as an outpatient. No further neurodiagnostic studies are currently contemplated. Consult Acknowledgment - Thank you for your consult request.
[2017-05-19 22:16] VITALS: BP 120/70
[2017-05-20 07:06] VITALS: BP 136/62
[2017-05-20 07:47] LABS: ABSOLUTE BASOPHIL COUNT 0 /CUMM (0.0-0.2); ABSOLUTE EOSINOPHIL COUNT 0.1 /CUMM (0.0-0.7); ABSOLUTE GRANULOCYTE CT 4.9 /CUMM (1.4-6.5); ABSOLUTE LYMPH COUNT 2.2 /CUMM (1.2-3.4); ABSOLUTE MONOCYTE COUNT 0.8 /CUMM (0.10-0.60); BASOPHIL % 0.3 % (0.0-2.0); EOSINOPHIL % 0.7 % (0-5); GRANULOCYTE % 61.7 % (42.2-75.2); HEMATOCRIT 31.2 % (42-52); MEAN CORPUSCULAR HGB 33.7 PG (27.0-31.0); MEAN CORPUSCULAR HGB CONC 32.9 G/DL (33.0-37.0); MEAN CORPUSCULAR VOLUME 102.4 FL (80.0-94.0); MEAN PLATELET VOLUME 9.9 FL (7.4-10.4); PLATELET COUNT 192 /CUMM (130-400); RBC DISTRIBUTION WIDTH 19.4 % (11.5-14.5); RED BLOOD CELL CT 3.05 /CUMM (4.70-6.10); WHITE BLOOD CELL COUNT 7.9 /CUMM (4.8-10.8)
--- NOTE | 2017-05-20 08:29 | PN- Housestaff ---
See Addendum Subjective Follow-up For: Follow-up severe COPD Pseudomonas pneumonia Complaints: no complaints Tele-Events Since Last Visit: No any overnight events Subjective: Patient is seen and examined at the bedside. He was much comfortable. He does not have any active complaints. Review of Systems Constitutional: Denies: no symptoms. Objective Last 24 Hrs of Vital Signs/I&O Vital Signs Date Time Temp Pulse Resp B/P B/P Pulse O2 O2 Flow FiO2 Mean Ox Delivery Rate 05/20 0801 Nasal 3.0L Cannula 05/20 0706 97.8 69 18 136/62 95 Nasal Cannula 05/20 0116 87 95 05/20 0000 96 Nasal 3.0L Cannula 05/19 2216 98.4 84 18 120/70 89 05/19 1654 88 Nasal 3.0L Cannula 05/19 1600 90 Nasal 3.0L Cannula 05/19 1526 98.7 87 20 120/50 89 Nasal 3.0L Cannula Intake & Output 05/20 1600 05/20 0800 05/20 0000 Intake Total 120 Output Total 300 Balance -300 120 Intake, Oral 120 Output, Urine 300 Physical Exam General Appearance: Alert, Oriented X3 (no), Cooperative Cardiovascular: Normal S1, Normal S2 Lungs: Clear to Auscultation, bibasilar crackles Abdomen: Soft, No Tenderness Neurological: Normal Speech Extremities: bilateral lower leg edema Vascular: bilateral lower leg. Pulses were palpable Assessment/Plan Assessment: Patient is an 86-year-old gentleman, with multiple medical problems brought to the [facility] with chief complaints of fatigue, lethargic, for persistent hypoxia. ED course - vital signs at the time of admission temperature 96.8, pulse 107, respiratory 26, blood pressure 124/61, SPO2 95% on aerosol mask.blood workup showed hemoglobin 10.2, hematocrit 31.6, platelet count 182, granulocytes 85.4, BUN 16, creatinine 0.6, serum sodium 135, magnesium 1.7, calcium 8.3, albumin 3.8, SGOT 32, SGPT 34, troponin 0.1. ABG showed pH 7.30, PCO2 79, PO2 60, bicarbonate 38,oxygen saturation 87%. patient was restarted on BiPAP with PIP of 18 and EPAP 6 respiratory rate 22.chest x-ray showed stable mild pulmonary venous congestion . Moderate enlargement of cardiomediastinal silhouette.He was given ceftriaxone, azithromycin, methylprednisolone [address] scan of the head was done which did not show any acute intracranial abnormality. He was admitted into telemetry floor for further evaluation and management. Acute on chronic hypoxic/hypercarbic respiratory failure due to end-stage COPD exacerbation secondary to Pseudomonas pneumonia - * Patient was off BiPAP and maintain his saturation between 89-94% on 6 liter of oxygen * Discussed with the family/daughter; he was not confused, and slept well overnight. * Continue antibiotic to IV ceftazidime. * Continue tapering steroid Prednisone 20mg dailyx 2 days Urinary retention,Intermittent hematuria secondary to BPH/intermittent catheterization - * We will start patient on tamsulosin 0.4 mgs. * Advised for intermittent straight cath. * UC was NGTD Type II NH secondary to demand ischemia * We will continue aspirin and antibiotic to treat the primary disease. Code status - DNR/DNI DVT prophylaxis - Heparin Diet -Regular diet Problem List: 1. Hypercapnic respiratory failure 2. Pseudomonas pneumonia Pain Ratin Pain Location: n/a Pain Goal: Remain pain free Pain Plan: n/a Tomorrow's Labs & Rationales: n/a DVT/Prophylaxis: mechanical, pharmacological
--- NOTE | 2017-05-20 11:33 | PN- Pulmonary ---
Subjective HPI/Critical Care Issues: Patient seen and examined this morning. He has no events overnight and appears more comfortable. Objective Current Medications: Current Medications Sig/Kyra Start time Last Medication Dose Route Stop Time Status Admin Albuterol Sulfate 3 ML EVERY 4 HRS/AWAKE 05/15 0800 AC 05/20 INH 1125 Aspirin 81 MG DAILY 05/14 1747 AC 05/20 PO 0803 Atorvastatin Calcium 40 MG 1700 05/17 1700 AC 05/19 PO 1615 Budesonide/ 2 PUF BID 05/14 2200 AC 05/20 Formoterol Fumarate INH 0804 Carbamide Peroxide 5 GTT BID 05/18 2200 AC 05/20 OTIC 0804 Ceftazidime 1,000 MG Q12H 05/17 0500 AC 05/20 IV 0505 Ferrous Gluconate 325 MG BID 05/17 1051 AC 05/20 PO 0803 Heparin Sodium 5,000 UNIT Q8 05/14 1743 AC 05/20 (Porcine) SC 0656 Ipratropium [place] 2.5 ML EVERY 4 HRS/AWAKE 05/16 1999 AC 05/20 INH 1125 Ipratropium [place] 2.5 ML Q4 HRS NEEDED PRN 05/14 1745 AC INH Omeprazole 40 MG DAILY AC 05/15 0700 AC 05/20 PO 0656 Polyethylene Glycol 17 GM DAILY 05/17 1435 AC 05/20 PO 0804 Prednisone 10 MG DAILY 05/22 1000 AC PO 05/23 1001 Prednisone 20 MG DAILY 05/20 1000 AC 05/20 PO 05/21 1001 0803 Senna 187 MG AT BEDTIME 05/17 2200 AC 05/19 PO 2148 Tamsulosin HCl 0.4 MG DAILY 05/20 1000 AC PO Vital Signs & I&O Last 24 Hrs of Vitals and I&O: Vital Signs Date Time Temp Pulse Resp B/P B/P Pulse O2 O2 Flow FiO2 Mean Ox Delivery Rate 05/20 0801 Nasal 3.0L Cannula 05/20 0706 97.8 69 18 136/62 95 Nasal Cannula 05/20 0116 87 95 05/20 0000 96 Nasal 3.0L Cannula 05/19 2216 98.4 84 18 120/70 89 05/19 1654 88 Nasal 3.0L Cannula 05/19 1600 90 Nasal 3.0L Cannula 05/19 1526 98.7 87 20 120/50 89 Nasal 3.0L Cannula Intake & Output 05/20 1600 05/20 0800 05/20 0000 Intake Total 120 Output Total 300 Balance -300 120 Intake, Oral 120 Output, Urine 300 Exam Other Physical Findings: Generally - Awake, alert and comfortable without distress Head and neck - ncat Cardiovascular - S1, S2 Lungs - diminishd at bases Abdomen - Bowel sounds positive, soft, non-tender Extremities - without edema Results Last 24 Hrs of Lab Results: Laboratory Tests 05/20/17 0700: Anion Gap 0 L, Estimated GFR > 60, BUN/Creatinine Ratio 34.0 H, CBC w Diff NO MAN DIFF REQ, RBC 3.05 L, MCV 102.4 H, MCH 33.7 H, RDW 19.4 H, MPV 9.9, Gran % 61.7, Lymphocytes % 27.2, Monocytes % 10.1 H, Eosinophils % 0.7, Basophils % 0.3, Absolute Granulocytes 4.9, Absolute Lymphocytes 2.2, Absolute Monocytes 0.8 H, Absolute Eosinophils 0.1, Absolute Basophils 0, PUBS MCHC 32.9 L Impression/Plan Impression/Plan Impression/Plan: Impression 86 year old man * acute (improved) on chronic hypercarbic and hypoxemic respiratory failure, pulmonary htn, hx of severe COPD, bronchiectasis, exacerbation with a pseudomonas pna Plan -cont abx -cont prednisone as ordered -keep o2 sats >88% -DNR/DNI -dc planning -urology f/u -aspiration precautions -NIV if needed DVT prophylaxis at all times
[2017-05-20 14:00] VITALS: BP 122/64
[2017-05-20 22:37] VITALS: BP 128/60
[2017-05-21 06:25] VITALS: BP 120/50
--- NOTE | 2017-05-21 07:25 | PN- Housestaff ---
See Addendum Subjective Follow-up For: Acute (improved) on chronic hypercarbic and hypoxemic respiratory failure, pulmonary htn, hx of severe COPD, bronchiectasis, exacerbation with a pseudomonas pna Tele-Events Since Last Visit: No acute events Subjective: pt seen and examined resting comfortably, no confusion episode overnight, tolerating NC maintaining o2 sat in 90's had an episode of hematuria. Review of Systems Constitutional: Reports: see HPI. Objective Last 24 Hrs of Vital Signs/I&O Vital Signs Date Time Temp Pulse Resp B/P B/P Pulse O2 O2 Flow FiO2 Mean Ox Delivery Rate 05/21 624 98.6 70 20 120/50 91 Nasal 3.0L Cannula 05/21 0100 67 96 05/21 0047 67 93 05/21 0000 Nasal 4.0L Cannula 05/20 2236 97.6 74 20 128/60 93 Nasal 3.0L Cannula 05/20 220 92 BIPAP 40% 05/20 220 72 92 05/20 1400 97.8 66 20 122/64 93 Intake & Output 05/21 1600 05/21 0800 05/21 0000 Intake Total 240 240 Output Total 300 500 Balance -60 -260 Intake, Oral 240 240 Number 0 0 Bowel Movements Output, Urine 300 500 Physical Exam General Appearance: Alert, Oriented X3 Lungs: Clear to Auscultation, decreased sounds at bases Abdomen: Soft Current Medications: Current Medications Sig/Kyra Start time Last Medication Dose Route Stop Time Status Admin Albuterol Sulfate 3 ML EVERY 4 HRS/AWAKE 05/15 0800 AC 05/20 INH 2031 Aspirin 81 MG DAILY 05/14 1747 AC 05/20 PO 0803 Atorvastatin Calcium 40 MG 1700 05/17 1700 AC 05/20 PO 1600 Budesonide/ 2 PUF BID 05/14 2200 AC 05/20 Formoterol Fumarate INH 2118 Carbamide Peroxide 5 GTT BID 05/18 2200 AC 05/20 OTIC 2118 Ceftazidime 1,000 MG Q12H 05/21 0530 AC 05/21 IV 0523 Ceftazidime 1,000 MG Q12H 05/17 0500 DC 05/20 IV 1600 Ferrous Gluconate 325 MG BID 05/17 1051 AC 05/20 PO 2118 Heparin Sodium 5,000 UNIT Q8 05/14 1743 AC 05/21 (Porcine) SC 0520 Ipratropium [place] 2.5 ML EVERY 4 HRS/AWAKE 05/16 1999 AC 05/20 INH 2031 Ipratropium [place] 2.5 ML Q4 HRS NEEDED PRN 05/14 1745 DC INH Omeprazole 40 MG DAILY AC 05/15 0700 AC 05/21 PO 0520 Polyethylene Glycol 17 GM DAILY 05/17 1435 AC 05/20 PO 0804 Prednisone 10 MG DAILY 05/22 1000 AC PO 05/23 1001 Prednisone 20 MG DAILY 05/20 1000 AC 05/20 PO 05/21 1001 0803 Senna 187 MG AT BEDTIME 05/17 2200 AC 05/20 PO 2118 Tamsulosin HCl 0.4 MG DAILY 05/20 1000 DC PO Last 24 Hrs of Lab/Nikolas Results Last 24 Hrs of Labs/Mics: Laboratory Tests 05/21/17 0633: Anion Gap 6, Estimated GFR > 60, BUN/Creatinine Ratio 28.3 H, CBC w Diff Pending, WBC Pending, RBC Pending, Hgb Pending, Hct Pending, MCV Pending, MCH Pending, RDW Pending, Plt Count Pending, MPV Pending, Gran % Pending, Lymphocytes % Pending, Monocytes % Pending, Eosinophils % Pending, Basophils % Pending, Absolute Granulocytes Pending, Absolute Lymphocytes Pending, Absolute Monocytes Pending, Absolute Eosinophils Pending, Absolute Basophils Pending, PUBS MCHC Pending Assessment/Plan Assessment: Patient is an 86-year-old gentleman, with multiple medical problems brought to the [facility] with chief complaints of fatigue, lethargic, for persistent hypoxia. ED course - vital signs at the time of admission temperature 96.8, pulse 107, respiratory 26, blood pressure 124/61, SPO2 95% on aerosol mask.blood workup showed hemoglobin 10.2, hematocrit 31.6, platelet count 182, granulocytes 85.4, BUN 16, creatinine 0.6, serum sodium 135, magnesium 1.7, calcium 8.3, albumin 3.8, SGOT 32, SGPT 34, troponin 0.1. ABG showed pH 7.30, PCO2 79, PO2 60, bicarbonate 38,oxygen saturation 87%. patient was restarted on BiPAP with PIP of 18 and EPAP 6 respiratory rate 22.chest x-ray showed stable mild pulmonary venous congestion . Moderate enlargement of cardiomediastinal silhouette.He was given ceftriaxone, azithromycin, methylprednisolone [address] scan of the head was done which did not show any acute intracranial abnormality. He was admitted into telemetry floor for further evaluation and management. Acute on chronic hypoxic/hypercarbic respiratory failure due to end-stage COPD exacerbation secondary to Pseudomonas pneumonia - * Patient was off BiPAP and maintain his saturation between 89-94% on 3 to 4 liter of oxygen * Continue antibiotic to IV ceftazidime. Intermediate sensitivity to fluoroquinolones. will discuss with Pulm abt d/c plan * Continue tapering steroid Prednisone 10mg dailyx 2 days Urinary retention,Intermittent hematuria secondary to BPH/intermittent catheterization * Terminal Heamturia voiding mostly clear urine and then has blood from urethra at end of voiding, no active intervention out pt f/u Type II DC secondary to demand ischemia * We will continue aspirin and antibiotic to treat the primary disease. Code status - DNR/DNI DVT prophylaxis - Heparin Diet -Regular diet Problem List: 1. COPD exacerbation 2. Pleural effusion 3. Hypercapnic respiratory failure 4. Pseudomonas pneumonia 5. Bacterial pneumonia Pain Ratin Pain Location: n/a Pain Goal: Pain 4 or less Pain Plan: prn Tomorrow's Labs & Rationales: as ordered
--- NOTE | 2017-05-21 07:58 | PN- Urology ---
Subjective Subjective: No acute distress Pt voiding mostly clear urine and then has blood from urethra at end of voiding Objective Vital Signs and I&Os Vital Signs Date Time Temp Pulse Resp B/P B/P Pulse O2 O2 Flow FiO2 Mean Ox Delivery Rate 05/21 624 98.6 70 20 120/50 91 Nasal 3.0L Cannula 05/21 0100 67 96 05/21 0047 67 93 05/21 0000 Nasal 4.0L Cannula 05/207 97.6 74 20 128/60 93 Nasal 3.0L Cannula 05/20 220 92 BIPAP 40% 05/20 2202 72 92 05/20 1400 97.8 66 20 122/64 93 05/20 08 Nasal 3.0L Cannula Intake & Output 05/21 0000 05/20 1600 05/20 0000 05/19 1600 Intake Total 240 240 400 120 600 Output Total 300 500 300 500 Balance -60 -260 400 -300 120 100 Intake, Oral 240 240 400 120 600 Number 0 0 0 Bowel Movements Output, Urine 300 500 300 500 Abd: soft Genitalia: Uncircumcised phallus. Penile edema present. Some blood under foreskin Hct has been stable Laboratory Tests 05/21 632 Chemistry Sodium Pending Potassium Pending Chloride Pending Carbon Dioxide Pending Anion Gap Pending BUN Pending Creatinine Pending BUN/Creatinine Ratio Pending Hematology CBC w Diff Pending WBC Pending RBC Pending Hgb Pending Hct Pending MCV Pending MCH Pending RDW Pending Plt Count Pending MPV Pending PUBS MCHC Pending Assessment/Plan Assessment/Plan Imp: 1. Gross hematuria which appears to be terminal hematuria. This usually indicates urethral or prostate bleeding and is treated conservatively Plan: 1. Monitor hematuria. No active intervention planned based on pt's overall condition and the fact that this is terminal hematuria
[2017-05-21 08:08] LABS: ABSOLUTE BASOPHIL COUNT 0 /CUMM (0.0-0.2); ABSOLUTE EOSINOPHIL COUNT 0.2 /CUMM (0.0-0.7); ABSOLUTE LYMPH COUNT 2.1 /CUMM (1.2-3.4); ABSOLUTE MONOCYTE COUNT 0.9 /CUMM (0.10-0.60); BASOPHIL % 0.2 % (0.0-2.0); EOSINOPHIL % 2.1 % (0-5); GRANULOCYTE % 67.8 % (42.2-75.2); HEMATOCRIT 29.2 % (42-52); MEAN CORPUSCULAR HGB 33.7 PG (27.0-31.0); MEAN CORPUSCULAR HGB CONC 32.9 G/DL (33.0-37.0); MEAN CORPUSCULAR VOLUME 102.2 FL (80.0-94.0); MEAN PLATELET VOLUME 9.9 FL (7.4-10.4); PLATELET COUNT 181 /CUMM (130-400); RED BLOOD CELL CT 2.86 /CUMM (4.70-6.10); WHITE BLOOD CELL COUNT 10.3 /CUMM (4.8-10.8)
[2017-05-21] MEDS ORDERED: PREDNISONE10 M2 PO (09:25)
[2017-05-21] MEDS ORDERED: FORTAZ1 G1 IV (12:39)
[2017-05-21] MEDS ORDERED: PREDNISONE5 M1 PO (12:44)
--- NOTE | 2017-05-21 13:54 | PN- Pulmonary ---
Subjective HPI/Critical Care Issues: DOing well Stable Did wear bipap for two hrs last night Objective Current Medications: Current Medications Sig/Kyra Start time Last Medication Dose Route Stop Time Status Admin Albuterol Sulfate 3 ML EVERY 4 HRS/AWAKE 05/15 0800 AC 05/21 INH 1204 Aspirin 81 MG DAILY 05/14 1747 AC 05/21 PO 0814 Atorvastatin Calcium 40 MG 1700 05/17 1700 AC 05/20 PO 1600 Budesonide/ 2 PUF BID 05/14 220 AC 05/21 Formoterol Fumarate INH 0814 Carbamide Peroxide 5 GTT BID 05/18 2200 AC 05/21 OTIC 0814 Ceftazidime 1,000 MG Q12H 05/21 0530 AC 05/21 IV 0523 Ceftazidime 1,000 MG Q12H 05/17 0500 DC 05/20 IV 1600 Ferrous Gluconate 325 MG BID 05/17 1051 AC 05/21 PO 0810 Heparin Sodium 5,000 UNIT Q8 05/14 1743 AC 05/21 (Porcine) SC 0520 Ipratropium [place] 2.5 ML EVERY 4 HRS/AWAKE 05/16 1999 AC 05/21 INH 1204 Ipratropium [place] 2.5 ML Q4 HRS NEEDED PRN 05/14 1745 DC INH Omeprazole 40 MG DAILY AC 05/15 0700 AC 05/21 PO 0520 Polyethylene Glycol 17 GM DAILY 05/17 1435 AC 05/21 PO 0813 Prednisone 10 MG DAILY 05/22 1000 AC PO 05/23 1001 Prednisone 20 MG DAILY 05/20 1000 DC 05/21 PO 05/21 1001 0814 Senna 187 MG AT BEDTIME 05/17 220 AC 05/20 PO 2118 Vital Signs & I&O Last 24 Hrs of Vitals and I&O: Vital Signs Date Time Temp Pulse Resp B/P B/P Pulse O2 O2 Flow FiO2 Mean Ox Delivery Rate 05/21 08 Nasal 4.0L Cannula 05/21 08 89 Nasal 3.0L Cannula 05/21 06 98.6 70 20 120/50 91 Nasal 3.0L Cannula 05/21 0100 67 96 05/21 0047 67 93 05/21 0000 Nasal 4.0L Cannula 05/20 2236 97.6 74 20 128/60 93 Nasal 3.0L Cannula 05/20 2202 92 BIPAP 40% 01/07 2202 72 92 05/20 1400 97.8 66 20 122/64 93 Intake & Output 05/21 1600 05/21 0800 05/21 0000 Intake Total 240 240 Output Total 300 500 Balance -60 -260 Intake, Oral 240 240 Number 0 0 Bowel Movements Output, Urine 300 500 Impression/Plan Impression/Plan Impression/Plan: PRevious ct IMPRESSION: 1. Chronic mass effect upon the right middle lobe and both lower lobe bronchi is seen by an enlarged central pulmonary arteries leading to chronic volume loss and consolidation in these lobes. Compared to 2013, findings are very similar. Upper lobes remain relatively clear. Findings raise the suspicion of pulmonary arterial hypertension in the setting of obstructive lung disease. Clinical correlation requested. 2. Evidence of prior granulomatous disease with scattered calcified granulomas in the lungs and calcified nodes seen in the mediastinum and left hilum. 3. A few additional small nodular densities are seen, which are indeterminate in etiology, as not all of these are seen on the 2013 exam. Findings may represent an intercurrent inflammatory or infectious process (example the [id number]-type nodular opacities in the anterior inferior right upper lobe). Follow-up CT scan in 3 months is recommended to reassess the 0.6 x 0.3 cm nodule in the right upper lobe. 4. Enlarged central pulmonary arteries, consistent with pulmonary arterial hypertension. 4. Several other incidental findings as discussed above. DICTATED BY: TERENCE ASHER MD DATE/TIME DICTATED:10/03/163 CXR IMPRESSION: No significant change since 11/29/2016. Stable mild pulmonary venous congestion, moderate enlargement of the cardiomediastinal silhouette, and nonspecific bibasilar airspace disease. 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 Was on NIV on bpap and seems to be stable, However after the bpap was dcd he had one episode of confusio last night / transient and resolved. * Pseudomonas pna and bronchiectasis exacerbation * Significant pulmonary hypertension related to terminal lung disease * Functional quadriparesis related to cervical spine disease patient is not a candidate for any therapy * Lower extremity edema suggestive of acute on chronic cor pulmonale * Previous history of mediastinal lymphadenopathy * Small lung nodules of no clinical significance * Worsening overall performance status * Bilateral lower lobe atelectasis with restrictive pulmonary physiology as well related to severe pulmonary hypertension * 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 with previous negative QuantiFERON goal tests * 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 Arterial blood gas done at stable condition showed pH of 7.31, PCO2 of 82, PaO2 of 94 at baseline on oxygen of 4 liters Overnight oxygen saturation with nocturnal oximetry done. Patient had more than a hour and a half (more than 90 minutes) of significant hypoxemia with oxygen saturation less than 88% on his baseline oxygen which is 3 L/m of oxygen per nasal cannula) Patient has significant respiratory muscle fatigue, hypercapnia, severe dyspnea with chronic respiratory failure. The symptoms persist after maximum medical therapy. No evidence suggestive of obstructive sleep apnea and this is not the predominant cause of hypercapnia bipap only if tolerated upon dc with 14/8 with no back up rate with 4 litres nasal cannula DNR and DNI and no agg rx if worse
[2017-05-21] MEDS ORDERED: ZITHROMAX250 M2 PO ×2 (14:05→14:07)
[2017-05-21 22:04] VITALS: BP 118/60
--- NOTE | 2017-05-22 05:17 | Event Note ---
Event Note Event Note: Nursing paged stating patient had desatted to 57% on 4L NC while they were moving him up on the bed. After which patients sats increased with no intervention to the 70s and then with 5L NC went up to the mid 80s. Patient received a respiratory treatment and went to the 90s. After which he was sitting in the low 90s on 5LNC. After 10 -15 minutes patient desatted back to the low 80s. Respiratory has placed patient on BIPAP. Patient during this time has not complained of respiratory distress, chest pain or dizziness. Will continue to monitor. Patient is known to become hypoxic and not tolerating BIPAP during this admission. He does qualify for nighttime BIPAP. Will continue to monitor. Patient is currently stable.
[2017-05-22 07:05] VITALS: BP 126/60
--- NOTE | 2017-05-22 07:13 | PN- Urology ---
Subjective Subjective: No urinary complaints Objective Vital Signs and I&Os Vital Signs Date Time Temp Pulse Resp B/P B/P Pulse O2 O2 Flow FiO2 Mean Ox Delivery Rate 05/22 704 98.3 99 28 126/60 85 BIPAP 05/22 0503 102 85 05/22 0000 92 Nasal 4.0L Cannula 05/214 98.5 82 20 118/60 92 Nasal 5.0L Cannula 05/21 1625 90 Nasal 4.0L Cannula 05/21 1599 Nasal 4.0L Cannula 05/21 799 Nasal 4.0L Cannula 05/21 799 89 Nasal 3.0L Cannula Intake & Output 05/22 0000 05/21 1600 05/21 0000 05/20 1600 Intake Total 110 350 600 240 240 400 Output Total 475 800 300 500 Balance -365 -450 600 -60 -260 400 Intake, IV 10 Intake, Oral 100 350 600 240 240 400 Number 0 0 0 Bowel Movements Output, Urine 475 800 300 500 Abd: soft Genitalia: some penile edema. Urinal in place. Urine is grossly clear. Some terminal hematuria Assessment/Plan Assessment/Plan Imp: 1. Still with some terminal hematuria. Indicates urethral or prostatic source Plan: 1. In view of overall situation will just monitor terminal hematuria. No urologic intervention planned
--- NOTE | 2017-05-22 07:15 | PN- Housestaff ---
See Addendum Subjective Follow-up For: Acuteon chronic hypercarbic and hypoxemic respiratory failure, pulmonary htn, hx of severe COPD, bronchiectasis, exacerbation with a pseudomonas pna Tele-Events Since Last Visit: see event note pt destated 57% on 4L NC while they were moving him up on the bed Subjective: Patient seen and examined. Resting comfortably in the bed. Alert and oriented BiPAP more than 30 minutes. In the morning patient was satting in 70's on 6 L, respiratory was called and patient was put on BiPAP. Patient is currently on , 70% BiPAP setting and satting in 80's. We need to have goals of care discussion. Patient might require a CTA to rule out pulmonary embolism in the setting of destauration, patient has been bedbound mostly during his stay. Review of Systems Constitutional: Reports: see HPI. Objective Last 24 Hrs of Vital Signs/I&O Vital Signs Date Time Temp Pulse Resp B/P B/P Pulse O2 O2 Flow FiO2 Mean Ox Delivery Rate 05/22 899 86 85 05/22 0840 85 BIPAP 70% 05/22 0839 100 83 05/22 0705 98.3 99 28 126/60 85 BIPAP 05/22 0503 102 85 05/22 0000 92 Nasal 4.0L Cannula 05/21 2204 98.5 82 20 118/60 92 Nasal 5.0L Cannula 05/21 1625 90 Nasal 4.0L Cannula 05/21 1600 Nasal 4.0L Cannula Intake & Output 05/22 1600 05/22 0800 05/22 0000 Intake Total 110 350 Output Total 475 800 Balance -365 -450 Intake, IV 10 Intake, Oral 100 350 Number 0 Bowel Movements Output, Urine 475 800 Physical Exam General Appearance: Alert, Oriented X3 Cardiovascular: Normal S1, Normal S2 Lungs: Clear to Auscultation Current Medications: Current Medications Sig/Kyra Start time Last Medication Dose Route Stop Time Status Admin Albuterol Sulfate 3 ML EVERY 4 HRS/AWAKE 05/15 0800 AC 05/22 INH 0839 Aspirin 81 MG DAILY 05/14 1747 AC 05/21 PO 0814 Atorvastatin Calcium 40 MG 1700 05/17 1700 AC 05/21 PO 1617 Bisacodyl 10 MG ONCE PRN 05/22 0600 AC NC Bisacodyl 10 MG ONCE ONE 05/21 1600 DC 05/21 NC 05/21 1601 1611 Budesonide/ 2 PUF BID 05/14 2199 AC 05/21 Formoterol Fumarate INH 2126 Carbamide Peroxide 5 GTT BID 05/18 2199 AC 05/21 OTIC 2127 Ceftazidime 1,000 MG Q12H 05/21 0530 AC 05/22 IV 0538 Ferrous Gluconate 325 MG BID 05/17 1051 AC 05/21 PO 2127 Furosemide 20 MG ONCE ONE 05/22 1899 UNVr IV 05/22 190 Furosemide 20 MG ONCE ONE 05/22 08 DC 05/22 IV 05/22 0801 0801 Heparin Sodium 5,000 UNIT Q8 05/14 1743 AC 05/22 (Porcine) SC 0537 Ipratropium [place] 2.5 ML EVERY 4 HRS/AWAKE 05/16 1999 AC 05/22 INH 0839 Omeprazole 40 MG DAILY AC 05/15 0700 AC 05/22 PO 0651 Polyethylene Glycol 17 GM DAILY 05/17 1435 AC 05/21 PO 0813 Prednisone 10 MG DAILY 05/22 1000 AC PO 05/23 1001 Prednisone 20 MG DAILY 05/20 1000 DC 05/21 PO 05/21 1001 0814 Senna 187 MG AT BEDTIME 05/17 2199 AC 05/21 PO 2127 Last 24 Hrs of Lab/Nikolas Results Last 24 Hrs of Labs/Mics: Laboratory Tests 05/22/17 0820: CBC w Diff NO MAN DIFF REQ, RBC 3.18 L, MCV 101.7 H, MCH 33.3 H, RDW 19.4 H, MPV 9.1, Gran % 74.6, Lymphocytes % 16.4 L, Monocytes % 7.9, Eosinophils % 1.0, Basophils % 0.1, Absolute Granulocytes 10.2 H, Absolute Lymphocytes 2.2, Absolute Monocytes 1.1 H, Absolute Eosinophils 0.1, Absolute Basophils 0, PUBS MCHC 32.8 L Assessment/Plan Assessment: Patient is an 86-year-old gentleman, with multiple medical problems brought to the [facility] with chief complaints of fatigue, lethargic, for persistent hypoxia. ED course - vital signs at the time of admission temperature 96.8, pulse 107, respiratory 26, blood pressure 124/61, SPO2 95% on aerosol mask.blood workup showed hemoglobin 10.2, hematocrit 31.6, platelet count 182, granulocytes 85.4, BUN 16, creatinine 0.6, serum sodium 135, magnesium 1.7, calcium 8.3, albumin 3.8, SGOT 32, SGPT 34, troponin 0.1. ABG showed pH 7.30, PCO2 79, PO2 60, bicarbonate 38,oxygen saturation 87%. patient was restarted on BiPAP with PIP of 18 and EPAP 6 respiratory rate 22.chest x-ray showed stable mild pulmonary venous congestion . Moderate enlargement of cardiomediastinal silhouette.He was given ceftriaxone, azithromycin, methylprednisolone [address] scan of the head was done which did not show any acute intracranial abnormality. He was admitted into telemetry floor for further evaluation and management. #Acute on chronic hypoxic/hypercarbic respiratory failure due to end-stage COPD exacerbation secondary to Pseudomonas pneumonia -destaurated ovenight * Continue antibiotic to IV ceftazidime. * Continue tapering steroid Prednisone 10mg dailyx 2 days and 5mg to continue * Currently on BiPAP 22/6 70% * f/u CXR, consider CTA, Pt has history of Large left-sided paramediastinal mass and doenot want further workup, might benefit from PET scan * We have resumed his lasix * will follow up for further reccmendations and goals of care #Terminal Hematuria * Terminal Heamturia voiding mostly clear urine and then has blood from urethra at end of voiding, no active intervention outpt f/u #Type II LA secondary to demand ischemia * We will continue aspirin and antibiotic to treat the primary disease. Code status - DNR/DNI DVT prophylaxis - Heparin Diet -Regular diet Problem List: 1. COPD exacerbation 2. Pleural effusion 3. Hypercapnic respiratory failure 4. Pseudomonas pneumonia 5. Bacterial pneumonia Pain Ratin Pain Location: n/a Pain Goal: Pain 4 or less Pain Plan: prn Tomorrow's Labs & Rationales: cbcb bep
--- NOTE | 2017-05-22 08:19 | RADIOLOGY REPORT ---
EXAMINATION: XR PORTABLE CHEST CLINICAL INFORMATION: Shortness of breath COMPARISON: 05/14/2017 TECHNIQUE: Portable frontal view of the chest was obtained. FINDINGS: Although the patient is rotated toward the left, there appears to be volume loss in the left lung in addition to the basilar consolidation and pleural effusion which has increased. Improved aeration at the right lung base. The cardiac silhouette is obscured. IMPRESSION: Increasing consolidation and pleural effusion in the left lower lobe, as well as volume loss.
[2017-05-22 09:17] LABS: ABSOLUTE BASOPHIL COUNT 0 /CUMM (0.0-0.2); ABSOLUTE EOSINOPHIL COUNT 0.1 /CUMM (0.0-0.7); ABSOLUTE GRANULOCYTE CT 10.2 /CUMM (1.4-6.5); ABSOLUTE LYMPH COUNT 2.2 /CUMM (1.2-3.4); ABSOLUTE MONOCYTE COUNT 1.1 /CUMM (0.10-0.60); BASOPHIL % 0.1 % (0.0-2.0); GRANULOCYTE % 74.6 % (42.2-75.2); HEMATOCRIT 32.3 % (42-52); MEAN CORPUSCULAR HGB 33.3 PG (27.0-31.0); MEAN CORPUSCULAR HGB CONC 32.8 G/DL (33.0-37.0); MEAN CORPUSCULAR VOLUME 101.7 FL (80.0-94.0); MEAN PLATELET VOLUME 9.1 FL (7.4-10.4); PLATELET COUNT 206 /CUMM (130-400); RBC DISTRIBUTION WIDTH 19.4 % (11.5-14.5); RED BLOOD CELL CT 3.18 /CUMM (4.70-6.10); WHITE BLOOD CELL COUNT 13.7 /CUMM (4.8-10.8)
[2017-05-22] MEDS ORDERED: PREDNISONE5 M1 PO (09:42)
--- NOTE | 2017-05-22 10:00 | PN- Pulmonary ---
Subjective HPI/Critical Care Issues: Events and data reviewed. Pt did go into acute hypoxic and prob hypercarbic episode this am with mild confusion now requiring NIV More alert and awake and a significant cough Chest x-ray reviewed which showed left lower lobe collapse with mild effusion Objective Current Medications: Current Medications Sig/Kyra Start time Last Medication Dose Route Stop Time Status Admin Albuterol Sulfate 3 ML EVERY 4 HRS/AWAKE 05/15 0800 AC 05/22 INH 0839 Aspirin 81 MG DAILY 05/14 1747 AC 05/21 PO 0814 Atorvastatin Calcium 40 MG 1700 05/17 1700 AC 05/21 PO 1617 Bisacodyl 10 MG ONCE PRN 05/22 0600 AC DE Bisacodyl 10 MG ONCE ONE 05/21 1600 DC 05/21 DE 05/21 1601 1611 Budesonide/ 2 PUF BID 05/14 2200 AC 05/21 Formoterol Fumarate INH 2127 Carbamide Peroxide 5 GTT BID 05/18 2200 AC 05/21 OTIC 2127 Ceftazidime 1,000 MG Q12H 05/21 0530 AC 05/22 IV 0538 Ferrous Gluconate 325 MG BID 05/17 1051 AC 05/21 PO 2127 Furosemide 20 MG ONCE ONE 05/22 1900 UNVr IV 05/22 1901 Furosemide 20 MG ONCE ONE 05/22 0800 DC 05/22 IV 05/22 0801 0801 Heparin Sodium 5,000 UNIT Q8 05/14 1743 AC 05/22 (Porcine) SC 0537 Ipratropium [place] 2.5 ML EVERY 4 HRS/AWAKE 05/16 2000 AC 05/22 INH 0839 Omeprazole 40 MG DAILY AC 05/15 0700 AC 05/22 PO 0651 Polyethylene Glycol 17 GM DAILY 05/17 1435 AC 05/21 PO 0813 Prednisone 10 MG DAILY 05/22 1000 AC PO 05/23 1001 Prednisone 20 MG DAILY 05/20 1000 DC 05/21 PO 05/21 1001 0814 Senna 187 MG AT BEDTIME 05/17 2200 AC 05/21 PO 2127 Vital Signs & I&O Last 24 Hrs of Vitals and I&O: Laboratory Tests 05/22 05/21 0820 0633 Chemistry Sodium (137 - 145 mmol/L) 137 Potassium (3.5 - 5.1 mmol/L) 4.5 Chloride (98 - 107 mmol/L) 86 L Carbon Dioxide (22 - 30 mmol/L) 45 H Anion Gap (5 - 16) 6 BUN (9 - 20 mg/dL) 17 Creatinine (0.7 - 1.2 mg/dL) 0.6 L Estimated GFR (>60 ml/min) > 60 BUN/Creatinine Ratio (7 - 25 %) 28.3 H Hematology CBC w Diff NO MAN DIFF REQ MAN DIFF ORDERED WBC (4.8 - 10.8 /CUMM) 13.7 H 10.3 RBC (4.70 - 6.10 /CUMM) 3.18 L 2.86 L Hgb (14.0 - 18.0 G/DL) 10.6 L 9.6 L Hct (42 - 52 %) 32.3 L 29.2 L MCV (80.0 - 94.0 FL) 101.7 H 102.2 H MCH (27.0 - 31.0 PG) 33.3 H 33.7 H RDW (11.5 - 14.5 %) 19.4 H 20.0 H Plt Count (130 - 400 /CUMM) 206 181 MPV (7.4 - 10.4 FL) 9.1 9.9 Gran % (42.2 - 75.2 %) 74.6 67.8 Lymphocytes % (20.5 - 51.1 %) 16.4 L 20.8 Monocytes % (1.7 - 9.3 %) 7.9 9.1 Eosinophils % (0 - 5 %) 1.0 2.1 Basophils % (0.0 - 2.0 %) 0.1 0.2 Absolute Granulocytes (1.4 - 6.5 /CUMM) 10.2 H 7.0 H Segmented Neutrophils (42.2 - 75.2 %) 61 Band Neutrophils (0.0 - 5.0 %) 9 H Absolute Lymphocytes (1.2 - 3.4 /CUMM) 2.2 2.1 Lymphocytes (20.5 - 51.1 %) 20 L Monocytes (1.7 - 9.3 %) 7 Absolute Monocytes (0.10 - 0.60 /CUMM) 1.1 H 0.9 H Eosinophils (0 - 5.0 %) 3 Absolute Eosinophils (0.0 - 0.7 /CUMM) 0.1 0.2 Absolute Basophils (0.0 - 0.2 /CUMM) 0 0 Platelet Estimate (ADEQUATE) ADEQUATE Polychromasia 1+ Hypochromic-Microcytic 1+ Poikilocytosis RARE Basophilic Stippling RARE Anisocytosis 1+ Macrocytic Cells FEW Elliptocytes 1+ PUBS MCHC (33.0 - 37.0 G/DL) 32.8 L 32.9 L Vital Signs Date Time Temp Pulse Resp B/P B/P Pulse O2 O2 Flow FiO2 Mean Ox Delivery Rate 05/22 899 86 85 05/22 0740 85 BIPAP 70% 05/22 838 100 83 05/22 0705 98.3 99 28 126/60 85 BIPAP 05/22 0503 102 85 05/22 0000 92 Nasal 4.0L Cannula 05/21 2204 98.5 82 20 118/60 92 Nasal 5.0L Cannula 05/21 1625 90 Nasal 4.0L Cannula 05/21 1600 Nasal 4.0L Cannula Intake & Output 05/22 1600 05/22 0000 Intake Total 110 350 Output Total 475 800 Balance -365 -450 Intake, IV 10 Intake, Oral 100 350 Number 0 Bowel Movements Output, Urine 475 800 Impression/Plan Impression/Plan Impression/Plan: PRevious ct IMPRESSION: 1. Chronic mass effect upon the right middle lobe and both lower lobe bronchi is seen by an enlarged central pulmonary arteries leading to chronic volume loss and consolidation in these lobes. Compared to 2013, findings are very similar. Upper lobes remain relatively clear. Findings raise the suspicion of pulmonary arterial hypertension in the setting of obstructive lung disease. Clinical correlation requested. 2. Evidence of prior granulomatous disease with scattered calcified granulomas in the lungs and calcified nodes seen in the mediastinum and left hilum. 3. A few additional small nodular densities are seen, which are indeterminate in etiology, as not all of these are seen on the 2013 exam. Findings may represent an intercurrent inflammatory or infectious process (example the [id number]-type nodular opacities in the anterior inferior right upper lobe). Follow-up CT scan in 3 months is recommended to reassess the 0.6 x 0.3 cm nodule in the right upper lobe. 4. Enlarged central pulmonary arteries, consistent with pulmonary arterial hypertension. 4. Several other incidental findings as discussed above. 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 His chest x-ray suggestive of a complete collapse of the left lower lobe probably from a thick mucous plug. * Acute on chronic hypoxic and hypercarbic respiratory failure due to end-stage lung disease, with recent worsening related to severe COPD exacerbation, and Pseudomonas pneumonia. * Pseudomonas pna and bronchiectasis exacerbation * Significant pulmonary hypertension related to terminal lung disease * Functional quadriparesis related to cervical spine disease patient is not a candidate for any therapy * Lower extremity edema suggestive of acute on chronic cor pulmonale * Previous history of mediastinal lymphadenopathy * Small lung nodules of no clinical significance * Worsening overall performance status * Bilateral lower lobe atelectasis with restrictive pulmonary physiology as well related to severe pulmonary hypertension * 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 with previous negative QuantiFERON goal tests * 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 Asked respiratory to do this * Continue ceftaz * 1 dose of 40 mg Lasix * Continue prednisone at 30 mg * Keep the head of bed elevated * Periodex overall care 3 times a day * Prognosis is guarded. Patient wishes no significant aggressive therapy * Repeat chest x-ray after chest physical therapy today or tomorrow Upon discharge Patient clearly qualifies for BiPAP at bedtime Diagnosis * COPD with baseline PCO2 more than 52. * Arterial blood gas done at stable condition showed pH of 7.31, PCO2 of 82, PaO2 of 94 at baseline on oxygen of 4 liters * Overnight oxygen saturation with nocturnal oximetry done. Patient had more than a hour and a half (more than 90 minutes) of significant hypoxemia with oxygen saturation less than 88% on his baseline oxygen which is 3 L/m of oxygen per nasal cannula) * Patient has significant respiratory muscle fatigue, hypercapnia, severe dyspnea with chronic respiratory failure. The symptoms persist after maximum medical therapy. * No evidence suggestive of obstructive sleep apnea and this is not the predominant cause of hypercapnia DNR and DNI and no agg rx if worse
[2017-05-22 14:48] VITALS: BP 118/62
[2017-05-22 22:15] VITALS: BP 110/60
[2017-05-23 06:36] VITALS: BP 118/58
--- NOTE | 2017-05-23 07:38 | PN- Urology ---
Subjective Subjective: Lying in bed. No acute distress Objective Vital Signs and I&Os Vital Signs Date Time Temp Pulse Resp B/P B/P Pulse O2 O2 Flow FiO2 Mean Ox Delivery Rate 05/23 0636 98.2 67 28 118/58 94 BIPAP 05/23 0415 65 96 05/23 0222 66 92 05/23 0000 92 BIPAP 60% 05/22 2231 72 93 05/22 2215 96.6 82 20 110/60 92 05/22 1935 84 Nasal 4.0L Cannula 05/22 1750 85 Nasal 6.0L Cannula 05/22 1625 84 97 05/22 1625 97 BIPAP 70% 05/22 1600 94 BIPAP 60% 05/22 1448 98.2 68 22 118/62 94 BIPAP 70% 05/22 1409 67 94 05/22 1146 73 94 05/22 0900 86 85 05/22 0840 85 BIPAP 70% 05/22 0839 100 83 05/22 0800 92 BIPAP 35% Intake & Output 05/23 0800 05/23 0000 05/22 1600 05/22 0800 05/22 0000 05/21 1600 Intake Total 140 375 50 110 350 600 Output Total 200 1250 475 475 800 Balance -60 -875 -425 -365 -450 600 Intake, IV 40 50 10 Intake, Oral 100 375 100 350 600 Number 0 0 Bowel Movements Output, Urine 200 1250 475 475 800 Voided last night. Urine clear Abd: soft and non tender Laboratory Tests 05/23 05/22 0614 0820 Chemistry Sodium Pending Potassium Pending Chloride Pending Carbon Dioxide Pending Anion Gap Pending BUN Pending Creatinine Pending BUN/Creatinine Ratio Pending Hematology CBC w Diff Pending NO MAN DIFF REQ WBC (4.8 - 10.8 /CUMM) Pending 13.7 H RBC (4.70 - 6.10 /CUMM) Pending 3.18 L Hgb (14.0 - 18.0 G/DL) Pending 10.6 L Hct (42 - 52 %) Pending 32.3 L MCV (80.0 - 94.0 FL) Pending 101.7 H MCH (27.0 - 31.0 PG) Pending 33.3 H RDW (11.5 - 14.5 %) Pending 19.4 H Plt Count (130 - 400 /CUMM) Pending 206 MPV (7.4 - 10.4 FL) Pending 9.1 Gran % (42.2 - 75.2 %) 74.6 Lymphocytes % (20.5 - 51.1 %) 16.4 L Monocytes % (1.7 - 9.3 %) 7.9 Eosinophils % (0 - 5 %) 1.0 Basophils % (0.0 - 2.0 %) 0.1 Absolute Granulocytes (1.4 - 6.5 /CUMM) 10.2 H Absolute Lymphocytes (1.2 - 3.4 /CUMM) 2.2 Absolute Monocytes (0.10 - 0.60 /CUMM) 1.1 H Absolute Eosinophils (0.0 - 0.7 /CUMM) 0.1 Absolute Basophils (0.0 - 0.2 /CUMM) 0 PUBS MCHC (33.0 - 37.0 G/DL) Pending 32.8 L Assessment/Plan Assessment/Plan Imp: 1. Gross hematuria resolved Plan: 1. Monitor voiding status. In view of overall situation no plans for any urologic intervention
--- NOTE | 2017-05-23 07:51 | PN- Housestaff ---
See Addendum Subjective Follow-up For: Acute on chronic hypercarbic and hypoxemic respiratory failure, pulmonary htn, hx of severe COPD, bronchiectasis, exacerbation with a pseudomonas pna Tele-Events Since Last Visit: Patient remained on BiPAP given night. Desatted to 83% on 6L nasal cannula currently on high flow oxygen, maintaining oxygen saturation in 90s. Seen and examined. Offers no complaints resting comfortably. Review of Systems Constitutional: Reports: see HPI. Objective Last 24 Hrs of Vital Signs/I&O Vital Signs Date Time Temp Pulse Resp B/P B/P Pulse O2 O2 Flow FiO2 Mean Ox Delivery Rate 05/23 916 93 Nasal 40% Cannula 05/23 08 92 Nasal 40% Cannula 05/23 0636 98.2 67 28 118/58 94 BIPAP 05/23 0415 65 96 05/23 0222 66 92 05/23 0000 92 BIPAP 60% 05/22 2231 72 93 05/22 2215 96.6 82 20 110/60 92 05/22 1935 84 Nasal 4.0L Cannula 05/22 1750 85 Nasal 6.0L Cannula 05/22 1625 84 97 05/22 1625 97 BIPAP 70% 05/22 1600 94 BIPAP 60% 05/22 1448 98.2 68 22 118/62 94 BIPAP 70% 05/22 1409 67 94 Intake & Output 05/23 1600 05/23 0800 05/23 0000 Intake Total 140 375 Output Total 200 1250 Balance -60 -875 Intake, IV 40 Intake, Oral 100 375 Number 0 Bowel Movements Output, Urine 200 1250 Physical Exam General Appearance: Alert, Oriented X3, Cooperative, No Acute Distress Cardiovascular: Normal S1, Normal S2 Lungs: Clear to Auscultation Current Medications: Current Medications Sig/Kyra Start time Last Medication Dose Route Stop Time Status Admin Acetazolamide 500 MG ONCE ONE 05/23 1330 UNVr Sodium Chloride 50 ML IV 05/23 1359 Acetazolamide 250 MG .[TUES & SAT] 05/23 1330 UNVr Sodium Chloride 50 ML IV Acetylcysteine 2 ML BID 05/23 2200 AC INH Acetylcysteine 2 ML TID 05/22 1600 DC 05/23 INH 0812 Albuterol Sulfate 3 ML EVERY 4 HRS/AWAKE 05/15 0800 AC 05/23 INH 1147 Aspirin 81 MG DAILY 05/14 1747 AC 05/23 PO 1321 Atorvastatin Calcium 40 MG 1700 05/17 1700 AC 05/22 PO 1526 Bisacodyl 10 MG ONCE PRN 05/22 0600 AC 05/23 IA 05/23 1700 1321 Budesonide/ 2 PUF BID 05/14 2200 AC 05/23 Formoterol Fumarate INH 0801 Carbamide Peroxide 5 GTT BID 05/18 2200 AC 05/23 OTIC 0805 Ceftazidime 1,000 MG Q12H 05/21 0530 AC 05/23 IV 0535 Chlorhexidine 15 ML TID 05/22 1254 AC 05/23 Gluconate PO 08 Ferrous Gluconate 325 MG BID 05/17 1051 AC 05/23 PO 0802 Furosemide 40 MG 05/25 1000 AC IV Heparin Sodium 5,000 UNIT Q8 05/14 1743 AC 05/23 (Porcine) SC 0534 Ipratropium [place] 2.5 ML BID 05/23 220 AC INH Ipratropium [place] 2.5 ML EVERY 4 HRS/AWAKE 05/16 1999 DC 05/23 INH 1148 Nystatin 1 TWIN TID 05/22 2345 AC 05/23 TOP 1321 Omeprazole 40 MG DAILY AC 05/15 0700 AC 05/23 PO 0719 Polyethylene Glycol 17 GM DAILY 05/17 1435 AC 05/23 PO 0803 Prednisone 20 MG ONCE ONE 05/23 1330 UNVr PO 05/23 1331 Prednisone 30 MG ONCE ONE 05/23 1315 CANr PO 05/23 1316 Prednisone 10 MG DAILY 05/22 1000 DC 05/23 PO 05/23 1001 0801 Senna 187 MG AT BEDTIME 05/17 2199 AC 05/22 PO 2037 Last 24 Hrs of Lab/Nikolas Results Last 24 Hrs of Labs/Mics: Laboratory Tests 05/23/17 0614: Anion Gap 8, Estimated GFR > 60, BUN/Creatinine Ratio 42.0 H, CBC w Diff NO MAN DIFF REQ, RBC 2.88 L, MCV 101.4 H, MCH 33.0 H, RDW 20.1 H, MPV 9.8, Gran % 75.1, Lymphocytes % 13.2 L, Monocytes % 10.2 H, Eosinophils % 1.3, Basophils % 0.2, Absolute Granulocytes 7.4 H, Absolute Lymphocytes 1.3, Absolute Monocytes 1.0 H, Absolute Eosinophils 0.1, Absolute Basophils 0, PUBS MCHC 32.5 L Assessment/Plan Assessment: Patient is an 86-year-old gentleman, with multiple medical problems brought to the [facility] with chief complaints of fatigue, lethargic, for persistent hypoxia. ED course - vital signs at the time of admission temperature 96.8, pulse 107, respiratory 26, blood pressure 124/61, SPO2 95% on aerosol mask.blood workup showed hemoglobin 10.2, hematocrit 31.6, platelet count 182, granulocytes 85.4, BUN 16, creatinine 0.6, serum sodium 135, magnesium 1.7, calcium 8.3, albumin 3.8, SGOT 32, SGPT 34, troponin 0.1. ABG showed pH 7.30, PCO2 79, PO2 60, bicarbonate 38,oxygen saturation 87%. patient was restarted on BiPAP with PIP of 18 and EPAP 6 respiratory rate 22.chest x-ray showed stable mild pulmonary venous congestion . Moderate enlargement of cardiomediastinal silhouette.He was given ceftriaxone, azithromycin, methylprednisolone [address] scan of the head was done which did not show any acute intracranial abnormality. He was admitted into telemetry floor for further evaluation and management. #Acute on chronic hypoxic/hypercarbic respiratory failure due to end-stage COPD exacerbation secondary to Pseudomonas pneumonia -destaurated ovenight * Continue IV ceftazidime to complete a 14 day course * Continue tapering steroid Prednisone 30 mg today as per pulmonology. * Continue BiPAP overnight. * Aggressive chest physical therapy with Mucomyst 2 times today * Diamox 500 today and continue to 250 Diamox on Tuesdays and Saturdays. * Lasix 40 mg Sunday and Sunday. * CXR showed complete collapse of the left lower lobe probably from a thick mucous plug. Follow-up repeat chest x-ray in the a.m. * Consider CTA, Pt has history of Large left-sided paramediastinal mass and doenot want further workup, might benefit from PET scan * will follow up with for further reccmendations and goals of care #Terminal Hematuria * Terminal Heamturia voiding mostly clear urine and then has blood from urethra at end of voiding, no active intervention outpt f/u #Type II [place] secondary to demand ischemia * We will continue aspirin and antibiotic to treat the primary disease. Code status - DNR/DNI DVT prophylaxis - Heparin Diet -Regular diet Problem List: 1. Bacterial pneumonia 2. Hypercapnic respiratory failure 3. COPD exacerbation 4. Pseudomonas pneumonia Pain Ratin Pain Location: n/a Pain Goal: Pain 4 or less Pain Plan: as orderd Tomorrow's Labs & Rationales: cbc bep
[2017-05-23 07:56] LABS: ABSOLUTE BASOPHIL COUNT 0 /CUMM (0.0-0.2); ABSOLUTE EOSINOPHIL COUNT 0.1 /CUMM (0.0-0.7); ABSOLUTE GRANULOCYTE CT 7.4 /CUMM (1.4-6.5); ABSOLUTE LYMPH COUNT 1.3 /CUMM (1.2-3.4); BASOPHIL % 0.2 % (0.0-2.0); EOSINOPHIL % 1.3 % (0-5); GRANULOCYTE % 75.1 % (42.2-75.2); HEMATOCRIT 29.3 % (42-52); MEAN CORPUSCULAR HGB CONC 32.5 G/DL (33.0-37.0); MEAN CORPUSCULAR VOLUME 101.4 FL (80.0-94.0); MEAN PLATELET VOLUME 9.8 FL (7.4-10.4); PLATELET COUNT 181 /CUMM (130-400); RBC DISTRIBUTION WIDTH 20.1 % (11.5-14.5); RED BLOOD CELL CT 2.88 /CUMM (4.70-6.10); WHITE BLOOD CELL COUNT 9.8 /CUMM (4.8-10.8)
--- NOTE | 2017-05-23 10:09 | PN- Pulmonary ---
Subjective HPI/Critical Care Issues: Much improved now on high flow 40 percent off bipap Objective Current Medications: Current Medications Sig/Kyra Start time Last Medication Dose Route Stop Time Status Admin Acetylcysteine 2 ML TID 05/22 1600 AC 05/23 INH 0812 Albuterol Sulfate 3 ML EVERY 4 HRS/AWAKE 05/15 0800 AC 05/23 INH 0812 Aspirin 81 MG DAILY 05/14 1747 AC 05/22 PO 1549 Atorvastatin Calcium 40 MG 1700 05/17 1700 AC 05/22 PO 1526 Bisacodyl 10 MG ONCE PRN 05/22 0600 AC DE Budesonide/ 2 PUF BID 05/14 2200 AC 05/23 Formoterol Fumarate INH 0801 Carbamide Peroxide 5 GTT BID 05/18 2200 AC 05/23 OTIC 0805 Ceftazidime 1,000 MG Q12H 05/21 0530 AC 05/23 IV 0535 Chlorhexidine 15 ML TID 05/22 1254 AC 05/23 Gluconate PO 0805 Ferrous Gluconate 325 MG BID 05/17 1051 AC 05/23 PO 0802 Furosemide 20 MG 1900 05/22 1900 CAN IV 05/22 1901 Furosemide 40 MG ONCE ONE 05/22 1300 DC 05/22 IV 05/22 1301 1530 Heparin Sodium 5,000 UNIT Q8 05/14 1743 AC 05/23 (Porcine) SC 0534 Ipratropium [place] 2.5 ML EVERY 4 HRS/AWAKE 05/16 2000 AC 05/22 INH 1141 Nystatin 1 TWIN TID 05/22 2345 AC TOP Omeprazole 40 MG DAILY AC 05/15 0700 AC 05/23 PO 0719 Polyethylene Glycol 17 GM DAILY 05/17 1435 AC 05/23 PO 0803 Prednisone 10 MG DAILY 05/22 1000 DC 05/23 PO 05/23 1001 0801 Senna 187 MG AT BEDTIME 05/17 2200 AC 05/22 PO 2037 Vital Signs & I&O Last 24 Hrs of Vitals and I&O: Vital Signs Date Time Temp Pulse Resp B/P B/P Pulse O2 O2 Flow FiO2 Mean Ox Delivery Rate 05/23 0817 93 Nasal 40% Cannula 05/23 0636 98.2 67 28 118/58 94 BIPAP 05/23 0415 65 96 05/23 0222 66 92 05/23 0000 92 BIPAP 60% 05/221 72 93 05/22 2215 96.6 82 20 110/60 92 05/22 1935 84 Nasal 4.0L Cannula 05/22 1750 85 Nasal 6.0L Cannula 05/22 1625 84 97 05/22 1625 97 BIPAP 70% 05/22 1600 94 BIPAP 60% 05/22 1448 98.2 68 22 118/62 94 BIPAP 70% 05/22 1409 67 94 05/22 1146 73 94 Intake & Output 05/23 1600 05/23 0800 05/23 0000 Intake Total 140 375 Output Total 200 1250 Balance -60 -875 Intake, IV 40 Intake, Oral 100 375 Number 0 Bowel Movements Output, Urine 200 1250 Impression/Plan Impression/Plan Impression/Plan: PRevious ct IMPRESSION: 1. Chronic mass effect upon the right middle lobe and both lower lobe bronchi is seen by an enlarged central pulmonary arteries leading to chronic volume loss and consolidation in these lobes. Compared to 2013, findings are very similar. Upper lobes remain relatively clear. Findings raise the suspicion of pulmonary arterial hypertension in the setting of obstructive lung disease. Clinical correlation requested. 2. Evidence of prior granulomatous disease with scattered calcified granulomas in the lungs and calcified nodes seen in the mediastinum and left hilum. 3. A few additional small nodular densities are seen, which are indeterminate in etiology, as not all of these are seen on the 2013 exam. Findings may represent an intercurrent inflammatory or infectious process (example the [id number] nodular opacities in the anterior inferior right upper lobe). Follow-up CT scan in 3 months is recommended to reassess the 0.6 x 0.3 cm nodule in the right upper lobe. 4. Enlarged central pulmonary arteries, consistent with pulmonary arterial hypertension. 4. Several other incidental findings as discussed above. 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 His chest x-ray was suggestive of a complete collapse of the left lower lobe probably from a thick mucous plug. Did respond to lasix and chest pt * Acute on chronic hypoxic and hypercarbic respiratory failure due to end-stage lung disease, with recent worsening related to severe COPD exacerbation, and Pseudomonas pneumonia. * Pseudomonas pna and bronchiectasis exacerbation * Significant pulmonary hypertension related to terminal lung disease * Functional quadriparesis related to cervical spine disease patient is not a candidate for any therapy * Lower extremity edema suggestive of acute on chronic cor pulmonale * Previous history of mediastinal lymphadenopathy * Small lung nodules of no clinical significance * Worsening overall performance status * Bilateral lower lobe atelectasis with restrictive pulmonary physiology as well related to severe pulmonary hypertension * 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 with previous negative QuantiFERON goal tests * 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 * Continue ceftaz for total of 10 to 14 days * Continue prednisone at 30 mg and taper * Keep the head of bed elevated * Periodex overall care 3 times a day * Prognosis is guarded. Patient wishes no significant aggressive therapy * Repeat chest x-ray after chest physical therapy today Upon discharge Patient clearly qualifies for BiPAP at bedtime Diagnosis * COPD with baseline PCO2 more than 52. * Arterial blood gas done at stable condition showed pH of 7.31, PCO2 of 82, PaO2 of 94 at baseline on oxygen of 4 liters * Overnight oxygen saturation with nocturnal oximetry done. Patient had more than a hour and a half (more than 90 minutes) of significant hypoxemia with oxygen saturation less than 88% on his baseline oxygen which is 3 L/m of oxygen per nasal cannula) * Patient has significant respiratory muscle fatigue, hypercapnia, severe dyspnea with chronic respiratory failure. The symptoms persist after maximum medical therapy. * No evidence suggestive of obstructive sleep apnea and this is not the predominant cause of hypercapnia DNR and DNI and no agg rx if worse
[2017-05-23 15:03] VITALS: BP 112/60
--- NOTE | 2017-05-23 16:22 | RADIOLOGY REPORT ---
EXAMINATION: CR PORTABLE CHEST CLINICAL INFORMATION: Shortness of breath. Desaturation on nasal cannula. 83% O2 saturation on 6 L of oxygen. Check for resolution of mucous plug. COMPARISON: Chest x-ray dated 05/22/2017. TECHNIQUE: Portable AP semierect view of the chest was obtained. FINDINGS: The cardiomediastinal silhouette is obscured by dense opacity in the left lung base. The appearance is unchanged when compared to prior study. The aorta is seen. There is more patchy opacity in the right lung base, also unchanged. Upper lungs remain clear. No pneumothorax is seen. Multiple EKG leads overlie the chest. Bony structures are unchanged with degenerative changes in both shoulder joints noted. There may be underlying rotator cuff disease in both shoulder joints. IMPRESSION: 1. No interval change in dense consolidation and volume loss in the left lung base. There may be associated pleural effusion. 2. No interval change in right basilar subsegmental atelectasis or pneumonia.
[2017-05-23 23:42] VITALS: BP 118/74
[2017-05-24 04:58] LABS: ABSOLUTE BASOPHIL COUNT 0 /CUMM (0.0-0.2); ABSOLUTE EOSINOPHIL COUNT 0 /CUMM (0.0-0.7); ABSOLUTE GRANULOCYTE CT 6.1 /CUMM (1.4-6.5); ABSOLUTE LYMPH COUNT 0.9 /CUMM (1.2-3.4); ABSOLUTE MONOCYTE COUNT 0.7 /CUMM (0.10-0.60); BASOPHIL % 0 % (0.0-2.0); EOSINOPHIL % 0.2 % (0-5); GRANULOCYTE % 78.9 % (42.2-75.2); HEMATOCRIT 29.9 % (42-52); MEAN CORPUSCULAR HGB 32.6 PG (27.0-31.0); MEAN CORPUSCULAR HGB CONC 31.8 G/DL (33.0-37.0); MEAN CORPUSCULAR VOLUME 102.6 FL (80.0-94.0); PLATELET COUNT 190 /CUMM (130-400); RBC DISTRIBUTION WIDTH 19.5 % (11.5-14.5); RED BLOOD CELL CT 2.91 /CUMM (4.70-6.10); WHITE BLOOD CELL COUNT 7.8 /CUMM (4.8-10.8)
--- NOTE | 2017-05-24 07:17 | PN- Housestaff ---
See Addendum Subjective Follow-up For: Acute on chronic hypercarbic and hypoxemic respiratory failure, pulmonary htn, hx of severe COPD, bronchiectasis, exacerbation with a pseudomonas pna Tele-Events Since Last Visit: sinus rhythm with heart rate in 60s with PVCs. Patient had 20 beat run of V. tach overnight and AV block 2 to 1 Subjective: patient was on BiPAP overnight and maintained oxygen saturation in 90s alert and oriented. Daughter by bedside. Offers no complaints. Review of Systems Constitutional: Reports: see HPI. Objective Last 24 Hrs of Vital Signs/I&O Vital Signs Date Time Temp Pulse Resp B/P B/P Pulse O2 O2 Flow FiO2 Mean Ox Delivery Rate 05/24 08 96 Nasal 40% Cannula 05/24 0824 86 96 05/24 0543 48 96 05/24 0023 63 96 05/24 0000 94 Nasal 40% Cannula 05/23 2342 98.7 72 26 118/74 96 05/23 2206 91 Nasal 40% Cannula 05/23 1910 92 Nasal 40% Cannula 05/23 1608 92 Nasal 40% Cannula 05/23 1503 97.6 68 20 112/60 93 Nasal Cannula Intake & Output 05/24 1600 05/24 0800 05/24 0000 Intake Total 240 240 Output Total 450 Balance 240 -210 Intake, Oral 240 240 Output, Urine 450 Physical Exam General Appearance: Alert, Oriented X3, Cooperative Cardiovascular: Normal S1, Normal S2 Lungs: Clear to Auscultation Abdomen: Soft Current Medications: Current Medications Sig/Kyra Start time Last Medication Dose Route Stop Time Status Admin Acetazolamide 250 MG TuSa@1000 05/26 1000 AC Sodium Chloride 50 ML IV Acetazolamide 500 MG ONCE ONE 05/23 1400 DC 05/23 Sodium Chloride 50 ML IV 05/23 1429 1634 Acetylcysteine 2 ML BID 05/23 2200 AC 05/24 INH 0809 Acetylcysteine 2 ML TID 05/22 1600 DC 05/23 INH 0812 Albuterol Sulfate 3 ML EVERY 4 HRS/AWAKE 05/15 0800 AC 05/24 INH 0808 Aspirin 81 MG DAILY 05/14 1747 AC 05/23 PO 1321 Atorvastatin Calcium 40 MG 1700 05/17 1700 AC 05/23 PO 1630 Bisacodyl 10 MG ONCE PRN 05/22 0600 DC 05/23 NM 05/23 1700 1321 Budesonide/ 2 PUF BID 05/14 220 AC 05/23 Formoterol Fumarate INH 2134 Carbamide Peroxide 5 GTT BID 05/18 220 AC 05/23 OTIC 2132 Ceftazidime 1,000 MG Q12H 05/21 0530 AC 05/24 IV 0620 Chlorhexidine 15 ML TID 05/22 1254 AC 05/23 Gluconate PO 2133 Ferrous Gluconate 325 MG BID 05/17 1051 AC 05/23 PO 213 Furosemide 40 MG 05/25 1000 AC IV Heparin Sodium 5,000 UNIT Q8 05/14 1743 AC 05/24 (Porcine) SC 0620 Ipratropium [place] 2.5 ML BID 05/23 2200 AC 05/23 INH 1557 Ipratropium [place] 2.5 ML EVERY 4 HRS/AWAKE 05/16 2000 DC 05/23 INH 1148 Nystatin 1 TWIN TID 05/22 2345 AC 05/23 TOP 2132 Omeprazole 40 MG DAILY AC 05/15 0700 AC 05/23 PO 0719 Polyethylene Glycol 17 GM DAILY 05/17 1435 AC 05/23 PO 0803 Prednisone 20 MG ONCE ONE 05/23 1400 DC 05/23 PO 05/23 1401 1630 Prednisone 30 MG ONCE ONE 05/23 1315 CAN PO 05/23 1316 Senna 187 MG AT BEDTIME 05/17 2199 AC 05/23 PO 2132 Last 24 Hrs of Lab/Nikolas Results Last 24 Hrs of Labs/Mics: Laboratory Tests 05/24/17 0400: Anion Gap 9, Estimated GFR > 60, BUN/Creatinine Ratio 25.0, Calcium 8.2 L, Magnesium 1.9, Troponin I 0.08, CBC w Diff NO MAN DIFF REQ, RBC 2.91 L, MCV 102.6 H, MCH 32.6 H, RDW 19.5 H, MPV 10.0, Gran % 78.9 H, Lymphocytes % 11.3 L, Monocytes % 9.6 H, Eosinophils % 0.2, Basophils % 0, Absolute Granulocytes 6.1, Absolute Lymphocytes 0.9 L, Absolute Monocytes 0.7 H, Absolute Eosinophils 0, Absolute Basophils 0, PUBS MCHC 31.8 L Assessment/Plan Assessment: Patient is an 86-year-old gentleman, with multiple medical problems brought to the [facility] with chief complaints of fatigue, lethargic, for persistent hypoxia. -He is being treated and evaluated for following conditions #Acute on chronic hypoxic/hypercarbic respiratory failure due to end-stage COPD exacerbation secondary to Pseudomonas pneumonia * Continue IV ceftazidime to complete a 14 day course day 9 today * Continue tapering steroid Prednisone 30 mg today as per pulmonology. * Continue BiPAP overnight. we will try to wean him off high flow oxygen to [place] * Aggressive chest physical therapy with Mucomyst twice again today * Continue to 250 Diamox on Tuesdays and Saturdays. * Continue Lasix 40 mg Sunday and Sunday. * CXR showed complete collapse of the left lower lobe probably from a thick mucous plug. Follow-up repeat chest x-ray does not show any improvement. * Pt has history of Large left-sided paramediastinal mass and doenot want further workup, might benefit from PET scan * will follow up with for further reccmendations and goals of care #V. tach Patient had a 20 beat run of tachycardia overnight. There is also some degree of AV block. * Potassium and magnesium levels within normal limits, ejection fraction 60-65%. * Cardiolgy consulted again, awaiting reccs #Constipation Patient has not had a bowel movement since past 4 days. * Senna twice a day MiraLAX and docusate daily enema if there is no BM #Terminal Hematuria- * Terminal Heamturia voiding mostly clear urine and then has blood from urethra at end of voiding, no active intervention outpt f/u #Type II [place] secondary to demand ischemia * We will continue aspirin and antibiotic to treat the primary disease. Code status - DNR/DNI DVT prophylaxis - Heparin Diet -Regular diet Problem List: 1. COPD exacerbation 2. Hypercapnic respiratory failure 3. Pseudomonas pneumonia 4. Bacterial pneumonia Pain Ratin Pain Location: n/a Pain Goal: Pain 4 or less Pain Plan: prn Tomorrow's Labs & Rationales: none
--- NOTE | 2017-05-24 09:44 | RADIOLOGY REPORT ---
EXAMINATION: XR PORTABLE CHEST CLINICAL INFORMATION: Status post chest PT and Mucomyst. Check for resolution of lung collapse. COMPARISON: Several prior chest x-rays, most recent of which is dated 05/23/2017. TECHNIQUE: Portable AP semierect view of the chest was obtained. FINDINGS: No significant interval change is seen in the extensive volume loss in the left hemithorax with associated dense consolidation in the mid and lower left chest. There is some patchy parenchymal opacity in the remaining aerated left upper lobe. A small left-sided pleural effusion is also suspected, extending along the left lateral chest wall. Right lung is hyperinflated with shift of the mediastinum toward the left side. Minimal blunting of the right CP angle is seen, possibly due to pleural thickening and mild subsegmental atelectasis. Osteopenia is noted. IMPRESSION: 1. No significant change in consolidation and volume loss in the left mid and lower lung. 2. No change in small left pleural effusion. 3. No change in mild right basilar subsegmental atelectasis.
--- NOTE | 2017-05-24 10:09 | PN- Pulmonary ---
Subjective HPI/Critical Care Issues: Doing ok Wishes he could move his bowel Chest pt ongoing Objective Current Medications: Current Medications Sig/Kyra Start time Last Medication Dose Route Stop Time Status Admin Acetazolamide 250 MG TuSa@1000 05/26 1000 AC Sodium Chloride 50 ML IV Acetazolamide 500 MG ONCE ONE 05/23 1400 DC 05/23 Sodium Chloride 50 ML IV 05/23 1429 1634 Acetylcysteine 2 ML BID 05/23 2200 AC 05/24 INH 0809 Acetylcysteine 2 ML TID 05/22 1600 DC 05/23 INH 0812 Albuterol Sulfate 3 ML EVERY 4 HRS/AWAKE 05/15 0800 AC 05/24 INH 0808 Aspirin 81 MG DAILY 05/14 1747 AC 05/23 PO 1321 Atorvastatin Calcium 40 MG 1700 05/17 1700 AC 05/23 PO 1630 Bisacodyl 10 MG ONCE PRN 05/22 0600 DC 05/23 VT 05/23 1700 1321 Budesonide/ 2 PUF BID 05/14 2200 AC 05/23 Formoterol Fumarate INH 2134 Carbamide Peroxide 5 GTT BID 05/18 2200 AC 05/23 OTIC 2132 Ceftazidime 1,000 MG Q12H 05/21 0530 AC 05/24 IV 0620 Chlorhexidine 15 ML TID 05/22 1254 AC 05/23 Gluconate PO 2133 Ferrous Gluconate 325 MG BID 05/17 1051 AC 05/23 PO 2132 Furosemide 40 MG 05/25 1000 AC IV Heparin Sodium 5,000 UNIT Q8 05/14 1743 AC 05/24 (Porcine) SC 0620 Ipratropium [place] 2.5 ML BID 05/23 2200 AC 05/23 INH 1557 Ipratropium [place] 2.5 ML EVERY 4 HRS/AWAKE 05/16 2000 DC 05/23 INH 1148 Nystatin 1 TWIN TID 05/22 2345 AC 05/23 TOP 2132 Omeprazole 40 MG DAILY AC 05/15 0700 AC 05/23 PO 0719 Polyethylene Glycol 17 GM DAILY 05/17 1435 AC 05/23 PO 0803 Prednisone 20 MG ONCE ONE 05/23 1400 DC 05/23 PO 05/23 1401 1630 Prednisone 30 MG ONCE ONE 05/23 1315 CAN PO 05/23 1316 Senna 187 MG AT BEDTIME 05/17 2200 AC 05/23 PO 2132 Vital Signs & I&O Last 24 Hrs of Vitals and I&O: Vital Signs Date Time Temp Pulse Resp B/P B/P Pulse O2 O2 Flow FiO2 Mean Ox Delivery Rate 05/24 823 96 Nasal 40% Cannula 05/24 08 86 96 05/24 0543 48 96 05/24 0023 63 96 05/24 0000 94 Nasal 40% Cannula 05/23 2342 98.7 72 26 118/74 96 05/23 2206 91 Nasal 40% Cannula 05/23 1910 92 Nasal 40% Cannula 05/23 1608 92 Nasal 40% Cannula 05/23 1503 97.6 68 20 112/60 93 Nasal Cannula Intake & Output 05/24 1600 05/24 0800 05/24 0000 Intake Total 240 240 Output Total 450 Balance 240 -210 Intake, Oral 240 240 Output, Urine 450 Impression/Plan Impression/Plan Impression/Plan: PRevious ct IMPRESSION: 1. Chronic mass effect upon the right middle lobe and both lower lobe bronchi is seen by an enlarged central pulmonary arteries leading to chronic volume loss and consolidation in these lobes. Compared to 2013, findings are very similar. Upper lobes remain relatively clear. Findings raise the suspicion of pulmonary arterial hypertension in the setting of obstructive lung disease. Clinical correlation requested. 2. Evidence of prior granulomatous disease with scattered calcified granulomas in the lungs and calcified nodes seen in the mediastinum and left hilum. 3. A few additional small nodular densities are seen, which are indeterminate in etiology, as not all of these are seen on the 2013 exam. Findings may represent an intercurrent inflammatory or infectious process (example the [id number]-type nodular opacities in the anterior inferior right upper lobe). Follow-up CT scan in 3 months is recommended to reassess the 0.6 x 0.3 cm nodule in the right upper lobe. 4. Enlarged central pulmonary arteries, consistent with pulmonary arterial hypertension. 4. Several other incidental findings as discussed above. 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 His chest x-ray was suggestive of a complete collapse of the left lower lobe probably from a thick mucous plug. Did respond to lasix and chest pt * Acute on chronic hypoxic and hypercarbic respiratory failure due to end-stage lung disease, with recent worsening related to severe COPD exacerbation, and Pseudomonas pneumonia. * Pseudomonas pna and bronchiectasis exacerbation * Significant pulmonary hypertension related to terminal lung disease * Functional quadriparesis related to cervical spine disease patient is not a candidate for any therapy * Lower extremity edema suggestive of acute on chronic cor pulmonale * Previous history of mediastinal lymphadenopathy * Small lung nodules of no clinical significance * Worsening overall performance status * Bilateral lower lobe atelectasis with restrictive pulmonary physiology as well related to severe pulmonary hypertension * 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 with previous negative QuantiFERON goal tests * 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 Also if no bm coudl try an enema * Lasix 40mg // and diamox 250 on sunday and sunday * Aggressive chest physical therapy to the left lower lobe with Mucomyst 2 times a day today. * Continue ceftaz for total of 10 to 14 days * Continue prednisone at 30 mg and taper * Keep the head of bed elevated * Periodex overall care 3 times a day * Prognosis is guarded. Patient wishes no significant aggressive therapy, but wishes to continue his present rx. IF his lung opens up his life expectance will be certainly more than 6 months * Repeat chest x-ray after chest physical therapy today Upon discharge Patient clearly qualifies for BiPAP at bedtime Diagnosis * COPD with baseline PCO2 more than 52. * Arterial blood gas done at stable condition showed pH of 7.31, PCO2 of 82, PaO2 of 94 at baseline on oxygen of 4 liters * Overnight oxygen saturation with nocturnal oximetry done. Patient had more than a hour and a half (more than 90 minutes) of significant hypoxemia with oxygen saturation less than 88% on his baseline oxygen which is 3 L/m of oxygen per nasal cannula) * Patient has significant respiratory muscle fatigue, hypercapnia, severe dyspnea with chronic respiratory failure. The symptoms persist after maximum medical therapy. * No evidence suggestive of obstructive sleep apnea and this is not the predominant cause of hypercapnia DNR and DNI and no agg rx if worse
[2017-05-24 10:30] VITALS: BP 122/68
--- NOTE | 2017-05-24 10:40 | PN- Cardiology ---
Subjective Subjective: I was asked to see this patient because of ventricular tachycardia on telemetry at 3 AM. Telemetry strip suggested wide complex tachycardia which could be aberrancy as well. The patient continues to feel well and is out of bed in a chair. Objective Vital Signs and I&Os Vital Signs Date Time Temp Pulse Resp B/P B/P Pulse O2 O2 Flow FiO2 Mean Ox Delivery Rate 05/24 1030 98.4 56 22 122/68 93 Nasal Cannula 05/24 0824 96 Nasal 40% Cannula 05/24 0824 86 96 05/24 0543 48 96 05/24 0023 63 96 05/24 0000 94 Nasal 40% Cannula 05/23 2342 98.7 72 26 118/74 96 05/23 2206 91 Nasal 40% Cannula 05/23 1910 92 Nasal 40% Cannula 05/23 1608 92 Nasal 40% Cannula 05/23 1503 97.6 68 20 112/60 93 Nasal Cannula Intake & Output 05/24 1600 05/24 0800 05/24 0000 05/23 1600 05/23 0800 05/23 0000 Intake Total 240 240 600 140 375 Output Total 450 153 576 3502 Balance 240 -210 0 -60 -875 Intake, IV 40 Intake, Oral 240 240 600 100 375 Number 0 Bowel Movements Output, Urine 450 162 554 3623 Physical Exam: Physical exam patient was comfortable out of bed in a chair admits to no complaints Head normocephalic atraumatic Eyes sclera anicteric conjunctiva showed no pallor extraocular muscles were normal Chest lungs are bilaterally Heart regular rhythm without murmurs Abdomen soft no organomegaly Extremities no clubbing cyanosis or edema. Neurological no gross motor sensory deficits. Current Medications: Current Medications Sig/Kyra Start time Last Medication Dose Route Stop Time Status Admin Acetazolamide 250 MG TuSa@1000 05/26 1000 AC Sodium Chloride 50 ML IV Acetazolamide 500 MG ONCE ONE 05/23 1400 DC 05/23 Sodium Chloride 50 ML IV 05/23 1429 1634 Acetylcysteine 2 ML BID 05/23 2200 AC 05/24 INH 0809 Acetylcysteine 2 ML TID 05/22 1600 DC 05/23 INH 0812 Albuterol Sulfate 3 ML EVERY 4 HRS/AWAKE 05/15 0800 AC 05/24 INH 0808 Aspirin 81 MG DAILY 05/14 1747 AC 05/24 PO 1007 Atorvastatin Calcium 40 MG 1700 05/17 1700 AC 05/23 PO 1630 Bisacodyl 10 MG ONCE PRN 05/22 0600 DC 05/23 AL 05/23 1700 1321 Budesonide/ 2 PUF BID 05/14 2200 AC 05/24 Formoterol Fumarate INH 1007 Carbamide Peroxide 5 GTT BID 05/18 2200 AC 05/23 OTIC 2132 Ceftazidime 1,000 MG Q12H 05/21 0530 AC 05/24 IV 0620 Chlorhexidine 15 ML TID 05/22 1254 AC 05/24 Gluconate PO 1008 Docusate Sodium 100 MG DAILY 05/24 1029 UNVr PO Ferrous Gluconate 325 MG BID 05/17 1051 AC 05/24 PO 1007 Furosemide 40 MG 05/25 1000 AC IV Furosemide 40 MG ONCE ONE 05/24 1030 DC IV 05/24 1031 Heparin Sodium 5,000 UNIT Q8 05/14 1743 AC 05/24 (Porcine) SC 0620 Ipratropium [place] 2.5 ML BID 05/23 2200 AC 05/23 INH 1557 Ipratropium [place] 2.5 ML EVERY 4 HRS/AWAKE 05/16 2000 DC 05/23 INH 1148 Nystatin 1 TWIN TID 05/22 2345 AC 05/24 TOP 1008 Omeprazole 40 MG DAILY AC 05/15 0700 AC 05/24 PO 1007 Polyethylene Glycol 17 GM DAILY 05/17 1435 AC 05/24 PO 1007 Prednisone 30 MG ONCE ONE 05/24 1045 UNVr PO 05/24 1046 Prednisone 20 MG ONCE ONE 05/23 1400 DC 05/23 PO 05/23 1401 1630 Prednisone 30 MG ONCE ONE 05/23 1315 CAN PO 05/23 1316 Senna 187 MG BID 05/24 2199 UNVr PO Senna 187 MG AT BEDTIME 05/17 220 DC 05/23 PO 2132 Results Last 48 Hrs of Labs/Mics: Laboratory Tests 05/24/17 0600: Sodium Cancelled, Potassium Cancelled, Chloride Cancelled, Carbon Dioxide Cancelled, Anion Gap Cancelled, BUN Cancelled, Creatinine Cancelled, BUN/ Creatinine Ratio Cancelled 05/24/17 0400: Anion Gap 9, Estimated GFR > 60, BUN/Creatinine Ratio 25.0, Calcium 8.2 L, Magnesium 1.9, Troponin I 0.08, CBC w Diff NO MAN DIFF REQ, RBC 2.91 L, MCV 102.6 H, MCH 32.6 H, RDW 19.5 H, MPV 10.0, Gran % 78.9 H, Lymphocytes % 11.3 L, Monocytes % 9.6 H, Eosinophils % 0.2, Basophils % 0, Absolute Granulocytes 6.1, Absolute Lymphocytes 0.9 L, Absolute Monocytes 0.7 H, Absolute Eosinophils 0, Absolute Basophils 0, PUBS MCHC 31.8 L 05/23/17 0614: Anion Gap 8, Estimated GFR > 60, BUN/Creatinine Ratio 42.0 H, CBC w Diff NO MAN DIFF REQ, RBC 2.88 L, MCV 101.4 H, MCH 33.0 H, RDW 20.1 H, MPV 9.8, Gran % 75.1, Lymphocytes % 13.2 L, Monocytes % 10.2 H, Eosinophils % 1.3, Basophils % 0.2, Absolute Granulocytes 7.4 H, Absolute Lymphocytes 1.3, Absolute Monocytes 1.0 H, Absolute Eosinophils 0.1, Absolute Basophils 0, PUBS MCHC 32.5 L Assessment/Plan Assessment/Plan In summary this 86-year-old gentleman has the following problems #1. Telemetry demonstrating wide complex tachycardia most likely aberrancy but but must consider ventricular tachycardia. He carries normal left ventricle systolic function by echocardiogram. His potassium is 3.8. In the past he has had some bradycardia running in the 40s. Etiology of tachycardia is uncertain but conservative strategy suggested in view of normal left renal systolic function and asymptomatic status. Low-dose beta mely namely metoprolol succinate 12.5 mg milligrams once a day, magnesium oxide 400 mg a day is suggested. Maintain oxygenation appropriately and make sure potassium is greater than 4.0. His overall status is complicated by multiple issues and in this particular case I would suggest conservative general medical care. Obviously if is any hemodynamic compromise can address it at that time. #2. End-stage COPD with admission with respiratory failure and hypercarbic respiratory failure. #3. Paramediastinal mass patient has refused workup. #4. Pseudomonas pneumonia. #5. Pulmonary hypertension probably related to end-stage COPD. Continue telemetry? Not applicable
[2017-05-24 14:54] VITALS: BP 120/54
[2017-05-24 23:51] VITALS: BP 110/60
[2017-05-25 05:54] VITALS: BP 120/60
--- NOTE | 2017-05-25 07:21 | PN- Housestaff ---
See Addendum Subjective Follow-up For: Acute on chronic hypercarbic and hypoxemic respiratory failure, pulmonary htn, hx of severe COPD, bronchiectasis, exacerbation with a pseudomonas pna Tele-Events Since Last Visit: Off telemeter monitoring gen med hold Subjective: Patient seen and examined. Resting comfortably in the bed. Easily arousable. Using BiPAP. Offers no complaints. Daughter by the bedside. Alert oriented 3. No overnight acute events. Review of Systems Constitutional: Reports: see HPI. Objective Last 24 Hrs of Vital Signs/I&O Vital Signs Date Time Temp Pulse Resp B/P B/P Pulse O2 O2 Flow FiO2 Mean Ox Delivery Rate 05/25 0554 99.0 60 20 120/60 96 05/25 0541 61 92 05/25 0343 53 98 05/25 0340 69 98 05/25 0051 55 97 05/25 0043 59 98 05/25 0000 Nasal 40% Cannula 05/24 2351 99.3 63 20 110/60 96 05/24 2234 61 94 05/24 1637 88 Nasal 40% Cannula 05/24 1600 Nasal 40% Cannula 05/24 1454 98.1 66 22 120/54 91 Nasal Cannula 05/24 1321 92 Nasal 40% Cannula 05/24 1243 122/68 05/24 1030 98.4 56 22 122/68 93 Nasal Cannula 05/24 0824 96 Nasal 40% Cannula 05/24 0824 86 96 05/24 0800 93 Nasal 40% Cannula Intake & Output 05/25 0800 05/25 0000 05/24 1600 Intake Total 420 600 450 Output Total 404 373 6388 Balance -180 350 -600 Intake, IV 300 0 Intake, Oral 120 600 450 Number 0 Bowel Movements Output, Urine 271 363 2363 Physical Exam General Appearance: Alert, Oriented X3, Cooperative Cardiovascular: Normal S1, Normal S2 Lungs: decreased breath sounds on the left base Current Medications: Current Medications Sig/Kyra Start time Last Medication Dose Route Stop Time Status Admin Acetazolamide 250 MG TuSa@1000 05/26 1000 AC Sodium Chloride 50 ML IV Acetylcysteine 2 ML BID 05/23 2200 AC 05/24 INH 1606 Albuterol Sulfate 3 ML EVERY 4 HRS/AWAKE 05/15 0800 AC 05/24 INH 1935 Aspirin 81 MG DAILY 05/14 1747 AC 05/24 PO 1007 Atorvastatin Calcium 40 MG 1700 01/04 1700 AC 05/24 PO 1635 Budesonide/ 2 PUF BID 05/14 2200 AC 05/24 Formoterol Fumarate INH 2055 Carbamide Peroxide 5 GTT BID 05/18 2200 AC 05/23 OTIC 2132 Ceftazidime 1,000 MG Q12H 05/21 0530 DC 05/24 IV 1635 Chlorhexidine 15 ML TID 05/22 1254 AC 05/24 Gluconate PO 2055 Docusate Sodium 100 MG DAILY 05/24 1029 AC 05/24 PO 1130 Ferrous Gluconate 325 MG BID 05/17 1051 AC 05/24 PO 205 Furosemide 40 MG 05/25 1000 DC IV Furosemide 40 MG DAILY 05/25 1000 AC PO Furosemide 40 MG ONCE ONE 05/24 1030 DC 05/24 IV 05/24 1031 1131 Heparin Sodium 5,000 UNIT Q8 05/14 1743 AC 05/25 (Porcine) SC 0643 Ipratropium [place] 2.5 ML BID 05/23 220 AC 05/24 INH 1935 Magnesium Oxide 400 MG DAILY 05/24 1116 AC 05/24 PO 1242 Metoprolol Succinate 12.5 MG DAILY 05/24 1116 AC 05/24 PO 1243 Nystatin 1 TWIN TID 05/22 2345 AC 05/24 TOP 2056 Omeprazole 40 MG DAILY AC 05/15 0700 AC 05/25 PO 0645 Polyethylene Glycol 17 GM DAILY 05/17 1435 AC 05/24 PO 1007 Potassium Chloride 20 MEQ DAILY 05/25 1000 AC PO Potassium Chloride 40 MEQ ONCE ONE 05/24 1200 DC 05/24 PO 05/24 1201 1242 Prednisone 10 MG DAILY 05/29 1000 AC PO 05/30 1001 Prednisone 20 MG DAILY 05/27 1000 AC PO 05/28 1001 Prednisone 30 MG DAILY 05/25 1000 CAN PO 05/31 0959 Prednisone 30 MG DAILY 05/25 1000 AC PO 05/26 1001 Prednisone 30 MG ONCE ONE 05/24 1045 DC 05/24 PO 05/24 1046 1130 Senna 187 MG BID 05/24 2199 AC 05/24 PO 2055 Senna 187 MG AT BEDTIME 05/17 2200 DC 05/23 PO 2132 Sodium Phosphate 1 UNIT ONCE ONE 05/24 1115 DC 05/24 [place] 05/24 1116 1243 Assessment/Plan Assessment: Patient is an 86-year-old gentleman, with multiple medical problems brought to the [facility] with chief complaints of fatigue, lethargic, for persistent hypoxia. -He is being treated and evaluated for following conditions #Acute on chronic hypoxic/hypercarbic respiratory failure due to end-stage COPD exacerbation secondary to Pseudomonas pneumonia * Continue IV ceftazidime to complete a 10 day course day. Last day today * Continue tapering steroid Prednisone 30 mg today as per pulmonology. * Continue BiPAP overnight. we will try to wean him off high flow oxygen to [place] * Aggressive chest physical therapy with Mucomyst twice again today * Continue to 250 Diamox on Tuesdays and Saturdays. * Continue IV Lasix 40 mg daily * CXR on 01/23 suggestive of complete collapse of the left lower lobe probably from a thick mucous plug. Follow-up repeat chest x-ray does not show any improvement. * will follow up with for further reccmendations and goals of care #Nonsustained run of ventricular tachycardia Patient had a 20 beat run of tachycardia on 3am 05/24. Telemetry strip suggested wide complex tachycardia.Potassium and magnesium levels within normal limits, ejection fraction 60-65%. * As per Cardiology it is most likely aberrancy but must consider ventricular tachycardia. * Started patient on low-dose of metoprolol 12.5 once daily and mgoxide 400 once daily #Constipation Patient has not had a bowel movement since past 5-6 days. * Senna twice a day MiraLAX and docusate daily, fleet enema if there is no BM #Terminal Hematuria-Resolved * Terminal Heamturia voiding mostly clear urine and then has blood from urethra at end of voiding, no active intervention outpt f/u #Type II DC secondary to demand ischemia * We will continue aspirin and antibiotic to treat the primary disease. Code status - DNR/DNI DVT prophylaxis - Heparin Diet -Regular diet Problem List: 1. Bacterial pneumonia 2. COPD exacerbation 3. Pleural effusion 4. Pseudomonas pneumonia 5. Hypercapnic respiratory failure Pain Ratin Pain Location: n/a Pain Goal: Pain 4 or less Pain Plan: prn Tomorrow's Labs & Rationales: as saniya kothari
--- NOTE | 2017-05-25 09:31 | PN- Pulmonary ---
Subjective HPI/Critical Care Issues: Status quo Still coughing at times LEft lower lobe is still atelectatic Did ok on bipap ON high flow Objective Current Medications: Current Medications Sig/Kyra Start time Last Medication Dose Route Stop Time Status Admin Acetazolamide 250 MG TuSa@1000 05/26 1000 AC Sodium Chloride 50 ML IV Acetylcysteine 2 ML BID 05/23 2200 AC 05/25 INH 0816 Albuterol Sulfate 3 ML EVERY 4 HRS/AWAKE 05/15 0800 AC 05/25 INH 0815 Aspirin 81 MG DAILY 05/14 1747 AC 05/25 PO 0810 Atorvastatin Calcium 40 MG 1700 05/17 1700 AC 05/24 PO 1635 Budesonide/ 2 PUF BID 05/14 2200 AC 05/25 Formoterol Fumarate INH 0812 Carbamide Peroxide 5 GTT BID 05/18 2200 AC 05/25 OTIC 0813 Ceftazidime 1,000 MG Q12H 05/21 0530 DC 05/24 IV 1635 Chlorhexidine 15 ML TID 05/22 1254 AC 05/25 Gluconate PO 0812 Docusate Sodium 100 MG DAILY 05/24 1029 AC 05/25 PO 0810 Ferrous Gluconate 325 MG BID 05/17 1051 AC 05/25 PO 0810 Furosemide 40 MG 05/25 1000 DC IV Furosemide 40 MG DAILY 05/25 1000 AC 05/25 PO 0811 Furosemide 40 MG ONCE ONE 05/24 1030 DC 05/24 IV 05/24 1031 1131 Heparin Sodium 5,000 UNIT Q8 05/14 1743 AC 05/25 (Porcine) SC 0643 Ipratropium [place] 2.5 ML BID 05/23 2200 AC 05/25 INH 0816 Magnesium Oxide 400 MG DAILY 05/24 1116 AC 05/25 PO 0812 Metoprolol Succinate 12.5 MG DAILY 05/24 1116 AC 05/25 PO 0806 Nystatin 1 TWIN TID 05/22 2345 AC 05/25 TOP 0813 Omeprazole 40 MG DAILY AC 05/15 0700 AC 05/25 PO 0645 Polyethylene Glycol 17 GM DAILY 05/17 1435 AC 05/25 PO 0808 Potassium Chloride 20 MEQ DAILY 05/25 1000 AC 05/25 PO 0811 Potassium Chloride 40 MEQ ONCE ONE 05/24 1200 DC 05/24 PO 05/24 1201 1242 Prednisone 10 MG DAILY 01/16 1000 AC PO 05/30 1001 Prednisone 20 MG DAILY 05/27 1000 AC PO 05/28 1001 Prednisone 30 MG DAILY 05/25 1000 CAN PO 05/31 0959 Prednisone 30 MG DAILY 05/25 1000 AC 05/25 PO 05/26 1001 0807 Prednisone 30 MG ONCE ONE 05/24 1045 DC 05/24 PO 05/24 1046 1130 Senna 187 MG BID 05/24 2200 AC 05/25 PO 0810 Senna 187 MG AT BEDTIME 05/17 2200 DC 05/23 PO 2132 Sodium Phosphate 1 UNIT ONCE ONE 05/25 0900 DC [place] 05/25 0901 Sodium Phosphate 1 UNIT ONCE ONE 05/24 1115 DC 05/24 [place] 05/24 1116 1243 Vital Signs & I&O Last 24 Hrs of Vitals and I&O: Vital Signs Date Time Temp Pulse Resp B/P B/P Pulse O2 O2 Flow FiO2 Mean Ox Delivery Rate 05/25 0822 89 Nasal 40% Cannula 05/25 0806 60 120/60 05/25 0554 99.0 60 20 120/60 96 05/25 0541 61 92 05/25 0343 53 98 05/25 0340 69 98 05/25 0051 55 97 05/25 0043 59 98 05/25 0000 Nasal 40% Cannula 05/24 2351 99.3 63 20 110/60 96 05/24 2234 61 94 05/24 1637 88 Nasal 40% Cannula 05/24 1600 Nasal 40% Cannula 05/24 1454 98.1 66 22 120/54 91 Nasal Cannula 05/24 1321 92 Nasal 40% Cannula 05/24 1243 122/68 05/24 1030 98.4 56 22 122/68 93 Nasal Cannula Intake & Output 05/25 1600 05/25 0800 05/25 0000 Intake Total 420 600 Output Total 600 250 Balance -180 350 Intake, IV 300 Intake, Oral 120 600 Output, Urine 600 250 Impression/Plan Impression/Plan Impression/Plan: PRevious ct IMPRESSION: 1. Chronic mass effect upon the right middle lobe and both lower lobe bronchi is seen by an enlarged central pulmonary arteries leading to chronic volume loss and consolidation in these lobes. Compared to 2012, findings are very similar. Upper lobes remain relatively clear. Findings raise the suspicion of pulmonary arterial hypertension in the setting of obstructive lung disease. Clinical correlation requested. 2. Evidence of prior granulomatous disease with scattered calcified granulomas in the lungs and calcified nodes seen in the mediastinum and left hilum. 3. A few additional small nodular densities are seen, which are indeterminate in etiology, as not all of these are seen on the 2013 exam. Findings may represent an intercurrent inflammatory or infectious process (example the [id number]-type nodular opacities in the anterior inferior right upper lobe). Follow-up CT scan in 3 months is recommended to reassess the 0.6 x 0.3 cm nodule in the right upper lobe. 4. Enlarged central pulmonary arteries, consistent with pulmonary arterial hypertension. 4. Several other incidental findings as discussed above. 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 His chest x-ray was suggestive of a complete collapse of the left lower lobe probably from a thick mucous plug. 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 * Pseudomonas pna and bronchiectasis exacerbation * Significant pulmonary hypertension related to terminal lung disease * Functional quadriparesis related to cervical spine disease patient is not a candidate for any therapy * Lower extremity edema suggestive of acute on chronic cor pulmonale * Previous history of mediastinal lymphadenopathy * Small lung nodules of no clinical significance * Worsening overall performance status * Bilateral lower lobe atelectasis with restrictive pulmonary physiology as well related to severe pulmonary hypertension * 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 with previous negative QuantiFERON goal tests * 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 May need a rectal with manual disimpaction * Lasix 40mg M// and diamox 250 on sunday and sunday * Keep potassium at more than 4, check magnesium and keep more than 2 * Aggressive chest physical therapy to the left lower lobe with Mucomyst 2 times a day today. * Continue ceftaz for total of 10 to 14 days * Continue prednisone at 30 mg and taper when better * Keep the head of bed elevated * Periodex overall care 3 times a day * Prognosis is guarded. Patient wishes no significant aggressive therapy, but wishes to continue his present rx. IF his lung opens up his life expectance will be certainly more than 6 months * OOB to chair and PT Upon discharge Patient clearly qualifies for BiPAP at bedtime Diagnosis * COPD with baseline PCO2 more than 52. * Arterial blood gas done at stable condition showed pH of 7.31, PCO2 of 82, PaO2 of 94 at baseline on oxygen of 4 liters * Overnight oxygen saturation with nocturnal oximetry done. Patient had more than a hour and a half (more than 90 minutes) of significant hypoxemia with oxygen saturation less than 88% on his baseline oxygen which is 3 L/m of oxygen per nasal cannula) * Patient has significant respiratory muscle fatigue, hypercapnia, severe dyspnea with chronic respiratory failure. The symptoms persist after maximum medical therapy. * No evidence suggestive of obstructive sleep apnea and this is not the predominant cause of hypercapnia DNR and DNI and no agg rx if worse
--- NOTE | 2017-05-25 11:10 | PN- Cardiology ---
Subjective Subjective: Resting comfortably on high flow oxygen. Objective Vital Signs and I&Os Vital Signs Date Time Temp Pulse Resp B/P B/P Pulse O2 O2 Flow FiO2 Mean Ox Delivery Rate 05/25 0900 Nasal 40% Cannula 05/25 0822 89 Nasal 40% Cannula 05/25 0806 60 120/60 05/25 0554 99.0 60 20 120/60 96 05/25 0541 61 92 05/25 0343 53 98 05/25 0340 69 98 05/25 0051 55 97 05/25 0043 59 98 05/25 0000 Nasal 40% Cannula 05/24 2351 99.3 63 20 110/60 96 05/24 2234 61 94 05/24 1637 88 Nasal 40% Cannula 05/24 1600 Nasal 40% Cannula 05/24 1454 98.1 66 22 120/54 91 Nasal Cannula 05/24 1321 92 Nasal 40% Cannula 05/24 1243 122/68 Intake & Output 05/25 1600 05/25 0800 05/25 0000 05/24 1600 05/24 0800 05/24 0000 Intake Total 420 600 450 240 240 Output Total 721 646 3571 450 Balance -180 350 -600 240 -210 Intake, IV 300 0 Intake, Oral 120 600 450 240 240 Number 0 Bowel Movements Output, Urine [phone] 450 Physical Exam: General: no apparent distress. Alert. On high flow nasal cannula oxygen Eyes: No obvious scleral icterus. HEENT: No jugular venous distention or abnormal jugular venous pulsations. Cardiovascular: Normal intensity S1/S2. PMI not grossly displaced. Respiratory: Decreased air entry bilaterally Abdomen: Soft, nontender with no guarding or rebound tenderness. Musculoskeletal: No clubbing or cyanosis noted; trace lower extremity edema Skin: warm Neurologic: No gross focal deficits noted. Current Medications: Current Medications Sig/Kyra Start time Last Medication Dose Route Stop Time Status Admin Acetazolamide 250 MG TuSa@1000 05/26 1000 AC Sodium Chloride 50 ML IV Acetylcysteine 2 ML BID 05/23 2200 AC 05/25 INH 0816 Albuterol Sulfate 3 ML EVERY 4 HRS/AWAKE 05/15 08 AC 05/25 INH 0815 Aspirin 81 MG DAILY 05/14 1747 AC 05/25 PO 0810 Atorvastatin Calcium 40 MG 1700 05/17 1700 AC 05/24 PO 1635 Budesonide/ 2 PUF BID 05/14 220 AC 05/25 Formoterol Fumarate INH 0812 Carbamide Peroxide 5 GTT BID 05/18 2200 AC 05/25 OTIC 0813 Ceftazidime 1,000 MG Q12H 05/21 0530 DC 05/24 IV 1635 Chlorhexidine 15 ML TID 05/22 1254 AC 05/25 Gluconate PO 0812 Docusate Sodium 100 MG DAILY 05/24 1029 AC 05/25 PO 0810 Ferrous Gluconate 325 MG BID 05/17 1051 AC 05/25 PO 0810 Furosemide 40 MG 05/25 1000 DC IV Furosemide 40 MG DAILY 05/25 1000 AC 05/25 PO 0811 Heparin Sodium 5,000 UNIT Q8 05/14 1743 AC 05/25 (Porcine) SC 0643 Ipratropium [place] 2.5 ML BID 05/23 2200 AC 05/25 INH 0816 Magnesium Oxide 400 MG DAILY 05/24 1116 AC 05/25 PO 0812 Metoprolol Succinate 12.5 MG DAILY 05/24 1116 AC 05/25 PO 0806 Nystatin 1 TWIN TID 05/22 2345 AC 05/25 TOP 0813 Omeprazole 40 MG DAILY AC 05/15 0700 AC 05/25 PO 0645 Polyethylene Glycol 17 GM DAILY 05/17 1435 AC 05/25 PO 0808 Potassium Chloride 20 MEQ DAILY 05/25 1000 AC 05/25 PO 0811 Potassium Chloride 40 MEQ ONCE ONE 05/24 1200 DC 05/24 PO 05/24 1201 1242 Prednisone 10 MG DAILY 05/29 1000 AC PO 05/30 1001 Prednisone 20 MG DAILY 05/27 1000 AC PO 05/28 1001 Prednisone 30 MG DAILY 05/25 1000 CAN PO 05/31 0959 Prednisone 30 MG DAILY 05/25 1000 AC 05/25 PO 05/26 1001 0807 Senna 187 MG BID 05/24 2200 AC 05/25 PO 0810 Sodium Phosphate 1 UNIT ONCE ONE 05/25 0900 DC [place] 05/25 0901 Sodium Phosphate 1 UNIT ONCE ONE 05/24 1115 DC 05/24 [place] 05/24 1116 1243 Results Last 48 Hrs of Labs/Mics: Laboratory Tests 05/24/17 0600: Sodium Cancelled, Potassium Cancelled, Chloride Cancelled, Carbon Dioxide Cancelled, Anion Gap Cancelled, BUN Cancelled, Creatinine Cancelled, BUN/ Creatinine Ratio Cancelled 05/24/17 0400: Anion Gap 9, Estimated GFR > 60, BUN/Creatinine Ratio 25.0, Calcium 8.2 L, Magnesium 1.9, Troponin I 0.08, CBC w Diff NO MAN DIFF REQ, RBC 2.91 L, MCV 102.6 H, MCH 32.6 H, RDW 19.5 H, MPV 10.0, Gran % 78.9 H, Lymphocytes % 11.3 L, Monocytes % 9.6 H, Eosinophils % 0.2, Basophils % 0, Absolute Granulocytes 6.1, Absolute Lymphocytes 0.9 L, Absolute Monocytes 0.7 H, Absolute Eosinophils 0, Absolute Basophils 0, PUBS MCHC 31.8 L Recent Imaging Studies: Not on telemetry Assessment/Plan Assessment/Plan 1. Shortness of breath secondary to an acute exacerbation of end-stage COPD 2. Elevated troponins secondary to demand ischemia. 3. Hypertension 4. Hyperlipidemia 5. Large left sided paramediastinal mass... family refused workup 6. 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 Pulmonary hypertension Cardiac status appears stable. Would continue the low-dose beta mely. Blood pressure remains stable. Please call with any additional cardiac questions or concerns. Martin Platt MD [facility] Continue telemetry? Not applicable
--- NOTE | 2017-05-25 12:32 | RADIOLOGY REPORT ---
EXAMINATION: XR PORTABLE CHEST CLINICAL INFORMATION: Check for resolution of left lung collapse. COMPARISON: Chest x-rays 05/23/2017 and 05/24/2017. TECHNIQUE: A 75 degrees AP portable semierect view of the chest was obtained. FINDINGS: The study redemonstrates the volume loss in the left lung with mediastinal shift to the left. Dense opacity at the left mid and lower zones is unchanged. The study redemonstrates some patchy opacities in the residual aerated upper lung zone. There has been no interval change in the left-sided pleural effusion. The right lung is well-expanded. Linear opacities at the left base are consistent with atelectasis. There may be a small right-sided pleural effusion. The cardiac silhouette is prominent but stable. The aortic arch is unfolded and calcified. IMPRESSION: 1. The study redemonstrates volume loss in the left mid and lower zones with consolidation and a small pleural effusion. The findings appear relatively stable. 2. There is stable cardiomegaly and mediastinal shift to the left.
[2017-05-25 14:32] VITALS: BP 112/58
[2017-05-25 23:36] VITALS: BP 116/60
--- NOTE | 2017-05-26 10:32 | PN- Att Addend ---
Attending Addendum Attending Brief Note Patient seen and examined. Resting comfortably on multiple acute distress. He was still on BiPAP therapy when I evaluated him this morning. Apparently therapy was initiated late overnight. Was eventually taken off BiPAP and placed on high flow oxygen saturation 93% on 60% FiO2. Patient continues to follow complaints. Family reports no issues overnight. He denies chest pain. Denies palpitations. Denies abdominal pain. Tolerating his meals. Vital Signs Date Time Temp Pulse Resp B/P B/P Pulse O2 O2 Flow FiO2 Mean Ox Delivery Rate 05/26 0801 93 Nasal 60% Cannula 05/26 0901 93 05/26 0806 93 40 05/26 0532 61 94 05/26 0207 66 94 05/26 0000 92 Nasal 60% Cannula 05/25 2336 98.2 68 20 116/60 94 05/25 1921 90 Nasal 60% Cannula 05/25 1631 90 Nasal 40% Cannula 05/25 1432 98.0 72 20 112/58 92 Nasal Cannula Intake & Output 05/26 1600 05/26 0800 05/26 0000 Intake Total 120 240 Output Total 100 Balance 20 240 Intake, Oral 120 240 Number 0 0 Bowel Movements Output, Urine 100 Appearance: Chronically ill looking. Heart: S1-S2 regular lungs: Diminished breath sounds bilaterally. Abdomen: Soft, nontender with normal bowel sounds Extremities: Lower extremity edema has resolved Skin: Intact Neurologic: Alert and oriented 3. Problems: 1. Acute on chronic hypoxic and hypercapnic respiratory failure 2. Left lower lobe collapse presumed to be secondary to mucous plugging. 3. Advanced COPD 4. Pseudomonas pneumonia 5. Severe pulmonary hypertension 6. Acute on chronic cor pulmonale 7. Significant deconditioning. Recommendations: -Patient continues to require high flow oxygen currently on FiO2 of 60%. -Patient has completed 10 days of antibiotic therapy with IV cefazolin. Follow up with the pulmonology service regarding need to continue antibiotic therapy. -Consider continuing respiratory management at the long-term acute care facility if his FiO2 is able to be weaned below 50%.
--- NOTE | 2017-05-26 11:32 | PN- Pulmonary ---
Subjective HPI/Critical Care Issues: Relatively stable now on high flow Was on bipap last night Patient continues to follow complaints. Family reports no issues overnight. He denies chest pain. Denies palpitations. Denies abdominal pain. Tolerating his meals. Objective Current Medications: Current Medications Sig/Kyra Start time Last Medication Dose Route Stop Time Status Admin Acetazolamide 250 MG TuSa@1000 05/26 1000 CAN Sodium Chloride 50 ML IV Acetazolamide 250 MG TuSa@1000 05/26 1000 AC 05/26 PO 1107 Acetylcysteine 2 ML BID 05/23 2200 AC 05/26 INH 0800 Albuterol Sulfate 3 ML EVERY 4 HRS/AWAKE 05/15 0800 AC 05/26 INH 0800 Aspirin 81 MG DAILY 05/14 1747 AC 05/26 PO 1106 Atorvastatin Calcium 40 MG 1700 05/17 1700 AC 05/25 PO 1554 Budesonide/ 2 PUF BID 05/14 2200 AC 05/26 Formoterol Fumarate INH 1109 Carbamide Peroxide 5 GTT BID 05/18 2200 AC 05/25 OTIC 0813 Chlorhexidine 15 ML TID 05/22 1254 AC 05/26 Gluconate PO 1110 Docusate Sodium 100 MG DAILY 05/24 1029 AC 05/26 PO 1106 Ferrous Gluconate 325 MG BID 05/17 1051 AC 05/26 PO 1106 Furosemide 40 MG DAILY 05/25 1000 AC 05/26 PO 1107 Heparin Sodium 5,000 UNIT Q8 05/14 1743 AC 05/26 (Porcine) SC 0551 Ipratropium [place] 2.5 ML BID 05/23 2200 AC 05/26 INH 0800 Magnesium Oxide 400 MG DAILY 05/24 1116 AC 05/26 PO 1107 Metoprolol Succinate 12.5 MG DAILY 05/24 1116 AC 05/25 PO 0806 Nystatin 1 TWIN TID 05/22 2345 AC 05/25 TOP 2045 Omeprazole 40 MG DAILY AC 05/15 0700 AC 05/26 PO 1107 Polyethylene Glycol 17 GM DAILY 05/17 1435 AC 05/26 PO 1105 Potassium Chloride 20 MEQ DAILY 05/25 1000 AC 05/26 PO 1106 Prednisone 10 MG DAILY 05/29 1000 AC PO 05/30 1001 Prednisone 20 MG DAILY 05/27 1000 AC PO 05/28 1001 Prednisone 30 MG DAILY 05/25 1000 DC 05/26 PO 05/26 1001 1107 Senna 187 MG BID 05/24 2200 AC 05/26 PO 1107 Vital Signs & I&O Last 24 Hrs of Vitals and I&O: Vital Signs Date Time Temp Pulse Resp B/P B/P Pulse O2 O2 Flow FiO2 Mean Ox Delivery Rate 05/26 0901 93 Nasal 60% Cannula 05/26 0901 93 05/26 0806 93 40 05/26 0532 61 94 05/26 0207 66 94 05/26 0000 92 Nasal 60% Cannula 05/25 2336 98.2 68 20 116/60 94 05/25 1921 90 Nasal 60% Cannula 05/25 1631 90 Nasal 40% Cannula 05/25 1432 98.0 72 20 112/58 92 Nasal Cannula Intake & Output 05/26 1600 05/26 0800 05/26 0000 Intake Total 120 240 Output Total 100 Balance 20 240 Intake, Oral 120 240 Number 0 0 Bowel Movements Output, Urine 100 Impression/Plan Impression/Plan Impression/Plan: PRevious ct IMPRESSION: 1. Chronic mass effect upon the right middle lobe and both lower lobe bronchi is seen by an enlarged central pulmonary arteries leading to chronic volume loss and consolidation in these lobes. Compared to 2013, findings are very similar. Upper lobes remain relatively clear. Findings raise the suspicion of pulmonary arterial hypertension in the setting of obstructive lung disease. Clinical correlation requested. 2. Evidence of prior granulomatous disease with scattered calcified granulomas in the lungs and calcified nodes seen in the mediastinum and left hilum. 3. A few additional small nodular densities are seen, which are indeterminate in etiology, as not all of these are seen on the 2013 exam. Findings may represent an intercurrent inflammatory or infectious process (example the [id number]-type nodular opacities in the anterior inferior right upper lobe). Follow-up CT scan in 3 months is recommended to reassess the 0.6 x 0.3 cm nodule in the right upper lobe. 4. Enlarged central pulmonary arteries, consistent with pulmonary arterial hypertension. 4. Several other incidental findings as discussed above. 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 His chest x-ray was suggestive of a complete collapse of the left lower lobe probably from a thick mucous plug. 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 * Pseudomonas pna and bronchiectasis exacerbation * Significant pulmonary hypertension related to terminal lung disease * Functional quadriparesis related to cervical spine disease patient is not a candidate for any therapy * Lower extremity edema suggestive of acute on chronic cor pulmonale * Previous history of mediastinal lymphadenopathy * Small lung nodules of no clinical significance * Worsening overall performance status * Bilateral lower lobe atelectasis with restrictive pulmonary physiology as well related to severe pulmonary hypertension * 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 with previous negative QuantiFERON goal tests * 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 * Continue ceftaz for total 14 days as he has bertha not making progress * Continue prednisone at 30 mg and taper when better * Keep the head of bed elevated * Periodex overall care 3 times a day * Prognosis is guarded. Patient wishes no significant aggressive therapy, but wishes to continue his present rx. IF his lung opens up his life expectance will be certainly more than 6 months * OOB to chair and PT IF worse will discuss further options Upon discharge Patient clearly qualifies for BiPAP at bedtime Diagnosis * COPD with baseline PCO2 more than 52. * Arterial blood gas done at stable condition showed pH of 7.31, PCO2 of 82, PaO2 of 94 at baseline on oxygen of 4 liters * Overnight oxygen saturation with nocturnal oximetry done. Patient had more than a hour and a half (more than 90 minutes) of significant hypoxemia with oxygen saturation less than 88% on his baseline oxygen which is 3 L/m of oxygen per nasal cannula) * Patient has significant respiratory muscle fatigue, hypercapnia, severe dyspnea with chronic respiratory failure. The symptoms persist after maximum medical therapy. * No evidence suggestive of obstructive sleep apnea and this is not the predominant cause of hypercapnia DNR and DNI and no agg rx if worse
--- NOTE | 2017-05-26 11:40 | PN- Housestaff ---
Subjective Follow-up For: Acute on chronic hypercarbic and hypoxemic respiratory failure, pulmonary htn, hx of severe COPD, bronchiectasis, exacerbation with a pseudomonas pna Complaints: no complaints Review of Systems Constitutional: Reports: no symptoms. Objective Last 24 Hrs of Vital Signs/I&O Vital Signs Date Time Temp Pulse Resp B/P B/P Pulse O2 O2 Flow FiO2 Mean Ox Delivery Rate 05/26 2314 98.4 68 16 116/68 95 Nasal 40% Cannula 05/26 2245 67 94 05/26 2140 94 Nasal 40% Cannula 05/26 1627 98 Nasal 60% Cannula 05/26 1600 96 Nasal 50% Cannula 05/26 1403 76 106/44 05/26 1400 98.8 76 24 106/44 96 60% 05/26 0901 93 Nasal 60% Cannula 05/26 0901 93 05/26 0806 93 40 05/26 0800 94 BIPAP 60% 05/26 0532 61 94 05/26 0207 66 94 05/26 0000 92 Nasal 60% Cannula Intake & Output 05/26 1600 05/26 0800 05/26 0000 Intake Total 490 120 240 Output Total 225 100 Balance 265 20 240 Intake, Oral 490 120 240 Number 0 0 Bowel Movements Output, Urine 225 100 Physical Exam General Appearance: Alert, Cooperative, No Acute Distress Cardiovascular: Normal S1, Normal S2, No Murmurs Lungs: Normal Air Movement Abdomen: Soft, No Tenderness Current Medications: Current Medications Sig/Kyra Start time Last Medication Dose Route Stop Time Status Admin Acetazolamide 250 MG TuSa@1000 05/26 1000 AC 05/26 PO 1107 Acetylcysteine 2 ML BID 05/23 2199 AC 05/26 INH 2022 Albuterol Sulfate 3 ML EVERY 4 HRS/AWAKE 05/15 0800 AC 05/26 INH 2022 Aspirin 81 MG DAILY 05/14 1747 AC 05/26 PO 1106 Atorvastatin Calcium 40 MG 1700 05/17 1700 AC 05/26 PO 1644 Budesonide/ 2 PUF BID 05/14 220 AC 05/26 Formoterol Fumarate INH 2213 Carbamide Peroxide 5 GTT BID 05/18 220 AC 05/25 OTIC 0813 Ceftazidime 1,000 MG Q12H 05/26 1500 AC 05/26 IV 1644 Chlorhexidine 15 ML TID 05/22 1254 AC 05/26 Gluconate PO 220 Docusate Sodium 100 MG DAILY 05/24 1029 AC 05/26 PO 1106 Ferrous Gluconate 325 MG BID 05/17 1051 AC 05/26 PO 2207 Furosemide 40 MG DAILY 05/27 1000 AC IV Furosemide 40 MG DAILY 05/25 1000 DC 05/26 PO 1107 Heparin Sodium 5,000 UNIT Q8 05/14 1743 AC 05/26 (Porcine) SC 2207 Ipratropium [place] 2.5 ML BID 05/23 2200 AC 05/26 INH 1622 Magnesium Oxide 400 MG DAILY 05/24 1116 AC 05/26 PO 1107 Metoprolol Succinate 12.5 MG DAILY 05/24 1116 AC 05/26 PO 1403 Nystatin 1 TWIN TID 05/22 2345 AC 05/26 TOP 2208 Omeprazole 40 MG DAILY AC 05/15 0700 AC 05/26 PO 1107 Polyethylene Glycol 17 GM DAILY 05/17 1435 AC 05/26 PO 1105 Potassium Chloride 20 MEQ DAILY 05/25 1000 AC 05/26 PO 1106 Prednisone 10 MG DAILY 05/29 1000 AC PO 05/30 1001 Prednisone 20 MG DAILY 05/27 1000 AC PO 05/28 1001 Prednisone 30 MG DAILY 05/25 1000 DC 05/26 PO 05/26 1001 1107 Senna 187 MG BID 05/24 2200 AC 05/26 PO 2207 Last 24 Hrs of Lab/Nikolas Results Last 24 Hrs of Labs/Mics: Laboratory Tests 05/26/17 0605: Anion Gap 9, Estimated GFR > 60, BUN/Creatinine Ratio 31.4 H, Magnesium 1.9 Assessment/Plan Assessment: Patient is an 86-year-old gentleman, with multiple medical problems brought to the [facility] with chief complaints of fatigue, lethargic, for persistent hypoxia. -He is being treated and evaluated for following conditions #Acute on chronic hypoxic/hypercarbic respiratory failure due to end-stage COPD exacerbation secondary to Pseudomonas pneumonia * antibiotics had been stopped at 10 days. restart for next 4 days for a total 14 days * patient is on fi02 nonrebreather 60%. wean to below 50%. bipap at night. * Continue tapering steroid Prednisone 30 mg today as per pulmonology. * Aggressive chest physical therapy with Mucomyst twice again today * Continue to 250 Diamox on Tuesdays and Saturdays. * Continue IV Lasix 40 mg daily now and when discharged give 40mg lasix m,w,f * CXR on 01/23 suggestive of complete collapse of the left lower lobe probably from a thick mucous plug. Follow-up repeat chest x-ray does not show any improvement. * will follow up with for further reccmendations and goals of care #Nonsustained run of ventricular tachycardia Patient had a 20 beat run of tachycardia on 3am 05/24. Telemetry strip suggested wide complex tachycardia.Potassium and magnesium levels within normal limits, ejection fraction 60-65%. * As per Cardiology it is most likely aberrancy but must consider ventricular tachycardia. * cnt low-dose of metoprolol 12.5 once daily and mgoxide 400 once daily * held metopolol today because lasix and diamox given and blood pressure expected to dip * will recheck bp and dose #Constipation Patient has not had a bowel movement since past 5-6 days. * Senna twice a day MiraLAX and docusate daily, fleet enema if there is no BM #Terminal Hematuria-Resolved * Terminal Heamturia voiding mostly clear urine and then has blood from urethra at end of voiding, no active intervention outpt f/u #Type II [place] secondary to demand ischemia * We will continue aspirin and antibiotic to treat the primary disease. Code status - DNR/DNI DVT prophylaxis - Heparin Diet -Regular diet Problem List: 1. Pseudomonas pneumonia 2. Hypercapnic respiratory failure 3. Pleural effusion 4. COPD exacerbation Pain Ratin Pain Location: back Pain Goal: Pain 4 or less Pain Plan: pathway Tomorrow's Labs & Rationales: cbc bep
[2017-05-26 14:00] VITALS: BP 106/44
[2017-05-26 23:14] VITALS: BP 116/68
--- NOTE | 2017-05-27 05:13 | PN- Housestaff ---
See Addendum Subjective Follow-up For: End stage COPD on BiPAP Pseudomonas pneumonia on ceftazidime Complaints: no complaints Tele-Events Since Last Visit: Off telemetry Subjective: Patient is seen and examined at the bedside. He does not have any active complaints. He tolerated the BiPAP overnight and was on 40% high flow. We had a family meeting regarding hospice care. We discussed about his medical condition. We advised that we will discuss it with Dr. Arzate. We also updated that he is improving, and if needed or he get deteriorated, then we will rethink about hospice care. Review of Systems Constitutional: Denies: no symptoms. Objective Last 24 Hrs of Vital Signs/I&O Vital Signs Date Time Temp Pulse Resp B/P B/P Pulse O2 O2 Flow FiO2 Mean Ox Delivery Rate 05/27 0941 74 104/46 05/27 0833 89 Nasal 40% Cannula 05/27 0709 97.0 69 18 102/52 96 Nasal Cannula 05/27 0014 59 95 05/27 0000 96 BIPAP 05/26 2314 98.4 68 16 116/68 95 Nasal 40% Cannula 05/26 2245 67 94 05/26 2140 94 Nasal 40% Cannula 05/26 1627 98 Nasal 60% Cannula 05/26 1600 96 Nasal 50% Cannula 05/26 1403 76 106/44 05/26 1400 98.8 76 24 10644 96 60% Intake & Output 05/27 1600 05/27 0800 05/27 0000 Intake Total 110 680 Output Total 400 Balance 110 280 Intake, IV 10 Intake, Oral 100 680 Output, Urine 400 Physical Exam General Appearance: Alert, Oriented X3, Cooperative, No Acute Distress Cardiovascular: Normal S1, Normal S2 Lungs: bilateral decreased air entry Neurological: Normal Speech Extremities: mild bilateral lower leg edema Vascular: Normal Pulses, Pulses Symmetrical Assessment/Plan Assessment: We will Patient is an 86-year-old gentleman, with multiple medical problems brought to the [facility] with chief complaints of fatigue, lethargic, for persistent hypoxia. -He is being treated and evaluated for following conditions Acute on chronic hypoxic/hypercarbic respiratory failure due to end-stage COPD exacerbation secondary to Pseudomonas pneumonia * We will continue injection ceftazidime (05/29/2017) * We'll continue overnight BiPAP and high flow as needed to keep the saturation more than 88 % * We will continue tapering dose of steroid. * Continue chest PT. * TRC/nebulization * We will continue to 250 Diamox on Tuesdays and Saturdays. * We will continue tablet, Lasix 40 milligrams daily. * We will follow pulmonology recommendation. Constipation - recovered * Continue bowel regimen. Terminal Hematuria-Resolved * continue follow up as an out pt. Type II MT secondary to demand ischemia * We will continue aspirin and antibiotic to treat the primary disease. Code status - DNR/DNI DVT prophylaxis - Heparin Diet -Regular diet Problem List: 1. Pseudomonas pneumonia 2. Hypercapnic respiratory failure 3. COPD exacerbation Pain Ratin Pain Location: n/a Pain Goal: Remain pain free Pain Plan: avoid sedation Tomorrow's Labs & Rationales: n/a
[2017-05-27 07:09] VITALS: BP 102/52
--- NOTE | 2017-05-27 12:11 | PN- Pulmonary ---
Subjective HPI/Critical Care Issues: Patient is seen and examined at the bedside. He does not have any complaints, tolerated bipap overnight On 40 percent Objective Current Medications: Current Medications Sig/Kyra Start time Last Medication Dose Route Stop Time Status Admin Acetazolamide 250 MG TuSa@1000 05/26 1000 AC 05/26 PO 1107 Acetylcysteine 2 ML BID 05/23 2200 AC 05/27 INH 0749 Albuterol Sulfate 3 ML EVERY 4 HRS/AWAKE 05/15 0800 AC 05/27 INH 1130 Aspirin 81 MG DAILY 05/14 1747 AC 05/27 PO 0940 Atorvastatin Calcium 40 MG 1700 05/17 1700 AC 05/26 PO 1644 Budesonide/ 2 PUF BID 05/14 2200 AC 05/27 Formoterol Fumarate INH 0939 Carbamide Peroxide 5 GTT BID 05/18 2200 AC 05/25 OTIC 0813 Ceftazidime 1,000 MG Q12H 05/27 0500 AC 05/27 IV 05/29 2200 0549 Ceftazidime 1,000 MG Q12H 05/26 1500 DC 05/26 IV 1644 Chlorhexidine 15 ML TID 05/22 1254 AC 05/27 Gluconate PO 0941 Docusate Sodium 100 MG DAILY 05/24 1029 AC 05/27 PO 0940 Ferrous Gluconate 325 MG BID 05/17 1051 AC 05/27 PO 0940 Furosemide 40 MG DAILY 05/27 1000 AC 05/27 IV 0939 Furosemide 40 MG DAILY 05/25 1000 DC 05/26 PO 1107 Heparin Sodium 5,000 UNIT Q8 05/14 1743 AC 05/27 (Porcine) SC 0550 Ipratropium [place] 2.5 ML BID 05/23 2200 AC 05/27 INH 1129 Magnesium Oxide 400 MG DAILY 05/24 1116 AC 05/27 PO 0940 Metoprolol Succinate 12.5 MG DAILY 05/24 1116 AC 05/27 PO 0941 Nystatin 1 TWIN TID 05/22 2345 DC 05/26 TOP 2208 Omeprazole 40 MG DAILY AC 05/15 0700 AC 05/27 PO 0550 Polyethylene Glycol 17 GM DAILY 05/17 1435 AC 05/27 PO 0940 Potassium Chloride 20 MEQ DAILY 05/25 1000 AC 05/27 PO 0940 Prednisone 10 MG DAILY 05/29 1000 AC PO 05/30 1001 Prednisone 20 MG DAILY 05/27 1000 AC 05/27 PO 05/28 1001 0940 Senna 187 MG BID 05/24 2199 AC 05/27 PO 0941 Vital Signs & I&O Last 24 Hrs of Vitals and I&O: Vital Signs Date Time Temp Pulse Resp B/P B/P Pulse O2 O2 Flow FiO2 Mean Ox Delivery Rate 05/27 0941 74 104/46 05/27 0833 89 Nasal 40% Cannula 05/27 0709 97.0 69 18 102/52 96 Nasal Cannula 05/27 0014 59 95 05/27 0000 96 BIPAP 05/26 2314 98.4 68 16 116/68 95 Nasal 40% Cannula 05/26 2245 67 94 05/26 2140 94 Nasal 40% Cannula 05/26 1627 98 Nasal 60% Cannula 05/26 1600 96 Nasal 50% Cannula 05/26 1403 76 106/44 05/26 1400 98.8 76 24 10644 96 60% Intake & Output 05/27 1600 05/27 0800 05/27 0000 Intake Total 110 680 Output Total 400 Balance 110 280 Intake, IV 10 Intake, Oral 100 680 Output, Urine 400 Laboratory Tests 05/27 05/26 0600 0605 Chemistry Sodium (137 - 145 mmol/L) Cancelled 138 Potassium (3.5 - 5.1 mmol/L) Cancelled 4.3 Chloride (98 - 107 mmol/L) Cancelled 91 L Carbon Dioxide (22 - 30 mmol/L) Cancelled 39 H Anion Gap (5 - 16) Cancelled 9 BUN (9 - 20 mg/dL) Cancelled 22 H Creatinine (0.7 - 1.2 mg/dL) Cancelled 0.7 Estimated GFR (>60 ml/min) > 60 BUN/Creatinine Ratio (7 - 25 %) Cancelled 31.4 H Magnesium (1.6 - 2.3 mg/dL) 1.9 Hematology CBC w Diff Cancelled WBC Cancelled RBC Cancelled Hgb Cancelled Hct Cancelled MCV Cancelled MCH Cancelled RDW Cancelled Plt Count Cancelled MPV Cancelled PUBS MCHC Cancelled Impression/Plan Impression/Plan Impression/Plan: PRevious ct IMPRESSION: 1. Chronic mass effect upon the right middle lobe and both lower lobe bronchi is seen by an enlarged central pulmonary arteries leading to chronic volume loss and consolidation in these lobes. Compared to 2012, findings are very similar. Upper lobes remain relatively clear. Findings raise the suspicion of pulmonary arterial hypertension in the setting of obstructive lung disease. Clinical correlation requested. 2. Evidence of prior granulomatous disease with scattered calcified granulomas in the lungs and calcified nodes seen in the mediastinum and left hilum. 3. A few additional small nodular densities are seen, which are indeterminate in etiology, as not all of these are seen on the 2013 exam. Findings may represent an intercurrent inflammatory or infectious process (example the [id number] nodular opacities in the anterior inferior right upper lobe). Follow-up CT scan in 3 months is recommended to reassess the 0.6 x 0.3 cm nodule in the right upper lobe. 4. Enlarged central pulmonary arteries, consistent with pulmonary arterial hypertension. 4. Several other incidental findings as discussed above. 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 His chest x-ray was suggestive of a complete collapse of the left lower lobe probably from a thick mucous plug. 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 * Pseudomonas pna and bronchiectasis exacerbation * Significant pulmonary hypertension related to terminal lung disease * Functional quadriparesis related to cervical spine disease patient is not a candidate for any therapy * Lower extremity edema suggestive of acute on chronic cor pulmonale * Previous history of mediastinal lymphadenopathy * Small lung nodules of no clinical significance * Worsening overall performance status * Bilateral lower lobe atelectasis with restrictive pulmonary physiology as well related to severe pulmonary hypertension * 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 with previous negative QuantiFERON goal tests * 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 * Continue ceftaz for total 14 days as he has clearley not making progress * Continue prednisone at 30 mg today and reduce to 20 tommorow * Keep the head of bed elevated * Periodex overall care 3 times a day * Prognosis is guarded. Patient wishes no significant aggressive therapy, but wishes to continue his present rx. IF his lung opens up his life expectance will be certainly more than 6 months. * Family meeting held, pt wishes to continue present care. They will discus again with the patient and will let us know about further options * OOB to chair and PT Upon discharge Patient clearly qualifies for BiPAP at bedtime Diagnosis * COPD with baseline PCO2 more than 52. * Arterial blood gas done at stable condition showed pH of 7.31, PCO2 of 82, PaO2 of 94 at baseline on oxygen of 4 liters * Overnight oxygen saturation with nocturnal oximetry done. Patient had more than a hour and a half (more than 90 minutes) of significant hypoxemia with oxygen saturation less than 88% on his baseline oxygen which is 3 L/m of oxygen per nasal cannula) * Patient has significant respiratory muscle fatigue, hypercapnia, severe dyspnea with chronic respiratory failure. The symptoms persist after maximum medical therapy. * No evidence suggestive of obstructive sleep apnea and this is not the predominant cause of hypercapnia DNR and DNI and no agg rx if worse
[2017-05-27 14:48] VITALS: BP 118/48
[2017-05-27 23:00] VITALS: BP 142/60
[2017-05-28 06:50] VITALS: BP 116/50
--- NOTE | 2017-05-28 07:24 | PN- Housestaff ---
See Addendum Subjective Follow-up For: End stage COPD on BiPAP Pseudomonas pneumonia on ceftazidime Tele-Events Since Last Visit: no events Subjective: I seen and examined the patient. The patient was resting in bed. Daughter the bedside. Offers no complaints. Patient was on BiPAP overnight removed BiPAP at 4am, currently on nasal cannula 4 L satting 92%. Review of Systems Constitutional: Reports: see HPI. Objective Last 24 Hrs of Vital Signs/I&O Vital Signs Date Time Temp Pulse Resp B/P B/P Pulse O2 O2 Flow FiO2 Mean Ox Delivery Rate 05/28 0741 68 116/50 05/28 0650 98.4 68 20 116/50 92 Nasal Cannula 05/28 0000 BIPAP 40% 05/28 0000 85 95 05/27 2303 81 94 05/27 2300 98.2 78 16 142/60 93 Nasal 4.0L Cannula 05/27 1837 98 Nasal 5.0L Cannula 05/27 1633 91 Nasal 40% Cannula 05/27 1600 95 Nasal 5.0L Cannula 05/27 1448 98.0 72 18 118/48 94 Nasal Cannula 05/27 0941 74 104/46 05/27 0833 89 Nasal 40% Cannula Intake & Output 05/28 1600 05/28 0800 05/28 0000 Intake Total 110 400 Output Total Balance 110 400 Intake, IV 10 Intake, Oral 100 400 Number 2 Bowel Movements Physical Exam General Appearance: Alert, Oriented X3, drowsy Cardiovascular: Normal S1, Normal S2 Lungs: Clear to Auscultation Abdomen: Normal Bowel Sounds, Soft Current Medications: Current Medications Sig/Kyra Start time Last Medication Dose Route Stop Time Status Admin Acetazolamide 250 MG TuSa@1000 05/26 1000 AC 05/26 PO 1107 Acetylcysteine 2 ML BID 05/23 2200 AC 05/27 INH 2037 Albuterol Sulfate 3 ML EVERY 4 HRS/AWAKE 05/15 0800 AC 05/27 INH 2038 Aspirin 81 MG DAILY 05/14 1747 AC 05/28 PO 0744 Atorvastatin Calcium 40 MG 1700 05/17 1700 AC 05/27 PO 1730 Budesonide/ 2 PUF BID 05/14 2200 AC 05/28 Formoterol Fumarate INH 0742 Carbamide Peroxide 5 GTT BID 05/18 OTIC 0747 Ceftazidime 1,000 MG Q12H 05/27 0500 AC 05/28 IV 05/29 2200 0741 Chlorhexidine 15 ML TID 05/22 1254 AC 05/28 Gluconate PO 0747 Docusate Sodium 100 MG DAILY 05/24 1029 AC 05/28 PO 0743 Ferrous Gluconate 325 MG BID 05/17 1051 AC 05/28 PO 0740 Furosemide 40 MG DAILY 05/27 1000 AC 05/28 IV 0746 Heparin Sodium 5,000 UNIT Q8 05/14 1743 AC 05/28 (Porcine) SC 0651 Ipratropium [place] 2.5 ML BID 05/23 2200 AC 05/27 INH 1629 Magnesium Oxide 400 MG DAILY 05/24 1116 AC 05/28 PO 0744 Metoprolol Succinate 12.5 MG DAILY 05/24 1116 AC 05/28 PO 0741 Omeprazole 40 MG DAILY AC 05/15 0700 AC 05/28 PO 0651 Polyethylene Glycol 17 GM DAILY 05/17 1435 AC 05/28 PO 0745 Potassium Chloride 20 MEQ DAILY 05/25 1000 AC 05/28 PO 0742 Prednisone 10 MG DAILY 05/29 1000 AC PO 05/30 1001 Prednisone 20 MG DAILY 05/27 1000 AC 05/28 PO 05/28 1001 0744 Senna 187 MG BID 05/24 2200 AC 05/28 PO 0744 Last 24 Hrs of Lab/Nikolas Results Last 24 Hrs of Labs/Mics: Laboratory Tests 05/28/17 0700: Sodium Pending, Potassium Pending, Chloride Pending, Carbon Dioxide Pending, Anion Gap Pending, BUN Pending, Creatinine Pending, BUN/Creatinine Ratio Pending Assessment/Plan Assessment: We will Patient is an 86-year-old gentleman, with multiple medical problems brought to the [facility] with chief complaints of fatigue, lethargic, for persistent hypoxia. -He is being treated and evaluated for following conditions Acute on chronic hypoxic/hypercarbic respiratory failure due to end-stage COPD exacerbation secondary to Pseudomonas pneumonia * We will continue injection ceftazidime 14 days (05/29/2017) * We'll continue overnight BiPAP and high flow as needed to keep the saturation >88 % * We will continue tapering dose of steroid. * Continue chest PT AND TRC/nebulization * We will continue to 250 Diamox on Tuesdays and Saturdays. * We will continue Lasix IV, on d/c continue lasix on M/W/F * We will follow pulmonology recommendation. Constipation - recovered * Continue bowel regimen. Terminal Hematuria-Resolved * continue follow up as an out pt. Type II [place] secondary to demand ischemia * We will continue aspirin and antibiotic to treat the primary disease. Code status - DNR/DNI DVT prophylaxis - Heparin Diet -Regular diet Problem List: 1. Bacterial pneumonia 2. COPD exacerbation 3. Pleural effusion 4. Hypercapnic respiratory failure 5. Pseudomonas pneumonia Pain Ratin Pain Location: n/a Pain Goal: Pain 4 or less Pain Plan: prn Tomorrow's Labs & Rationales: cbc bep
[2017-05-28] MEDS ORDERED: ACETAZOLAMIDE250 M1 PO (08:39)
[2017-05-28] MEDS ORDERED: LASIX40 M1 PO (08:39)
[2017-05-28] MEDS ORDERED: PREDNISONE5 M1 PO (08:50)
[2017-05-28] MEDS ORDERED: FERROUS GLUCON324 M2 PO (08:50)
[2017-05-28] MEDS ORDERED: DOCUSATE SODIU100 M3 PO (08:50)
[2017-05-28] MEDS ORDERED: ATORVASTATIN CA40 M1 PO (08:50)
[2017-05-28] MEDS ORDERED: PERIDEX473 ML PO (08:50)
[2017-05-28] MEDS ORDERED: SENNA-TIME S T1 EACH PO (08:50)
[2017-05-28] MEDS ORDERED: MIRALAX119 GM PO (08:50)
[2017-05-28] MEDS ORDERED: TOPROL XL25 M1 PO (08:50)
[2017-05-28] MEDS ORDERED: CARBAMIDE15 ML OTIC (08:50)
[2017-05-28] MEDS ORDERED: MAGNESIUM OXID400 M1 PO (08:50)
[2017-05-28] MEDS ORDERED: FORTAZ1 G1 IV ×2 (09:26→14:23)
--- NOTE | 2017-05-28 09:39 | PN- Cardiology ---
Subjective Subjective: The patient is awake, alert The events of the last 24 hours as well as telemetry were reviewed. Review of Systems: The review of systems is negative for chest pains, palpitations nor lightheadedness. The remainder of the 14 point review of systems is noncontributory with the exception of above. Objective Vital Signs and I&Os Vital Signs Date Time Temp Pulse Resp B/P B/P Pulse O2 O2 Flow FiO2 Mean Ox Delivery Rate 05/28 0849 90 Nasal 4.0L Cannula 05/28 0741 68 116/50 05/28 0650 98.4 68 20 116/50 92 Nasal Cannula 05/28 0000 BIPAP 40% 05/28 0000 85 95 05/27 2303 81 94 05/27 2300 98.2 78 16 142/60 93 Nasal 4.0L Cannula 05/27 1837 98 Nasal 5.0L Cannula 05/27 1633 91 Nasal 40% Cannula 05/27 1600 95 Nasal 5.0L Cannula 05/27 1448 98.0 72 18 118/48 94 Nasal Cannula 05/27 0941 74 104/46 Intake & Output 05/28 1600 05/28 0800 05/28 0000 05/27 1600 05/27 0800 05/27 0000 Intake Total 110 400 800 110 680 Output Total 300 400 Balance 110 400 500 110 280 Intake, IV 10 10 Intake, Oral 100 400 800 100 680 Number 2 0 Bowel Movements Output, Urine 300 400 Physical Exam: General: Nontoxic, no apparent distress. HEENT: Sclera and conjunctiva within normal limits, without xanthelasmas. Neck: Carotids 2+ without bruits. Respiratory: Scattered rhonchi, air movement is good, without accessory respiratory muscle use. Heart: Regular rate and rhythm, without murmurs, without JVD. Abdomen: Soft, nontender, no masses, normoactive bowel sounds. Extremities: Without clubbing, cyanosis, 1 mm pitting edema in both lower extremities to the mid tibial region. Neuro: Nonfocal exam, strength, 5 out of 5 Skin: Within normal limits without lesions. Psych: Mood and affect: Normal Current Medications: Current Medications Sig/Kyra Start time Last Medication Dose Route Stop Time Status Admin Acetazolamide 250 MG TuSa@1000 05/26 1000 AC 05/26 PO 1107 Acetylcysteine 2 ML BID 05/23 2200 AC 05/28 INH 0836 Albuterol Sulfate 3 ML EVERY 4 HRS/AWAKE 05/15 0800 AC 05/28 INH 0836 Aspirin 81 MG DAILY 05/14 1747 AC 05/28 PO 0744 Atorvastatin Calcium 40 MG 1700 05/17 1700 AC 05/27 PO 1730 Budesonide/ 2 PUF BID 05/14 2200 AC 05/28 Formoterol Fumarate INH 0742 Carbamide Peroxide 5 GTT BID 05/18 2200 AC 05/28 OTIC 0747 Ceftazidime 1,000 MG Q12H 05/27 0500 AC 05/28 IV 05/29 2200 0741 Chlorhexidine 15 ML TID 05/22 1254 AC 05/28 Gluconate PO 0747 Docusate Sodium 100 MG DAILY 05/24 1029 AC 05/28 PO 0743 Ferrous Gluconate 325 MG BID 05/17 1051 AC 05/28 PO 0740 Furosemide 40 MG DAILY 05/27 1000 AC 05/28 IV 0746 Heparin Sodium 5,000 UNIT Q8 05/14 1743 AC 05/28 (Porcine) SC 0651 Ipratropium [place] 2.5 ML BID 05/23 2200 AC 05/27 INH 1629 Magnesium Oxide 400 MG DAILY 05/24 1116 AC 05/28 PO 0744 Metoprolol Succinate 12.5 MG DAILY 05/24 1116 AC 05/28 PO 0741 Omeprazole 40 MG DAILY AC 05/15 0700 AC 05/28 PO 0651 Polyethylene Glycol 17 GM DAILY 05/17 1435 AC 05/28 PO 0745 Potassium Chloride 20 MEQ DAILY 05/25 1000 AC 05/28 PO 0742 Prednisone 10 MG DAILY 05/29 1000 AC PO 05/30 1001 Prednisone 20 MG DAILY 05/27 1000 AC 05/28 PO 05/28 1001 0744 Senna 187 MG BID 05/24 2200 AC 05/28 PO 0744 Results Last 48 Hrs of Labs/Mics: Laboratory Tests 05/28/17 0700: Anion Gap 8, Estimated GFR > 60, BUN/Creatinine Ratio 45.0 H 05/27/17 0600: Sodium Cancelled, Potassium Cancelled, Chloride Cancelled, Carbon Dioxide Cancelled, Anion Gap Cancelled, BUN Cancelled, Creatinine Cancelled, BUN/ Creatinine Ratio Cancelled, CBC w Diff Cancelled, WBC Cancelled, RBC Cancelled, Hgb Cancelled, Hct Cancelled, MCV Cancelled, MCH Cancelled, RDW Cancelled, Plt Count Cancelled, MPV Cancelled, PUBS MCHC Cancelled Assessment/Plan Assessment/Plan 1. Shortness of breath secondary to an acute exacerbation of end-stage COPD 2. Elevated troponins secondary to demand ischemia. 3. Hypertension 4. Hyperlipidemia 5. Large left sided paramediastinal mass... family refused workup 6. 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 Pulmonary hypertension The patient is overall stable from a cardiac standpoint, and we will continue to monitor his arrhythmias as an outpatient. An overall conservative approach to his troponin elevation will be maintained as well, and we will titrate his beta mely further as an outpatient. We will as well continue with aspirin and a statin. Please contact us further inpatient assistance from a cardiac standpoint is needed. Continue telemetry? No
--- NOTE | 2017-05-28 09:44 | PN- Pulmonary ---
Subjective HPI/Critical Care Issues: Subjective: The patient is awake, alert The events of the last 24 hours reviewed Pt now on 4 litres nasal cannula Review of Systems: The review of systems is negative for chest pains, palpitations nor lightheadedness. The remainder of the 14 point review of systems is noncontributory with the exception of above. Objective Current Medications: Current Medications Sig/Kyra Start time Last Medication Dose Route Stop Time Status Admin Acetazolamide 250 MG TuSa@1000 05/26 1000 AC 05/26 PO 1107 Acetylcysteine 2 ML BID 05/23 2200 AC 05/28 INH 0836 Albuterol Sulfate 3 ML EVERY 4 HRS/AWAKE 05/15 0800 AC 05/28 INH 0836 Aspirin 81 MG DAILY 05/14 1747 AC 05/28 PO 0744 Atorvastatin Calcium 40 MG 1700 05/17 1700 AC 05/27 PO 1730 Budesonide/ 2 PUF BID 05/14 2200 AC 05/28 Formoterol Fumarate INH 0742 Carbamide Peroxide 5 GTT BID 05/18 2200 AC 05/28 OTIC 0747 Ceftazidime 1,000 MG Q12H 05/27 0500 AC 05/28 IV 05/29 2200 0741 Chlorhexidine 15 ML TID 05/22 1254 AC 05/28 Gluconate PO 0747 Docusate Sodium 100 MG DAILY 05/24 1029 AC 05/28 PO 0743 Ferrous Gluconate 325 MG BID 05/17 1051 AC 05/28 PO 0740 Furosemide 40 MG DAILY 05/27 1000 AC 05/28 IV 0746 Heparin Sodium 5,000 UNIT Q8 05/14 1743 AC 05/28 (Porcine) SC 0651 Ipratropium [place] 2.5 ML BID 05/23 2200 AC 05/27 INH 1629 Magnesium Oxide 400 MG DAILY 05/24 1116 AC 05/28 PO 0744 Metoprolol Succinate 12.5 MG DAILY 05/24 1116 AC 05/28 PO 0741 Omeprazole 40 MG DAILY AC 05/15 0700 AC 05/28 PO 0651 Polyethylene Glycol 17 GM DAILY 05/17 1435 AC 05/28 PO 0745 Potassium Chloride 20 MEQ DAILY 05/25 1000 AC 05/28 PO 0742 Prednisone 10 MG DAILY 05/29 1000 AC PO 05/30 1001 Prednisone 20 MG DAILY 05/27 1000 AC 05/28 PO 05/28 1001 0744 Senna 187 MG BID 05/24 2200 AC 05/28 PO 0744 Vital Signs & I&O Last 24 Hrs of Vitals and I&O: Vital Signs Date Time Temp Pulse Resp B/P B/P Pulse O2 O2 Flow FiO2 Mean Ox Delivery Rate 05/28 0849 90 Nasal 4.0L Cannula 05/28 0741 68 116/50 05/28 0650 98.4 68 20 116/50 92 Nasal Cannula 05/28 0000 BIPAP 40% 05/28 0000 85 95 05/27 2303 81 94 05/27 2300 98.2 78 16 142/60 93 Nasal 4.0L Cannula 05/27 1837 98 Nasal 5.0L Cannula 05/27 1633 91 Nasal 40% Cannula 05/27 1600 95 Nasal 5.0L Cannula 05/27 1448 98.0 72 18 118/48 94 Nasal Cannula Intake & Output 05/28 1600 05/28 0800 05/28 0000 Intake Total 110 400 Output Total Balance 110 400 Intake, IV 10 Intake, Oral 100 400 Number 2 Bowel Movements Impression/Plan Impression/Plan Impression/Plan: PRevious ct IMPRESSION: 1. Chronic mass effect upon the right middle lobe and both lower lobe bronchi is seen by an enlarged central pulmonary arteries leading to chronic volume loss and consolidation in these lobes. Compared to 2013, findings are very similar. Upper lobes remain relatively clear. Findings raise the suspicion of pulmonary arterial hypertension in the setting of obstructive lung disease. Clinical correlation requested. 2. Evidence of prior granulomatous disease with scattered calcified granulomas in the lungs and calcified nodes seen in the mediastinum and left hilum. 3. A few additional small nodular densities are seen, which are indeterminate in etiology, as not all of these are seen on the 2013 exam. Findings may represent an intercurrent inflammatory or infectious process (example the [id number]-type nodular opacities in the anterior inferior right upper lobe). Follow-up CT scan in 3 months is recommended to reassess the 0.6 x 0.3 cm nodule in the right upper lobe. 4. Enlarged central pulmonary arteries, consistent with pulmonary arterial hypertension. 4. Several other incidental findings as discussed above. 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 His chest x-ray was suggestive of a complete collapse of the left lower lobe probably from a thick mucous plug. 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 * Pseudomonas pna and bronchiectasis exacerbation * Significant pulmonary hypertension related to terminal lung disease * Functional quadriparesis related to cervical spine disease patient is not a candidate for any therapy * Lower extremity edema suggestive of acute on chronic cor pulmonale * Previous history of mediastinal lymphadenopathy * Small lung nodules of no clinical significance * Worsening overall performance status * Bilateral lower lobe atelectasis with restrictive pulmonary physiology as well related to severe pulmonary hypertension * 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 with previous negative QuantiFERON goal tests * 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 who was been on prednisone for long periods * History of on and off aspiration RECOMMENDATION * Continue BiPAP at hs * COnt nasal cannula * IV lasix today * KEep out of bed most of the day as he might collapse his left lower lobe if he is in recumbent postion * Agg bowel regimen to continue * UPON DC Lasix 40mg M///ur and diamox 250 on sunday and sunday * Keep potassium at more than 4, check magnesium and keep more than 2 * PT needs acepella chest pt device and ask resp to educate him regarding this * Aggressive chest physical therapy to the left lower lobe with Mucomyst 2 times a day today and dc * Continue ceftaz for total 14 days * Continue prednisone at 20 for five days 10 for five days and then 10 qod indef * Keep the head of bed elevated * Periodex overall care 3 times a day * OK to rehab today if stable * Prognosis is guarded. Patient wishes no significant aggressive therapy, but wishes to continue his present rx. IF his lung remains opened up his life expectance will be certainly more than 6 months. * Family meeting held, pt wishes to continue present care. They will discus again with the patient and will let us know about further options * OOB to chair and PT Upon discharge Patient clearly qualifies for BiPAP at bedtime Diagnosis * COPD with baseline PCO2 more than 52. * Arterial blood gas done at stable condition showed pH of 7.31, PCO2 of 82, PaO2 of 94 at baseline on oxygen of 4 liters * Overnight oxygen saturation with nocturnal oximetry done. Patient had more than a hour and a half (more than 90 minutes) of significant hypoxemia with oxygen saturation less than 88% on his baseline oxygen which is 3 L/m of oxygen per nasal cannula) * Patient has significant respiratory muscle fatigue, hypercapnia, severe dyspnea with chronic respiratory failure. The symptoms persist after maximum medical therapy. * No evidence suggestive of obstructive sleep apnea and this is not the predominant cause of hypercapnia DNR and DNI and no agg rx if worse
[2017-05-28] MEDS ORDERED: PREDNISONE10 M2 PO ×2 (10:48→14:23)
[2017-05-28 15:07] VITALS: BP 98/50
[2017-05-28 22:54] VITALS: BP 110/58
[2017-05-29 06:55] VITALS: BP 104/54
--- NOTE | 2017-05-29 06:58 | PN- Housestaff ---
Ju ORTEGA,Gloria 05/29/17 0657: Subjective Follow-up For: End-stage COPD Complaints: no complaints Subjective: I saw the patient along with a resident at bedside. He was lying in his high nasal flow. Patient says he slept well overnight. He offers no complaints. He denies chest pain, shortness of breath, nausea, vomiting, abdominal pain, weakness Review of Systems Constitutional: Reports: no symptoms. Cardiovascular: Reports: no symptoms. Respiratory: Reports: no symptoms. Gastrointestinal: Reports: no symptoms. Genitourinary: Reports: no symptoms. Musculoskeletal: Reports: no symptoms. Objective Last 24 Hrs of Vital Signs/I&O Vital Signs Date Time Temp Pulse Resp B/P B/P Pulse O2 O2 Flow FiO2 Mean Ox Delivery Rate 05/29 0910 65 104/54 05/29 0827 92 Nasal 40% Cannula 05/29 0655 99.0 65 22 104/54 88 Nasal Cannula 05/29 0522 64 92 05/29 0329 59 91 05/29 0035 57 93 05/29 0000 BIPAP 40% 05/28 2254 98.7 66 22 110/58 96 05/28 2233 70 93 05/28 2233 92 Nasal 40% Cannula 05/28 1950 89 Nasal 40% Cannula 05/28 1625 85 Nasal 40% Cannula 05/28 1507 98.5 81 16 98/50 92 Nasal Cannula 05/28 1501 92 Nasal 40% Cannula Intake & Output 05/29 1600 05/29 0800 05/29 0000 Intake Total 240 120 Output Total 150 300 Balance 90 -180 Intake, Oral 240 120 Number 0 2 Bowel Movements Output, Urine 150 300 Physical Exam General Appearance: Alert, Oriented X3, Cooperative, No Acute Distress Skin: No Rashes HEENT: Atraumatic Neck: Supple, No JVD Cardiovascular: Regular Rate, Normal S1, Normal S2 Lungs: Clear to Auscultation Abdomen: Normal Bowel Sounds, Soft, No Tenderness Neurological: Normal Speech, Strength at 5/5 X4 Ext Current Medications: Current Medications Sig/Kyra Start time Last Medication Dose Route Stop Time Status Admin Acetazolamide 250 MG TuSa@1000 05/26 1000 AC 05/29 PO 0910 Acetylcysteine 2 ML BID 05/23 2200 DC 05/28 INH 05/28 220 1625 Albuterol Sulfate 3 ML EVERY 4 HRS/AWAKE 01/02 0800 AC 05/29 INH 0754 Aspirin 81 MG DAILY 05/14 1747 AC 05/29 PO 0910 Atorvastatin Calcium 40 MG 1700 05/17 1700 AC 05/28 PO 1747 Budesonide/ 2 PUF BID 05/14 2200 AC 05/29 Formoterol Fumarate INH 0908 Carbamide Peroxide 5 GTT BID 05/18 2200 AC 05/28 OTIC 0747 Ceftazidime 1,000 MG Q12H 05/27 0500 AC 05/29 IV 05/29 2200 0543 Chlorhexidine 15 ML TID 05/22 1254 AC 05/29 Gluconate PO 0911 Docusate Sodium 100 MG DAILY 05/24 1029 AC 05/29 PO 0909 Ferrous Gluconate 325 MG BID 05/17 1051 AC 05/29 PO 0908 Furosemide 40 MG DAILY 05/27 1000 AC 05/29 IV 0908 Heparin Sodium 5,000 UNIT Q8 05/14 1743 AC 05/29 (Porcine) SC 0543 Ipratropium [place] 2.5 ML EVERY 4 HRS/AWAKE 05/28 1200 AC 05/29 INH 0754 Ipratropium [place] 2.5 ML BID 05/23 2200 DC 05/27 INH 1629 Magnesium Oxide 400 MG DAILY 05/24 1116 AC 05/29 PO 0909 Metoprolol Succinate 12.5 MG DAILY 05/24 1116 AC 05/29 PO 0910 Omeprazole 40 MG DAILY AC 05/15 0700 AC 05/29 PO 0547 Polyethylene Glycol 17 GM DAILY 05/17 1435 AC 05/29 PO 0908 Potassium Chloride 20 MEQ DAILY 05/25 1000 AC 05/29 PO 0909 Prednisone 10 MG DAILY 05/29 1000 CAN PO 05/30 1001 Prednisone 20 MG DAILY 05/29 1000 AC 05/29 PO 05/31 1001 0909 Prednisone 20 MG ONCE ONE 05/28 1045 CAN PO 05/28 1046 Prednisone 20 MG DAILY 05/27 1000 DC 05/28 PO 05/28 1001 0744 Senna 187 MG BID 05/24 2200 AC 05/29 PO 0910 Last 24 Hrs of Lab/Nikolas Results Last 24 Hrs of Labs/Mics: Laboratory Tests 05/29/17 0613: Anion Gap 10, Estimated GFR > 60, BUN/Creatinine Ratio 46.7 H, Magnesium 1.9 Assessment/Plan Assessment: We will Patient is an 86-year-old gentleman, with multiple medical problems brought to the [facility] with chief complaints of fatigue, lethargic, for persistent hypoxia. -He is being treated and evaluated for following conditions Acute on chronic hypoxic/hypercarbic respiratory failure due to end-stage COPD exacerbation secondary to Pseudomonas pneumonia * Patient will finish his course of Ceptaz a time today. * Patient was on BiPAP overnight and high flow this morning. We will keep the saturation above 88%. * Prednisone taper 20 mg for 5 days, 10 mg for 5 days, 10 mg every other day aspect pulmonology. * Continue chest PT AND TRC/nebulization * We will continue to 250 Diamox on Tuesdays and Saturdays. * We will continue Lasix IV, on d/c continue lasix on // * Pulmonology follow-up appreciated We will follow pulmonology recommendation. Constipation - recovered * Continue bowel regimen. Terminal Hematuria-Resolved * continue follow up as an out pt. Type II OH secondary to demand ischemia * We will continue aspirin and antibiotic to treat the primary disease. Code status - DNR/DNI DVT prophylaxis - Heparin Diet -Regular diet Discharge disposition-we will talk to the case management regarding his disposition to [place] today. Problem List: 1. COPD exacerbation 2. Pseudomonas pneumonia 3. Hypercapnic respiratory failure Pain Ratin Pain Location: none Pain Goal: Remain pain free Pain Plan: tylenol Tomorrow's Labs & Rationales: none Pat ORTEGA,Gail 05/29/17 1415: Attending MD Review Statement Attending Statement Attending MD Statement: examined this patient, discuss w/resident/PA/UTILIZATION SUPERVISOR, agreed w/resident/PA/UTILIZATION SUPERVISOR, reviewed EMR data (avail), discussed with nursing, discussed with case mgmt, amended to note Attending Assessment/Plan: patient seen and examined. Resting comfortably and was in any acute distress. Apparently patient did not tolerate nasal cannula all 3 yesterday I was eventually placed back on high flow oxygen. He required BiPAP therapy again at night and is currently stable on high flow oxygen this morning. There is no other change in his clinical condition. He was evaluated by personnel from [facility] and accepted for transfer there To continue long-term management. Patient and family and agreement with this. He will be discharged the once approved by his insurance to continue pulmonary care. Recommendations made by his basin finish operator tig welder have been noted and will be passed on to the long-term acute care facility.
--- NOTE | 2017-05-29 09:42 | Discharge Summary ---
Visit Information Visit Dates Admission Date: 05/14/17 Discharge Date: 05/29/2017 Hospital Course Course Attending Physician: Gail Stewart MD Primary Care Physician: Rachel ORTEGA,Neel Greene Hospital Course: Patient is an 86-year-old gentleman, with multiple medical problems brought to the [facility] with chief complaints of fatigue, lethargic, for persistent hypoxia. ED course - vital signs at the time of admission temperature 96.8, pulse 107, respiratory 26, blood pressure 124/61, SPO2 95% on aerosol mask. Blood workup showed hemoglobin 10.2, hematocrit 31.6, platelet count 182, granulocytes 85.4, BUN 16, creatinine 0.6, serum sodium 135, magnesium 1.7, calcium 8.3, albumin 3.8, SGOT 32, SGPT 34, troponin 0.1. ABG showed pH 7.30, PCO2 79, PO2 60, bicarbonate 38,oxygen saturation 87%. Patient was started on BiPAP with PIP of 18 and EPAP 6 respiratory rate 22. Chest x-ray showed stable mild pulmonary venous congestion . Moderate enlargement of cardiomediastinal silhouette.He was given ceftriaxone, azithromycin, methylprednisolone 40 mgs. On physical exam he was having assymetrical pupils so CT scan of the head was done which did not show any acute intracranial abnormality. He was admitted into telemetry floor for further evaluation and management. Acute on chronic hypoxic/hypercarbic respiratory failure due to end-stage COPD exacerbation secondary to Pseudomonas pneumonia complicated by mucus pluging- We obtained pulmonology consult and continued BiPAP. We also gave one dose of IV Diamox 250 milligrams, IV steroids, IV Lasix. We did swallow evaluation who advised for mechanical soft diet. Follow-up blood cultures, flu test was negative. Lower respiratory tract culture grew Pseudomonas, so we changed antibiotic to IV ceftazidime. Initially we continued the BiPAP and later watched patient off BiPAP. He was intermittently confused secondary to CO2 retention. We did overnight ABG and pulse oximetry. ABG showed evidence of CO2 retention, PCO2(82),and SPO2(89 to 94%). We gave antibiotic ceftazidime 1gm IV (05/17/2017 - 05/29/2017) to complete the course of total 14days (Bacteria was intermideate sensitive to Ciprofloxacin). We also gave tapering dose of steroid initially MPS ( 125, 40mg IV x 4 days , f/b prednisone 20mg x 2 days).We discharged patient on Tab prednisone 20mg for 5 days f/b 10mg x 5 days f/b 10mg every alternate day and advised to f/u with principal mechanical engineer. Due to his advanced COPD underlying comorbidities patient is currently requiring BiPAP therapy all through the night. He also requires it intermittently during the day as needed. He is currently requiring high flow oxygen at 40% FiO2 during the daytime. We will also start him on azithromycin 250mg every other day From 05/30/2017 - [facility]. Hospice care was discussed with family and patient, patient wants to continue current medical management at present. Urinary retention,Intermittent terminal hematuria secondary to BPH/intermittent catheterization - We obtained a urology consult.We will advised to stop Detropan and advised to start patient on tamsulosin 0.4 mgs if needed.Advised for intermittent straight cath and if hematuria doesn't resolve, then patient may need renal ultrasound in future. We repeated urinalysis and urine culture. Urinalysis showed RBC of 5-10, though urine culture didnt show any growth. We didnt started him on tamsulosin as he was able to urinate without need of catheterization. Type II SC secondary to demand ischemia Patient was having elevated troponin(0.12, 0.14, 0.13), without any new EKG changes. We consulted laser machine operator advised for conservative management and to continue aspirin and antibiotic to treat the primary disease.We also started him on magnesium as he was having episodes of non sustained Vtech. 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 We started patient on Iron supplementation.We advised to f/u with PCP. Asymmetric pupils, dilated on right side CT scan of the head was done which did not show any intracranial abnormality. We took the consult from the neurologist and he advised for conservative management and outpatient ophthalmological evaluation. Allergies: Coded Allergies: NO KNOWN ALLERGIES (08/29/12) Disposition Summary Disposition Principal Diagnosis: Acute on chronic hypoxic/hypercarbic respiratory failure due to end-stage COPD exacerbation secondary to Pseudomonas pneumonia. Type II myocardial infarction. 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 (which he opted not to evaluate), Severe cor-pulmonale, Seronegative Rheumatoid arthritis, on prednisone 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 with previous negative QuantiFERON gold tests Quadriparesis with significant cervical degenerative disc disease Hyperlipidemia GERD BPH Osteoarthritis Discharge Disposition: [facility] ([facility]) Discharge Instructions General Discharge Information Code Status: Do Not Resucitate/Intubat Patient's Diet: Regular mechanical soft and regular thin liquid diet Patient's Activity: As tolerated Follow-Up Instructions/Appts: Please follow-up with you principal mechanical engineer with in a week of discharge Please take the medication as advised Patient is requiring BiPAP therapy all night and intermittently as needed during the daytime. Patient required high flow oxygen at 40% FiO2 during the daytime. Medications at Discharge Discharge Medications: Stop taking the following medications: Oxybutynin Chloride (Oxybutynin Chloride ER) 10 MG TAB.ER.24 ORAL DAILY Qty = 90 Furosemide (Furosemide) 40 MG TABLET ORAL DAILY Qty = 90 Continue taking these medications: Aspirin (Aspirin*) 81 MG TAB.CHEW 1 Tablet ORAL DAILY Comments: Last Taken:05/21/16 Time: 8AM Budesonide (Budesonide) 0.25 MG/2 ML AMPUL.NEB 1 Vial Inhale Solution THREE TIMES DAILY as needed for OB, COPD Qty = 120 Comments: Last Taken: 05/21/17 Time: 8AM Calcium Carb/Vitamin D3/Vit K1 (Citracal Soft Chew) 500 MG CALCIUM-1,000 UNIT-40 MCG TAB.CHEW 1 Tablet ORAL DAILY Comments: NOT TAKEN Colchicine (Colcrys) 0.6 MG TABLET 1 Tablet ORAL DAILY Qty = 15 Comments: Last Taken: NOT GIVEN Time: Graff-3 Fatty Acids/Fish Oil (Fish Oil 1,000 MG Capsule) 340 MG-1,000 MG CAPSULE 1 Capsule ORAL DAILY Comments: NOT TAKEN Glucosamine/D3/Boswellia Chey (Glucosamine Complex Tablet) 1,500 MG-400 UNIT- 100 MG TABLET 2 Tablet ORAL DAILY Comments: Last Taken: NOT GIVEN Time: Multivit-Min/FA/Lycopen/Lutein (Centrum Silver Tablet) 0.4 MG-300 MCG-250 MCG TABLET 1 Tablet ORAL Instructions: *TWICE PER WEEK Comments: Last Taken: NOT GIVEN Time: Terazosin HCl (Terazosin HCl) 5 MG CAPSULE 1 Capsule ORAL Every night Qty = 90 Comments: NOT TAKEN Ascorbic Acid (Vitamin C) 500 MG CAPSULE.ER 1 Capsule ORAL 2 times per week Comments: NOT TAKEN Omeprazole (Omeprazole) 40 MG CAPSULE.DR 1 Capsule ORAL DAILY Qty = 90 Comments: NOT TAKEN Potassium Chloride (Potassium Chloride) 20 MEQ TAB.ER.PRT 0.5 Tablet ORAL DAILY Qty = 30 Comments: NOT TAKEN [IOPHEN- C NR] 1 Teaspoonful ORAL BEDTIME Ipratropium/Albuterol Sulfate (Iprat-Albut 0.5-3(2.5) MG/3 Ml) 0.5 MG-3 MG (2.5 MG BASE)/3 ML AMPUL.NEB 1 Inhaler Inhale Solution BID PRN as needed for SHORTNESS OF BREATH Qty = 1 Comments: NOT TAKEN Albuterol Sulfate (Proair Hfa) 90 MCG HFA.AER.AD 2 Puff Inhale through mouth EVERY 4 HOURS NEEDED as needed for COPD Qty = 8 Comments: REC'D NEBULIZERS DURING HOSPITAL STAY Cholecalciferol (Vitamin D3) (Vitamin D3) 1,000 UNIT CAPSULE 1 Capsule ORAL DAILY Comments: NOT TAKEN Nystatin (Nystatin) 100,000 UNIT/GRAM CREAM..G. 1 Application On the skin 2 x Daily as needed as needed for RASH Qty = 90 Instructions: apply to affected area(s) Comments: NOT TAKEN Start taking the following new medications: Azithromycin (Zithromax) 250 MG TABLET 1 Dose Pack ORAL EVERY 48 HOURS (Every 2 days) Qty = 30 No Refills Instructions: start after ceftazidine Prednisone (Prednisone) 10 MG TABLET 0 ORAL SEE ADMIN Qty = 5 No Refills Instructions: 10mg 2tabs 05/30-06/02 10mg 1tab 06/03-06/09 10mg 1tab take every other day Metoprolol Succ XL (Toprol XL) 25 MG TAB 0.5 Tablet ORAL DAILY Qty = 30 No Refills Acetazolamide (Acetazolamide) 250 MG TABLET 1 Tablet ORAL TuSa@1000 Qty = 30 No Refills Ferrous Gluconate (Ferrous Gluconate) 324 MG (38 MG IRON) TABLET 1 Tablet ORAL TWICE DAILY Qty = 30 No Refills Atorvastatin Calcium (Atorvastatin Calcium) 40 MG TABLET 1 Tablet ORAL 5 PM Qty = 30 No Refills Carbamide Peroxide (Carbamide) 6.5 % DROPS 5 Drop OTIC TWICE DAILY Qty = 1 No Refills Chlorhexidine Gluconate (Peridex) 0.12 % MOUTHWASH 15 Milliliters ORAL THREE TIMES DAILY Qty = 1 No Refills Instructions: mouth rinse Magnesium Oxide (Magnesium Oxide) 400 MG TABLET 1 Tablet ORAL DAILY Qty = 30 No Refills Docusate Sodium (Docusate Sodium) 100 MG CAPSULE 1 Tablet ORAL DAILY Qty = 30 No Refills Polyethylene Glycol 3350 (Miralax) 17 GRAM/DOSE POWDER 1 Dose ORAL DAILY Qty = 1 No Refills Sennosides/Docusate Sodium (Senna-Time S Tablet) 8.6 MG-50 MG TABLET 1 Milligram ORAL GIVE ONCE Qty = 30 No Refills Furosemide (Lasix) 40 MG TABLET 1 Tablet ORAL SUNDAY, SUNDAY AND SUNDAY Qty = 30 No Refills Copies To: Ariana ORTEGA,John Edmondson; Rachel ORTEGA,Neel Patel MD Review Statement Documenting Attending: Gail Stewart MD Other Findings: I agree with the discharge summary.
[2017-05-29] MEDS ORDERED: PREDNISONE10 M2 PO (11:49)
[2017-05-29] MEDS ORDERED: TOPROL XL25 M1 PO (11:50)
--- NOTE | 2017-05-29 13:43 | PN- Pulmonary ---
Subjective HPI/Critical Care Issues: I saw the patient along with a resident at bedside. He was lying in his high nasal flow. Patient says he slept well overnight. He offers no complaints. He denies chest pain, shortness of breath, nausea, vomiting, abdominal pain, weakness Review of Systems Constitutional: Reports: no symptoms. Cardiovascular: Reports: no symptoms. Respiratory: Reports: no symptoms. Gastrointestinal: Reports: no symptoms. Genitourinary: Reports: no symptoms. Musculoskeletal: Reports: no symptoms. Objective Current Medications: Current Medications Sig/Kyra Start time Last Medication Dose Route Stop Time Status Admin Acetazolamide 250 MG TuSa@1000 05/26 1000 AC 05/29 PO 0910 Acetylcysteine 2 ML BID 05/23 2200 DC 05/28 INH 05/28 220 1625 Albuterol Sulfate 3 ML EVERY 4 HRS/AWAKE 05/15 0800 AC 05/29 INH 1243 Aspirin 81 MG DAILY 05/14 1747 AC 05/29 PO 0910 Atorvastatin Calcium 40 MG 1700 05/17 1700 AC 05/28 PO 1747 Budesonide/ 2 PUF BID 05/14 2200 AC 05/29 Formoterol Fumarate INH 0908 Carbamide Peroxide 5 GTT BID 05/18 2200 AC 05/28 OTIC 0747 Ceftazidime 1,000 MG Q12H 05/27 0500 AC 05/29 IV 05/29 2200 0543 Chlorhexidine 15 ML TID 05/22 1254 AC 05/29 Gluconate PO 0911 Docusate Sodium 100 MG DAILY 05/24 1029 AC 05/29 PO 0909 Ferrous Gluconate 325 MG BID 05/17 1051 AC 05/29 PO 0908 Furosemide 40 MG DAILY 05/27 1000 AC 05/29 IV 0908 Heparin Sodium 5,000 UNIT Q8 05/14 1743 AC 05/29 (Porcine) SC 0543 Ipratropium [place]inckley 2.5 ML EVERY 4 HRS/AWAKE 05/28 1200 AC 05/29 INH 1243 Magnesium Oxide 400 MG DAILY 05/24 1116 AC 05/29 PO 0909 Metoprolol Succinate 12.5 MG DAILY 05/24 1116 AC 05/29 PO 0910 Omeprazole 40 MG DAILY AC 05/15 0700 AC 05/29 PO 0547 Polyethylene Glycol 17 GM DAILY 05/17 1435 AC 05/29 PO 0908 Potassium Chloride 20 MEQ DAILY 01/12 1000 AC 05/29 PO 0909 Prednisone 20 MG DAILY 05/29 1000 AC 05/29 PO 05/31 1001 0909 Senna 187 MG BID 05/24 2199 AC 05/29 PO 0910 Vital Signs & I&O Last 24 Hrs of Vitals and I&O: Vital Signs Date Time Temp Pulse Resp B/P B/P Pulse O2 O2 Flow FiO2 Mean Ox Delivery Rate 05/29 0910 65 104/54 05/29 0827 92 Nasal 40% Cannula 05/29 0800 92 40% 05/29 0655 99.0 65 22 104/54 88 Nasal Cannula 05/29 0522 64 92 05/29 0329 59 91 05/29 0035 57 93 05/29 0000 BIPAP 40% 05/28 2254 98.7 66 22 110/58 96 05/28 2233 70 93 05/28 2233 92 Nasal 40% Cannula 05/28 1950 89 Nasal 40% Cannula 05/28 1625 85 Nasal 40% Cannula 05/28 1507 98.5 81 16 98/50 92 Nasal Cannula 05/28 1501 92 Nasal 40% Cannula Intake & Output 05/29 1600 05/29 0800 05/29 0000 Intake Total 120 240 120 Output Total 150 300 Balance 120 90 -180 Intake, Oral 120 240 120 Number 1 0 2 Bowel Movements Output, Urine 150 300 Impression/Plan Impression/Plan Impression/Plan: PRevious ct IMPRESSION: 1. Chronic mass effect upon the right middle lobe and both lower lobe bronchi is seen by an enlarged central pulmonary arteries leading to chronic volume loss and consolidation in these lobes. Compared to 2013, findings are very similar. Upper lobes remain relatively clear. Findings raise the suspicion of pulmonary arterial hypertension in the setting of obstructive lung disease. Clinical correlation requested. 2. Evidence of prior granulomatous disease with scattered calcified granulomas in the lungs and calcified nodes seen in the mediastinum and left hilum. 3. A few additional small nodular densities are seen, which are indeterminate in etiology, as not all of these are seen on the 2013 exam. Findings may represent an intercurrent inflammatory or infectious process (example the [id number]-type nodular opacities in the anterior inferior right upper lobe). Follow-up CT scan in 3 months is recommended to reassess the 0.6 x 0.3 cm nodule in the right upper lobe. 4. Enlarged central pulmonary arteries, consistent with pulmonary arterial hypertension. 4. Several other incidental findings as discussed above. General Appearance: Alert, Oriented X3, Cooperative, No Acute Distress Skin: No Rashes HEENT: Atraumatic Neck: Supple, No JVD Cardiovascular: Regular Rate, Normal S1, Normal S2 Lungs: Clear to Auscultation Abdomen: Normal Bowel Sounds, Soft, No Tenderness Neurological: Normal Speech, Strength at 5/5 X4 Ext This is a 86-year-old gentleman with very terminal COPD, has been on chronic oxygen therapy, significant pulmonary hypertension related to severe COPD and chronic lung disease, poor performance time a functional quadriplegia related to severe cervical spine disease, mild bronchiectasis, poor performance status now here with worsening hypoxemia with * Improving Acute hypoxemic and hypercarbic respiratory failure which was sudden onset yesterday. His chest x-ray was suggestive of a complete collapse of the left lower lobe probably from a thick mucous plug. 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 * Pseudomonas pna and bronchiectasis exacerbation * Significant pulmonary hypertension related to terminal lung disease * Functional quadriparesis related to cervical spine disease patient is not a candidate for any therapy * Lower extremity edema suggestive of acute on chronic cor pulmonale * Previous history of mediastinal lymphadenopathy * Small lung nodules of no clinical significance * Worsening overall performance status * Bilateral lower lobe atelectasis with restrictive pulmonary physiology as well related to severe pulmonary hypertension * 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 with previous negative QuantiFERON goal tests * 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 who was been on prednisone for long periods * History of on and off aspiration RECOMMENDATION * Continue BiPAP at hs * COnt nasal cannula if tolerated, if not high flow oxygen * IV lasix today * KEep out of bed most of the day as he might collapse his left lower lobe if he is in recumbent postion * Agg bowel regimen to continue * UPON DC Lasix 40mg M/W//ur and diamox 250 on sunday and sunday * Keep potassium at more than 4, check magnesium and keep more than 2 * PT needs acepella chest pt device and ask resp to educate him regarding this * Aggressive chest physical therapy to the left lower lobe with Mucomyst 2 times a day today and dc * Continue ceftaz for total 14 days * Continue prednisone at 20 for five days 10 for five days and then 10 qod indef * Keep the head of bed elevated * Periodex overall care 3 times a day * OK to rehab today if stable * Prognosis is guarded. Patient wishes no significant aggressive therapy, but wishes to continue his present rx. IF his lung remains opened up his life expectance will be certainly more than 6 months. * Family meeting held, pt wishes to continue present care. They will discus again with the patient and will let us know about further options * OOB to chair and PT Upon discharge Patient clearly qualifies for BiPAP at bedtime Diagnosis * COPD with baseline PCO2 more than 52. * Arterial blood gas done at stable condition showed pH of 7.31, PCO2 of 82, PaO2 of 94 at baseline on oxygen of 4 liters * Overnight oxygen saturation with nocturnal oximetry done. Patient had more than a hour and a half (more than 90 minutes) of significant hypoxemia with oxygen saturation less than 88% on his baseline oxygen which is 3 L/m of oxygen per nasal cannula) * Patient has significant respiratory muscle fatigue, hypercapnia, severe dyspnea with chronic respiratory failure. The symptoms persist after maximum medical therapy. * No evidence suggestive of obstructive sleep apnea and this is not the predominant cause of hypercapnia DNR and DNI and no agg rx if worse
[2017-05-29 15:28] VITALS: BP 104/70
[2017-05-29 15:58] VITALS: BP 104/70
== END 2017-05-29 16:33 | DRG 177 ==
LOC: DELPENDDIS → ERH 13:46 → ERHI 16:10 → 1NO 16:10 → ENRESERV 16:54 → ENTRNSPT 18:56 → EDTRNSPTSTS 19:04 → CMPTRNSPT 19:20 → 1NO 19:40 → ENPENDDIS 05-21 14:08 → 1NO 05-22 11:00 → ENPENDDIS 05-23 07:33 → ENTRNSPT 05-23 12:40 → EDTRNSPTSTS 05-23 12:58 → CMPTRNSPT 05-23 13:03 → 1NO 05-26 09:28
PROVIDERS: Internal Medicine; Internal Medicine Adolescent Medicine; Physician Assistant; Student in an Organized Health Care Education/Training Program
PROC: 5A09457 Assistance with Respiratory Ventilation, 24-96 Consecutive Hours, Continuous Positive Airway Pressure (ICD-10-PCS; principal; 2017-05-14)
DX: J15.1 Pneumonia due to Pseudomonas (principal); J96.21 Acute and chronic respiratory failure with hypoxia; J96.22 Acute and chronic respiratory failure with hypercapnia; E87.4 Mixed disorder of acid-base balance; I47.2 Ventricular tachycardia; J44.0 Chronic obstructive pulmonary disease with (acute) lower respiratory infection; I21.A1 Myocardial infarction type 2; J44.1 Chronic obstructive pulmonary disease with (acute) exacerbation; I27.20 Pulmonary hypertension, unspecified; Z99.81 Dependence on supplemental oxygen; I27.81 Cor pulmonale (chronic); R31.0 Gross hematuria; M06.9 Rheumatoid arthritis, unspecified; R00.1 Bradycardia, unspecified; M10.9 Gout, unspecified; M62.81 Muscle weakness (generalized); M50.30 Other cervical disc degeneration, unspecified cervical region; Z66 Do not resuscitate; Z87.891 Personal history of nicotine dependence; N40.1 Benign prostatic hyperplasia with lower urinary tract symptoms; R33.8 Other retention of urine; H57.02 Anisocoria; K59.00 Constipation, unspecified; K21.9 Gastro-esophageal reflux disease without esophagitis; E78.5 Hyperlipidemia, unspecified
CPT/HCPCS: 1NP; 1NSP; 36415; 71045; 81001; 82436; 87040; 87070; 87071; 87086; 87804; 87804-59; 93005; 93010; 96374; 97110-GO; 97116-GO; 97161-GP; 97166-GO; 97530-GO; 99291; J0456; J0696; J0713; J1120; J1644; J1940; J2920; J2930; J3490; J7040; J7512; J7608

== ENCOUNTER 2017-09-10 22:07 | Inpatient (IN) | payer OTHER ==
[~2017-09-10] VITALS: Ht 167.6 cm; Wt 83.1 kg
[~2017-09-10 22:07] MED LIST changes: +ACETAZOLAMIDE250 M1 PO; +ATORVASTATIN CA40 M1 PO; +AZITHROMYCIN250 M1 PO; +CARBAMIDE15 ML OTIC; +DOCUSATE SODIU100 M3 PO; +FERROUS GLUCON324 M2 PO; +FORTAZ1 G1 IV; +LASIX40 M1 PO; +MAGNESIUM OXID400 M1 PO; +MIRALAX119 GM PO; +NYSTATIN15 G1 TOP; +PERIDEX473 ML PO; +PROAIR HFA8.5 GM INH; +SENNA-TIME S T1 EACH PO; +TOPROL XL25 M1 PO; +VITAMIN D31000 UNI1 PO; +ZITHROMAX250 M2 PO
--- NOTE | 2017-09-10 22:15 | ED DYSPNEA/ASTHMA COMPLAINT ---
History of Present Illness General Chief Complaint: Dyspnea (COPD, CHF, Other) Stated Complaint: SOB Source: patient, old records, EMS, W10 Exam Limitations: no limitations Vital Signs & Intake/Output Vital Signs & Intake/Output Vital Signs Date Time Temp Pulse Resp B/P B/P Pulse O2 O2 Flow FiO2 Mean Ox Delivery Rate 09/11 2211 98.6 100 20 112/55 87 Nasal 5.0L Cannula Allergies Coded Allergies: NO KNOWN ALLERGIES (08/29/12) Reconcile Medications Acetazolamide 250 MG TABLET 1 TAB PO TuSa@1000 COPD Albuterol Sulfate (Proair Hfa) 90 MCG HFA.AER.AD 2 PUF INH Q4-PRN PRN COPD ( Reported) Ascorbic Acid (Vitamin C) 500 MG CAPSULE.ER 1 CAP PO 2XW VITAMIN SUPPLEMENT ( Reported) Aspirin (Aspirin*) 81 MG TAB.CHEW 1 TAB PO DAILY HEART HEALTH (Reported) Atorvastatin Calcium 40 MG TABLET 1 TAB PO 1700 HEART Azithromycin (Zithromax) 250 MG TABLET 1 DP PO Q48 prophylaxis start after ceftazidine Budesonide 0.25 MG/2 ML AMPUL.NEB 1 Vial INH/SOLITARIO TID PRN OB, COPD (Reported) Calcium Carb/Vitamin D3/Vit K1 (Citracal Soft Chew) 500 MG CALCIUM-1,000 UNIT-40 MCG TAB.CHEW 1 TAB PO DAILY VITAMIN SUPPLEMENT (Reported) Carbamide Peroxide (Carbamide) 6.5 % DROPS 5 GTT OTIC BID EAR WAX Chlorhexidine Gluconate (Peridex) 0.12 % MOUTHWASH 15 ML PO TID ORAL CARE mouth rinse Cholecalciferol (Vitamin D3) (Vitamin D3) 1,000 UNIT CAPSULE 1 CAP PO DAILY SUPPLEMENT (Reported) Colchicine (Colcrys) 0.6 MG TABLET 1 TAB PO Q48 GOUT (Reported) Docusate Sodium 100 MG CAPSULE 1 TAB PO DAILY CONSTIPATION Ferrous Gluconate 324 MG (38 MG IRON) TABLET 1 TAB PO BID SUPPLEMENT Furosemide (Lasix) 40 MG TABLET 1 TAB PO SUNDAY WED SUNDAY EDEMA Glucosamine/D3/Boswellia Chey (Glucosamine Complex Tablet) 1,500 MG-400 UNIT- 100 MG TABLET 2 TAB PO DAILY VITAMIN SUPPLEMENT (Reported) Ipratropium/Albuterol Sulfate (Iprat-Albut 0.5-3(2.5) MG/3 Ml) 0.5 MG-3 MG (2.5 MG BASE)/3 ML AMPUL.NEB 1 INHAL INH/SOLITARIO BID PRN PRN SHORTNESS OF BREATH ( Reported) Magnesium Oxide 400 MG TABLET 1 TAB PO DAILY HEART Metoprolol Succ XL (Toprol XL) 25 MG TAB 0.5 TAB PO DAILY HEART Multivit-Min/FA/Lycopen/Lutein (Centrum Silver Tablet) 0.4 MG-300 MCG-250 MCG TABLET 1 TAB PO VITAMIN SUPPLEMENT (Reported) *TWICE PER WEEK Nystatin 100,000 UNIT/GRAM CREAM..G. 1 TWIN TOP BIDP PRN RASH (Reported) apply to affected area(s) Alden-3 Fatty Acids/Fish Oil (Fish Oil 1,000 MG Capsule) 340 MG-1,000 MG CAPSULE 1 CAP PO DAILY SUPPLEMENT (Reported) Omeprazole 40 MG CAPSULE.DR 1 CAP PO DAILY GERD (Reported) Polyethylene Glycol 3350 (Miralax) 17 GRAM/DOSE POWDER 1 DOSE PO DAILY CONSTIPATION Potassium Chloride 20 MEQ TAB.ER.PRT 0.5 TAB PO DAILY SUPPLEMENT (Reported) Prednisone 10 MG TABLET 0 PO SEE ADMIN steriod taper 10mg 2tabs 05/30-06/02 10mg 1tab 06/03-06/09 10mg 1tab take every other day Sennosides/Docusate Sodium (Senna-Time S Tablet) 8.6 MG-50 MG TABLET 1 MG PO ONCE CONSTIPATION Terazosin HCl 5 MG CAPSULE 1 CAP PO QPM (Reported) Triage Note: PT BIBA FROM [facility] C/O SOB. PER MEDIC PT IS ON LEVAQUIN FOR PNEUMONIA DX 3 DAYS AGO. PT STATES FEELS WORSE THAN BEFORE, PT HAS MORE OF A PRODUCTIVE COUGH WITH YELLOW SPUTUM. PT ARRIVED WITH A DUO NEB EN ROUTE, 5L NC AT [place] SAT 86%. PT HAS PREH[facility]ITAL LAC #20. Triage Nurses Notes Reviewed? yes HPI: Patient sent in from his extended care facility for evaluation of difficulty breathing. Patient had a chest x-ray which showed pneumonia and he was started on Levaquin. Patient is O2 dependent COPD history. Becoming more short of breath and his oxygen requirement has increased. Upon EMS arrival he was on 5 L via nasal cannula with an O2 saturation of 86%. Patient was put on a DuoNeb and brought into the emergency department for evaluation. Patient states he just feels he cannot catch his breath and has a cough. He denies any chest pain or chest tightness. He denies any orthopnea. Patient also received an extra dose of Lasix earlier today at the nursing facility. Past History Travel History Traveled to [place] past 21 day No Medical History Any Pertinent Medical History? 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 FATHER (bronchitis). MOTHER (breast CA). Hx Contributory? No Review of Systems Review of Systems Constitutional: Reports: no symptoms. EENTM: Reports: no symptoms. Respiratory: Reports: see HPI, cough, short of breath. Cardiovascular: Reports: no symptoms. GI: Reports: no symptoms. Genitourinary: Reports: no symptoms. Musculoskeletal: Reports: no symptoms. Skin: Reports: no symptoms. Neurological/Psychological: Reports: no symptoms. Hematologic/Endocrine: Reports: no symptoms. Immunologic/Allergic: Reports: no symptoms. All Other Systems: Reviewed and Negative Physical Exam Physical Exam General Appearance: well developed/nourished, alert, awake, anxious, moderate distress Head: atraumatic, normal appearance Eyes: Bilateral: PERRL, EOMI. Ears, Nose, Throat: normal pharynx, normal ENT inspection, hearing grossly normal Neck: normal inspection, supple, full range of motion Respiratory: decreased breath sounds, crackles, rhonchi, wheezing, respiratory distress Cardiovascular: regular rate/rhythm, normal peripheral pulses Gastrointestinal: normal bowel sounds, soft, non-tender, no organomegaly Extremities: normal capillary refill, pedal edema Neurologic/Psych: no motor/sensory deficits, awake, alert, oriented x 3, normal mood/affect Skin: intact, normal color, warm/dry Core Measures ACS in differential dx? Yes CVA/TIA Diagnosis No Sepsis Present: No Sepsis Focused Exam Completed? No Progress Differential Diagnosis: bronchitis, CHF, COPD, pneumonia, pneumothorax Plan of Care: Orders Procedure Date/time Status Heart Healthy Diet 09/11 B Active ED Holding Orders 09/10 2340 Active Admit to inpatient 09/10 2340 Active Patient Data 09/10 234 Active Vital Signs 09/10 234 Active Code Status 09/10 234 Active BLOOD PRODUCT PICKUP 09/10 2340 Active Add-on Test (ER Only) 09/10 233 Active Add-on Test (ER Only) 09/10 2328 Active LEUKOCYTE POOR (PACKED CELLS) 09/10 2328 Active BLOOD CULTURE 09/10 2242 Active TYPE & SCREEN (NOT X-MATCH) 09/10 2220 Active ARTERIAL BLOOD GAS (GEN) 09/10 2213 Complete Telemetry/Police Radio Dispatcher 09/10 2213 Active URINALYSIS 09/10 2213 Active TROPONIN LEVEL 09/10 2213 Complete COMPREHENSIVE METABOLIC PANEL 09/10 2213 Complete CBC WITHOUT DIFFERENTIAL 09/10 2213 Complete B-TYPE NATRIURETIC PEP (BNP) 09/10 2213 Complete EKG 09/10 2213 Active Laboratory Tests 09/10/172220: Anion Gap 9, Estimated GFR > 60, BUN/Creatinine Ratio 30.0 H, Glucose 333 H, Calcium 7.9 L, Total Bilirubin 1.4 H, AST 17, ALT 19 L, Alkaline Phosphatase 48, Troponin I 0.15 *H, Vcc-W-Rylqqgogrjz Pept 2300 H, Total Protein 5.7 L, Albumin 3.0 L, Globulin 2.7, Albumin/Globulin Ratio 1.1, CBC w Diff NO MAN DIFF REQ, RBC 2.47 L, MCV 104.9 H, MCH 34.2 H, MCHC 32.5 L, RDW 19.0 H, MPV 10.0 , Gran % 90.0 H, Lymphocytes % 4.1 L, Monocytes % 5.9, Eosinophils % 0, Basophils % 0, Absolute Granulocytes 5.4, Absolute Lymphocytes 0.2 L, Absolute Monocytes 0.4, Absolute Eosinophils 0, Absolute Basophils 0 09/10/172219: pH 7.48 H, pCO2 49 H, pO2 56 L, HCO3 35 H, ABG O2 Sat (Measured) 87.0 L, P- 50 (Temp Corrected) N, Carboxyhemoglobin 1.3 L, O2 Concentration % 5L, Temperature 98.6, O2 Delivery Method NC, Phlebotomy Draw Site RIGHT RADIAL Microbiology 09/10 2244 BLOOD: Blood Culture - RECD 09/10 2214 BLOOD: Blood Culture - RECD Diagnostic Imaging: Viewed by Me: Radiology Read. Discussed w/RAD: Radiology Read. CXR Impression: PATIENT: ELENA QUICK PRESENT AGE: 86 PATIENT ACCOUNT NO: [id number] : 30 LOCATION: [facility] ORDERING PHYSICIAN: Dannie Austin MD SERVICE DATE: 09/10/17 EXAM TYPE: RAD - XRY-PORTABLE CHEST XRAY EXAMINATION: XR PORTABLE CHEST CLINICAL INFORMATION: Shortness of breath. COMPARISON: Chest x-ray 05/25/2017 TECHNIQUE: Portable frontal view of the chest was obtained. 10:32 PM FINDINGS: There is continued dense consolidation at the left lung base with silhouetting the left diaphragm and blunting left costophrenic angle. This is unchanged since 05/25/2017. There is mediastinal shift to the left which is also unchanged since prior study. No acute abnormality. No pulmonary vascular congestion. No pneumothorax. IMPRESSION : No change since 05/25/2017. Volume loss left hemithorax with dense consolidation at the left lung base. DICTATED BY: Wesley Bentley MD DATE/TIME DICTATED:09/10/172315 BATCH RECORDS CLERK:MIKALA DATE/TIME TRANSCRIBED:2315 CONFIDENTIAL, DO NOT COPY WITHOUT APPROPRIATE AUTHORIZATION. < Electronically signed in Other Vendor System> SIGNED BY: Wesley Bentley MD 2320 Initial ED EKG: NSR, nonspecific ST T wave chg Prior EKG: unchanged Departure Departure Disposition: STILL A PATIENT Condition: Guarded Clinical Impression Primary Impression: COPD exacerbation Secondary Impressions: Elevated troponin Referrals: Rachel ORTEGA,Neel Greene (PCP/Family) Departure Forms: Customer Survey General Discharge Information Admission Note Spoke With: Lloyd ORTEGA,Mitch Documentation of Exam: Documentation of any treatments & extenuating circumstances including Concerns Regarding Discharge (functional status, medication knowledge or non-compliance, living conditions, etc.) that warrant an admission rather than observation: Admit to telemetry, cardiology consultation, serial enzymes, telemetry monitoring, pulmonary consultation, respiratory treatments, IV antibiotics, IV steroids] Critical Care Note Critical Care Note Critical Care Time: mins: (45 MIN)
[2017-09-10 22:31] LABS: ABSOLUTE BASOPHIL COUNT 0 /CUMM (0.0-0.2); ABSOLUTE EOSINOPHIL COUNT 0 /CUMM (0.0-0.7); ABSOLUTE GRANULOCYTE CT 5.4 /CUMM (1.4-6.5); ABSOLUTE LYMPH COUNT 0.2 /CUMM (1.2-3.4); ABSOLUTE MONOCYTE COUNT 0.4 /CUMM (0.10-0.60); BASOPHIL % 0 % (0.0-2.0); EOSINOPHIL % 0 % (0-5); HEMATOCRIT 25.9 % (42-52); MEAN CORPUSCULAR HGB 34.2 PG (27.0-31.0); MEAN CORPUSCULAR HGB CONC 32.5 G/DL (33.0-37.0); MEAN CORPUSCULAR VOLUME 104.9 FL (80.0-94.0); PLATELET COUNT 167 /CUMM (130-400); RED BLOOD CELL CT 2.47 /CUMM (4.70-6.10)
--- NOTE | 2017-09-10 23:21 | RADIOLOGY REPORT ---
EXAMINATION: XR PORTABLE CHEST CLINICAL INFORMATION: Shortness of breath. COMPARISON: Chest x-ray 05/25/2017 TECHNIQUE: Portable frontal view of the chest was obtained. 10:32 PM FINDINGS: There is continued dense consolidation at the left lung base with silhouetting the left diaphragm and blunting left costophrenic angle. This is unchanged since 05/25/2017. There is mediastinal shift to the left which is also unchanged since prior study. No acute abnormality. No pulmonary vascular congestion. No pneumothorax. IMPRESSION: No change since 05/25/2017. Volume loss left hemithorax with dense consolidation at the left lung base.
--- NOTE | 2017-09-10 23:51 | History & Physical ---
Gerardo Pinon MD 09/10/17 8650: General Information and HPI MD Statement: I have seen and personally examined ELENA QUICK and documented this H&P. The patient is a 86 year old M who presented with a patient stated chief complaint of [shortness of breath]. 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 Patient was brought in by ambulance from [facility] ([facility] Per EMS patient was diagnosed with pneumonia seen on CXR 3 days prior to admission and was started on levaquin. Patient was satting 86% on 5L NC at [place]. Patient on route to the hospital received a DuoNeb treatment. Patient's daughter was present at time of interview. Reports patient has been short of breath for the past 2 days. Reports patient is supposed to be on 4.5-5 L oxygen throughout the day however reports that the nursing facility has been putting the patient on 2.5 L which is what he was on during the day prior to his May admission. Daughter states that she checks his O2 saturations herself and has noted that they have been in the high 80s to low 90s. Today she reports that patient's oxygen was was increased to 5.5 L. Patient states that he has had productive cough with green/yellow phlegm. It is unclear if patient had hemoptysis as daughter states that patient may or may not have had of red juice. Patient was started on Levaquin at approximately 6 PM on day of admission for questionable pneumonia. Patient had a chest x-ray done at the nursing facility which reportedly showed no change from his previous imaging. Patient denies fever, reports chills. Patient denies chest pain, palpitations. Reports orthopnea and lower extremity edema. Patient is bedbound at baseline and has had chronic lower extremity edema requiring the use of stockings which he reportedly has not been wearing. Patient denies nausea, vomiting, constipation/ diarrhea, urinary symptoms. Patient was last hospitalized in May at [facility] on May 14 to . Patient was discharged to [facility] where he stayed until June 19 and was then transferred to [place] where he spent 1 month in the retirement facility and was later shifted to the penitentiary care facility. Patient's daughter reports that it has been stressful on the patient at the [facility] care facility due to less availability of care Tmax 98.6, heart rate 108, respiration rate 18-20, blood pressure 112/55, initially saturating 87% on 5 L nasal cannula which improved to 93-94% on 5.5 L nasal cannula WBC 6.0, 90% granulocytes, H&H 8.4 and 25.9, MCV 104.9, platelet count 167 Sodium 131, potassium 3.2, chloride 85, bicarbonate 38, when necessary 18, creatinine 0.6, glucose 333, calcium 7.9, albumin 3.0, corrected calcium 9.5, T bili 1.4, AST 17, ALT 19, alkaline phosphatase 48, troponin 0.15, proBNP 2300 EKG: NSR w/rate of 90, nonspecific intraventricular conduction delay, QTc: 504 Blood cultures 2 sent Chest x-ray shows no change since 05/25/2017. Volume loss left hemithorax with dense consolidation at the left lung base. In the ED: Patient received aspirin 325 mg 1, Ativan, Solu-Medrol 125 mg IV 1 Allergies/Medications Allergies: Coded Allergies: NO KNOWN ALLERGIES (08/29/12) Home Med list Acetazolamide 250 MG TABLET 1 TAB PO TuSa@1000 COPD Albuterol Sulfate (Proair Hfa) 90 MCG HFA.AER.AD 2 PUF INH Q4-PRN PRN COPD ( Reported) Ascorbic Acid (Vitamin C) 500 MG CAPSULE.ER 1 CAP PO 2XW VITAMIN SUPPLEMENT ( Reported) Aspirin (Aspirin*) 81 MG TAB.CHEW 1 TAB PO DAILY HEART HEALTH (Reported) Atorvastatin Calcium 40 MG TABLET 1 TAB PO 1700 HEART Azithromycin (Zithromax) 250 MG TABLET 1 DP PO Q48 prophylaxis start after ceftazidine Budesonide 0.25 MG/2 ML AMPUL.NEB 1 Vial INH/SOLITARIO TID PRN OB, COPD (Reported) Budesonide/Formoterol Fumarate (Symbicort 160-4.5 Mcg Inhaler) 160 MCG-4.5 MCG/ ACTUATION HFA.AER.AD 2 PUF INH BID copd (Reported) Calcium Carb/Vitamin D3/Vit K1 (Citracal Soft Chew) 500 MG CALCIUM-1,000 UNIT-40 MCG TAB.CHEW 1 TAB PO DAILY VITAMIN SUPPLEMENT (Reported) Carbamide Peroxide (Carbamide) 6.5 % DROPS 5 GTT OTIC BID EAR WAX Chlorhexidine Gluconate (Peridex) 0.12 % MOUTHWASH 15 ML PO TID ORAL CARE mouth rinse Cholecalciferol (Vitamin D3) (Vitamin D3) 1,000 UNIT CAPSULE 1 CAP PO DAILY SUPPLEMENT (Reported) Colchicine (Colcrys) 0.6 MG TABLET 1 TAB PO Q48 GOUT (Reported) Docusate Sodium 100 MG CAPSULE 1 TAB PO DAILY CONSTIPATION Ferrous Gluconate 324 MG (38 MG IRON) TABLET 1 TAB PO BID SUPPLEMENT Folic Acid 1 MG TABLET 1 TAB PO DAILY vit supplement (Reported) Furosemide (Lasix) 40 MG TABLET 1 TAB PO Sunday EDEMA Glucosamine/D3/Boswellia Chey (Glucosamine Complex Tablet) 1,500 MG-400 UNIT- 100 MG TABLET 2 TAB PO DAILY VITAMIN SUPPLEMENT (Reported) Ipratropium/Albuterol Sulfate (Iprat-Albut 0.5-3(2.5) MG/3 Ml) 0.5 MG-3 MG (2.5 MG BASE)/3 ML AMPUL.NEB 1 INHAL INH/SOLITARIO BID PRN PRN SHORTNESS OF BREATH ( Reported) Magnesium Oxide 400 MG TABLET 1 TAB PO DAILY HEART Multivit-Min/FA/Lycopen/Lutein (Centrum Silver Tablet) 0.4 MG-300 MCG-250 MCG TABLET 1 TAB PO VITAMIN SUPPLEMENT (Reported) *TWICE PER WEEK Nystatin 100,000 UNIT/GRAM CREAM..G. 1 TWIN TOP BIDP PRN RASH (Reported) apply to affected area(s) Miller-3 Fatty Acids/Fish Oil (Fish Oil 1,000 MG Capsule) 340 MG-1,000 MG CAPSULE 1 CAP PO DAILY SUPPLEMENT (Reported) Omeprazole 40 MG CAPSULE.DR 1 CAP PO DAILY GERD (Reported) Polyethylene Glycol 3350 (Miralax) 17 GRAM/DOSE POWDER 1 DOSE PO DAILY CONSTIPATION Potassium Chloride 20 MEQ TAB.ER.PRT 0.5 TAB PO DAILY SUPPLEMENT (Reported) Prednisone 10 MG TABLET 0 PO SEE ADMIN steriod taper 10mg 2tabs 05/30-06/02 10mg 1tab 06/03-06/09 10mg 1tab take every other day Sennosides/Docusate Sodium (Senna-Time S Tablet) 8.6 MG-50 MG TABLET 1 MG PO ONCE CONSTIPATION Terazosin HCl 5 MG CAPSULE 1 CAP PO QPM (Reported) Past History Travel History Traveled to [place] past 21 day No Medical History Neurological: NONE EENT: NONE Cardiovascular: hyperlipidemia Respiratory: COPD Gastrointestinal: GERD Hepatic: NONE Renal: benign prost hyperplasia Musculoskeletal: gout, osteoarthritis Psychiatric: NONE Endocrine: NONE Blood Disorders: NONE Cancer(s): 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 FATHER (bronchitis). MOTHER (breast CA). Psychosocial History Who Do You Live With? child Services at Home: None Primary Language: Iraqi ETOH Use: denies use Illicit Drug Use: denies illicit drug use Functional Ability ADLs Independent: dressing, eating, toileting, bathing. Ambulation: non-ambulatory, rarely ambulated and uses walker IADLs Independent: telephone. Needs Assist: shopping, housework, finances, food prep, transportation, medication admin. Review of Systems Review of Systems Constitutional: Reports: see HPI. EENTM: Reports: no symptoms. Cardiovascular: Reports: see HPI. Respiratory: Reports: see HPI. GI: Reports: no symptoms. Genitourinary: Reports: no symptoms. Musculoskeletal: Reports: no symptoms. Skin: Reports: no symptoms. Neurological/Psychological: Reports: no symptoms. Hematologic/Endocrine: Reports: no symptoms. Immunologic/Allergic: Reports: no symptoms. Exam & Diagnostic Data Last 24 Hrs of Vital Signs/I&O Vital Signs Date Time Temp Pulse Resp B/P B/P Pulse O2 O2 Flow FiO2 Mean Ox Delivery Rate 09/11 0200 94 Nasal 5.0L Cannula 09/11 0136 97.6 72 18 103/53 97 Nasal 5.5L Cannula 09/11 0117 97.6 77 18 110/56 94 Nasal 5.5L Cannula 09/107 94 Nasal 5.5L Cannula 09/10 2344 98.5 95 18 129/54 93 Nasal 5.5L Cannula 09/102 98.6 100 20 112/55 87 Nasal 5.0L Cannula Intake & Output 09/11 0800 09/11 0000 09/10 1600 Intake Total Output Total Balance Patient 195 lb 180 lb Weight Weight Bed scale Reported by Patient Measurement Method Physical Exam General Appearance Alert, Oriented X3, Cooperative, Mild Distress Skin erythema over the lower back and buttocks Skin Temp/Moisture Exam: Warm/Dry Sepsis Skin Exam (color): Normal for Ethnicity HEENT Atraumatic, EOMI, dry mucosal membranes Neck Supple, No JVD Lymphatic Cervical nl Cardiovascular Regular Rate, Normal S1, Normal S2, No Murmurs Lungs bilateral rhonchi Abdomen Normal Bowel Sounds, Soft, No Tenderness Neurological Normal Speech, Strength at 5/5 X4 Ext, Normal Tone, Sensation Intact, Cranial Nerves 3-12 NL Extremities No Clubbing, No Cyanosis, Normal Pulses, No Tenderness/Swelling, bilateral lower extremity pitting edema 2+ Vascular Normal Pulses, Pulses Symmetrical Rectal No Fissures, No Hemorrhoids, guiac positive Last 24 Hrs of Labs/Nikolas: Laboratory Tests 09/10/17 2221: Anion Gap 9, Estimated GFR > 60, BUN/Creatinine Ratio 30.0 H, Glucose 333 H, Hemoglobin A1c Pending, Calcium 7.9 L, Phosphorus 2.6, Magnesium 1.8, Iron 31 L, TIBC 204 L, Ferritin 407.0, Total Bilirubin 1.4 H, AST 17, ALT 19 L, Alkaline Phosphatase 48, Troponin I 0.15 *H, Jni-Q-Niniugdhbnv Pept 2300 H, Total Protein 5.7 L, Albumin 3.0 L, Globulin 2.7, Albumin/Globulin Ratio 1.1, Vitamin B12 > 1000 H, Folate > 20.0 H, TSH 3.120, Free T4 1.05, CBC w Diff NO MAN DIFF REQ, RBC 2.47 L, MCV 104.9 H, MCH 34.2 H, MCHC 32.5 L, RDW 19.0 H, MPV 10.0, Gran % 90.0 H, Lymphocytes % 4.1 L, Monocytes % 5.9, Eosinophils % 0 , Basophils % 0, Absolute Granulocytes 5.4, Absolute Lymphocytes 0.2 L, Absolute Monocytes 0.4, Absolute Eosinophils 0, Absolute Basophils 0, Retic Count 2.07 H 09/10/17 2220: pH 7.48 H, pCO2 49 H, pO2 56 L, HCO3 35 H, ABG O2 Sat (Measured) 87.0 L, P- 50 (Temp Corrected) N, Carboxyhemoglobin 1.3 L, O2 Concentration % 5L, Temperature 98.6, O2 Delivery Method NC, Phlebotomy Draw Site RIGHT RADIAL Microbiology 09/11 032 NASOPHARYN: Influenza Virus A & B Rapid Smear - COMP 09/11 126 URINE ROUT: Legionella Antigen - COLB 09/11 126 URINE ROUT: Streptococcus pneumoniae Antigen (M - COLB 09/11 003 LOWER RESP: Respiratory Culture - COLB 09/11 29 LOWER RESP: Gram Stain - COLB 09/10 2244 BLOOD: Blood Culture - RECD 09/10 2214 BLOOD: Blood Culture - RECD Assessment/Plan Assessment: Patient is 86-year-old male with past medical history of 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 Patient's findings are consistent with COPD exacerbation which may be secondary to pneumonia. Patient was started on Levaquin on day of admission for presumed pneumonia. Imaging from [place] and [facility] show apparently no significant change in dense left lung base consolidation. Patient was hospitalized at [facility] in May for acute hypoxic respiratory failure secondary to COPD exacerbation and pseudomonal pneumonia. Although patient's proBNP is elevated and lower extremity edema (which is chronic likely secondary to paraplegia), patient appears hypovolemic with dry mucosal membranes and no JVD. Patient's troponin are elevated with no significant ST or T wave changes and with no chest pain. Elevated troponin is likely Type II KS due to increased demand. Although patient 's H/H is >8, he has had a signficant drop since previous discharge. Patient was guiac+. Patient was given 1 pRBC. Patient will be admitted to telemetry for management of the followin. Acute hypoxic hypercarbic respiratory failure secondary to COPD exacerbation and possible pneumonia - will admit to telemetry - continue monitoring telel - monitor vitals closely - oxygen supplementation as needed - TRC/DuoNeb - IV Ceftaz (due to patient's recent pseudomonal penumonia) - IV Solu-medrol 40mh q8h - Follow up sputum cultures, blood cultures, urine strep and legionella antigen - Aspiration precautions 2. Type II KS - continuous monitoring on tele - serial EKG and Trop - ECHO - consult cardiology (Dr. Gonzalez) - hold aspirin and NSAIDs due to anemia and guiac + stool requiring 1 pRBC - 1pRBC given in ER due to increased demand ischemia 3. Acute on chronic anemia - follow up iron studies - TSH - B12 - folic acid 4. Chronic conditions: cor pulmonale, DM, rheumatoid arthritis - insulin SS and accuchecks TIDAC/qhs - hold oral hypoglycemics - continue chronic medications including folic acid, fergon, atrovastatin, doxazosin Code: Full code Diet: Consistent carbohydrate diet DVT PPx: ALPS, As Ranked By This Provider Problem List: 1. COPD exacerbation 2. Elevated troponin Core Measures/Misc (01/28) Acute Coronary Syndrome ACS Diagnosis: No Congestive Heart Failure Congestive Heart Failure Diagnosis No Cerebrovascular Accident CVA/TIA Diagnosis: No VTE (View Protocol) VTE Risk Factors Age>40 No Mechanical VTE Prophylaxis d/t N/A MechProphylax Ordered No VTE Pharm Prophylaxis d/t NA PharmProphylax ordered Sepsis (View protocol) Sepsis Present: No Saúl Streeter 09/11/17 0202: Resident Review Statement Resident Statement: examined this patient, discussed with sports intern, agreed with sports intern, discussed with family, reviewed EMR data (avail), discussed with nursing , discussed with case mgmt, reviewed images, amended to note Other Findings: This is 86-year-old male with past medical history of COPD on 2.5 L home oxygen, history of large left-sided paramediastinal, severe cor pulmonale, rheumatoid arthritis, quadriparesis with significant cervical degenerative disc disease, BPH, YAMILA, gout, HLD. He presented to the emergency department via EMS from acute short-term rehabilitation due to worsening shortness of breath. Patient was recently diagnosed with a pneumonia in the acute short-term rehabilitation were he had CXR was started on levaquin he received the 1st dose today, and oral prednisone. Patient was satting 86% on 5L NC at [place]. Patient on route to the hospital received a DuoNeb treatment. Patient states he just feels that he cannot catch his breath and that is associated with productive cough and expiratory wheezing. Patient also received an extra dose of Lasix earlier today additional to the 40 by mouth he is on at the nursing facility per the MED administration list. He denies any chest pain or chest tightness and orthopnea. In the emergency department his O2 sat was 86 patient was placed on 6 L nasal cannula oxygen, he received 125 mg of IV Solu-Medrol, chest x-ray showed left lower consolidation, patient was tripoding and crossmatch and 1 unit of packed RBC order getting a positive troponin, patient had positive guaiac in the ED. Most recent admission to [facility] was a May 2017 that was due to acute hypoxic/hypercarbic respiratory failure due to COPD exacerbation and Pseudomonas pneumonia. Patient was treated with IV Fortaz. Also patient had positive troponin that was type II KS. Physical examination, lab and imaging as above. Problem list: -Acute hypoxic hypercarbic respiratory failure due to COPD exacerbation most likely secondary to underlying pneumonia. -Positive troponin that could be most likely type II KS. -Hyperglycemia with Pseudohypernatremia corrected sodium 136 -Macrocytic anemia with positive guaiac stool -Hypokalemia most likely secondary to medication. Plan: -Admit patient to telemetry floor -Vitals every shift, aspiration precaution -Start IV ceftazidime antibiotic -Obtain sputum culture, strep and urine Legionella antigen -Follow-up blood culture, obtain rapid flu -Start 40 mg of IV Solu-Medrol every 8 -TRC nebs as needed, 1 dose of Mucomyst -Keep oxygen saturation more than 90% -Continue his home inhaler -Pulmonary consultation in a.m. -Serial troponin and EKG -Hold off any additional aspirin for now giving positive guaiac and drop H&H -Cardiology consultation in a.m. -Obtain echocardiogram -Obtain TSH, free T4, magnesium and phosphorus -Obtain hemoglobin A1c, Accu-Chek -Obtain iron level, TIBC, ferritin level, vitamin B12, folate -Guaiac all stools -Patient will receive 1 packed RBC, 20 mg of by mouth Lasix after transfusion. -Repeat potassium with 40 mg K Dur. -Pain pathway -DVT prophylaxis: Alps -Full code Lloyd ORTEGA, [facility] 09/11/17 0413: Attending MD Review Statement Attending Statement Attending MD Statement: examined this patient, discuss w/resident/PA/SCHOOL PSYCHOLOGY SPECIALIST, agreed w/resident/PA/SCHOOL PSYCHOLOGY SPECIALIST, discussed with family, reviewed images, amended to note Attending Assessment/Plan: 86 yo M with h/o end-stage COPD on 4-5 L O2, cor pulmonale, large paramediastinal mass not evaluated but self-resolved, seronegative RA, quadriparesis with significant cervical degenerative disc disease, on and off aspiration, H. Pylori with chronic gastritis, is here for evaluation of sudden onset worsening dyspnea and increasing O2 requirement. Patient was last admitted to [facility] (May 2017) for COPDE & pseudomonas pneumonia, and discharged to [facility] for therapy. He was then transferred to [place] where he was recently moved from the skilled facility section to the long -term care. Family reports that two days ago, patient started having increasing dyspnea at rest associated with yellow-green phlegm. CXR was done and patient was started on levaquin for pneumonia. Patient is supposed to be on 4-5 L oxygen , however he has been on 2.5L at the facility, and today he was on 5.5L with O2 sats in high 80's. He also received extra PO lasix prior to coming to ER. Nebs were given enroute. In the emergency department his O2 sat was 86 patient was placed on 6 L nasal cannula oxygen, he received 125 mg of IV Solu-Medrol, chest x-ray showed left lower consolidation, patient was tripoding and crossmatch and 1 unit of packed RBC order getting a positive troponin, patient had positive guaiac in the ED. Vitals: afebrile, HR 80-100's, BP 110/56, sats 94% on 5.5L. Exam: AAO, in mild respiratory distress, mucosa dry, no JVD, Chest basilar rhonchi+, reduced air entry, LE: b/l 2+ edema (chronic). Labs: H/H 8.4/25.9 (baseline 9-10/28-34), macrocytic anemia, Na 131, K 3.2, bicarb 38, glucose 333, CA 7.9. AB.48/49/56/35 (metabolic alkalosis with respiratory compensation) CXR: volume loss left hemithorax with dense consolidation left lung base ( unchanged). Flu swab negative. EKG: sinus rhythm, nonspecific IVCD, Qtc 504. Echo (2017): EF 60-65%, stage 1 diastolic dysfunction Assessment and plan: 1. Acute on chronic hypoxemic respiratory failure 2. Exacerbation of end-stage COPD with possible pneumonia 3. Previous h/o pseudomonas pneumonia 4. Elevated proBNP with no clear evidence of exacerbation of CHF 5. Severe cor-pulmonate 6. Type 2 KS 7. Hypokalemia 8. Pseudohyponatremia (corrected sodium to glucose 135) 9. Chronic anemia now with guaiac positive stool while on iron supplements - Admit to Telemetry - Monitor for arrhythmias - NPO, obtain swallow eval in AM - Keep HOB elevated - TRC nebs - Panculture, urine legionella and strep Ag - IV ceftaz (given previous h/o pseudomonas pneumonia) - Pulm consult (Dr. Arzate) - IV solumedrol followed by taper - Trend troponin, obtain Echo and Cardio consult (Dr. Gonzalez) - Patient received 2 doses of lasix (40 mg each) at the facility today, and given borderline BP - hold off lasix tonight - Type and crossmatch, 1 unit PRBC given by ER due to ongoing demand ischemia - Aspirin given in ER but will hold off further aspirin or NSAIDs - Check iron studies, TSH, B12 and folic acid - Provide LE compression stockings - Diabetes management - Continue prilosec - Consider GI consult, however anemia seems to chronic with iron deficiency and chronic disease DVT ppx Alps (due to anemia). Full code. Code status was discussed in detail with patient and family. Patient clearly wishes to be a full code despite having expressed wishes of being DNR/I in the past. Please revisit this discussion in AM alongwith Dr. Arzate.
[2017-09-11] MEDS ORDERED: FOLIC ACID1 M1 PO (02:44)
[2017-09-11] MEDS ORDERED: SYMBICORT 16010.2 GM INH (02:49)
--- NOTE | 2017-09-11 04:14 | Admission Certification ---
Admission Certification Certification Statement - As attending physician, I certify that at the time of - admission, based on clinical presentation, severity of - symptoms, need for further diagnostic testing and - therapeutic interventions, and risk of adverse outcomes - without in-hospital treatment, in my clinical assessment, - this patient requires an acute hospital stay for a minimum - of two nights or longer. I have also considered psychsocial - factors such as support system, advanced age, financial - issues, cognitive issues, and failed out-patient treatments, - past re-admission history, safety of patient, and lack of - compliance as applicable. Specific rationale supporting this admission is: Acute on chronic hypoxic respiratory failure, COPD exacerbation, possible pneumonia, elevated troponin due to demand ischemia.
[2017-09-11 06:00] VITALS: BP 112/58
[2017-09-11 08:02] LABS: ABSOLUTE BASOPHIL COUNT 0 /CUMM (0.0-0.2); ABSOLUTE EOSINOPHIL COUNT 0 /CUMM (0.0-0.7); ABSOLUTE GRANULOCYTE CT 4.9 /CUMM (1.4-6.5); ABSOLUTE LYMPH COUNT 0.3 /CUMM (1.2-3.4); ABSOLUTE MONOCYTE COUNT 0.1 /CUMM (0.10-0.60); BASOPHIL % 0 % (0.0-2.0); EOSINOPHIL % 0 % (0-5); GRANULOCYTE % 91.8 % (42.2-75.2); HEMATOCRIT 26.9 % (42-52); MEAN CORPUSCULAR HGB CONC 33.6 G/DL (33.0-37.0); MEAN CORPUSCULAR VOLUME 101.2 FL (80.0-94.0); MEAN PLATELET VOLUME 9.8 FL (7.4-10.4); PLATELET COUNT 182 /CUMM (130-400); RBC DISTRIBUTION WIDTH 21.5 % (11.5-14.5); RED BLOOD CELL CT 2.66 /CUMM (4.70-6.10); WHITE BLOOD CELL COUNT 5.3 /CUMM (4.8-10.8)
--- NOTE | 2017-09-11 08:24 | PN- Housestaff ---
Agusto ORTEGA,Joshua 09/11/17 0823: Subjective Follow-up For: COPD CHF Tele-Events Since Last Visit: Bradycardia into 40s, some PACs Subjective: Saw pt at bedside this AM. He was coughing and struggling to bring up any sputum. Otherwise, he was pleasant and not in any distress. He was on his baseline 4L O2 and resting comfortably. Review of Systems Constitutional: Reports: chills. Denies: fever. EENTM: Reports: no symptoms. Cardiovascular: Denies: chest pain, palpitations. Respiratory: Reports: cough, short of breath, sputum production. Gastrointestinal: Reports: no symptoms. Genitourinary: Reports: no symptoms. Musculoskeletal: Reports: no symptoms. Objective Last 24 Hrs of Vital Signs/I&O Vital Signs Date Time Temp Pulse Resp B/P B/P Pulse O2 O2 Flow FiO2 Mean Ox Delivery Rate 09/11 1127 96 Nasal 4.0L Cannula 09/11 0800 Nasal 4.0L Cannula 09/11 0600 98.0 71 24 112/58 97 09/11 0430 Nasal 4.0L Cannula 09/11 0430 97 Nasal 4.0L Cannula 09/11 0200 94 Nasal 5.0L Cannula 09/11 0136 97.6 72 18 103/53 97 Nasal 5.5L Cannula 09/11 0117 97.6 77 18 110/56 94 Nasal 5.5L Cannula 09/10 2347 94 Nasal 5.5L Cannula 09/10 2345 98.5 95 18 129/54 93 Nasal 5.5L Cannula 09/10 2212 98.6 100 20 112/55 87 Nasal 5.0L Cannula Intake & Output 09/11 1600 09/11 0800 09/11 0000 Intake Total 620 Output Total 350 Balance 270 Intake, Blood 350 Product Intake, IV 30 Intake, Oral 240 Output, Urine 350 Patient 88.224 kg 81.647 kg Weight Weight Bed scale Reported by Patient Measurement Method Physical Exam General Appearance: Alert, Cooperative, No Acute Distress Skin: No Significant Lesion HEENT: Atraumatic, PERRLA, EOMI, Mucous Membr. moist/pink Neck: Supple Cardiovascular: Regular Rate, Normal S1, Normal S2, No Murmurs Lungs: sig. diminished air movement. No wheezes. slight crackle at base Abdomen: Soft, No Tenderness Extremities: 3+ pitting edema Current Medications: Current Medications Sig/Kyra Start time Last Medication Dose Route Stop Time Status Admin Acetaminophen 650 MG Q6P PRN 09/11 0015 AC PO Acetaminophen 1,000 MG Q8P PRN 09/11 0015 AC IV Acetylcysteine 2 ML BID 09/11 0900 AC 09/11 INH 0436 Acetylcysteine 2 ML ONCE ONE 09/11 0130 DC INH 09/11 0131 Albuterol Sulfate 3 ML TID 09/11 0900 AC 09/11 INH 1104 Albuterol Sulfate 2 PUF Q4-PRN PRN 09/11 0130 AC INH Aspirin 0 .STK-MED ONE 09/11 0017 DC PO Aspirin 325 MG ONCE ONE 09/10 2345 DC 09/11 PO 09/10 2346 0013 Atorvastatin Calcium 40 MG 1700 09/11 1700 AC PO Budesonide/ 2 PUF BID 09/11 0900 AC 09/11 Formoterol Fumarate INH 0934 Ceftazidime 1,000 MG IQ8 09/11 0800 DC IV Ceftazidime 1,000 MG IQ8 09/11 0200 AC 09/11 IV 0741 Docusate Sodium 100 MG DAILY 09/11 0900 AC 09/11 PO 0935 Doxazosin Mesylate 2 MG QPM 09/11 2100 AC PO Ferrous Gluconate 324 MG BID 09/11 0900 AC 09/11 PO 0935 Folic Acid 1 MG DAILY 09/11 0900 AC 09/11 PO 0934 Insulin Aspart 0 TIDAC 09/11 1700 AC SC Ipratropium [place] 2.5 ML TID 09/11 0900 AC 09/11 INH 1104 Lorazepam 0 .STK-MED ONE 09/10 2316 DC .ROUTE Lorazepam 0.5 MG ONCE ONE 09/10 2314 DC 09/10 IV 09/10 2316 2312 Methylprednisolone 40 MG Q8 09/11 0600 AC 09/11 IV 0537 Methylprednisolone 0 .STK-MED ONE 09/10 2229 DC .ROUTE Methylprednisolone 125 MG ONCE ONE 09/10 2214 DC 09/10 IV 09/11 2215 2242 Omeprazole 40 MG DAILY AC 09/11 0700 AC 09/11 PO 0541 Potassium Chloride 10 MEQ DAILY 09/11 0900 AC 09/11 PO 0935 Potassium Chloride 40 MEQ BID 09/11 0900 AC 09/11 PO 0935 Potassium Chloride 40 MEQ ONCE ONE 09/11 0030 DC 09/11 PO 09/11 0031 0254 Last 24 Hrs of Lab/Nikolas Results Last 24 Hrs of Labs/Mics: Laboratory Tests 09/11/17 1130: Troponin I Pending 09/11/17 0555: Sodium Cancelled, Potassium Cancelled, Chloride Cancelled, Carbon Dioxide Cancelled, Anion Gap Cancelled, BUN Cancelled, Creatinine Cancelled, BUN/ Creatinine Ratio Cancelled 09/11/17 0555: Anion Gap 7, Estimated GFR > 60, BUN/Creatinine Ratio 36.0 H, Troponin I 0.16 * H, CBC w Diff MAN DIFF ORDERED, RBC 2.66 L, MCV 101.2 H, MCH 34.0 H, MCHC 33.6, RDW 21.5 H, MPV 9.8, Gran % 91.8 H, Lymphocytes % 6.2 L, Monocytes % 2.0, Eosinophils % 0, Basophils % 0, Absolute Granulocytes 4.9, Segmented Neutrophils 73, Band Neutrophils 19 H, Absolute Lymphocytes 0.3 L, Lymphocytes 6 L, Monocytes 2, Absolute Monocytes 0.1, Absolute Eosinophils 0, Absolute Basophils 0, Platelet Estimate VERIFIED BY SMEAR, Polychromasia 1+, Poikilocytosis 1+, Basophilic Stippling 1+, Anisocytosis 1+, Macrocytic Cells 1+ , Ovalocytes 1+ 09/10/17 2221: Anion Gap 9, Estimated GFR > 60, BUN/Creatinine Ratio 30.0 H, Glucose 333 H, Hemoglobin A1c 6.3 H, Calcium 7.9 L, Phosphorus 2.6, Magnesium 1.8, Iron 31 L , TIBC 204 L, Ferritin 407.0, Total Bilirubin 1.4 H, AST 17, ALT 19 L, Alkaline Phosphatase 48, Troponin I 0.15 *H, Pmx-S-Lilelvrmghd Pept 2300 H, Total Protein 5.7 L, Albumin 3.0 L, Globulin 2.7, Albumin/Globulin Ratio 1.1, Vitamin B12 > 1000 H, Folate > 20.0 H, TSH 3.120, Free T4 1.05, CBC w Diff NO MAN DIFF REQ, RBC 2.47 L, MCV 104.9 H, MCH 34.2 H, MCHC 32.5 L, RDW 19.0 H, MPV 10.0, Gran % 90.0 H, Lymphocytes % 4.1 L, Monocytes % 5.9, Eosinophils % 0 , Basophils % 0, Absolute Granulocytes 5.4, Absolute Lymphocytes 0.2 L, Absolute Monocytes 0.4, Absolute Eosinophils 0, Absolute Basophils 0, Retic Count 2.07 H 09/10/170: pH 7.48 H, pCO2 49 H, pO2 56 L, HCO3 35 H, ABG O2 Sat (Measured) 87.0 L, P- 50 (Temp Corrected) N, Carboxyhemoglobin 1.3 L, O2 Concentration % 5L, Temperature 98.6, O2 Delivery Method NC, Phlebotomy Draw Site RIGHT RADIAL Microbiology 09/11 0320 NASOPHARYN: Influenza Virus A & B Rapid Smear - COMP 09/11 126 URINE ROUT: Legionella Antigen - COLB 09/11 126 URINE ROUT: Streptococcus pneumoniae Antigen (M - COLB 09/11 29 LOWER RESP: Respiratory Culture - COLB 09/11 29 LOWER RESP: Gram Stain - COLB 09/10 2244 BLOOD: Blood Culture - RES 09/10 2214 BLOOD: Blood Culture - RES Assessment/Plan Assessment: This is a 86 yo male with PMH of COPD on 4L O2, cor pulmonale, HFpEF ECHO (2017 ) with LVEF >65%, rheumatoid arthritis, quadriparesis with significant cervical degenerative disc disease presenting this admission with chief complaint of shortness of breath. ED workup showed significantly elevated BNP, 3+ L3 edema, and cxr showing continued dense consolidation at L lung base with blunting of costophrenic angle. There is concern for worsening heart failure superimposed by bronchitis exacerbating his underlying COPD. PLAN: 1. Dypnea: Etiology includes bronchitis on COPD, or worsening heart failure. There is possibility that he has worsening r. heart failure due to cor pulmonale , but this would not traditioally present with SOB unless accompanied by l. heart failure as well. He does have hx of HFpEF and given elevation in BNP and edema. * Appreciate cardio consult * gentle diuresis * Symbicort-Budesonide/Oswaldo, Nebulized Albuterol, * O2 as necessary * IV solumedro 40 q8 today * Currently trt w/ Ceftaz given hs pseudomonas in sputum. However, afebrile with nml WBC. Note he is on steroids today. Pt had 19 bands on his CBC this AM. 2. Type II NC: Likely 2/2 demand from tachycardia or work of heart secondary to his heart failure. Per cardio, no cath and only conservative measures. * ASA * No beta mely * Statin 3.Anemia: Hb 9.0 after 1u pRBC transfusion, was 8.4 prior to admission. Pt has low irin, low tibc, and nml ferritin. 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 MCV 104.9. The one point above nml tibc could be within error margin. * Check b12 and folate * Goal H/H above 8.0 * Monitor CBC * TFT wnl 4. Other: Con't Doxazosin, Con't PPI FC Chem ppx HHD Problem List: 1. Elevated troponin 2. COPD exacerbation Pain Ratin Pain Location: none Pain Goal: Remain pain free Pain Plan: none Tomorrow's Labs & Rationales: cbc bep Kennedy Holbrook 09/11/17 1041: Attending MD Review Statement Attending Statement Attending MD Statement: examined this patient, discuss w/resident/PA/JEWELRY MODEL MAKER, agreed w/resident/PA/JEWELRY MODEL MAKER, discussed with family, reviewed EMR data (avail), discussed with nursing, discussed with case mgmt, reviewed images, amended to note Attending Assessment/Plan: Patient admitted here for shortness of breath from multifactorial causes from COPD exacerbation with severe end stage COPD on home oxygen 4l, pulmonary hypertension and possible chronic congestive heart failure with preserved EF. Patient also found to have elevated cardiac enzymes type 2 NC. Patient started on iv steroids, iv antibiotics, panculture f/u, f/u urine and legionella antigen , Obtain CT chest and ECHO. Cardiology and pulmoanry consult. Overall prognosis guarded. Plan of care dwed patient/family bedside who is in agreement.
--- NOTE | 2017-09-11 10:23 | Cons- Cardiology ---
General Information and HPI Consulting Request Date of Consult: 09/11/17 Requested By: Kennedy Holbrook MD Reason for Consult: Dyspnea, elevated troponin isoenzymes Source of Information: patient, family, old records Exam Limitations: no limitations History of Present Illness: The patient is an 86-year-old gentleman with a past medical history of severe COPD (on home O2), pulmonary hypertension with an estimated PA systolic pressure of greater than 65, chronic congestive heart failure with preserved LV systolic function (LVEF greater than 65%) and degenerative disc disease. He presents to our hospital with symptoms of increasing dyspnea, and was noted to have a mildly elevated troponin isoenzyme. The patient was at his extended care facility, wherein they noted worsening oxygen saturations of 86% while on 5 L of nasal cannula. The patient and family state noting increasing dyspnea progressively over the past approximately 3 days , and the patient reports a productive cough of greenish sputum. There have been no symptoms of chest pains nor palpitations noted. The patient is otherwise sedentary. No other fevers nor chills were noted. On arrival, initial EKG demonstrated nonspecific changes. He however had troponin isoenzymes which were positive at 0.15 on admission and 0.16 on the second draw. Initial BNP was 2300 renal function was normal. Of note, in May 2017, on admission for pneumonia, he had a mild troponin isoenzyme elevation which subsequently normalized. An echocardiogram performed in September 2016 demonstrated preserved LV systolic function with an EF of approximately 65%. There was mild mitral regurgitation, mild tricuspid regurgitation with an estimated PA systolic pressure of 64 mmHg. Allergies/Medications Allergies: Coded Allergies: NO KNOWN ALLERGIES (08/29/12) Home Med List: Acetazolamide 250 MG TABLET 1 TAB PO TuSa@1000 COPD Albuterol Sulfate (Proair Hfa) 90 MCG HFA.AER.AD 2 PUF INH Q4-PRN PRN COPD ( Reported) Ascorbic Acid (Vitamin C) 500 MG CAPSULE.ER 1 CAP PO 2XW VITAMIN SUPPLEMENT ( Reported) Aspirin (Aspirin*) 81 MG TAB.CHEW 1 TAB PO DAILY HEART HEALTH (Reported) Atorvastatin Calcium 40 MG TABLET 1 TAB PO 1700 HEART Azithromycin (Zithromax) 250 MG TABLET 1 DP PO Q48 prophylaxis start after ceftazidine Budesonide 0.25 MG/2 ML AMPUL.NEB 1 Vial INH/SOLITARIO TID PRN OB, COPD (Reported) Budesonide/Formoterol Fumarate (Symbicort 160-4.5 Mcg Inhaler) 160 MCG-4.5 MCG/ ACTUATION HFA.AER.AD 2 PUF INH BID copd (Reported) Calcium Carb/Vitamin D3/Vit K1 (Citracal Soft Chew) 500 MG CALCIUM-1,000 UNIT-40 MCG TAB.CHEW 1 TAB PO DAILY VITAMIN SUPPLEMENT (Reported) Carbamide Peroxide (Carbamide) 6.5 % DROPS 5 GTT OTIC BID EAR WAX Chlorhexidine Gluconate (Peridex) 0.12 % MOUTHWASH 15 ML PO TID ORAL CARE mouth rinse Cholecalciferol (Vitamin D3) (Vitamin D3) 1,000 UNIT CAPSULE 1 CAP PO DAILY SUPPLEMENT (Reported) Colchicine (Colcrys) 0.6 MG TABLET 1 TAB PO Q48 GOUT (Reported) Docusate Sodium 100 MG CAPSULE 1 TAB PO DAILY CONSTIPATION Ferrous Gluconate 324 MG (38 MG IRON) TABLET 1 TAB PO BID SUPPLEMENT Folic Acid 1 MG TABLET 1 TAB PO DAILY vit supplement (Reported) Furosemide (Lasix) 40 MG TABLET 1 TAB PO Sunday EDEMA Glucosamine/D3/Boswellia Chey (Glucosamine Complex Tablet) 1,500 MG-400 UNIT- 100 MG TABLET 2 TAB PO DAILY VITAMIN SUPPLEMENT (Reported) Ipratropium/Albuterol Sulfate (Iprat-Albut 0.5-3(2.5) MG/3 Ml) 0.5 MG-3 MG (2.5 MG BASE)/3 ML AMPUL.NEB 1 INHAL INH/SOLITARIO BID PRN PRN SHORTNESS OF BREATH ( Reported) Magnesium Oxide 400 MG TABLET 1 TAB PO DAILY HEART Multivit-Min/FA/Lycopen/Lutein (Centrum Silver Tablet) 0.4 MG-300 MCG-250 MCG TABLET 1 TAB PO VITAMIN SUPPLEMENT (Reported) *TWICE PER WEEK Nystatin 100,000 UNIT/GRAM CREAM..G. 1 TWIN TOP BIDP PRN RASH (Reported) apply to affected area(s) [place]-3 Fatty Acids/Fish Oil (Fish Oil 1,000 MG Capsule) 340 MG-1,000 MG CAPSULE 1 CAP PO DAILY SUPPLEMENT (Reported) Omeprazole 40 MG CAPSULE.DR 1 CAP PO DAILY GERD (Reported) Polyethylene Glycol 3350 (Miralax) 17 GRAM/DOSE POWDER 1 DOSE PO DAILY CONSTIPATION Potassium Chloride 20 MEQ TAB.ER.PRT 0.5 TAB PO DAILY SUPPLEMENT (Reported) Prednisone 10 MG TABLET 0 PO SEE ADMIN steriod taper 10mg 2tabs 05/30-06/02 10mg 1tab 06/03-06/09 10mg 1tab take every other day Sennosides/Docusate Sodium (Senna-Time S Tablet) 8.6 MG-50 MG TABLET 1 MG PO ONCE CONSTIPATION Terazosin HCl 5 MG CAPSULE 1 CAP PO QPM (Reported) Current Medications: Current Medications Sig/Kyra Start time Last Medication Dose Route Stop Time Status Admin Acetaminophen 650 MG Q6P PRN 09/11 0015 AC PO Acetaminophen 1,000 MG Q8P PRN 09/11 0015 AC IV Acetylcysteine 2 ML BID 09/11 0900 AC 09/11 INH 0436 Acetylcysteine 2 ML ONCE ONE 09/11 0130 DC INH 09/11 0131 Albuterol Sulfate 3 ML TID 09/11 0900 AC 09/11 INH 0436 Albuterol Sulfate 2 PUF Q4-PRN PRN 09/11 0130 AC INH Aspirin 0 .STK-MED ONE 09/11 001 DC PO Aspirin 325 MG ONCE ONE 09/10 2345 DC 09/11 PO 09/10 2346 0013 Atorvastatin Calcium 40 MG 1700 09/11 1700 AC PO Budesonide/ 2 PUF BID 09/11 0900 AC 09/11 Formoterol Fumarate INH 0934 Ceftazidime 1,000 MG IQ8 09/11 0800 DC IV Ceftazidime 1,000 MG IQ8 09/11 0200 AC 09/11 IV 0741 Docusate Sodium 100 MG DAILY 09/11 0900 AC 09/11 PO 0935 Doxazosin Mesylate 2 MG QPM 09/11 2100 AC PO Ferrous Gluconate 324 MG BID 09/11 0900 AC 09/11 PO 0935 Folic Acid 1 MG DAILY 09/11 0900 AC 09/11 PO 0934 Ipratropium [place] 2.5 ML TID 09/11 09 AC 09/11 INH 0435 Lorazepam 0 .STK-MED ONE 09/10 2316 DC .ROUTE Lorazepam 0.5 MG ONCE ONE 09/10 2314 DC 09/10 IV 09/10 2316 2312 Methylprednisolone 40 MG Q8 09/11 0600 AC 09/11 IV 0537 Methylprednisolone 0 .STK-MED ONE 09/10 2229 DC .ROUTE Methylprednisolone 125 MG ONCE ONE 09/10 2214 DC 09/10 IV 09/11 2215 2242 Omeprazole 40 MG DAILY AC 09/11 0700 AC 09/11 PO 0541 Potassium Chloride 10 MEQ DAILY 09/11 899 AC 09/11 PO 0935 Potassium Chloride 40 MEQ BID 09/11 899 AC 09/11 PO 0935 Potassium Chloride 40 MEQ ONCE ONE 09/11 0030 DC 09/11 PO 09/11 0031 0254 Review of Systems Review of Systems: The review of systems is negative for chest pains, palpitations nor lightheadedness. It is positive for dyspnea as above and a productive cough The remainder of the 14 point review of systems is noncontributory with the exception of above. Past History Travel History Traveled to [place] past 21 day No Medical History Neurological: NONE EENT: NONE Cardiovascular: hyperlipidemia Respiratory: COPD Gastrointestinal: GERD Hepatic: NONE Renal: benign prost hyperplasia Musculoskeletal: gout, osteoarthritis, rheumatoid arthritis Psychiatric: NONE Endocrine: NONE Blood Disorders: NONE Cancer(s): NONE HOME DAY CARE PROVIDER/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 FATHER (bronchitis). MOTHER (breast CA). Psychosocial History Where [facility] You Live? [facility] Who Do You Live With? child Services at Home: None Primary Language: Marshallese Smoking Status: Never Smoked ETOH Use: denies use Illicit Drug Use: denies illicit drug use Functional Ability ADLs Independent: dressing, eating, toileting, bathing. Ambulation: non-ambulatory, rarely ambulated and uses walker IADLs Independent: telephone. Needs Assist: shopping, housework, finances, food prep, transportation, medication admin. Exam & Diagnostic Data Vital Signs and I&O Vital Signs Date Time Temp Pulse Resp B/P B/P Pulse O2 O2 Flow FiO2 Mean Ox Delivery Rate 09/11 0800 Nasal 4.0L Cannula 09/11 06 98.0 71 24 112/58 97 09/11 0430 97 Nasal 4.0L Cannula 09/11 0200 94 Nasal 5.0L Cannula 09/11 0136 97.6 72 18 103/53 97 Nasal 5.5L Cannula 09/11 0117 97.6 77 18 110/56 94 Nasal 5.5L Cannula 09/10 2346 94 Nasal 5.5L Cannula 09/10 2344 98.5 95 18 129/54 93 Nasal 5.5L Cannula 09/11 2211 98.6 100 20 112/55 87 Nasal 5.0L Cannula Intake & Output 09/11 0809/11 0000 09/10 0809/10 0000 Intake Total 620 Output Total 350 Balance 270 Intake, Blood 350 Product Intake, IV 30 Intake, Oral 240 Output, Urine 350 Patient 195 lb 180 lb Weight Weight Bed scale Reported by Patient Measurement Method Physical Exam: General: Nontoxic, no apparent distress. HEENT: Sclera and conjunctiva within normal limits, without xanthelasmas. Neck: Carotids 2+ without bruits. Respiratory: Scattered rhonchi and rales, air movement is decreased at bases, without accessory respiratory muscle use. Heart: Regular rate and rhythm, 2 out of 6 stock ejection murmur at left sternal border, without JVD. Abdomen: Soft, nontender, no masses, normoactive bowel sounds. Extremities: Without clubbing, cyanosis, approximately 3 mm of pitting edema in both lower extremities to the knees. Neuro: Nonfocal exam, strength, 5 out of 5 Skin: Within normal limits without lesions. Psych: Mood and affect: Normal Labs/Nikolas Results: Laboratory Tests 09/11 09/11 0555 0555 Chemistry Sodium (137 - 145 mmol/L) Cancelled 134 L Potassium (3.5 - 5.1 mmol/L) Cancelled 3.6 Chloride (98 - 107 mmol/L) Cancelled 89 L Carbon Dioxide (22 - 30 mmol/L) Cancelled 38 H Anion Gap (5 - 16) Cancelled 7 BUN (9 - 20 mg/dL) Cancelled 18 Creatinine (0.7 - 1.2 mg/dL) Cancelled 0.5 L Estimated GFR (>60 ml/min) > 60 BUN/Creatinine Ratio (7 - 25 %) Cancelled 36.0 H Troponin I (<0.11 ng/ml) 0.16 *H Hematology CBC w Diff MAN DIFF ORDERED WBC (4.8 - 10.8 /CUMM) 5.3 RBC (4.70 - 6.10 /CUMM) 2.66 L Hgb (14.0 - 18.0 G/DL) 9.0 L Hct (42 - 52 %) 26.9 L MCV (80.0 - 94.0 FL) 101.2 H MCH (27.0 - 31.0 PG) 34.0 H MCHC (33.0 - 37.0 G/DL) 33.6 RDW (11.5 - 14.5 %) 21.5 H Plt Count (130 - 400 /CUMM) 182 MPV (7.4 - 10.4 FL) 9.8 Gran % (42.2 - 75.2 %) 91.8 H Lymphocytes % (20.5 - 51.1 %) 6.2 L Monocytes % (1.7 - 9.3 %) 2.0 Eosinophils % (0 - 5 %) 0 Basophils % (0.0 - 2.0 %) 0 Absolute Granulocytes (1.4 - 6.5 /CUMM) 4.9 Segmented Neutrophils (42.2 - 75.2 %) Pending Absolute Lymphocytes (1.2 - 3.4 /CUMM) 0.3 L Absolute Monocytes (0.10 - 0.60 /CUMM) 0.1 Absolute Eosinophils (0.0 - 0.7 /CUMM) 0 Absolute Basophils (0.0 - 0.2 /CUMM) 0 09/10 09/10 2221 2220 Blood Gas pH (7.35 - 7.45 PH) 7.48 H pCO2 (35 - 45 TORR) 49 H pO2 (80 - 100 TORR) 56 L HCO3 (21 - 28 MEQ/L) 35 H ABG O2 Sat (Measured) (>96.0 %) 87.0 L P-50 (Temp Corrected) N Carboxyhemoglobin (1.5 - 5.0 %) 1.3 L O2 Concentration % 5L Temperature (97.0 - 100.0 FARH) 98.6 O2 Delivery Method NC Chemistry Sodium (137 - 145 mmol/L) 131 L Potassium (3.5 - 5.1 mmol/L) 3.2 L Chloride (98 - 107 mmol/L) 85 L Carbon Dioxide (22 - 30 mmol/L) 38 H Anion Gap (5 - 16) 9 BUN (9 - 20 mg/dL) 18 Creatinine (0.7 - 1.2 mg/dL) 0.6 L Estimated GFR (>60 ml/min) > 60 BUN/Creatinine Ratio (7 - 25 %) 30.0 H Glucose (65 - 99 mg/dL) 333 H Hemoglobin A1c (4.2 - 5.8 %) Pending Calcium (8.4 - 10.2 mg/dL) 7.9 L Phosphorus (2.5 - 4.5 mg/dL) 2.6 Magnesium (1.6 - 2.3 mg/dL) 1.8 Iron (49 - 181 ug/dL) 31 L TIBC (261 - 462 ug/dL) 204 L Ferritin (17.9 - 464 ng/mL) 407.0 Total Bilirubin (0.2 - 1.3 mg/dL) 1.4 H AST (17 - 59 U/L) 17 ALT (21 - 72 U/L) 19 L Alkaline Phosphatase (< 127 U/L) 48 Troponin I (<0.11 ng/ml) 0.15 *H Hch-W-Hltghyibuhz Pept (<125 pg/mL) 2300 H Total Protein (6.3 - 8.2 g/dL) 5.7 L Albumin (3.5 - 5.0 g/dL) 3.0 L Globulin (1.9 - 4.2 gm/dL) 2.7 Albumin/Globulin Ratio (1.1 - 2.2 %) 1.1 Vitamin B12 (239 - 931 pg/mL) > 1000 H Folate (2.76 - 20.0 ng/mL) > 20.0 H TSH (0.270 - 4.200 uIU/mL) 3.120 Free T4 (0.85 - 1.93 ng/dL) 1.05 Hematology CBC w Diff NO MAN DIFF REQ WBC (4.8 - 10.8 /CUMM) 6.0 RBC (4.70 - 6.10 /CUMM) 2.47 L Hgb (14.0 - 18.0 G/DL) 8.4 L Hct (42 - 52 %) 25.9 L MCV (80.0 - 94.0 FL) 104.9 H MCH (27.0 - 31.0 PG) 34.2 H MCHC (33.0 - 37.0 G/DL) 32.5 L RDW (11.5 - 14.5 %) 19.0 H Plt Count (130 - 400 /CUMM) 167 MPV (7.4 - 10.4 FL) 10.0 Gran % (42.2 - 75.2 %) 90.0 H Lymphocytes % (20.5 - 51.1 %) 4.1 L Monocytes % (1.7 - 9.3 %) 5.9 Eosinophils % (0 - 5 %) 0 Basophils % (0.0 - 2.0 %) 0 Absolute Granulocytes (1.4 - 6.5 /CUMM) 5.4 Absolute Lymphocytes (1.2 - 3.4 /CUMM) 0.2 L Absolute Monocytes (0.10 - 0.60 /CUMM) 0.4 Absolute Eosinophils (0.0 - 0.7 /CUMM) 0 Absolute Basophils (0.0 - 0.2 /CUMM) 0 Retic Count (0.5 - 2.0 %) 2.07 H Miscellaneous Phlebotomy Draw Site RIGHT RADIAL Assessment/Plan Assessment/Plan 86-year-old gentleman with a past medical history of severe COPD (on home O2), pulmonary hypertension with an estimated PA systolic pressure of greater than 65 , chronic congestive heart failure with preserved LV systolic function (LVEF greater than 65%) and degenerative disc disease. He presents to our hospital with symptoms of increasing dyspnea, and was noted to have a mildly elevated troponin isoenzyme. Dyspnea: The patient presents with dyspnea which is likely multifactorial in etiology including his underlying COPD, pulmonary hypertension and possible acute on chronic congestive heart failure with preserved LV systolic function. This is supported by an elevated BNP as well as increased lower extremity edema (which may as well be a manifestation of his elevated pulmonary pressures). Given his cardiac dynamics, it may be difficult to significantly diurese him, with likely pressure drops during diuresis due to his right ventricular volume needs; however, I would attempt mild diuresis with a target output of approximately 1/2-1 L per day, monitoring blood pressure closely. Elevated troponin isoenzyme: The patient has a minimal troponin isoenzyme elevation, similar to his presentation in May of this year. This is not consistent with an acute coronary syndrome rather, as his daughter has documented tachycardia in the setting of hypoxia, may be more consistent with a type II (supply/demand mismatch) non-ST segment elevation myocardial infarction. Given his significant comorbidities, we will maintain a conservative approach to his treatment. As cardiac catheterization will not be undertaken, and he is asymptomatic from an anginal standpoint, there is no clear indication for stress testing. He should be maintained on aspirin. Beta blockers are contraindicated due to his underlying reactive airway disease (necessitating albuterol inhalers, and occasional bradycardia seen on telemetry). Thank you for allowing us to participate in the care of your patient. Please do not hesitate to contact us further with any questions. Sincerely, Edgar Burgos MD [facility] Consult Acknowledgment - Thank you for your consult request.
--- NOTE | 2017-09-11 14:09 | Cons- Pulmonary ---
General Information and HPI Consulting Request Date of Consult: 09/11/17 Requested By: med team History of Present Illness: Patient is 86-year-old male with past medical history of 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 Patient was brought in by ambulance from [facility] ([facility] Per EMS patient was diagnosed with pneumonia seen on CXR 3 days prior to admission and was started on levaquin. Patient was satting 86% on 5L NC at [place]. Patient on route to the hospital received a DuoNeb treatment. Patient's daughter was present at time of interview. Reports patient has been short of breath for the past 2 days. Reports patient is supposed to be on 4.5-5 L oxygen throughout the day however reports that the nursing facility has been putting the patient on 2.5 L which is what he was on during the day prior to his May admission. Daughter states that she checks his O2 saturations herself and has noted that they have been in the high 80s to low 90s. Today she reports that patient's oxygen was was increased to 5.5 L. Patient states that he has had productive cough with green/yellow phlegm. It is unclear if patient had hemoptysis as daughter states that patient may or may not have had of red juice. Patient was started on Levaquin at approximately 6 PM on day of admission for questionable pneumonia. Patient had a chest x-ray done at the nursing facility which reportedly showed no change from his previous imaging. Patient denies fever, reports chills. Patient denies chest pain, palpitations. Reports orthopnea and lower extremity edema. Patient is bedbound at baseline and has had chronic lower extremity edema requiring the use of stockings which he reportedly has not been wearing. Patient denies nausea, vomiting, constipation/ diarrhea, urinary symptoms. Patient was last hospitalized in May at [place] on May 14 to . Patient was discharged to [place] where he stayed until June 19 and was then transferred to [place] where he spent 1 month in the nursing home facility and was later shifted to the long-term care facility. Patient's daughter reports that it has been stressful on the patient at the [facility] facility due to less availability of care Tmax 98.6, heart rate 108, respiration rate 18-20, blood pressure 112/55, initially saturating 87% on 5 L nasal cannula which improved to 93-94% on 5.5 L nasal cannula WBC 6.0, 90% granulocytes, H&H 8.4 and 25.9, MCV 104.9, platelet count 167 Sodium 131, potassium 3.2, chloride 85, bicarbonate 38, when necessary 18, creatinine 0.6, glucose 333, calcium 7.9, albumin 3.0, corrected calcium 9.5, T bili 1.4, AST 17, ALT 19, alkaline phosphatase 48, troponin 0.15, proBNP 2300 EKG: NSR w/rate of 90, nonspecific intraventricular conduction delay, QTc: 504 Blood cultures 2 sent Chest x-ray shows no change since 05/25/2017. Volume loss left hemithorax with dense consolidation at the left lung base. In the ED: Patient received aspirin 325 mg 1, Ativan, Solu-Medrol 125 mg IV 1 No fever or chills and no sputum Does have symptoms of PND Allergies/Medications Allergies: Coded Allergies: NO KNOWN ALLERGIES (08/29/12) Home Med List: Acetazolamide 250 MG TABLET 1 TAB PO TuSa@1000 COPD Albuterol Sulfate (Proair Hfa) 90 MCG HFA.AER.AD 2 PUF INH Q4-PRN PRN COPD ( Reported) Ascorbic Acid (Vitamin C) 500 MG CAPSULE.ER 1 CAP PO 2XW VITAMIN SUPPLEMENT ( Reported) Aspirin (Aspirin*) 81 MG TAB.CHEW 1 TAB PO DAILY HEART HEALTH (Reported) Atorvastatin Calcium 40 MG TABLET 1 TAB PO 1700 HEART Azithromycin (Zithromax) 250 MG TABLET 1 DP PO Q48 prophylaxis start after ceftazidine Budesonide 0.25 MG/2 ML AMPUL.NEB 1 Vial INH/SOLITARIO TID PRN OB, COPD (Reported) Budesonide/Formoterol Fumarate (Symbicort 160-4.5 Mcg Inhaler) 160 MCG-4.5 MCG/ ACTUATION HFA.AER.AD 2 PUF INH BID copd (Reported) Calcium Carb/Vitamin D3/Vit K1 (Citracal Soft Chew) 500 MG CALCIUM-1,000 UNIT-40 MCG TAB.CHEW 1 TAB PO DAILY VITAMIN SUPPLEMENT (Reported) Carbamide Peroxide (Carbamide) 6.5 % DROPS 5 GTT OTIC BID EAR WAX Chlorhexidine Gluconate (Peridex) 0.12 % MOUTHWASH 15 ML PO TID ORAL CARE mouth rinse Cholecalciferol (Vitamin D3) (Vitamin D3) 1,000 UNIT CAPSULE 1 CAP PO DAILY SUPPLEMENT (Reported) Colchicine (Colcrys) 0.6 MG TABLET 1 TAB PO Q48 GOUT (Reported) Docusate Sodium 100 MG CAPSULE 1 TAB PO DAILY CONSTIPATION Ferrous Gluconate 324 MG (38 MG IRON) TABLET 1 TAB PO BID SUPPLEMENT Folic Acid 1 MG TABLET 1 TAB PO DAILY vit supplement (Reported) Furosemide (Lasix) 40 MG TABLET 1 TAB PO Sunday EDEMA Glucosamine/D3/Boswellia Chey (Glucosamine Complex Tablet) 1,500 MG-400 UNIT- 100 MG TABLET 2 TAB PO DAILY VITAMIN SUPPLEMENT (Reported) Ipratropium/Albuterol Sulfate (Iprat-Albut 0.5-3(2.5) MG/3 Ml) 0.5 MG-3 MG (2.5 MG BASE)/3 ML AMPUL.NEB 1 INHAL INH/SOLITARIO BID PRN PRN SHORTNESS OF BREATH ( Reported) Magnesium Oxide 400 MG TABLET 1 TAB PO DAILY HEART Multivit-Min/FA/Lycopen/Lutein (Centrum Silver Tablet) 0.4 MG-300 MCG-250 MCG TABLET 1 TAB PO VITAMIN SUPPLEMENT (Reported) *TWICE PER WEEK Nystatin 100,000 UNIT/GRAM CREAM..G. 1 TWIN TOP BIDP PRN RASH (Reported) apply to affected area(s) Hope-3 Fatty Acids/Fish Oil (Fish Oil 1,000 MG Capsule) 340 MG-1,000 MG CAPSULE 1 CAP PO DAILY SUPPLEMENT (Reported) Omeprazole 40 MG CAPSULE.DR 1 CAP PO DAILY GERD (Reported) Polyethylene Glycol 3350 (Miralax) 17 GRAM/DOSE POWDER 1 DOSE PO DAILY CONSTIPATION Potassium Chloride 20 MEQ TAB.ER.PRT 0.5 TAB PO DAILY SUPPLEMENT (Reported) Prednisone 10 MG TABLET 0 PO SEE ADMIN steriod taper 10mg 2tabs 05/30-06/02 10mg 1tab 06/03-06/09 10mg 1tab take every other day Sennosides/Docusate Sodium (Senna-Time S Tablet) 8.6 MG-50 MG TABLET 1 MG PO ONCE CONSTIPATION Terazosin HCl 5 MG CAPSULE 1 CAP PO QPM (Reported) Review of Systems Comments Review of Systems Constitutional: Reports: see HPI. EENTM: Reports: no symptoms. Cardiovascular: Reports: see HPI. Respiratory: Reports: see HPI. GI: Reports: no symptoms. Genitourinary: Reports: no symptoms. Musculoskeletal: Reports: no symptoms. Skin: Reports: no symptoms. Neurological/Psychological: Reports: no symptoms. Hematologic/Endocrine: Reports: no symptoms. Immunologic/Allergic: Reports: no symptoms. Past History Travel History Traveled to [place] past 21 day No Medical History Neurological: NONE EENT: NONE Cardiovascular: hyperlipidemia Respiratory: COPD Gastrointestinal: GERD Hepatic: NONE Renal: benign prost hyperplasia Musculoskeletal: gout, osteoarthritis, rheumatoid arthritis Psychiatric: NONE Endocrine: NONE Blood Disorders: NONE Cancer(s): NONE GAS SINGER/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 FATHER (bronchitis). MOTHER (breast CA). Psychosocial History Where Do You Live? Shelter Facility Who Do You Live With? child Services at Home: None Primary Language: Mongolian Smoking Status: Never Smoked ETOH Use: denies use Illicit Drug Use: denies illicit drug use Functional Ability ADLs Independent: dressing, eating, toileting, bathing. Ambulation: non-ambulatory, rarely ambulated and uses walker IADLs Independent: telephone. Needs Assist: shopping, housework, finances, food prep, transportation, medication admin. Exam & Diagnostic Data Last 24 Hrs of Vital Signs/I&O Vital Signs Date Time Temp Pulse Resp B/P B/P Pulse O2 O2 Flow FiO2 Mean Ox Delivery Rate 09/11 1127 96 Nasal 4.0L Cannula 09/11 0800 Nasal 4.0L Cannula 09/11 0600 98.0 71 24 112/58 97 09/11 0430 Nasal 4.0L Cannula 09/11 0430 97 Nasal 4.0L Cannula 09/11 0200 94 Nasal 5.0L Cannula 09/11 0136 97.6 72 18 103/53 97 Nasal 5.5L Cannula 09/11 0117 97.6 77 18 110/56 94 Nasal 5.5L Cannula 09/10 2347 94 Nasal 5.5L Cannula 09/10 2345 98.5 95 18 129/54 93 Nasal 5.5L Cannula 09/10 2212 98.6 100 20 112/55 87 Nasal 5.0L Cannula Intake & Output 09/11 1600 09/11 0800 09/11 0000 Intake Total 620 Output Total 350 Balance 270 Intake, Blood 350 Product Intake, IV 30 Intake, Oral 240 Output, Urine 350 Patient 195 lb 180 lb Weight Weight Bed scale Reported by Patient Measurement Method Last 48 Hrs of Labs/Nikolas: Laboratory Tests 09/11/17 1130: Troponin I 0.12 *H, Vitamin B12 Pending, Folate Pending 09/11/17 0555: Sodium Cancelled, Potassium Cancelled, Chloride Cancelled, Carbon Dioxide Cancelled, Anion Gap Cancelled, BUN Cancelled, Creatinine Cancelled, BUN/ Creatinine Ratio Cancelled 09/11/17 0555: Anion Gap 7, Estimated GFR > 60, BUN/Creatinine Ratio 36.0 H, Troponin I 0.16 * H, CBC w Diff MAN DIFF ORDERED, RBC 2.66 L, MCV 101.2 H, MCH 34.0 H, MCHC 33.6, RDW 21.5 H, MPV 9.8, Gran % 91.8 H, Lymphocytes % 6.2 L, Monocytes % 2.0, Eosinophils % 0, Basophils % 0, Absolute Granulocytes 4.9, Segmented Neutrophils 73, Band Neutrophils 19 H, Absolute Lymphocytes 0.3 L, Lymphocytes 6 L, Monocytes 2, Absolute Monocytes 0.1, Absolute Eosinophils 0, Absolute Basophils 0, Platelet Estimate VERIFIED BY SMEAR, Polychromasia 1+, Poikilocytosis 1+, Basophilic Stippling 1+, Anisocytosis 1+, Macrocytic Cells 1+ , Ovalocytes 1+ 09/10/17 2221: Anion Gap 9, Estimated GFR > 60, BUN/Creatinine Ratio 30.0 H, Glucose 333 H, Hemoglobin A1c 6.3 H, Calcium 7.9 L, Phosphorus 2.6, Magnesium 1.8, Iron 31 L , TIBC 204 L, Ferritin 407.0, Total Bilirubin 1.4 H, AST 17, ALT 19 L, Alkaline Phosphatase 48, Troponin I 0.15 *H, Ldu-N-[place] Pept 2300 H, Total Protein 5.7 L, Albumin 3.0 L, Globulin 2.7, Albumin/Globulin Ratio 1.1, Vitamin B12 > 1000 H, Folate > 20.0 H, TSH 3.120, Free T4 1.05, CBC w Diff NO MAN DIFF REQ, RBC 2.47 L, MCV 104.9 H, MCH 34.2 H, MCHC 32.5 L, RDW 19.0 H, MPV 10.0, Gran % 90.0 H, Lymphocytes % 4.1 L, Monocytes % 5.9, Eosinophils % 0 , Basophils % 0, Absolute Granulocytes 5.4, Absolute Lymphocytes 0.2 L, Absolute Monocytes 0.4, Absolute Eosinophils 0, Absolute Basophils 0, Retic Count 2.07 H 09/10/17 2220: pH 7.48 H, pCO2 49 H, pO2 56 L, HCO3 35 H, ABG O2 Sat (Measured) 87.0 L, P- 50 (Temp Corrected) N, Carboxyhemoglobin 1.3 L, O2 Concentration % 5L, Temperature 98.6, O2 Delivery Method NC, Phlebotomy Draw Site RIGHT RADIAL Microbiology 09/11 0320 NASOPHARYN: Influenza Virus A & B Rapid Smear - COMP Assessment/Plan Impression/Plan: General Appearance Alert, Oriented X3, Cooperative, Mild Distress Skin erythema over the lower back and buttocks Skin Temp/Moisture Exam: Warm/Dry Sepsis Skin Exam (color): Normal for Ethnicity HEENT Atraumatic, EOMI, dry mucosal membranes Neck Supple, No JVD Lymphatic Cervical nl Cardiovascular Regular Rate, Normal S1, Normal S2, No Murmurs Lungs bilateral rhonchi Abdomen Normal Bowel Sounds, Soft, No Tenderness Neurological Normal Speech, Strength at 5/5 X4 Ext, Normal Tone, Sensation Intact, Cranial Nerves 3-12 NL Extremities No Clubbing, No Cyanosis, Normal Pulses, No Tenderness/Swelling, bilateral lower extremity pitting edema 2+ Vascular Normal Pulses, Pulses Symmetrical This is a 86-year-old gentleman with very severe COPD, has been on chronic oxygen therapy, significant pulmonary hypertension related to severe COPD and chronic lung disease, poor performance status with functional quadriplegia related to severe cervical spine disease, mild bronchiectasis, poor performance status now here with worsening hypoxemia with * 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 Now does not have any evidence of sig pna or copde * HF with Preserved EF, now responding to lasix with PND * Previous Pseudomonas pna and bronchiectasis exacerbation, now better * Significant pulmonary hypertension related to terminal lung disease * Functional quadriparesis related to cervical spine disease patient is not a candidate for any therapy * Lower extremity edema suggestive of chronic cor pulmonale * Previous history of mediastinal lymphadenopathy and nodule needs ct chest * Small lung nodules of no clinical significance * Worsening overall performance status * Bilateral lower lobe atelectasis with restrictive pulmonary physiology as well related to severe pulmonary hypertension * 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 with previous negative QuantiFERON goal tests * 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
[2017-09-11 14:27] VITALS: BP 100/52
--- NOTE | 2017-09-11 16:01 | CT SCAN REPORT ---
EXAMINATION: CT CHEST WITHOUT CONTRAST CLINICAL INFORMATION: Rule out pneumonia. Reevaluate nodule in previous imaging. Shortness of breath. COMPARISON: Chest x-ray dated 09/10/2017. CT scan of the chest dated 10/03/2016 and 08/29/2012. TECHNIQUE: Multidetector volumetric CT imaging of the chest was obtained noncontrast. Sagittal and coronal reformations were obtained. DLP: 748.46 mGy-cm. FINDINGS: LUNGS: Several of the previously seen solid noncalcified and calcified micronodules in the lungs are again seen, unchanged when compared to 10/03/2016 and older exams dating back to 08/29/2012. Some of the nodular densities seen on the recent prior study in the right upper lobe (previous series 4, image 184 and 244 and image 320) are no longer seen. No definite new pulmonary nodule or mass is seen. Evaluation for lung nodules is, however, limited given the extensive volume loss and consolidation in the lungs described below. There is extensive volume loss in the left hemithorax with shift of the mediastinum towards the left side. The left mainstem bronchus is narrowed and inspissated with mucus and debris with occlusion of the left lower lobe bronchus seen. The left upper lobe bronchus is also significantly narrowed but appears to be patent. There may be mild extrinsic mass effect upon the left distal mainstem bronchus by the left atrium and the pulmonary arteries. There is complete collapse and consolidation in the left lower lobe with air bronchograms seen. In the left upper lobe, patchy areas of parenchymal opacity are seen centrally and extending to the pleural surface. Compared to the prior exam, the consolidation and collapse of the left lower lobe is new and findings in the left upper lobe are progressive. There is a trace left-sided pleural effusion seen, new when compared to the prior exam. Several calcified granulomas are seen based upon the left pleura the left upper lobe. There is a small right-sided pleural effusion with some pleural calcifications also noted. The bronchus intermedius and the right lower lobe bronchi are significantly narrowed. The right middle lobe bronchus is not identified and appears to be occluded with significant volume loss and consolidation seen in the right middle lobe. Only portions of the medial segment of the right middle lobe are aerated. There is also dense consolidation in the right lower lobe with only a small amount of aeration remaining in the superior segment. The right upper lobe is hyperinflated. Evaluation for a central lung mass is difficult, though no definite mass is appreciated on this noncontrast exam. LYMPHOVASCULAR STRUCTURES: The thoracic aorta is ectatic and tortuous with dense atherosclerotic calcification seen. Heart size is enlarged. No pericardial effusion. There is enlargement of the main, right and left pulmonary arteries with the main pulmonary artery measuring 3.9 cm, as compared to the adjacent aorta, which measures 3.5 cm. Severe three-vessel coronary artery calcifications and aortic and great vessel calcifications are noted. There is mediastinal adenopathy is seen with abnormal 1.2 cm subcarinal lymph node seen, similar to the previous exam. There is a 1.4 cm aortopulmonary window lymph node. Calcified aortopulmonary window and left hilar lymph nodes are also seen. There is also a borderline sized 1 cm aortopulmonary window lymph node with central low density, unchanged. No axillary adenopathy. THYROID GLAND: Diffusely atrophic, but grossly unremarkable. CHEST WALL: There is extensive soft tissue density seen in the subareolar left breast, markedly asymmetric to the contralateral side. Similar findings were noted on 10/03/2016 and 08/29/2012, presumably representing extensive asymmetric gynecomastia. UPPER ABDOMEN: Again seen are hepatic masses, largest of which is seen in segment 5 (series 2, image 57), measuring 2.0 cm in diameter, unchanged from prior study and consistent with a small cyst. Liver otherwise unremarkable on noncontrast study. There is an exophytic low-attenuation mass in the mid right kidney (series 2, image 59), measuring 1.4 cm in diameter, slightly larger compared to remote study from 08/29/2012, where measurements of 1 cm 14. This may represent a small enlarging cyst. Included portions of the pancreas are atrophic. Dense atherosclerotic calcifications of the aorta and branch vessels are noted. BONES: Multilevel moderate vertebral spondylosis is seen in the thoracic spine. No suspicious bone findings. No suspicious focal findings. IMPRESSION: 1. Extensive mucus inspissation is seen with occlusion of both lower lobe pulmonary bronchi and the right middle lobe bronchus. Dense consolidation and volume loss are seen in the right middle lobe and near complete consolidation and volume loss in both lower lobes. Patchy consolidation and volume loss in the left upper lobe is also noted with narrowing of the left upper lobe uncus. Findings are most likely related to inflammation/infection given the diffuse findings. Malignant disease is felt to be unlikely. No definite central hilar mass is seen, though evaluation is limited on noncontrast study. Continued close clinical correlation and follow-up is recommended. 2. No significant change in some of the previously identified right upper lobe and left upper lobe solid calcified and noncalcified pulmonary nodules dating back to 08/29/2012, consistent with a benign etiology. Several of the previously seen nodules more inferiorly in the right upper lobe have resolved on today's exam. 3. Mediastinal adenopathy is seen, likely reactive to the extensive lung findings and unchanged from prior exam. 4. Trace left and small right-sided pleural effusions are noted. 5. Asymmetric glandular tissue in the subareolar left breast, unchanged dating back to 08/29/2012, likely representing asymmetric gynecomastia. Clinical correlation requested. 6. Hepatic hepatic and right renal cysts are seen.
[2017-09-11 23:10] VITALS: BP 100/48
[2017-09-12 06:24] VITALS: BP 90/56
[2017-09-12 08:08] LABS: ABSOLUTE BASOPHIL COUNT 0 /CUMM (0.0-0.2); ABSOLUTE EOSINOPHIL COUNT 0 /CUMM (0.0-0.7); ABSOLUTE GRANULOCYTE CT 6.4 /CUMM (1.4-6.5); ABSOLUTE LYMPH COUNT 0.7 /CUMM (1.2-3.4); ABSOLUTE MONOCYTE COUNT 0.4 /CUMM (0.10-0.60); BASOPHIL % 0.1 % (0.0-2.0); EOSINOPHIL % 0 % (0-5); GRANULOCYTE % 85.2 % (42.2-75.2); HEMATOCRIT 26.3 % (42-52); MEAN CORPUSCULAR HGB 33.4 PG (27.0-31.0); MEAN CORPUSCULAR HGB CONC 32.9 G/DL (33.0-37.0); MEAN CORPUSCULAR VOLUME 101.8 FL (80.0-94.0); MEAN PLATELET VOLUME 9.9 FL (7.4-10.4); PLATELET COUNT 195 /CUMM (130-400); RBC DISTRIBUTION WIDTH 20.9 % (11.5-14.5); RED BLOOD CELL CT 2.58 /CUMM (4.70-6.10); WHITE BLOOD CELL COUNT 7.5 /CUMM (4.8-10.8)
--- NOTE | 2017-09-12 09:54 | PN- Pulmonary ---
Subjective HPI/Critical Care Issues: DOing Ok still coughing with sig productive sputum OOB to chair NO fever on steroids NO sig wbc elevation Objective Current Medications: Current Medications Sig/Kyra Start time Last Medication Dose Route Stop Time Status Admin Acetaminophen 650 MG Q6P PRN 09/11 0015 AC PO Acetaminophen 1,000 MG Q8P PRN 09/11 0015 AC IV Acetylcysteine 2 ML BID 09/11 0900 AC 09/11 INH 1956 Albuterol Sulfate 3 ML TID 09/11 0900 AC 09/12 INH 0933 Albuterol Sulfate 2 PUF Q4-PRN PRN 09/11 0130 AC INH Aspirin 81 MG DAILY 09/12 0900 AC 09/12 PO 0800 Atorvastatin Calcium 40 MG 1700 09/11 1700 AC 09/11 PO 1710 Budesonide/ 2 PUF BID 09/11 0900 AC 09/12 Formoterol Fumarate INH 0800 Ceftazidime 1,000 MG IQ8 09/11 0200 DC 09/11 IV 0741 Docusate Sodium 100 MG DAILY 09/11 0900 AC 09/12 PO 0801 Doxazosin Mesylate 2 MG QPM 09/11 2100 AC 09/11 PO 2159 Ferrous Gluconate 324 MG BID 09/11 0900 AC 09/12 PO 0801 Folic Acid 1 MG DAILY 09/11 0900 AC 09/12 PO 0800 Furosemide 40 MG 7:30 AM, & 4:30 PM 09/12 0845 AC 09/12 IV 0900 Furosemide 20 MG ONCE ONE 09/11 1500 DC 09/11 IV 09/11 1501 1451 Furosemide 40 MG .STK-MED ONE 09/11 1447 DC IV 09/11 1448 Guaifenesin 10 ML Q6P PRN 09/12 0300 AC PO Insulin Aspart 0 TIDAC 09/11 1700 AC 09/12 SC 0800 Ipratropium [place] 2.5 ML TID 09/11 0900 AC 09/12 INH 0933 Magnesium Oxide 400 MG ONE ONE 09/12 0515 DC 09/12 PO 09/12 0516 0537 Melatonin 5 MG ONCE ONE 09/12 0015 DC 09/12 PO 09/12 0016 0424 Methylprednisolone 40 MG Q8 09/11 0600 DC 09/11 IV 1320 Omeprazole 40 MG DAILY AC 09/11 0700 AC 09/12 PO 0537 Patient Medication 1 ED ONE ONE 09/11 1830 DC Teaching ED 09/11 183 Phosphate 250 MG ONCE ONE 09/12 0415 DC 09/12 PO 09/12 Potassium Chloride 10 MEQ DAILY 09/11 899 AC 09/12 PO 08 Potassium Chloride 40 MEQ BID 09/11 899 AC 09/12 PO 0801 Prednisone 15 MG DAILY 09/12 899 AC 09/12 PO 0800 Vital Signs & I&O Last 24 Hrs of Vitals and I&O: Vital Signs Date Time Temp Pulse Resp B/P B/P Pulse O2 O2 Flow FiO2 Mean Ox Delivery Rate 09/12 0935 95 Nasal 4.0L Cannula 09/12 0800 Nasal 3.5L Cannula 09/12 0624 98.0 72 20 90/56 95 Nasal Cannula 09/12 0000 Nasal 3.5L Cannula 09/11 2310 97.8 75 20 100/48 93 Nasal 4.0L Cannula 09/11 2030 93 Nasal 4.0L Cannula 09/11 1600 Nasal 3.5L Cannula 09/11 1427 98.5 75 18 100/52 95 Nasal 4.0L Cannula 09/11 1127 96 Nasal 4.0L Cannula Intake & Output 09/12 1600 09/12 0800 09/12 0000 Intake Total 325 300 Output Total 400 350 Balance -75 -50 Intake, Oral 325 300 Number 1 Bowel Movements Output, Urine 400 350 Patient 188 lb Weight Impression/Plan Impression/Plan Impression/Plan: General Appearance Alert, Oriented X3, Cooperative, Mild Distress Skin erythema over the lower back and buttocks Skin Temp/Moisture Exam: Warm/Dry Sepsis Skin Exam (color): Normal for Ethnicity HEENT Atraumatic, EOMI, dry mucosal membranes Neck Supple, No JVD Lymphatic Cervical nl Cardiovascular Regular Rate, Normal S1, Normal S2, No Murmurs Lungs bilateral rhonchi Abdomen Normal Bowel Sounds, Soft, No Tenderness Neurological Normal Speech, Strength at 5/5 X4 Ext, Normal Tone, Sensation Intact, Cranial Nerves 3-12 NL Extremities No Clubbing, No Cyanosis, Normal Pulses, No Tenderness/Swelling, bilateral lower extremity pitting edema 2+ Vascular Normal Pulses, Pulses Symmetrical This is a 86-year-old gentleman with very severe COPD, has been on chronic oxygen therapy, significant pulmonary hypertension related to severe COPD and chronic lung disease, poor performance status with 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 Now does not have any evidence of sig pna or copde but has sig mucus pugging and atx and increased secretions * Previous Pseudomonas pna and bronchiectasis exacerbation, difficult to assess if he has active infection now * Significant pulmonary hypertension related to terminal lung disease * Functional quadriparesis related to cervical spine disease patient is not a candidate for any therapy * Lower extremity edema suggestive of chronic cor pulmonale * Previous history of mediastinal lymphadenopathy and nodule needs ct chest * Small lung nodules of no clinical significance * Worsening overall performance status * Bilateral lower lobe atelectasis with restrictive pulmonary physiology as well related to severe pulmonary hypertension * 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 with previous negative QuantiFERON goal tests * 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 who was been on prednisone for long periods * History of on and off aspiration RECOMMENDATION * Agg chest PT ask * Cont nebs, dc abx and IV steroids for now * Po prednisone 15 mg daily for two days and then 10 mg daily for 7 days and then 5 mg * Keep potassium more than 4 * Do not use any anticholinergic inhaler like ipratropium spirva etc, use albuterol only as needed if wheezing * Use hypertonic saline neb rx tid atc (need to dc him on this) with chest pt bid or tid (6 percent if available), and use mucomyst bid only in tandem with hypertonic saline * User albuterol only if wheezing with nebs * COnt nasal cannula if tolerated, * IV lasix today * KEep out of bed most of the day as he might collapse his left lower lobe if he is in recumbent postion * Agg bowel regimen to continue * PT needs acepella inbetween chest pt * Keep the head of bed elevated * Periodex overall care 3 times a day * If worse will reinstitute ceftaz for 7 to 10 days * Start azithro 250 mg qod permanently * WIll follow * OOB to chair and PT
--- NOTE | 2017-09-12 10:02 | ECHOCARDIOGRAM REPORT ---
ELENA QUICK Age: 86 : 1930 Gender: M Exam Date: 09/11/2017 11:41 Exam Location: [address] Ht (in): 67 Wt (lb): 180 BSA: 1.98 BP: 112 / 58 Ordering Physician: Saúl Streeter MD Referring Physician: Saúl Streeter MD Technologist: Zacarias Reagan [facility] Room Number: 177-1 Indications: Shortness of breath Rhythm: Technical Quality: Fair FINDINGS Left Ventricle Left ventricular cavity size normal. Left ventricular wall thickness mildly increased. No obvious regional wall motion abnormalities. Left ventricular ejection fraction is estimated at > 55 %. Abnormal relaxation filling pattern of the left ventricle for (stage 1 diastolic dysfunction). Right Ventricle Normal right ventricular size and function. Right Atrium Normal right atrial size. Left Atrium Normal left atrial size. Mitral Valve Mild mitral annular calcification. Trace to mild mitral regurgitation. Aortic Valve No aortic stenosis. Trileaflet aortic valve. Tricuspid Valve Structurally normal tricuspid valve. Mild tricuspid regurgitation. Mild pulmonary hypertension. Pulmonic Valve Pulmonic valve not well visualized, grossly normal. Pericardium No pericardial effusion. Great Vessels Normal size aortic root. CONCLUSIONS Left ventricular cavity size normal. Left ventricular wall thickness mildly increased. No obvious regional wall motion abnormalities. Left ventricular ejection fraction is estimated at > 55 %. Abnormal relaxation filling pattern of the left ventricle for (stage 1 diastolic dysfunction). Normal right ventricular size and function. Mild pulmonary hypertension. No pericardial effusion. Eugene Platt M.D. (Electronically Signed) Final Date: 12 Sep 2017 10:00 MEASUREMENTS (Male / Female) Normal Values 2D ECHO LV Diastolic Diameter PLAX 4.6 cm 4.2 - 5.9 / 3.9 - 5.3 cm LV Systolic Diameter PLAX 3.1 cm 2.1 - 4.0 cm LV Fractional Shortening PLAX 32.6 % 25 - 46 % LV Ejection Fraction 2D Teich 61.0 % IVS Diastolic Thickness 1.4 cm LVPW Diastolic Thickness 1.4 cm LV Relative Wall Thickness 0.6 RV Internal Dim ED PLAX 3.6 cm 1.9 - 3.8 cm LVOT Diameter 2.0 cm Aortic Root Diameter 3.2 cm LA Systolic Diameter LX 3.4 cm 3.0 - 4.0 / 2.7 - 3.8 cm LA Volume 45.0 cm 18 - 58 / 22 - 52 cm Ascending Aorta Diameter 3.1 cm DOPPLER AV Peak Velocity 138.0 cm/s AV Peak Gradient 7.6 mmHg AV Mean Velocity 93.1 cm/s AV Mean Gradient 4.0 mmHg AV Velocity Time Integral 35.5 cm LVOT Peak Velocity 58.7 cm/s LVOT Peak Gradient 1.4 mmHg LVOT Mean Velocity 37.7 cm/s LVOT Mean Gradient 1.0 mmHg LVOT Velocity Time Integral 11.9 cm LVOT Stroke Volume 37.4 cm AV Area Cont Eq vti 1.1 cm AV Area Cont Eq pk 1.3 cm MV Peak Velocity 109.0 cm/s MV Peak Gradient 4.8 mmHg MV Mean Velocity 62.2 cm/s MV Mean Gradient 2.0 mmHg Mitral E Point Velocity 70.6 cm/s Mitral A Point Velocity 87.4 cm/s Mitral E to A Ratio 0.8 MV PHT Velocity 85.5 cm/s MV Deceleration [place] 281.0 cm/s MV Pressure Half Time 91.3 ms MV Area PHT 2.4 cm MV Deceleration Time 408.0 ms TR Peak Velocity 319.0 cm/s TR Peak Gradient 40.7 mmHg Right Atrial Pressure 5.0 mmHg Pulmonary Artery Systolic Pressu 45.7 mmHg Right Ventricular Systolic Press 45.7 mmHg PV Peak Velocity 109.0 cm/s PV Peak Gradient 4.8 mmHg PV Mean Velocity 69.7 cm/s PV Mean Gradient 2.0 mmHg PV Velocity Time Integral 26.0 cm LV E' Lateral Velocity 3.9 cm/s Mitral E to LV E' Lateral Ratio 18.1 LV E' Septal Velocity 3.2 cm/s Mitral E to LV E' Septal Ratio 21.9
--- NOTE | 2017-09-12 11:36 | PN- Cardiology ---
Subjective Subjective: Feels a little better today. Still has a productive cough. Objective Vital Signs and I&Os Vital Signs Date Time Temp Pulse Resp B/P B/P Pulse O2 O2 Flow FiO2 Mean Ox Delivery Rate 09/12 1124 94 Nasal 4.0L Cannula 09/12 0935 95 Nasal 4.0L Cannula 09/12 0800 Nasal 3.5L Cannula 09/12 0624 98.0 72 20 90/56 95 Nasal Cannula 09/12 0000 Nasal 3.5L Cannula 09/11 2310 97.8 75 20 100/48 93 Nasal 4.0L Cannula 09/11 2030 93 Nasal 4.0L Cannula 09/11 1600 Nasal 3.5L Cannula 09/11 1427 98.5 75 18 100/52 95 Nasal 4.0L Cannula Intake & Output 09/12 0000 09/11 1600 09/11 0000 Intake Total 325 300 600 620 Output Total 400 350 400 350 Balance -75 -50 200 270 Intake, Blood 350 Product Intake, IV 30 Intake, Oral 325 300 600 240 Number 1 Bowel Movements Output, Urine 400 350 400 350 Patient 188 lb 195 lb 180 lb Weight Weight Bed scale Reported by Patient Measurement Method Physical Exam: General: no apparent distress. Alert. On nasal cannula Eyes: No obvious scleral icterus. HEENT: No jugular venous distention or abnormal jugular venous pulsations. Cardiovascular: Normal intensity S1/S2. Regular Respiratory: Decreased air entry with bilateral rhonchi Abdomen: Soft, nontender with no guarding or rebound tenderness. Musculoskeletal: No clubbing or cyanosis noted; trace lower extremity edema Skin: warm Neurologic: No gross focal deficits noted. Current Medications: Current Medications Sig/Kyra Start time Last Medication Dose Route Stop Time Status Admin Acetaminophen 650 MG Q6P PRN 09/11 0015 AC PO Acetaminophen 1,000 MG Q8P PRN 09/11 0015 AC IV Acetylcysteine 2 ML BID 09/11 899 AC 09/12 INH 1118 Albuterol Sulfate 3 ML TID 09/11 899 AC 09/12 INH 0933 Albuterol Sulfate 2 PUF Q4-PRN PRN 09/11 0130 AC INH Aspirin 81 MG DAILY 09/12 09 AC 09/12 PO 0800 Atorvastatin Calcium 40 MG 1700 09/11 1700 AC 09/11 PO 1710 Budesonide/ 2 PUF BID 09/11 0900 AC 09/12 Formoterol Fumarate INH 0800 Ceftazidime 1,000 MG IQ8 09/11 0200 DC 09/11 IV 0741 Docusate Sodium 100 MG DAILY 09/11 0900 AC 09/12 PO 0801 Doxazosin Mesylate 2 MG QPM 09/11 2100 AC 09/11 PO 2159 Ferrous Gluconate 324 MG BID 09/11 0900 AC 09/12 PO 0801 Folic Acid 1 MG DAILY 09/11 0900 AC 09/12 PO 0800 Furosemide 20 MG BID 09/12 1015 AC IV Furosemide 40 MG 7:30 AM, & 4:30 PM 09/12 0845 DC 09/12 IV 0900 Furosemide 20 MG ONCE ONE 09/11 1500 DC 09/11 IV 09/11 1501 1451 Furosemide 40 MG .STK-MED ONE 09/11 1447 DC IV 09/11 1448 Guaifenesin 10 ML Q6P PRN 09/12 0300 AC PO Insulin Aspart 0 TIDAC 09/11 1700 AC 09/12 SC 0800 Ipratropium [place] 2.5 ML TID 09/11 0900 AC 09/12 INH 0933 Magnesium Oxide 400 MG ONE ONE 09/12 0515 DC 09/12 PO 09/12 0516 0537 Melatonin 5 MG ONCE ONE 09/12 0015 DC 09/12 PO 09/12 0016 0424 Methylprednisolone 40 MG Q8 09/11 0600 DC 09/11 IV 1320 Omeprazole 40 MG DAILY AC 09/11 0700 AC 09/12 PO 0537 Patient Medication 1 ED ONE ONE 09/11 1830 DC Teaching ED 09/11 1831 Phosphate 250 MG ONCE ONE 09/12 514 DC 09/12 PO 09/12 0516 0537 Potassium Chloride 10 MEQ DAILY 09/11 09 AC 09/12 PO 0801 Potassium Chloride 40 MEQ BID 09/11 0900 AC 09/12 PO 0801 Prednisone 15 MG DAILY 09/12 0900 AC 09/12 PO 0800 Results Last 48 Hrs of Labs/Mics: Laboratory Tests 09/12/17 07: Anion Gap 4 L, Estimated GFR > 60, BUN/Creatinine Ratio 28.0 H, CBC w Diff MAN DIFF ORDERED, RBC 2.58 L, MCV 101.8 H, MCH 33.4 H, MCHC 32.9 L, RDW 20.9 H, MPV 9.9, Gran % 85.2 H, Lymphocytes % 8.9 L, Monocytes % 5.8, Eosinophils % 0, Basophils % 0.1, Absolute Granulocytes 6.4, Segmented Neutrophils 75, Band Neutrophils 11 H, Absolute Lymphocytes 0.7 L, Lymphocytes 9 L, Monocytes 5, Absolute Monocytes 0.4, Absolute Eosinophils 0, Absolute Basophils 0, Platelet Estimate ADEQUATE, Polychromasia 1+, Poikilocytosis 1+, Basophilic Stippling RARE, Anisocytosis 1+, Macrocytic Cells 1+, Ovalocytes 1+, Fld Total RBCs Counted 100 09/11/17 1130: Phosphorus 2.5, Magnesium 1.8, Troponin I 0.12 *H, Vitamin B12 > 1000 H, Folate > 20.0 H 09/11/17 0555: Sodium Cancelled, Potassium Cancelled, Chloride Cancelled, Carbon Dioxide Cancelled, Anion Gap Cancelled, BUN Cancelled, Creatinine Cancelled, BUN/ Creatinine Ratio Cancelled 09/11/17 0555: Anion Gap 7, Estimated GFR > 60, BUN/Creatinine Ratio 36.0 H, Troponin I 0.16 * H, CBC w Diff MAN DIFF ORDERED, RBC 2.66 L, MCV 101.2 H, MCH 34.0 H, MCHC 33.6, RDW 21.5 H, MPV 9.8, Gran % 91.8 H, Lymphocytes % 6.2 L, Monocytes % 2.0, Eosinophils % 0, Basophils % 0, Absolute Granulocytes 4.9, Segmented Neutrophils 73, Band Neutrophils 19 H, Absolute Lymphocytes 0.3 L, Lymphocytes 6 L, Monocytes 2, Absolute Monocytes 0.1, Absolute Eosinophils 0, Absolute Basophils 0, Platelet Estimate VERIFIED BY SMEAR, Polychromasia 1+, Poikilocytosis 1+, Basophilic Stippling 1+, Anisocytosis 1+, Macrocytic Cells 1+ , Ovalocytes 1+ 09/10/17 2221: Anion Gap 9, Estimated GFR > 60, BUN/Creatinine Ratio 30.0 H, Glucose 333 H, Hemoglobin A1c 6.3 H, Calcium 7.9 L, Phosphorus 2.6, Magnesium 1.8, Iron 31 L , TIBC 204 L, Ferritin 407.0, Total Bilirubin 1.4 H, AST 17, ALT 19 L, Alkaline Phosphatase 48, Troponin I 0.15 *H, [id number] Pept 2300 H, Total Protein 5.7 L, Albumin 3.0 L, Globulin 2.7, Albumin/Globulin Ratio 1.1, Vitamin B12 > 1000 H, Folate > 20.0 H, TSH 3.120, Free T4 1.05, CBC w Diff NO MAN DIFF REQ, RBC 2.47 L, MCV 104.9 H, MCH 34.2 H, MCHC 32.5 L, RDW 19.0 H, MPV 10.0, Gran % 90.0 H, Lymphocytes % 4.1 L, Monocytes % 5.9, Eosinophils % 0 , Basophils % 0, Absolute Granulocytes 5.4, Absolute Lymphocytes 0.2 L, Absolute Monocytes 0.4, Absolute Eosinophils 0, Absolute Basophils 0, Retic Count 2.07 H 09/10/17 2220: pH 7.48 H, pCO2 49 H, pO2 56 L, HCO3 35 H, ABG O2 Sat (Measured) 87.0 L, P- 50 (Temp Corrected) N, Carboxyhemoglobin 1.3 L, O2 Concentration % 5L, Temperature 98.6, O2 Delivery Method NC, Phlebotomy Draw Site RIGHT RADIAL 09/10/17 2214: Urine Color Cancelled, Urine Clarity Cancelled, Urine pH Cancelled, Ur Specific [place] Cancelled, Urine Protein Cancelled, Urine Ketones Cancelled, Urine Nitrite Cancelled, Urine Bilirubin Cancelled, Urine Urobilinogen Cancelled, Ur Leukocyte Esterase Cancelled, Ur Microscopic Cancelled, Urine Hemoglobin Cancelled, Urine Glucose Cancelled Microbiology 09/11 0320 NASOPHARYN: Influenza Virus A & B Rapid Smear - COMP Recent Imaging Studies: Telemetry tracings are personally reviewed and shows sinus rhythm and sinus bradycardia Echocardiogram Left ventricular cavity size normal. Left ventricular wall thickness mildly increased. No obvious regional wall motion abnormalities. Left ventricular ejection fraction is estimated at > 55 %. Abnormal relaxation filling pattern of the left ventricle for (stage 1 diastolic dysfunction). Normal right ventricular size and function. Mild pulmonary hypertension. No pericardial effusion. Eugene Platt M.D. (Electronically Signed) Final Date: 12 Sep 2017 10:00 Assessment/Plan Assessment/Plan 1. COPD on chronic O2 2. Acute on chronic heart failure with preserved ejection fraction 3. Chronic left lower lobe collapse 4. Minimal troponin elevation likely due to supply demand mismatch 5. History of cervical spinal spinal disease with neurologic deficit Patient appears to be clinically improving. Can continue on the IV Lasix today and hopefully transition to oral Lasix tomorrow. Echocardiogram as above with no regional wall motion abnormalities. Martin Platt MD [facility] Continue telemetry? No
[2017-09-12 14:13] VITALS: BP 100/48
--- NOTE | 2017-09-12 14:46 | PN- Housestaff ---
Agusto ORTEGA,Joshua 09/12/17 1425: Subjective Follow-up For: CHF COPD Tele-Events Since Last Visit: 5 and 7 beat NSVT overnight. One episode of bradycardia into 40s. Subjective: No acute overnight events or complaints. Pt states that he feels some what better and able to cough more productively. Review of Systems Constitutional: Denies: chills, diaphoresis, fever. EENTM: Reports: no symptoms. Cardiovascular: Denies: chest pain. Respiratory: Reports: cough, short of breath, sputum production. Denies: wheezing. Gastrointestinal: Reports: no symptoms. Genitourinary: Reports: no symptoms. Musculoskeletal: Reports: no symptoms. Skin: Reports: no symptoms. Objective Last 24 Hrs of Vital Signs/I&O Vital Signs Date Time Temp Pulse Resp B/P B/P Pulse O2 O2 Flow FiO2 Mean Ox Delivery Rate 09/12 1413 98.2 74 20 100/48 95 Nasal 4.0L Cannula 09/12 1312 Nasal 4.0L Cannula 09/12 1124 94 Nasal 4.0L Cannula 09/12 0935 95 Nasal 4.0L Cannula 09/12 0800 Nasal 3.5L Cannula 09/12 0624 98.0 72 20 90/56 95 Nasal Cannula 09/12 0000 Nasal 3.5L Cannula 09/11 2310 97.8 75 20 100/48 93 Nasal 4.0L Cannula 09/11 2030 93 Nasal 4.0L Cannula 09/11 1600 Nasal 3.5L Cannula Intake & Output 09/12 1600 / 0800 05/02 0000 Intake Total 650 325 300 Output Total 900 400 350 Balance -250 -75 -50 Intake, Oral 650 325 300 Number 1 1 Bowel Movements Output, Urine 900 400 350 Patient 85.445 kg Weight Physical Exam General Appearance: Alert, Oriented X3, Cooperative, No Acute Distress Skin: No Significant Lesion HEENT: Atraumatic, PERRLA Cardiovascular: Regular Rate, No Murmurs Lungs: sjignificantly diminished sounds. Some rhonchi but no wheeze appreciated Abdomen: Soft, No Tenderness Extremities: 2+ edema bilat LE. Current Medications: Current Medications Sig/Kyra Start time Last Medication Dose Route Stop Time Status Admin Acetaminophen 650 MG Q6P PRN 09/11 0015 AC PO Acetaminophen 1,000 MG Q8P PRN 09/11 0015 AC IV Acetylcysteine 2 ML BID 09/11 0900 AC 09/12 INH 1118 Albuterol Sulfate 3 ML TID 09/11 0900 AC 09/12 INH 1134 Albuterol Sulfate 2 PUF Q4-PRN PRN 09/11 0130 AC INH Aspirin 81 MG DAILY 09/12 0900 AC 09/12 PO 0800 Atorvastatin Calcium 40 MG 1700 05 1700 AC 09/11 PO 1710 Azithromycin 250 MG Q48 09/12 1300 AC 09/12 PO 1313 Budesonide/ 2 PUF BID 09/11 0900 AC 09/12 Formoterol Fumarate INH 0800 Ceftazidime 1,000 MG IQ8 09/11 0200 DC 09/11 IV 0741 Docusate Sodium 100 MG DAILY 09/11 0900 AC 09/12 PO 0801 Doxazosin Mesylate 2 MG QPM 09/11 2100 AC 09/11 PO 2159 Ferrous Gluconate 324 MG BID 09/11 0900 AC 09/12 PO 0801 Folic Acid 1 MG DAILY 09/11 0900 AC 09/12 PO 0800 Furosemide 20 MG BID 09/12 1015 AC IV Furosemide 40 MG 7:30 AM, & 4:30 PM 09/12 0845 DC 09/12 IV 0900 Furosemide 20 MG ONCE ONE 09/11 1500 DC 09/11 IV 09/11 1501 1451 Furosemide 40 MG .STK-MED ONE 09/11 1447 DC IV 09/11 1448 Guaifenesin 10 ML Q6P PRN 09/12 0300 AC PO Insulin Aspart 0 TIDAC 09/11 1700 AC 09/12 SC 1241 Ipratropium [place] 2.5 ML TID 09/11 0900 AC 09/12 INH 1134 Magnesium Oxide 400 MG ONE ONE 09/12 0515 DC 09/12 PO 09/12 0516 0537 Melatonin 5 MG ONCE ONE 09/12 0015 DC 09/12 PO 09/12 0016 0424 Methylprednisolone 40 MG Q8 09/11 0600 DC 09/11 IV 1320 Omeprazole 40 MG DAILY AC 09/11 0700 AC 09/12 PO 0537 Patient Medication 1 ED ONE ONE 09/11 1830 DC Teaching ED 09/11 1831 Phosphate 250 MG ONCE ONE 09/12 0515 DC 09/12 PO 09/12 0516 0537 Potassium Chloride 10 MEQ DAILY 09/11 0900 AC 09/12 PO 0801 Potassium Chloride 40 MEQ BID 09/11 899 AC 09/12 PO 0801 Prednisone 10 MG DAILY 09/13 899 AC PO 09/22 900 Prednisone 15 MG DAILY 09/12 899 AC 09/12 PO 09/13 0600 0800 Last 24 Hrs of Lab/Nikolas Results Last 24 Hrs of Labs/Mics: Laboratory Tests 09/12/17 0705: Anion Gap 4 L, Estimated GFR > 60, BUN/Creatinine Ratio 28.0 H, CBC w Diff MAN DIFF ORDERED, RBC 2.58 L, MCV 101.8 H, MCH 33.4 H, MCHC 32.9 L, RDW 20.9 H, MPV 9.9, Gran % 85.2 H, Lymphocytes % 8.9 L, Monocytes % 5.8, Eosinophils % 0, Basophils % 0.1, Absolute Granulocytes 6.4, Segmented Neutrophils 75, Band Neutrophils 11 H, Absolute Lymphocytes 0.7 L, Lymphocytes 9 L, Monocytes 5, Absolute Monocytes 0.4, Absolute Eosinophils 0, Absolute Basophils 0, Platelet Estimate ADEQUATE, Polychromasia 1+, Poikilocytosis 1+, Basophilic Stippling RARE, Anisocytosis 1+, Macrocytic Cells 1+, Ovalocytes 1+, Fld Total RBCs Counted 100 Assessment/Plan Assessment: This is a 86 yo male with PMH of COPD on 4L O2, cor pulmonale, HFpEF ECHO (2017 ) with LVEF >65%, rheumatoid arthritis, quadriparesis with significant cervical degenerative disc disease presenting this admission with chief complaint of shortness of breath. ED workup showed significantly elevated BNP, 3+ L3 edema, and cxr showing continued dense consolidation at L lung base with blunting of costophrenic angle. There is concern for worsening heart failure superimposed by bronchitis exacerbating his underlying COPD. PLAN: 1. Dypnea: Etiology includes bronchitis on COPD, or worsening heart failure. CT chest shows excessing mucum impaction to the point of collapse of lower lobes. See below for full read. Echo shows: Left ventricular cavity size normal. Left ventricular wall thickness mildly increased. No obvious regional wall motion abnormalities. Left ventricular ejection fraction is estimated at > 55 %. Abnormal relaxation filling pattern of the left ventricle for (stage 1 diastolic dysfunction). Normal right ventricular size and function. Mild pulmonary hypertension. No pericardial effusion. This suggests worsening diastolic dysfunction. * Appreciate cardio consult * gentle diuresis * HOLD all anti-cholinergics as we don't want to dry out his secretions and make them harder to expectorate. * O2 as necessary * Con't PO steroid taper * Off all abx * Acapella * HOB * Peridex care * OOB to chair * CT CHEST: 1. Extensive mucus inspissation is seen with occlusion of both lower lobe pulmonary bronchi and the right middle lobe bronchus. Dense consolidation and volume loss are seen in the right middle lobe and near complete consolidation and volume loss in both lower lobes. Patchy consolidation and volume loss in the left upper lobe is also noted with narrowing of the left upper lobe uncus. Findings are most likely related to inflammation/infection given the diffuse findings. Malignant disease is felt to be unlikely. No definite central hilar mass is seen, though evaluation is limited on noncontrast study. Continued close clinical correlation and follow-up is recommended. 2. No significant change in some of the previously identified right upper lobe and left upper lobe solid calcified and noncalcified pulmonary nodules dating back to 08/29/2012, consistent with a benign etiology. Several of the previously seen nodules more inferiorly in the right upper lobe have resolved on today's exam. 3. Mediastinal adenopathy is seen, likely reactive to the extensive lung findings and unchanged from prior exam. 4. Trace left and small right-sided pleural effusions are noted. 5. Asymmetric glandular tissue in the subareolar left breast, unchanged dating back to 08/29/2012, likely representing asymmetric gynecomastia. Clinical correlation requested.6. Hepatic hepatic and right renal cysts are seen. 2. Type II [place]: Likely 2/2 demand from tachycardia or work of heart secondary to his heart failure. Per cardio, no cath and only conservative measures. * ASA * No beta mely * Statin 3.Anemia: Hb 9.0 after 1u pRBC transfusion, was 8.4 prior to admission. Pt has low irin, low tibc, and nml ferritin. 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 MCV 104.9. The one point above nml tibc could be within error margin. * Goal H/H above 8.0 * Monitor CBC * TFT wnl 4. Other: Con't Doxazosin, Con't PPI FC Chem ppx HHD Problem List: 1. COPD exacerbation 2. Elevated troponin Pain Ratin Pain Location: NONE Pain Goal: Remain pain free Pain Plan: NONE Tomorrow's Labs & Rationales: CBC BEP Kennedy Holbrook 09/13/17 1116: Attending MD Review Statement Attending Statement Attending MD Statement: examined this patient, discuss w/resident/PA/BLASTING HELPER, agreed w/resident/PA/BLASTING HELPER, discussed with family, reviewed EMR data (avail), discussed with nursing, discussed with case mgmt, reviewed images, amended to note Attending Assessment/Plan: Patient seen/examined, continue current care with iv lasix. Follow cardiology adn pulmoanry
[2017-09-12 22:21] VITALS: BP 106/50
[2017-09-13 06:53] VITALS: BP 126/58
--- NOTE | 2017-09-13 07:20 | PN- Housestaff ---
Agusto ORTEGA,Joshua 09/13/17 0720: Subjective Follow-up For: SOB Tele-Events Since Last Visit: NSR no acute overnight events Review of Systems Constitutional: Denies: chills, malaise. EENTM: Reports: no symptoms. Cardiovascular: Denies: chest pain, palpitations. Respiratory: Reports: cough, sputum production. Denies: wheezing. Gastrointestinal: Reports: no symptoms. Genitourinary: Reports: no symptoms. Musculoskeletal: Reports: no symptoms. Objective Last 24 Hrs of Vital Signs/I&O Vital Signs Date Time Temp Pulse Resp B/P B/P Pulse O2 O2 Flow FiO2 Mean Ox Delivery Rate 09/13 0653 98.2 82 20 126/58 95 Nasal Cannula 09/13 0000 Nasal 3.5L Cannula 09/12 2221 98.2 70 20 106/50 93 Nasal 4.0L Cannula 09/12 2039 95 Nasal 4.0L Cannula 09/12 1413 98.2 74 20 100/48 95 Nasal 4.0L Cannula 09/12 1312 Nasal 4.0L Cannula 09/12 1124 94 Nasal 4.0L Cannula 09/12 0935 95 Nasal 4.0L Cannula 09/12 0800 Nasal 3.5L Cannula Intake & Output 09/13 0800 / 0000 09/12 1600 Intake Total 400 650 Output Total 700 250 900 Balance -300 -250 -250 Intake, Oral 400 650 Number 1 1 Bowel Movements Output, Urine 700 250 900 Patient 85.899 kg 85.474 kg Weight Weight Bed scale Measurement Method Physical Exam General Appearance: Alert, Oriented X3, Cooperative Skin: No Significant Lesion HEENT: Atraumatic, PERRLA, EOMI, Mucous Membr. moist/pink Neck: Supple Cardiovascular: Regular Rate, Normal S1, Normal S2, No Murmurs Lungs: DIMINISHED AIR MOVEMENT. iT SOUNDS LIKE HIS COUGH IS MORE PRODUCTIVE TODAY. Abdomen: Soft, No Tenderness Current Medications: Current Medications Sig/Kyra Start time Last Medication Dose Route Stop Time Status Admin Acetaminophen 650 MG Q6P PRN 09/11 0015 AC PO Acetaminophen 1,000 MG Q8P PRN 09/11 0015 AC IV Acetylcysteine 2 ML BID 09/11 0900 AC 09/12 INH 1118 Albuterol Sulfate 3 ML BID 09/12 2100 AC 09/12 INH 2031 Albuterol Sulfate 3 ML TID 09/11 899 DC 09/12 INH 1134 Albuterol Sulfate 2 PUF Q4-PRN PRN 09/11 0130 AC INH Aspirin 81 MG DAILY 09/12 0900 AC 09/12 PO 0800 Atorvastatin Calcium 40 MG 1700 09/11 1700 AC 09/12 PO 1705 Azithromycin 250 MG Q48 09/12 1300 AC 09/12 PO 1313 Budesonide/ 2 PUF BID 09/11 0900 AC 09/13 Formoterol Fumarate INH 0032 Docusate Sodium 100 MG DAILY 09/11 0900 AC 09/12 PO 0801 Doxazosin Mesylate 2 MG QPM 09/11 2100 AC 09/12 PO 2226 Ferrous Gluconate 324 MG BID 09/11 0900 AC 09/12 PO 2232 Folic Acid 1 MG DAILY 09/11 0900 AC 09/12 PO 0800 Furosemide 20 MG BID 09/12 1015 AC 09/12 IV 2234 Furosemide 40 MG 7:30 AM, & 4:30 PM 09/12 0845 DC 09/12 IV 0900 Guaifenesin 10 ML Q6P PRN 09/12 0300 AC PO Insulin Aspart 0 TIDAC 09/11 1700 AC 09/12 SC 1705 Ipratropium [place] 2.5 ML TID 09/11 0900 DC 09/12 INH 1134 Omeprazole 40 MG DAILY AC 09/11 0700 AC 09/13 PO 0636 Potassium Chloride 10 MEQ DAILY 09/11 0900 AC 09/12 PO 0801 Potassium Chloride 40 MEQ BID 09/11 0900 AC 09/12 PO 2232 Prednisone 10 MG DAILY 09/13 0900 AC PO 09/22 0901 Prednisone 15 MG DAILY 09/12 0900 DC 09/12 PO 09/13 0600 0800 Sodium Chloride 3 % TID 09/13 0900 AC INH Last 24 Hrs of Lab/Nikolas Results Last 24 Hrs of Labs/Mics: Laboratory Tests 09/13/17 0640: Sodium Pending, Potassium Pending, Chloride Pending, Carbon Dioxide Pending, Anion Gap Pending, BUN Pending, Creatinine Pending, BUN/Creatinine Ratio Pending , CBC w Diff Pending, WBC Pending, RBC Pending, Hgb Pending, Hct Pending, MCV Pending, MCH Pending, MCHC Pending, RDW Pending, Plt Count Pending, MPV Pending Assessment/Plan Assessment: This is a 86 yo male with PMH of COPD on 4L O2, cor pulmonale, HFpEF ECHO (2017 ) with LVEF >65%, rheumatoid arthritis, quadriparesis with significant cervical degenerative disc disease presenting this admission with chief complaint of shortness of breath. ED workup showed significantly elevated BNP, 3+ L3 edema, and cxr showing continued dense consolidation at L lung base with blunting of costophrenic angle. There is concern for worsening heart failure superimposed by bronchitis exacerbating his underlying COPD. PLAN: 1. Dypnea: Etiology includes bronchitis/bronchiectasis on COPD, or worsening heart failure. There was initially thought to infection and he was empirically treated w/ ceftaz but has been off all abx for 2 days. Note that while WBC nml his bands have been 19 and 11 for the last two days. He is on steroids. No fever or systemic signs of infection. CT chest shows excessing mucum impaction to the point of collapse of lower lobes. Echo shows: Left ventricular cavity size normal. Left ventricular wall thickness mildly increased. No obvious regional wall motion abnormalities. Left ventricular ejection fraction is estimated at > 55 %. Abnormal relaxation filling pattern of the left ventricle for (stage 1 diastolic dysfunction). Normal right ventricular size and function. Mild pulmonary hypertension. No pericardial effusion. This suggests worsening diastolic dysfunction. * Appreciate cardio consult * gentle diuresis * HOLD all anti-cholinergics as we don't want to dry out his secretions and make them harder to expectorate. * O2 as necessary * Con't PO steroid taper * Off all abx * Acapella * HOB * Peridex care * OOB to chair * CT CHEST: 1. Extensive mucus inspissation is seen with occlusion of both lower lobe pulmonary bronchi and the right middle lobe bronchus. Dense consolidation and volume loss are seen in the right middle lobe and near complete consolidation and volume loss in both lower lobes. Patchy consolidation and volume loss in the left upper lobe is also noted with narrowing of the left upper lobe uncus. Findings are most likely related to inflammation/infection given the diffuse findings. Malignant disease is felt to be unlikely. No definite central hilar mass is seen, though evaluation is limited on noncontrast study. Continued close clinical correlation and follow-up is recommended. 2. No significant change in some of the previously identified right upper lobe and left upper lobe solid calcified and noncalcified pulmonary nodules dating back to 08/29/2012, consistent with a benign etiology. Several of the previously seen nodules more inferiorly in the right upper lobe have resolved on today's exam. 3. Mediastinal adenopathy is seen, likely reactive to the extensive lung findings and unchanged from prior exam. 4. Trace left and small right-sided pleural effusions are noted. 5. Asymmetric glandular tissue in the subareolar left breast, unchanged dating back to 08/29/2012, likely representing asymmetric gynecomastia. Clinical correlation requested.6. Hepatic hepatic and right renal cysts are seen. 2. Type II [place]: Likely 2/2 demand from tachycardia or work of heart secondary to his heart failure. Per cardio, no cath and only conservative measures. * ASA * No beta mely * Statin 3.Anemia: Hb 9.0 after 1u pRBC transfusion, was 8.4 prior to admission. Pt has low irin, low tibc, and nml ferritin. 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 MCV 104.9. The one point above nml tibc could be within error margin. * Goal H/H above 8.0 * Monitor CBC * TFT wnl 4. Other: Con't Doxazosin, Con't PPI Problem List: 1. COPD exacerbation 2. Elevated troponin Pain Ratin Pain Location: none Pain Goal: Remain pain free Pain Plan: none Tomorrow's Labs & Rationales: cbc bep Kennedy Holbrook 09/13/17 1118: Attending MD Review Statement Attending Statement Attending MD Statement: examined this patient, discuss w/resident/PA/APPRENTICE PAINTER BRUSH, agreed w/resident/PA/APPRENTICE PAINTER BRUSH, discussed with family, reviewed EMR data (avail), discussed with nursing, discussed with case mgmt, reviewed images, amended to note Attending Assessment/Plan: Patient deneis any new complaints. He is switched to PO lasix today. Contiue follow pulm recommendations. Anticipate dc planning back to facility if ok with cardiology and pulmonary.
[2017-09-13 08:05] LABS: ABSOLUTE BASOPHIL COUNT 0 /CUMM (0.0-0.2); ABSOLUTE EOSINOPHIL COUNT 0 /CUMM (0.0-0.7); ABSOLUTE GRANULOCYTE CT 3.8 /CUMM (1.4-6.5); ABSOLUTE LYMPH COUNT 1.6 /CUMM (1.2-3.4); ABSOLUTE MONOCYTE COUNT 0.5 /CUMM (0.10-0.60); BASOPHIL % 0.4 % (0.0-2.0); EOSINOPHIL % 0.4 % (0-5); GRANULOCYTE % 63.8 % (42.2-75.2); HEMATOCRIT 28.2 % (42-52); MEAN CORPUSCULAR HGB 33.4 PG (27.0-31.0); MEAN CORPUSCULAR HGB CONC 32.7 G/DL (33.0-37.0); MEAN CORPUSCULAR VOLUME 102.1 FL (80.0-94.0); MEAN PLATELET VOLUME 9.6 FL (7.4-10.4); PLATELET COUNT 195 /CUMM (130-400); RBC DISTRIBUTION WIDTH 21.6 % (11.5-14.5); RED BLOOD CELL CT 2.76 /CUMM (4.70-6.10); WHITE BLOOD CELL COUNT 5.9 /CUMM (4.8-10.8)
--- NOTE | 2017-09-13 10:50 | PN- Cardiology ---
Subjective Subjective: Still with a cough but otherwise feeling well. Objective Vital Signs and I&Os Vital Signs Date Time Temp Pulse Resp B/P B/P Pulse O2 O2 Flow FiO2 Mean Ox Delivery Rate 09/13 1034 92 Nasal 4.0L Cannula 09/13 0653 98.2 82 20 126/58 95 Nasal Cannula 09/13 0000 Nasal 3.5L Cannula 09/12 2221 98.2 70 20 106/50 93 Nasal 4.0L Cannula 09/12 2039 95 Nasal 4.0L Cannula 09/12 1413 98.2 74 20 100/48 95 Nasal 4.0L Cannula 09/12 1312 Nasal 4.0L Cannula 09/12 1124 94 Nasal 4.0L Cannula Intake & Output 09/13 1600 09/13 0800 09/13 0000 09/12 1600 09/12 0800 09/12 0000 Intake Total 400 650 325 300 Output Total 700 250 900 400 350 Balance -300 -250 -250 -75 -50 Intake, Oral 400 650 325 300 Number 1 1 1 Bowel Movements Output, Urine 700 250 900 400 350 Patient 189 lb 188 lb 188 lb Weight Weight Bed scale Measurement Method Physical Exam: General: no apparent distress. Alert. On nasal cannula Eyes: No obvious scleral icterus. HEENT: No jugular venous distention or abnormal jugular venous pulsations. Cardiovascular: Normal intensity S1/S2. Regular Respiratory: Decreased air entry on the left Abdomen: Soft, nontender with no guarding or rebound tenderness. Musculoskeletal: No clubbing or cyanosis noted; trace lower extremity edema Skin: warm Neurologic: No gross focal deficits noted. Current Medications: Current Medications Sig/Kyra Start time Last Medication Dose Route Stop Time Status Admin Acetaminophen 650 MG Q6P PRN 09/11 0015 AC PO Acetaminophen 1,000 MG Q8P PRN 09/11 0015 AC IV Acetylcysteine 2 ML BID 09/11 0900 AC 09/12 INH 1118 Albuterol Sulfate 3 ML BID 09/12 2100 AC 09/12 INH 2031 Albuterol Sulfate 3 ML TID 09/11 0900 DC 09/12 INH 1134 Albuterol Sulfate 2 PUF Q4-PRN PRN 09/11 0130 AC INH Aspirin 81 MG DAILY 09/12 0900 AC 09/13 PO 1012 Atorvastatin Calcium 40 MG 1700 09/11 1700 AC 09/12 PO 1705 Azithromycin 250 MG Q48 09/12 1300 AC 09/12 PO 1313 Budesonide/ 2 PUF BID 09/11 0900 AC 09/13 Formoterol Fumarate INH 1044 Docusate Sodium 100 MG DAILY 09/11 09 AC 09/13 PO 1012 Doxazosin Mesylate 2 MG QPM 09/11 2100 AC 09/12 PO 2226 Ferrous Gluconate 324 MG BID 09/11 0900 AC 09/13 PO 1043 Folic Acid 1 MG DAILY 09/11 0900 AC 09/13 PO 1012 Furosemide 40 MG BID 09/13 1000 AC 09/13 PO 1012 Furosemide 20 MG BID 09/12 1015 DC 09/12 IV 2234 Guaifenesin 10 ML Q6P PRN 09/12 0300 AC PO Insulin Aspart 0 TIDAC 09/11 1700 AC 09/12 SC 1705 Ipratropium [place] 2.5 ML TID 09/11 0900 DC 09/12 INH 1134 Omeprazole 40 MG DAILY AC 09/11 0700 AC 09/13 PO 0636 Potassium Chloride 10 MEQ DAILY 09/11 0900 AC 09/13 PO 1044 Potassium Chloride 40 MEQ BID 09/11 0900 AC 09/13 PO 1044 Prednisone 10 MG DAILY 09/13 0900 AC 09/13 PO 05 0901 1012 Prednisone 15 MG DAILY 09/12 0900 DC 09/12 PO 09/13 0600 0800 Sodium Chloride 3 % TID 09/13 0900 AC INH Results Last 48 Hrs of Labs/Mics: Laboratory Tests 09/13/17 0640: Anion Gap 4 L, Estimated GFR > 60, BUN/Creatinine Ratio 24.0, CBC w Diff NO MAN DIFF REQ, RBC 2.76 L, MCV 102.1 H, MCH 33.4 H, MCHC 32.7 L, RDW 21.6 H, MPV 9.6, Gran % 63.8, Lymphocytes % 27.6, Monocytes % 7.8, Eosinophils % 0.4, Basophils % 0.4, Absolute Granulocytes 3.8, Absolute Lymphocytes 1.6, Absolute Monocytes 0.5, Absolute Eosinophils 0, Absolute Basophils 0 09/12/17 0705: Anion Gap 4 L, Estimated GFR > 60, BUN/Creatinine Ratio 28.0 H, CBC w Diff MAN DIFF ORDERED, RBC 2.58 L, MCV 101.8 H, MCH 33.4 H, MCHC 32.9 L, RDW 20.9 H, MPV 9.9, Gran % 85.2 H, Lymphocytes % 8.9 L, Monocytes % 5.8, Eosinophils % 0, Basophils % 0.1, Absolute Granulocytes 6.4, Segmented Neutrophils 75, Band Neutrophils 11 H, Absolute Lymphocytes 0.7 L, Lymphocytes 9 L, Monocytes 5, Absolute Monocytes 0.4, Absolute Eosinophils 0, Absolute Basophils 0, Platelet Estimate ADEQUATE, Polychromasia 1+, Poikilocytosis 1+, Basophilic Stippling RARE, Anisocytosis 1+, Macrocytic Cells 1+, Ovalocytes 1+, Fld Total RBCs Counted 100 09/11/17 1130: Phosphorus 2.5, Magnesium 1.8, Troponin I 0.12 *H, Vitamin B12 > 1000 H, Folate > 20.0 H Recent Imaging Studies: Telemetry tracings are personally reviewed and shows sinus rhythm with a short wide complex run Assessment/Plan Assessment/Plan 1. COPD on chronic O2 2. Acute on chronic heart failure with preserved ejection fraction 3. Chronic left lower lobe collapse 4. Minimal troponin elevation likely due to supply demand mismatch 5. 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 Recommend oral Lasix at 40 mg p.o. daily. Steroid taper per pulmonology. Martin Platt MD [facility] Continue telemetry? No
[2017-09-13 14:49] VITALS: BP 106/52
--- NOTE | 2017-09-13 19:42 | PN- Pulmonary ---
Subjective HPI/Critical Care Issues: NSR no acute overnight events Improving No fever Sputum ongoing Review of Systems Constitutional: Denies: chills, malaise. EENTM: Reports: no symptoms. Cardiovascular: Denies: chest pain, palpitations. Respiratory: Reports: cough, sputum production. Denies: wheezing. Gastrointestinal: Reports: no symptoms. Genitourinary: Reports: no symptoms. Musculoskeletal: Reports: no symptoms. Objective Current Medications: Current Medications Sig/Kyra Start time Last Medication Dose Route Stop Time Status Admin Acetaminophen 650 MG Q6P PRN 09/11 0015 AC PO Acetaminophen 1,000 MG Q8P PRN 09/11 0015 AC IV Acetylcysteine 2 ML BID 09/11 0900 AC 09/13 INH 1914 Albuterol Sulfate 3 ML BID 09/12 2100 AC 09/13 INH 1914 Albuterol Sulfate 2 PUF Q4-PRN PRN 09/11 0130 AC INH Aspirin 81 MG DAILY 09/12 0900 AC 09/13 PO 1012 Atorvastatin Calcium 40 MG 1700 09/11 1700 AC 09/13 PO 1700 Azithromycin 250 MG Q48 09/12 1300 AC 09/12 PO 1313 Budesonide/ 2 PUF BID 09/11 0900 AC 09/13 Formoterol Fumarate INH 1044 Docusate Sodium 100 MG DAILY 09/11 0900 AC 09/13 PO 1012 Doxazosin Mesylate 2 MG QPM 09/11 2100 AC 09/12 PO 2226 Ferrous Gluconate 324 MG BID 09/11 0900 AC 09/13 PO 1043 Folic Acid 1 MG DAILY 09/11 0900 AC 09/13 PO 1012 Furosemide 40 MG DAILY 09/14 0900 AC PO Furosemide 40 MG BID 09/13 1000 DC 09/13 PO 1012 Furosemide 20 MG BID 09/12 1015 DC 09/12 IV 2234 Guaifenesin 10 ML Q6P PRN 09/12 0300 AC PO Insulin Aspart 0 TIDAC 09/11 1700 AC 09/13 SC 1729 Omeprazole 40 MG DAILY AC 09/11 0700 AC 09/13 PO 0636 Potassium Chloride 10 MEQ DAILY 09/11 0900 AC 09/13 PO 1044 Potassium Chloride 40 MEQ BID 09/11 0900 AC 09/13 PO 1044 Prednisone 10 MG DAILY 09/13 0900 AC 09/13 PO 09/22 0901 1012 Prednisone 15 MG DAILY 09/12 899 DC 09/12 PO 09/13 0600 0800 Sodium Chloride 3 % TID 09/13 09 AC 09/13 INH 1840 Vital Signs & I&O Last 24 Hrs of Vitals and I&O: Vital Signs Date Time Temp Pulse Resp B/P B/P Pulse O2 O2 Flow FiO2 Mean Ox Delivery Rate 09/13 1840 94 Nasal 4.5L Cannula 09/13 1600 Nasal 4.5L Cannula 09/13 1449 98.4 68 20 106/52 94 Nasal 4.0L Cannula 09/13 1034 92 Nasal 4.0L Cannula 09/13 0800 93 Nasal 4.5L Cannula 09/13 0653 98.2 82 20 126/58 95 Nasal Cannula 09/13 0000 Nasal 3.5L Cannula 09/12 2221 98.2 70 20 106/50 93 Nasal 4.0L Cannula 09/12 2039 95 Nasal 4.0L Cannula Intake & Output 09/13 1600 09/13 0800 09/13 0000 Intake Total 500 400 Output Total 820 700 250 Balance -320 -300 -250 Intake, Oral 500 400 Number 1 Bowel Movements Output, Urine 820 700 250 Patient 189 lb 188 lb Weight Weight Bed scale Measurement Method Impression/Plan Impression/Plan Impression/Plan: General Appearance Alert, Oriented X3, Cooperative, Mild Distress Skin erythema over the lower back and buttocks Skin Temp/Moisture Exam: Warm/Dry Sepsis Skin Exam (color): Normal for Ethnicity HEENT Atraumatic, EOMI, dry mucosal membranes Neck Supple, No JVD Lymphatic Cervical nl Cardiovascular Regular Rate, Normal S1, Normal S2, No Murmurs Lungs bilateral rhonchi Abdomen Normal Bowel Sounds, Soft, No Tenderness Neurological Normal Speech, Strength at 5/5 X4 Ext, Normal Tone, Sensation Intact, Cranial Nerves 3-12 NL Extremities No Clubbing, No Cyanosis, Normal Pulses, No Tenderness/Swelling, bilateral lower extremity pitting edema 2+ Vascular Normal Pulses, Pulses Symmetrical This is a 86-year-old gentleman with very severe COPD, has been on chronic oxygen therapy, significant pulmonary hypertension related to severe COPD and chronic lung disease, poor performance status with 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 Now does not have any evidence of sig pna or copde but has sig mucus pugging and atx and increased secretions * Previous Pseudomonas pna and bronchiectasis exacerbation, difficult to assess if he has active infection now * Significant pulmonary hypertension related to terminal lung disease * Functional quadriparesis related to cervical spine disease patient is not a candidate for any therapy * Lower extremity edema suggestive of chronic cor pulmonale * Previous history of mediastinal lymphadenopathy and nodule needs ct chest * Small lung nodules of no clinical significance * Worsening overall performance status * Bilateral lower lobe atelectasis with restrictive pulmonary physiology as well related to severe pulmonary hypertension * 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 with previous negative QuantiFERON goal tests * 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 who was been on prednisone for long periods * History of on and off aspiration RECOMMENDATION * Agg chest PT ask * Po prednisone 10 mg daily for 5 days and then 5 mg daily * Keep potassium more than 4 * Cont hypertonic saline neb rx tid atc (need to dc him on this) with chest pt bid or tid (6 percent if available), and use mucomyst bid only in tandem with hypertonic saline * User albuterol only if wheezing with nebs * COnt nasal cannula if tolerated, * IV lasix today * KEep out of bed most of the day as he might collapse his left lower lobe if he is in recumbent postion * Agg bowel regimen to continue * PT needs acepella inbetween chest pt * Keep the head of bed elevated * Periodex overall care 3 times a day * If worse will reinstitute ceftaz for 7 to 10 days * Start azithro 250 mg qod permanently * WIll follow * OOB to chair and PT
[2017-09-13 22:08] VITALS: BP 140/60
[2017-09-14 07:00] VITALS: BP 112/50
--- NOTE | 2017-09-14 07:49 | PN- Housestaff ---
Agusto ORTEGA,Joshua 09/14/17 0749: Subjective Follow-up For: sob Subjective: Saw pt at bedside this AM. He states that he is at his usual "not bad." He was getting a nebulizer treatment. No acute overnight events. Review of Systems Constitutional: Denies: chills, weakness. EENTM: Reports: no symptoms. Cardiovascular: Denies: chest pain. Respiratory: Reports: cough, short of breath. Gastrointestinal: Reports: no symptoms. Genitourinary: Reports: no symptoms. Musculoskeletal: Reports: no symptoms. Objective Last 24 Hrs of Vital Signs/I&O Vital Signs Date Time Temp Pulse Resp B/P B/P Pulse O2 O2 Flow FiO2 Mean Ox Delivery Rate 09/14 07 98.2 64 24 112/50 97 Nasal 4.5L Cannula 09/14 0000 Nasal 4.5L Cannula 09/13 2208 98.5 84 24 140/60 94 Nasal Cannula 09/13 1840 94 Nasal 4.5L Cannula 09/13 1600 Nasal 4.5L Cannula 09/13 1449 98.4 68 20 106/52 94 Nasal 4.0L Cannula 09/13 1034 92 Nasal 4.0L Cannula 09/13 0800 93 Nasal 4.5L Cannula Intake & Output 09/14 0800 / 0000 09/13 1600 Intake Total 110 500 Output Total 300 500 820 Balance -190 -500 -320 Intake, IV 10 Intake, Oral 100 500 Number 1 Bowel Movements Output, Urine 300 500 820 Patient 83.149 kg Weight Weight Bed scale Measurement Method Physical Exam General Appearance: Alert, Oriented X3, Cooperative, No Acute Distress HEENT: Atraumatic, PERRLA Cardiovascular: Regular Rate, Normal S1, Normal S2 Abdomen: Normal Bowel Sounds, Soft, No Tenderness Neurological: Normal Speech Current Medications: Current Medications Sig/Kyra Start time Last Medication Dose Route Stop Time Status Admin Acetaminophen 650 MG Q6P PRN 09/11 0015 AC PO Acetaminophen 1,000 MG Q8P PRN 09/11 0015 AC IV Acetylcysteine 2 ML BID 09/11 899 AC 09/13 INH 191 Albuterol Sulfate 3 ML BID 09/12 2100 AC 09/13 INH 191 Albuterol Sulfate 2 PUF Q4-PRN PRN 09/11 0130 AC INH Aspirin 81 MG DAILY 09/12 899 AC 09/13 PO 1012 Atorvastatin Calcium 40 MG 1700 09/11 1700 AC 09/13 PO 1700 Azithromycin 250 MG Q48 09/12 1300 AC 09/12 PO 1313 Budesonide/ 2 PUF BID 09/11 0900 AC 09/13 Formoterol Fumarate INH 2119 Docusate Sodium 100 MG DAILY 09/11 0900 AC 09/13 PO 1012 Doxazosin Mesylate 2 MG QPM / 2100 AC 09/13 PO 2119 Ferrous Gluconate 324 MG BID 09/11 0900 AC 09/13 PO 2258 Folic Acid 1 MG DAILY 09/11 0900 AC 09/13 PO 1012 Furosemide 40 MG DAILY 09/14 0900 AC PO Furosemide 40 MG BID 09/13 1000 DC 09/13 PO 1012 Furosemide 20 MG BID 09/12 1015 DC 09/12 IV 2234 Guaifenesin 10 ML Q6P PRN 09/12 0300 AC PO Insulin Aspart 0 TIDAC 09/11 1700 AC 09/13 SC 1729 Omeprazole 40 MG DAILY AC 09/11 0700 AC 09/14 PO 0610 Potassium Chloride 10 MEQ DAILY 09/11 0900 AC 09/13 PO 1044 Potassium Chloride 40 MEQ BID 09/11 0900 AC 09/13 PO 2118 Prednisone 10 MG DAILY 09/13 0900 AC 09/13 PO 05 0901 1012 Sodium Chloride 3 % TID 09/13 0900 AC 09/13 INH 1840 Assessment/Plan Assessment: Assessment: This is a 86 yo male with PMH of COPD on 4L O2, cor pulmonale, HFpEF ECHO (2017 ) with LVEF >65%, rheumatoid arthritis, quadriparesis with significant cervical degenerative disc disease presenting this admission with chief complaint of shortness of breath. ED workup showed significantly elevated BNP, 3+ L3 edema, and cxr showing continued dense consolidation at L lung base with blunting of costophrenic angle. There is concern for worsening heart failure superimposed by bronchitis exacerbating his underlying COPD. PLAN: 1. Dypnea: Etiology includes bronchitis/bronchiectasis on COPD, or worsening heart failure. There was initially thought to infection and he was empirically treated w/ ceftaz but has been off all abx for 2 days. He is on steroids and no fever or systemic signs of infection. CT chest shows excessing mucum impaction to the point of collapse of lower lobes. Echo shows: Left ventricular cavity size normal. Left ventricular wall thickness mildly increased. No obvious regional wall motion abnormalities. Left ventricular ejection fraction is estimated at > 55 %. Abnormal relaxation filling pattern of the left ventricle for (stage 1 diastolic dysfunction). Normal right ventricular size and function. Mild pulmonary hypertension. No pericardial effusion. This suggests worsening diastolic dysfunction. * Appreciate cardio consult * gentle diuresis * HOLD all anti-cholinergics as we don't want to dry out his secretions and make them harder to expectorate. * O2 as necessary * Con't PO steroid taper * Off all abx * Acapella * Elevate HOB * Peridex care * OOB to chair * Hypertonic saline adn NAC neb * CT CHEST: 1. Extensive mucus inspissation is seen with occlusion of both lower lobe pulmonary bronchi and the right middle lobe bronchus. Dense consolidation and volume loss are seen in the right middle lobe and near complete consolidation and volume loss in both lower lobes. Patchy consolidation and volume loss in the left upper lobe is also noted with narrowing of the left upper lobe uncus. Findings are most likely related to inflammation/infection given the diffuse findings. Malignant disease is felt to be unlikely. No definite central hilar mass is seen, though evaluation is limited on noncontrast study. Continued close clinical correlation and follow-up is recommended. 2. No significant change in some of the previously identified right upper lobe and left upper lobe solid calcified and noncalcified pulmonary nodules dating back to 08/29/2012, consistent with a benign etiology. Several of the previously seen nodules more inferiorly in the right upper lobe have resolved on today's exam. 3. Mediastinal adenopathy is seen, likely reactive to the extensive lung findings and unchanged from prior exam. 4. Trace left and small right-sided pleural effusions are noted. 5. Asymmetric glandular tissue in the subareolar left breast, unchanged dating back to 08/29/2012, likely representing asymmetric gynecomastia. Clinical correlation requested.6. Hepatic hepatic and right renal cysts are seen. 2. Type II MO: Likely 2/2 demand from tachycardia or work of heart secondary to his heart failure. Per cardio, no cath and only conservative measures. * ASA * No beta mely * Statin 3.Anemia: Hb 9.0 after 1u pRBC transfusion, was 8.4 prior to admission. Pt has low irin, low tibc, and nml ferritin. 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 MCV 104.9. The one point above nml tibc could be within error margin. * Goal H/H above 8.0 * Monitor CBC * TFT wnl * Folate B12 WNL 4. Other: Con't Doxazosin, Con't PPI Problem List: 1. COPD exacerbation Pain Ratin Pain Location: none Pain Goal: Remain pain free Pain Plan: none Tomorrow's Labs & Rationales: none Kennedy Holbrook 09/14/17 1114: Attending MD Review Statement Attending Statement Attending MD Statement: examined this patient, discuss w/resident/PA/[employer], agreed w/resident/PA/[employer], discussed with family, reviewed EMR data (avail), discussed with nursing, discussed with case mgmt, reviewed images, amended to note Attending Assessment/Plan: Patient denies any new compliants. Patient can be discharged to his facility on PO lasix and avoid anticholinergics. Continue with azithromycin qod as per pulmonary. Steroid taper as per pulm. FOLLOW UP Dr Arzate in 1 week of discharge. Cardiology in 1-2 week of discharge.
[2017-09-14] MEDS ORDERED: PREDNISONE10 M2 PO (08:15)
--- NOTE | 2017-09-14 08:24 | Patient Discharge Instructions ---
Discharge Instructions General Discharge Information You were seen/treated for: copd and chf Watch for these problems: 1. shortness of breath 2. chest pain 3. more lower extremity swelling 4. fever Special Instructions: 1. please follow up with your pcp 2. please follow up wtih your appraisal technician 3. take your meds as prescribed 4. Pt is going to need aggressive chest PT with mindful attention to cervical degeneration Diet Continue normal diet: No Recommended Diet: low salt diet Activity Activity Self Limited: Yes Acute Coronary Syndrome Inclusion Criteria At DC or during hospital stay patient has or had the following: ACS DIAGNOSIS No Discharge Core Measures Meds if any: Prescribed or Continued at Discharge Meds if any: NOT Prescribed or Continued at Discharge Congestive Heart Failure Inclusion Criteria At DC or during hospital stay patient has or had the following: CHF DIAGNOSIS Yes Discharge Core Measures Meds if any: Prescribed or Continued at Discharge Meds if any: NOT Prescribed or Continued at Discharge Cerebrovascular accident Inclusion Criteria At DC or during hospital stay patient has or had the following: CVA/TIA Diagnosis No Discharge Core Measures Meds if any: Prescribed or Continued at Discharge Meds if any: NOT Prescribed or Continued at Discharge Venous thromboembolism Inclusion Criteria VTE Diagnosis No VTE Type NONE VTE Confirmed by (Test) NONE Discharge Core Measures - Per Current guidelines, there needs to be overlap - treatment for the first 5 days of Warfarin therapy. - If discharged on Warfarin prior to 5 days of - overlap therapy, the patient will need to be - assessed for post discharge needs including - *Post discharge parental anticoagulation - *Warfarin and/or parental anticoagulation education - *Follow up date to check INR post discharge At least 5 days overlap therapy as Inpatient No Meds if any: Prescribed or Continued at Discharge Note: Overlap Therapy is Warfarin and Anticoagulant Meds if any: NOT Prescribed or Continued at Discharge
[2017-09-14 08:29] LABS: ABSOLUTE BASOPHIL COUNT 0 /CUMM (0.0-0.2); ABSOLUTE EOSINOPHIL COUNT 0.1 /CUMM (0.0-0.7); ABSOLUTE GRANULOCYTE CT 3.6 /CUMM (1.4-6.5); ABSOLUTE LYMPH COUNT 1.9 /CUMM (1.2-3.4); ABSOLUTE MONOCYTE COUNT 0.5 /CUMM (0.10-0.60); BASOPHIL % 0.2 % (0.0-2.0); EOSINOPHIL % 1.4 % (0-5); GRANULOCYTE % 59.2 % (42.2-75.2); HEMATOCRIT 28.7 % (42-52); MEAN CORPUSCULAR HGB 33.8 PG (27.0-31.0); MEAN CORPUSCULAR VOLUME 102.5 FL (80.0-94.0); MEAN PLATELET VOLUME 9.5 FL (7.4-10.4); PLATELET COUNT 219 /CUMM (130-400); RBC DISTRIBUTION WIDTH 21.2 % (11.5-14.5); WHITE BLOOD CELL COUNT 6.1 /CUMM (4.8-10.8)
--- NOTE | 2017-09-14 08:29 | Discharge Summary ---
Visit Information Visit Dates Admission Date: 09/10/17 Discharge Date: 09/14/2017 Hospital Course Course Attending Physician: Kennedy Holbrook MD Primary Care Physician: Rachel ORTEGA,Neel Greene Consulting Request: Consulting Specialty: Pulmonary Disease Hospital Course: Assessment: This is a 86 yo male with PMH of COPD on 4L O2, cor pulmonale, HFpEF ECHO (2017 ) with LVEF >65%, rheumatoid arthritis, quadriparesis with significant cervical degenerative disc disease presenting this admission with chief complaint of shortness of breath. ED workup showed significantly elevated BNP, 3+ L3 edema, and cxr showing continued dense consolidation at L lung base with blunting of costophrenic angle. There is concern for worsening heart failure superimposed by bronchitis exacerbating his underlying COPD. PLAN: 1. Dypnea: Etiology includes bronchitis/bronchiectasis on COPD, or worsening heart failure. There was initially thought to infection and he was empirically treated w/ ceftaz but has been off all abx for 2 days. He is on steroids and no fever or systemic signs of infection. CT chest shows excessing mucum impaction to the point of collapse of lower lobes. Echo shows: Left ventricular cavity size normal. Left ventricular wall thickness mildly increased. No obvious regional wall motion abnormalities. Left ventricular ejection fraction is estimated at > 55 %. Abnormal relaxation filling pattern of the left ventricle for (stage 1 diastolic dysfunction). Normal right ventricular size and function. Mild pulmonary hypertension. No pericardial effusion. This suggests worsening diastolic dysfunction. * Appreciate cardio consult * gentle diuresis 40mg daily po lasix * HOLD all anti-cholinergics as we don't want to dry out his secretions and make them harder to expectorate. * O2 as necessary * Con't PO steroid taper * Off all abx * Acapella and chest pt TID to continue. * Elevate HOB * Peridex care * OOB to chair for most of the day * Hypertonic saline and NAC neb in tandem * CT CHEST: 1. Extensive mucus inspissation is seen with occlusion of both lower lobe pulmonary bronchi and the right middle lobe bronchus. Dense consolidation and volume loss are seen in the right middle lobe and near complete consolidation and volume loss in both lower lobes. Patchy consolidation and volume loss in the left upper lobe is also noted with narrowing of the left upper lobe uncus. Findings are most likely related to inflammation/infection given the diffuse findings. Malignant disease is felt to be unlikely. No definite central hilar mass is seen, though evaluation is limited on noncontrast study. Continued close clinical correlation and follow-up is recommended. 2. No significant change in some of the previously identified right upper lobe and left upper lobe solid calcified and noncalcified pulmonary nodules dating back to 08/29/2012, consistent with a benign etiology. Several of the previously seen nodules more inferiorly in the right upper lobe have resolved on today's exam. 3. Mediastinal adenopathy is seen, likely reactive to the extensive lung findings and unchanged from prior exam. 4. Trace left and small right-sided pleural effusions are noted. 5. Asymmetric glandular tissue in the subareolar left breast, unchanged dating back to 08/29/2012, likely representing asymmetric gynecomastia. Clinical correlation requested.6. Hepatic hepatic and right renal cysts are seen. 2. Type II MA: Likely 2/2 demand from tachycardia or work of heart secondary to his heart failure. Per cardio, no cath and only conservative measures. * ASA * No beta mely * Statin 3.Anemia: Hb 9.0 after 1u pRBC transfusion, was 8.4 prior to admission. Pt has low irin, low tibc, and nml ferritin. 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 MCV 104.9. The one point above nml tibc could be within error margin. * Goal H/H above 8.0 * Monitor CBC * TFT wnl * Folate B12 WNL 4. Other: Con't Doxazosin, Con't PPI Allergies: Coded Allergies: NO KNOWN ALLERGIES (08/29/12) Disposition Summary Disposition Principal Diagnosis: copd Additional Diagnosis: chf Discharge Disposition: SNF Discharge Instructions General Discharge Information Code Status: Full Code Patient's Diet: low salt diet Patient's Activity: as tolerated Follow-Up Instructions/Appts: see above Medications at Discharge Discharge Medications: Stop taking the following medications: Ipratropium/Albuterol Sulfate (Iprat-Albut 0.5-3(2.5) MG/3 Ml) 0.5 MG-3 MG (2.5 MG BASE)/3 ML AMPUL.NEB Inhale Solution BID PRN as needed for SHORTNESS OF BREATH Qty = 1 Acetazolamide (Acetazolamide) 250 MG TABLET ORAL TuSa@1000 Qty = 30 Furosemide (Lasix) 40 MG TABLET ORAL SUNDAY, SUNDAY AND SUNDAY Qty = 30 Prednisone (Prednisone) 10 MG TABLET ORAL SEE ADMIN Qty = 5 Continue taking these medications: Aspirin (Aspirin*) 81 MG TAB.CHEW 1 Tablet ORAL DAILY Comments: Last Taken: 05/29/17 Time: 9:00 AM Budesonide (Budesonide) 0.25 MG/2 ML AMPUL.NEB 1 Vial Inhale Solution THREE TIMES DAILY as needed for OB, COPD Qty = 120 Comments: Last Taken: 05/29/17 Time: 9:00 AM Calcium Carb/Vitamin D3/Vit K1 (Citracal Soft Chew) 500 MG CALCIUM-1,000 UNIT-40 MCG TAB.CHEW 1 Tablet ORAL DAILY Comments: NOT GIVEN IN HOSPITAL Colchicine (Colcrys) 0.6 MG TABLET 1 Tablet ORAL EVERY 48 HOURS (Every 2 days) Qty = 15 Comments: NOT GIVEN IN HOSPITAL [place]-3 Fatty Acids/Fish Oil (Fish Oil 1,000 MG Capsule) 340 MG-1,000 MG CAPSULE 1 Capsule ORAL DAILY Comments: NOT GIVEN IN HOSPITAL Glucosamine/D3/Boswellia Chey (Glucosamine Complex Tablet) 1,500 MG-400 UNIT- 100 MG TABLET 2 Tablet ORAL DAILY Comments: NOT GIVEN IN HOSPITAL Multivit-Min/FA/Lycopen/Lutein (Centrum Silver Tablet) 0.4 MG-300 MCG-250 MCG TABLET 1 Tablet ORAL Instructions: *TWICE PER WEEK Comments: NOT GIVEN IN HOSPITAL Terazosin HCl (Terazosin HCl) 5 MG CAPSULE 1 Capsule ORAL Every night Qty = 90 Comments: NOT GIVEN IN HOSPITAL Ascorbic Acid (Vitamin C) 500 MG CAPSULE.ER 1 Capsule ORAL 2 times per week Comments: NOT GIVEN IN HOSPITAL Omeprazole (Omeprazole) 40 MG CAPSULE.DR 1 Capsule ORAL DAILY Qty = 90 Comments: Last Taken: 05/29/17 Time: 6:00 AM Potassium Chloride (Potassium Chloride) 20 MEQ TAB.ER.PRT 0.5 Tablet ORAL DAILY Qty = 30 Comments: Last Taken: 05/29/17 Time: 9:00 AM Albuterol Sulfate (Proair Hfa) 90 MCG HFA.AER.AD 2 Puff Inhale through mouth EVERY 4 HOURS NEEDED as needed for COPD Qty = 8 Comments: REC'D NEBULIZERS DURING HOSPITAL STAY Cholecalciferol (Vitamin D3) (Vitamin D3) 1,000 UNIT CAPSULE 1 Capsule ORAL DAILY Comments: NOT GIVEN IN HOSPITAL Nystatin (Nystatin) 100,000 UNIT/GRAM CREAM..G. 1 Application On the skin 2 x Daily as needed as needed for RASH Qty = 90 Instructions: apply to affected area(s) Comments: NOT GIVEN IN HOSPITAL Azithromycin (Zithromax) 250 MG TABLET 1 Dose Pack ORAL EVERY 48 HOURS (Every 2 days) Qty = 30 Instructions: start after ceftazidine Comments: NOT GIVEN IN HOSPITAL Ferrous Gluconate (Ferrous Gluconate) 324 MG (38 MG IRON) TABLET 1 Tablet ORAL TWICE DAILY Qty = 30 Comments: Last Taken: 05/29/17 Time: 9:00 AM Atorvastatin Calcium (Atorvastatin Calcium) 40 MG TABLET 1 Tablet ORAL 5 PM Qty = 30 Comments: Last Taken: 05/29/17 Time: 4:00 PM Carbamide Peroxide (Carbamide) 6.5 % DROPS 5 Drop OTIC TWICE DAILY Qty = 1 Comments: Last Taken: 05/28/17 Time: 8:00 AM Chlorhexidine Gluconate (Peridex) 0.12 % MOUTHWASH 15 Milliliters ORAL THREE TIMES DAILY Qty = 1 Instructions: mouth rinse Comments: Last Taken: 05/29/17 Time: 9:00 AM Magnesium Oxide (Magnesium Oxide) 400 MG TABLET 1 Tablet ORAL DAILY Qty = 30 Comments: Last Taken: 05/29/17 Time: 9:00 AM Docusate Sodium (Docusate Sodium) 100 MG CAPSULE 1 Tablet ORAL DAILY Qty = 30 Comments: Last Taken: 05/29/17 Time: 9:00 AM Polyethylene Glycol 3350 (Miralax) 17 GRAM/DOSE POWDER 1 Dose ORAL DAILY Qty = 1 Comments: Last Taken: 05/29/17 Time: 9:00 AM Sennosides/Docusate Sodium (Senna-Time S Tablet) 8.6 MG-50 MG TABLET 1 Milligram ORAL GIVE ONCE Qty = 30 Comments: Last Taken: 05/29/17 Time: 9:00 AM Folic Acid (Folic Acid) 1 MG TABLET 1 Tablet ORAL DAILY Days = 30 Budesonide/Formoterol Fumarate (Symbicort 160-4.5 Mcg Inhaler) 160 MCG-4.5 MCG/ ACTUATION HFA.AER.AD 2 Puff Inhale through mouth TWICE DAILY Days = 30 Start taking the following new medications: Acetylcysteine (Acetylcysteine) 200 MG/ML (20 %) VIAL 2 Milliliters Inhale through mouth TWICE DAILY as needed for SOB Qty = 30 No Refills Instructions: PLEASE ADMINISTER THE NAC AND 3% NACL NEB IN [place] PRN SOB Prednisone (Prednisone) 10 MG TABLET 1 Tablet ORAL SEE ADMIN Qty = 30 No Refills Comments: FROM 09/15-09/17 TAKE 1 TAB PO DAILY FROM 09/18 ONWARDS TAKE 0.5 TAB PO DAILY Furosemide (Lasix) 40 MG TABLET 1 Tablet ORAL DAILY Qty = 30 No Refills Sodium Chloride 3 % (Sodium Chloride) 3 % IV.SOLN 1 VIAL Inhale through mouth THREE TIMES DAILY Qty = 30 No Refills Copies To: Rachel ORTEGA,Neel Greene
[2017-09-14] MEDS ORDERED: SODIUM CHLORID500 ML INH (08:45)
[2017-09-14] MEDS ORDERED: ACETYLCYST200 MG/1 M INH ×3 (08:57→09:47)
[2017-09-14] MEDS ORDERED: LASIX40 M1 PO (09:08)
--- NOTE | 2017-09-14 09:33 | PN- Pulmonary ---
Subjective HPI/Critical Care Issues: DOing well stable Saw pt at bedside this AM. He states that he is at his usual "not bad." No acute overnight events. Review of Systems Constitutional: Denies: chills, weakness. EENTM: Reports: no symptoms. Cardiovascular: Denies: chest pain. Respiratory: Reports: cough, short of breath. Gastrointestinal: Reports: no symptoms. Genitourinary: Reports: no symptoms. Musculoskeletal: Reports: no symptoms. Objective Current Medications: Current Medications Sig/Kyra Start time Last Medication Dose Route Stop Time Status Admin Acetaminophen 650 MG Q6P PRN 09/11 0015 AC PO Acetaminophen 1,000 MG Q8P PRN 09/11 0015 AC IV Acetylcysteine 2 ML BID 09/11 0900 AC 09/14 INH 0815 Albuterol Sulfate 3 ML BID 09/12 2100 AC 09/14 INH 0815 Albuterol Sulfate 2 PUF Q4-PRN PRN 09/11 0130 AC INH Aspirin 81 MG DAILY 09/12 0900 AC 09/14 PO 0905 Atorvastatin Calcium 40 MG 1700 09/11 1700 AC 09/13 PO 1700 Azithromycin 250 MG Q48 09/12 1300 AC 09/14 PO 0905 Budesonide/ 2 PUF BID 09/11 0900 AC 09/14 Formoterol Fumarate INH 0913 Docusate Sodium 100 MG DAILY 09/11 0900 AC 09/14 PO 0905 Doxazosin Mesylate 2 MG QPM 09/11 2100 AC 09/13 PO 2119 Ferrous Gluconate 324 MG BID 09/11 0900 AC 09/14 PO 0904 Folic Acid 1 MG DAILY 09/11 0900 AC 09/14 PO 0905 Furosemide 40 MG DAILY 09/14 0900 AC 09/14 PO 0904 Furosemide 40 MG BID 09/13 1000 DC 09/13 PO 1012 Furosemide 20 MG BID 09/12 1015 DC 09/12 IV 2234 Guaifenesin 10 ML Q6P PRN 09/12 0300 AC PO Insulin Aspart 0 TIDAC 09/11 1700 AC 09/13 SC 1729 Omeprazole 40 MG DAILY AC 09/11 0700 AC 09/14 PO 0610 Potassium Chloride 10 MEQ DAILY 09/11 0900 AC 09/14 PO 0905 Potassium Chloride 40 MEQ BID 09/11 0900 AC 09/14 PO 0904 Prednisone 10 MG DAILY 09/13 0900 AC 09/14 PO 09/22 0901 0904 Sodium Chloride 3 % TID 09/13 899 AC 09/14 INH 0816 Vital Signs & I&O Last 24 Hrs of Vitals and I&O: Vital Signs Date Time Temp Pulse Resp B/P B/P Pulse O2 O2 Flow FiO2 Mean Ox Delivery Rate 09/14 07 98.2 64 24 112/50 97 Nasal 4.5L Cannula 09/14 0000 Nasal 4.5L Cannula 09/13 2208 98.5 84 24 140/60 94 Nasal Cannula 09/13 1840 94 Nasal 4.5L Cannula 09/13 1600 Nasal 4.5L Cannula 09/13 1449 98.4 68 20 106/52 94 Nasal 4.0L Cannula 09/13 1034 92 Nasal 4.0L Cannula Intake & Output 09/14 1600 09/14 0800 09/14 0000 Intake Total 110 Output Total 300 500 Balance -190 -500 Intake, IV 10 Intake, Oral 100 Number 1 Bowel Movements Output, Urine 300 500 Patient 183 lb Weight Weight Bed scale Measurement Method Impression/Plan Impression/Plan Impression/Plan: General Appearance Alert, Oriented X3, Cooperative, Mild Distress Skin erythema over the lower back and buttocks Skin Temp/Moisture Exam: Warm/Dry Sepsis Skin Exam (color): Normal for Ethnicity HEENT Atraumatic, EOMI, dry mucosal membranes Neck Supple, No JVD Lymphatic Cervical nl Cardiovascular Regular Rate, Normal S1, Normal S2, No Murmurs Lungs bilateral rhonchi Abdomen Normal Bowel Sounds, Soft, No Tenderness Neurological Normal Speech, Strength at 5/5 X4 Ext, Normal Tone, Sensation Intact, Cranial Nerves 3-12 NL Extremities No Clubbing, No Cyanosis, Normal Pulses, No Tenderness/Swelling, bilateral lower extremity pitting edema 2+ Vascular Normal Pulses, Pulses Symmetrical This is a 86-year-old gentleman with very severe COPD, has been on chronic oxygen therapy, significant pulmonary hypertension related to severe COPD and chronic lung disease, poor performance status with 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 Now does not have any evidence of sig pna or copde but has sig mucus pugging and atx and increased secretions * Previous Pseudomonas pna and bronchiectasis exacerbation, difficult to assess if he has active infection now * Significant pulmonary hypertension related to terminal lung disease * Functional quadriparesis related to cervical spine disease patient is not a candidate for any therapy * Lower extremity edema suggestive of chronic cor pulmonale * Previous history of mediastinal lymphadenopathy and nodule needs ct chest * Small lung nodules of no clinical significance * Worsening overall performance status * Bilateral lower lobe atelectasis with restrictive pulmonary physiology as well related to severe pulmonary hypertension * 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 with previous negative QuantiFERON goal tests * 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 who was been on prednisone for long periods * History of on and off aspiration RECOMMENDATION * Stabke * Po prednisone 10 mg daily for 5 days and then 5 mg daily * Keep potassium more than 4 * Cont hypertonic saline neb rx tid atc (need to dc him on this) with chest pt bid if able in rehab with mucomyst bid nebs with albuterol bid after hypertonic saline nebs * COnt nasal cannula if tolerated, * Keep potassium daily and reduce to 40 qd upon c * KEep out of bed most of the day as he might collapse his left lower lobe if he is in recumbent postion * Agg bowel regimen to continue * PT needs acepella upon dc in rehab * Keep the head of bed elevated * Azithro 250 mg qod permanently * WIll follow * OOB to chair and PT
[2017-09-14 10:13] VITALS: BP 112/50
--- NOTE | 2017-09-14 11:25 | PN- Cardiology ---
Subjective Subjective: Doing well. Cough is improving. Objective Vital Signs and I&Os Vital Signs Date Time Temp Pulse Resp B/P B/P Pulse O2 O2 Flow FiO2 Mean Ox Delivery Rate 09/14 1013 98.2 64 24 112/50 09/14 0816 96 Nasal 4.0L Cannula 09/14 0800 Nasal 3.5L Cannula 09/14 0700 98.2 64 24 112/50 97 Nasal 4.5L Cannula 09/14 0000 Nasal 4.5L Cannula 09/13 2208 98.5 84 24 140/60 94 Nasal Cannula 09/13 1840 94 Nasal 4.5L Cannula 09/13 1600 Nasal 4.5L Cannula 09/13 1449 98.4 68 20 106/52 94 Nasal 4.0L Cannula Intake & Output 09/14 1600 09/14 0809/14 0000 09/13 1600 09/13 0800 09/13 0000 Intake Total 110 500 400 Output Total 300 500 820 700 250 Balance -190 -500 -320 -300 -250 Intake, IV 10 Intake, Oral 100 500 400 Number 1 1 Bowel Movements Output, Urine 300 500 820 700 250 Patient 183 lb 189 lb 188 lb Weight Weight Bed scale Bed scale Measurement Method Physical Exam: General: no apparent distress. Alert. On nasal cannula Eyes: No obvious scleral icterus. HEENT: No jugular venous distention or abnormal jugular venous pulsations. Cardiovascular: Normal intensity S1/S2. Regular Respiratory: Decreased air entry on the left Abdomen: Soft, nontender with no guarding or rebound tenderness. Musculoskeletal: No clubbing or cyanosis noted; trace lower extremity edema Skin: warm Neurologic: No gross focal deficits noted. Current Medications: Current Medications Sig/Kyra Start time Last Medication Dose Route Stop Time Status Admin Acetaminophen 650 MG Q6P PRN 09/11 0015 AC PO Acetaminophen 1,000 MG Q8P PRN 09/11 0015 AC IV Acetylcysteine 2 ML BID 09/11 0900 AC 09/14 INH 0815 Albuterol Sulfate 3 ML BID 09/12 2100 AC 09/14 INH 0815 Albuterol Sulfate 2 PUF Q4-PRN PRN 09/11 0130 AC INH Aspirin 81 MG DAILY 09/12 0900 AC 09/14 PO 0905 Atorvastatin Calcium 40 MG 1700 09/11 1700 AC 09/13 PO 1700 Azithromycin 250 MG Q48 09/12 1300 AC 09/14 PO 0905 Budesonide/ 2 PUF BID 09/11 0900 AC 09/14 Formoterol Fumarate INH 0913 Docusate Sodium 100 MG DAILY 09/11 09 AC 09/14 PO 09 Doxazosin Mesylate 2 MG QPM 09/11 2100 AC 09/13 PO 2119 Ferrous Gluconate 324 MG BID 09/11 0900 AC 09/14 PO 0904 Folic Acid 1 MG DAILY 09/11 0900 AC 09/14 PO 0905 Furosemide 40 MG DAILY 09/14 09 AC 09/14 PO 0904 Furosemide 40 MG BID 09/13 1000 DC 09/13 PO 1012 Guaifenesin 10 ML Q6P PRN 09/12 0300 AC PO Insulin Aspart 0 TIDAC 09/11 1700 AC 09/13 SC 1729 Omeprazole 40 MG DAILY AC 09/11 0700 AC 09/14 PO 0610 Potassium Chloride 10 MEQ DAILY 09/11 0900 AC 09/14 PO 0905 Potassium Chloride 40 MEQ BID 09/11 0900 AC 09/14 PO 0904 Prednisone 10 MG DAILY 09/13 09 AC 09/14 PO 09/22 0901 0904 Sodium Chloride 3 % TID 09/13 09 AC 09/14 INH 0816 Results Last 48 Hrs of Labs/Mics: Laboratory Tests 09/14/17 0733: Anion Gap 4 L, Estimated GFR > 60, BUN/Creatinine Ratio 20.0, CBC w Diff NO MAN DIFF REQ, RBC 2.80 L, MCV 102.5 H, MCH 33.8 H, MCHC 33.0, RDW 21.2 H, MPV 9.5, Gran % 59.2, Lymphocytes % 31.8, Monocytes % 7.4, Eosinophils % 1.4, Basophils % 0.2, Absolute Granulocytes 3.6, Absolute Lymphocytes 1.9, Absolute Monocytes 0.5, Absolute Eosinophils 0.1, Absolute Basophils 0 09/13/17 0640: Anion Gap 4 L, Estimated GFR > 60, BUN/Creatinine Ratio 24.0, CBC w Diff NO MAN DIFF REQ, RBC 2.76 L, MCV 102.1 H, MCH 33.4 H, MCHC 32.7 L, RDW 21.6 H, MPV 9.6, Gran % 63.8, Lymphocytes % 27.6, Monocytes % 7.8, Eosinophils % 0.4, Basophils % 0.4, Absolute Granulocytes 3.8, Absolute Lymphocytes 1.6, Absolute Monocytes 0.5, Absolute Eosinophils 0, Absolute Basophils 0 Recent Imaging Studies: Telemetry tracings were personally reviewed and shows sinus rhythm Assessment/Plan Assessment/Plan 1. COPD on chronic O2 2. Acute on chronic heart failure with preserved ejection fraction 3. Chronic left lower lobe collapse 4. Minimal troponin elevation likely due to supply demand mismatch 5. History of cervical spinal spinal disease with neurologic deficit Doing well. Continue on the oral Lasix. Steroid taper per pulmonology. Follow-up in our office after discharge. Martin Platt MD FACC Continue telemetry? No
[2017-09-14 14:51] VITALS: BP 112/60
== END 2017-09-14 18:17 | DRG 280 ==
LOC: ERH 22:07 → ERHI 23:41 → 1NO 23:41 → ENPENDDIS 09-14 10:59 → 1NO 09-14 18:17
PROVIDERS: Emergency Medicine; Internal Medicine Hematology & Oncology; Student in an Organized Health Care Education/Training Program
PROC: 30230N1 Transfusion of Nonautologous Red Blood Cells into Peripheral Vein, Open Approach (ICD-10-PCS; principal; 2017-09-11)
DX: I11.0 Hypertensive heart disease with heart failure (principal); I21.A1 Myocardial infarction type 2; G82.50 Quadriplegia, unspecified; J96.11 Chronic respiratory failure with hypoxia; J96.12 Chronic respiratory failure with hypercapnia; J44.1 Chronic obstructive pulmonary disease with (acute) exacerbation; J98.19 Other pulmonary collapse; I27.29 Other secondary pulmonary hypertension; G83.9 Paralytic syndrome, unspecified; I50.33 Acute on chronic diastolic (congestive) heart failure; Z99.81 Dependence on supplemental oxygen; M06.9 Rheumatoid arthritis, unspecified; M47.892 Other spondylosis, cervical region; M47.9 Spondylosis, unspecified; Z79.82 Long term (current) use of aspirin; Z79.51 Long term (current) use of inhaled steroids; Z79.52 Long term (current) use of systemic steroids; N40.0 Benign prostatic hyperplasia without lower urinary tract symptoms; M10.9 Gout, unspecified; E78.5 Hyperlipidemia, unspecified; Z66 Do not resuscitate; I27.81 Cor pulmonale (chronic)
CPT/HCPCS: 1NP; ERO; 36415; 36592; 71045; 82436; 86920; 87040; 87070; 87449; 87450; 87804; 87804-59; 93005; 93010; 93306; 96374; 96375; 99291; J0456; J0713; J1940; J2920; J2930; J3490; J7512; J7608; P9016